=== PATIENT | female | born 1930 | race Caucasian/White ===

== ENCOUNTER → 2016-10-19 | Outpatient (CLI) | payer MEDICARE ==
[2016-10-19 11:29] LABS: Basophils % (A) 1 %; CH 29.5; CHCM 31.7; Eosinophils # (A) 0.1 k/uL (0-0.7); Eosinophils % (A) 2 %; HCT 32.3 % (34.0-46.0); HDW 2.75; HGB 10.4 gm/dL (11.4-16.0); Hypochromasia Slight; Luc # (Auto) 0.18; Luc % (Auto) 3; Lymphocytes # (A) 1.5 k/uL (1.0-4.8); Lymphocytes % (A) 22 %; MCHC 32.1 g/dL (31.0-37.0); MCV 93.6 fL (80.0-100.0); Monocytes # (A) 0.4 k/uL (0-1.0); Monocytes % (A) 6 %; Neutrophils # (A) 4.5 k/uL (1.3-7.7); Neutrophils % (A) 67 %; RBC 3.45 m/uL (3.80-5.40); RDW 14.9 % (11.5-15.5); WBC 6.7 k/uL (3.8-10.6); WBC (Perox) 7.19
[2016-10-19 11:38] LABS: Appearance,Urine Clear (Clear); Bilirubin,Urine Negative (Negative); Glucose,Urine (UA) Negative (Negative); Ketones,Urine Negative (Negative); Leukocyte Esterase,Urine Negative (Negative); Mucus,Urine Rare /hpf; Nitrite,Urine Negative (Negative); Particle Count 2973; Protein,Urine Negative (Negative); RBC,Urine 6 /hpf (0-5); Squamous Epithelial Cell,Urine 12 /hpf (0-4); UA Billing (MACRO vs. MICRO) MICRO; Urobilinogen,Urine <2.0 mg/dL (<2.0); WBC,Urine 3 /hpf (0-5)
[2016-10-19 11:44] LABS: Calcium 9.9 mg/dL (8.4-10.2); Magnesium 1.9 mg/dL (1.6-2.3); Phosphorous 4.1 mg/dL (2.5-4.5); Potassium 5.4 mmol/L (3.5-5.1); Total Bilirubin 0.6 mg/dL (0.2-1.3); Total Protein 6.5 g/dL (6.3-8.2); Uric Acid 7.5 mg/dL (3.7-7.4)
[2016-10-19 11:53] LABS: % Iron Saturation 33.8 % (20-50)
== END ==
LOC: LABWHC1 10:49
PROVIDERS: ATTEND Nurse Practitioner Family
DX: I12.9 Hypertensive chronic kidney disease with stage 1 through stage 4 chronic kidney disease, or unspecified chronic kidney disease (principal); N18.3 Chronic kidney disease, stage 3 (moderate); D64.9 Anemia, unspecified; E55.9 Vitamin D deficiency, unspecified; E21.3 Hyperparathyroidism, unspecified; M10.9 Gout, unspecified; N39.0 Urinary tract infection, site not specified; M10.00 Idiopathic gout, unspecified site; E78.2 Mixed hyperlipidemia; E03.9 Hypothyroidism, unspecified
CPT/HCPCS: 36415; 80053; 80061; 81001; 82306; 82728; 83540; 83550; 83735; 83970; 84100; 84443; 84550; 85025

== ENCOUNTER 2016-11-29 12:31 | Inpatient (IN) | payer MEDICARE ==
[2016-11-29] MEDS ORDERED: ACETAMINOPHEN TAB 325 MG TAB PO STA (13:03)
--- NOTE | 2016-11-29 13:11 | ED ---
General Adult HPI - General Chief complaint: Extremity Injury, Lower Stated complaint: Leg Pain Time Seen by Provider: 11/29/16 12:47 Source: patient, family, RN notes reviewed Mode of arrival: wheelchair Limitations: no limitations - History of Present Illness Initial comments: Chief complaint and history of present illness an 85-year-old female here with her . Patient reports that approximately 11 days ago her leg, right lower leg was banged into by a wheelchair. 5 days ago she saw her family physician was placed on clindamycin. Since then the redness has slightly decreased with localized pain and swelling and he has increased. There is no open wound originally. There is a blackened blood blister. - Related Data Home Medications Medication Instructions Recorded Confirmed ALPRAZolam [Xanax] 0.25 mg PO BID PRN 11/06/13 11/25/16 Atenolol [Tenormin] 25 mg PO DAILY 11/06/13 11/25/16 Ferrous Sulfate [Feosol] 650 mg PO DAILY 11/06/13 11/25/16 Furosemide [Lasix] 40 mg PO DAILY 11/06/13 11/25/16 Montelukast [Singulair] 10 mg PO HS 11/06/13 11/25/16 PARoxetine [Paxil] 10 mg PO DAILY 11/06/13 11/25/16 Albuterol Nebulized [Ventolin 2.5 mg INHALATION RT-BID 12/25/15 11/25/16 Nebulized] Levothyroxine Sodium [Synthroid] 25 mcg PO DAILY 12/25/15 11/25/16 Multivitamin [Multivitamins Adult 1 tab PO DAILY 12/25/15 11/25/16 Gummies] Allergies Allergy/AdvReac Type Severity Reaction Status Date / Time codeine Allergy Severe Nausea & Verified 11/25/16 13:59 Vomiting morphine Allergy Severe Nausea & Verified 11/25/16 13:59 Vomiting Penicillins Allergy Rash/Hives Verified 11/25/16 13:59 trazodone AdvReac Unknown Verified 11/25/16 13:59 Review of Systems ROS Statement: Those systems with pertinent positive or pertinent negative responses have been documented in the HPI. review of systems. Patient denies headache or visual acuity changes she is slightly short of breath and has a history of COPD for which she is her self 2 updrafts daily. No nausea no vomiting. Pain swelling redness right lower leg. No neuro deficits. All systems are reviewed.Past medical processing significant for COPD, hypertension, myocardial infarction 2012 with one stent placed stage IV renal disease. On occasion has to get injections of Procrit. Has never had transfusion of blood. Patient surgeries include tonsils, adenoids , cholecystectomy, heart catheterization with one stent placed. Umbilical hernia repair. She's had a colonoscopy. 2 total knees done. Family history sister had breast cancer. She has ALLERGIES to medications codeine and morphine penicillin trazodone which upset her stomach does not give her true ALLERGIC-type reactions such as hives or difficulty breathing or rash. Nonsmoker nondrinker. ROS Other: All systems not noted in ROS Statement are negative. Past Medical History Past Medical History: Asthma, COPD, Hypertension, Myocardial Infarction ([place]), Renal Disease Last Myocardial Infarction Date:: 2010 History of Any Multi-Drug Resistant Organisms: None Reported Past Surgical History: Adenoidectomy, Cholecystectomy, Heart Catheterization With Stent, Hernia Repair, Tonsillectomy Additional Past Surgical History / Comment(s): Hx colonoscopy, left and rt knee replacement hx oopherectomy Date of Last Stent Placement:: 2010 Past Psychological History: Anxiety Smoking Status: Never smoker Past Alcohol Use History: None Reported Past Drug Use History: None Reported General Exam - General Exam Comments Initial Comments: General: The patient is awake and alert, here because of worsening cellulitis right lower leg. Vital signs shows temperature 97.8 pulse 60 respiratory rate 20 , pulse ox 96% on room air, blood pressure 139/65 Eye: Pupils are equal, round and reactive to light, extra-ocular movements are intact ; there is normal conjunctiva bilaterally. No signs of icterus. Ears, nose, mouth and throat: There are moist mucous membranes and no oral lesions. Neck: The neck is supple, there is no tenderness , no anterior cervical lymphadenopathy, thyroid not enlarged. Cardiovascular: There is a regular rate and rhythm. No murmur, rub or gallop is appreciated. Respiratory: Lungs are clear to auscultation, respirations are non-labored, breath sounds are equal. No wheezes, stridor, rales, or rhonchi.history of COPD Gastrointestinal: Soft, non-distended, non-tender abdomen without masses or organomegaly noted. There is no rebound or guarding present. No CVA tenderness. Bowel sounds are unremarkable. Back: There is no tenderness to palpation in the midline. There is no obvious deformity. Musculoskeletal: all extremities are normal and move normal for her age. But she does have pain and swelling and cellulitis to her right distal leg. Neurological: CN II-XII intact, no evidence of a neuro deficits. Skin: cellulitis right lower leg Psychiatric: Cooperative, appropriate mood & affect, normal judgment. Limitations: no limitations Course Vital Signs 11/29/16 11/29/16 12:36 14:32 Temperature 97.8 F 98.1 F Pulse Rate 60 Respiratory 20 Rate Blood Pressure 139/65 O2 Sat by Pulse 96 Oximetry Medical Decision Making - Medical Decision Making Medical decision making the patient's white count is 10.9 hemoglobin 10.9 hematocrit 34, potassium 5.9 with a BUN elevated at 70 creatinine 2.45 the GFR 19. Pulse ox 96% room air. X-ray of the right leg was done and reviewed by radiologist his impression is a mild subcutaneous edema edema. No fracture. Bony structures are stable compared to old exam. As read by Dr. Tineo The patient's case was discussed with Dr. colon, he recommends starting vancomycin at this time with infectious disease consult. Patient be admitted to his service - Lab Data Result diagrams: 11/29/16 13:50 11/29/16 13:50 Lab Results 11/29/16 11/29/16 Range/Units 13:50 13:50 WBC 10.9 H (3.8-10.6) k/uL RBC 3.65 L (3.80-5.40) m/uL Hgb 10.9 L (11.4-16.0) gm/dL Hct 34.1 (34.0-46.0) % MCV 93.5 (80.0-100.0) fL MCH 29.7 (25.0-35.0) pg MCHC 31.8 (31.0-37.0) g/dL RDW 15.5 (11.5-15.5) % Plt Count 148 L (150-450) k/uL Neutrophils % 78 % Lymphocytes % 14 % Monocytes % 4 % Eosinophils % 1 % Basophils % 0 % Neutrophils # 8.6 H (1.3-7.7) k/uL Lymphocytes # 1.5 (1.0-4.8) k/uL Monocytes # 0.4 (0-1.0) k/uL Eosinophils # 0.2 (0-0.7) k/uL Basophils # 0.0 (0-0.2) k/uL Hypochromasia Slight Sodium 139 (137-145) mmol/L Potassium 5.9 H (3.5-5.1) mmol/L Chloride 112 H (98-107) mmol/L Carbon Dioxide 16 L (22-30) mmol/L Anion Gap 11 mmol/L BUN 70 H (7-17) mg/dL Creatinine 2.45 H (0.52-1.04) mg/dL Est GFR (MDRD) Af Amer 23 (>60 ml/min/1.73 sqM) Est GFR (MDRD) Non-Af 19 (>60 ml/min/1.73 sqM) Glucose 105 H (74-99) mg/dL Calcium 10.1 (8.4-10.2) mg/dL Total Bilirubin 0.9 (0.2-1.3) mg/dL AST 33 (14-36) U/L ALT 26 (9-52) U/L Alkaline Phosphatase 69 (38-126) U/L Total Protein 7.3 (6.3-8.2) g/dL Albumin 4.1 (3.5-5.0) g/dL Disposition Clinical Impression: Cellulitis of right lower leg, Failure of outpatient treatment Disposition: ADMITTED IP TO THIS [facility] Condition: Serious Referrals: Derrick Vela MD [Primary Care Provider] - 1-2 days
[2016-11-29 14:06] LABS: Basophils % (A) 0 %; CH 29.7; CHCM 31.9; Eosinophils # (A) 0.2 k/uL (0-0.7); Eosinophils % (A) 1 %; HCT 34.1 % (34.0-46.0); HGB 10.9 gm/dL (11.4-16.0); Hypochromasia Slight; Luc # (Auto) 0.22; Luc % (Auto) 2; Lymphocytes # (A) 1.5 k/uL (1.0-4.8); Lymphocytes % (A) 14 %; MCH 29.7 pg (25.0-35.0); MCHC 31.8 g/dL (31.0-37.0); MCV 93.5 fL (80.0-100.0); Mean Platelet Volume 8.8; Monocytes # (A) 0.4 k/uL (0-1.0); Monocytes % (A) 4 %; Neutrophils # (A) 8.6 k/uL (1.3-7.7); Neutrophils % (A) 78 %; RBC 3.65 m/uL (3.80-5.40); RDW 15.5 % (11.5-15.5); WBC 10.9 k/uL (3.8-10.6); WBC (Perox) 11.55
[2016-11-29 14:14] LABS: Calcium 10.1 mg/dL (8.4-10.2); Total Bilirubin 0.9 mg/dL (0.2-1.3); Total Protein 7.3 g/dL (6.3-8.2)
[2016-11-29 14:16] LABS: Potassium 5.9 mmol/L (3.5-5.1)
[2016-11-29] MEDS: SODIUM CHLORIDE 0.9% 1,000 ML IV SCH ×2 (14:31→17:10)
--- NOTE | 2016-11-29 15:02 | XR ---
EXAMINATION TYPE: XR tibia fibula RT DATE OF EXAM: 11/29/2016 2:57 PM COMPARISON: 10/29/2009 HISTORY: Leg abscess TECHNIQUE: 3 views FINDINGS: There is a right knee prosthesis. There is mild subcutaneous edema. I see no fracture nor d islocation. Ankle mortise is anatomic. IMPRESSION: Mild subcutaneous edema. No fracture. Bony structures are stable compared to old exam.
[2016-11-29] MEDS ORDERED: IV VANCOMYCIN PER PHARMACY 1 EACH MISC MISCELLANE PRN (15:06)
[2016-11-29] MEDS ORDERED: NALOXONE 0.4 MG/ML 1 ML VIAL IV PRN (15:07)
[2016-11-29] MEDS ORDERED: ACETAMINOPHEN TAB 325 MG TAB PO PRN (15:07)
[2016-11-29] MEDS ORDERED: IPRATROPIUM-ALBUTEROL 3 ML NEB INHALATION STA (15:24)
[2016-11-29] MEDS ORDERED: VANCOMYCIN 2,000 MG in SODIUM CHLORIDE 0.9% 500 ML IVPB ONE (15:30)
[2016-11-29] MEDS: ALBUTEROL NEBULIZED 2.5 MG/3 ML INHALATION SCH (19:43)
[2016-11-29] MEDS ORDERED: diphenhydrAMINE 25 MG CAP PO PRN (20:48)
[2016-11-29] MEDS ORDERED: PARoxetine 10 MG TAB PO SCH (21:45)
[2016-11-29] MEDS: MONTELUKAST 10 MG TAB PO SCH (21:46)
[2016-11-29] MEDS: ALPRAZolam 0.25 MG TAB PO PRN (21:48)
[2016-11-30] MEDS: SODIUM CHLORIDE 0.9% 1,000 ML IV SCH ×4 (03:44→20:48)
[2016-11-30] MEDS: LEVOTHYROXINE 25 MCG TAB PO SCH (06:46)
[2016-11-30] MEDS: ALBUTEROL NEBULIZED 2.5 MG/3 ML INHALATION SCH ×2 (07:32→20:39)
[2016-11-30 08:08] LABS: Calcium 9.3 mg/dL (8.4-10.2); Potassium 4.4 mmol/L (3.5-5.1)
[2016-11-30] MEDS ORDERED: PARoxetine 10 MG TAB PO SCH (09:00)
[2016-11-30] MEDS: FUROSEMIDE 40 MG TAB PO SCH (09:10)
[2016-11-30] MEDS: ATENOLOL 25 MG TAB PO SCH (09:11)
[2016-11-30] MEDS: FERROUS SULFATE 325 MG TAB PO SCH (11:56)
[2016-11-30] MEDS: MULTIVITAMINS, THERA 1 EACH TAB PO SCH (11:56)
[2016-11-30] MEDS ORDERED: MORPHINE SULFATE 2 MG/ML SYRINGE IVP PRN (14:30)
--- NOTE | 2016-11-30 14:34 | P.HPIM ---
History of Present Illness H&P Date: 11/30/16 Chief Complaint: Right lower extremity redness and swelling This is a 85-year-old female with past medical history noted below who presented to the hospital with worsening right lower extremity swelling and pain. Patient said that 2 weeks ago she bumped her right ankle against the wheelchair. She subsequently had a small wound with surrounding redness. She was seen and evaluated by her primary care physician and was prescribed a course of oral antibiotic. Unfortunately her ankle continued to get worse in terms of swelling and pain. The area of redness was extending. Yesterday she was very concerned and decided to come to the emergency room for further evaluation. She underwent an x-ray showing intact bony structure but significant edema. She was started on broad-spectrum antibiotic with IV vancomycin and is currently admitted to the hospital for further evaluation. On exam, her right ankle appears significantly swollen compared to the left. There is an area of erythema up to the mid chin. There is also warmth to touch and significant tenderness. There is a 1 x 3 cm scab noted as well. Review of Systems Review of system: 14 points review of systems were obtained and were negative except to what were mentioned in the HPI. Past Medical History Past Medical History: Asthma, COPD, Hypertension, Myocardial Infarction ([place]), Renal Disease Last Myocardial Infarction Date:: 2010 History of Any Multi-Drug Resistant Organisms: None Reported Past Surgical History: Adenoidectomy, Cholecystectomy, Heart Catheterization With Stent, Hernia Repair, Tonsillectomy Additional Past Surgical History / Comment(s): Hx colonoscopy, left and rt knee replacement hx oopherectomy Past Anesthesia/Blood Transfusion Reactions: No Reported Reaction Date of Last Stent Placement:: 2010 Past Psychological History: Anxiety Smoking Status: Never smoker Past Alcohol Use History: None Reported Past Drug Use History: None Reported Medications and Allergies Home Medications Medication Instructions Recorded Confirmed Type ALPRAZolam [Xanax] 0.25 mg PO Q8H PRN 11/06/13 11/29/16 History Ferrous Sulfate [Feosol] 650 mg PO DAILY 11/06/13 11/29/16 History Furosemide [Lasix] 40 mg PO DAILY 11/06/13 11/29/16 History Montelukast [Singulair] 10 mg PO HS 11/06/13 11/29/16 History Allopurinol [Zyloprim] 100 mg PO DAILY 11/29/16 11/29/16 History Atenolol [Tenormin] 25 mg PO DAILY 11/29/16 11/29/16 History Calcium Carbonate [Calcium] 600 mg PO DAILY 11/29/16 11/29/16 History Cholecalciferol [Vitamin D3] 5,000 unit PO DAILY 11/29/16 11/29/16 History Clindamycin HCl [Cleocin] 300 mg PO TID 11/29/16 11/29/16 History Multivitamins, Thera [Multivitamin 1 tab PO DAILY 11/29/16 11/29/16 History (formulary)] [place]-3 Fatty Acids [[place]-3] 1,000 mg PO DAILY 11/29/16 11/29/16 History PARoxetine [Paxil] 20 mg PO HS 11/29/16 11/29/16 History Zinc 50 mg PO DAILY 11/29/16 11/29/16 History Allergies Allergy/AdvReac Type Severity Reaction Status Date / Time codeine Allergy Severe Nausea & Verified 11/29/16 15:24 Vomiting morphine Allergy Severe Nausea & Verified 11/29/16 15:24 Vomiting Penicillins Allergy Rash/Hives Verified 11/29/16 15:24 trazodone AdvReac Unknown Verified 11/29/16 15:24 Physical Exam Vitals: Vital Signs Temp Pulse Pulse Pulse Resp BP BP 11/30/16 07:46 68 11/30/16 07:34 68 11/30/16 07:00 99.0 F 68 19 154/70 11/29/16 23:55 98.2 F 64 20 139/84 11/29/16 16:33 97.2 F L 69 16 148/73 11/29/16 16:04 98.1 F 66 18 155/69 11/29/16 15:34 66 11/29/16 15:29 62 11/29/16 15:14 98.1 F 65 18 148/68 11/29/16 14:32 98.1 F Pulse Ox 11/30/16 07:46 11/30/16 07:34 11/30/16 07:00 94 L 11/29/16 23:55 96 11/29/16 16:33 95 11/29/16 16:04 96 11/29/16 15:34 11/29/16 15:29 11/29/16 15:14 96 11/29/16 14:32 Intake and Output 11/29/16 11/30/16 11/30/16 22:59 06:59 14:59 Intake Total 200 450 Balance 200 450 Intake: Oral 200 450 Other: Voiding Method Toilet Toilet Bedside Commode Bedside Commode # Voids 4 2 General: The patient is awake and alert, in no distress Eye: there is normal conjunctiva bilaterally. Neck: The neck is supple, there is no JVD. Cardiovascular: Normal S1-S2, no S3-S4, no murmurs. Respiratory: Lungs clear to auscultation bilaterally Gastrointestinal: Abdomen is soft, nontender Musculoskeletal: There is no pedal edema. Neurological:. Speech is normal. Skin: As detailed above in HPI Results CBC & Chem 7: 11/29/16 13:50 11/30/16 07:22 Labs: Abnormal Lab Results - Last 24 Hours (Table) 11/30/16 Range/Units 07:22 Chloride 113 H (98-107) mmol/L Carbon Dioxide 19 L (22-30) mmol/L BUN 61 H (7-17) mg/dL Creatinine 2.18 H (0.52-1.04) mg/dL Thrombosis Risk Factor Assmnt - Choose All That Apply Any of the Below Risk Factors Present?: Yes Each Factor Represents 1 point: Abnormal pulmonary function (COPD), Obesity ( BMI >25), Swollen legs (current) Other Risk Factors: Yes Each Risk Factor Represents 3 Points: Age 75 years or older Other congenital or acquired thrombophilia - If yes, enter type in comment: No Thrombosis Risk Factor Assessment Total Risk Factor Score: 6 Thrombosis Risk Factor Assessment Level: High Risk Assessment and Plan Plan: 1. Cellulitis of the right lower extremity failed outpatient management with oral antibiotic. Currently on IV vancomycin. Infectious disease consulted. I would obtain ultrasound to rule out DVT giving significant edema. I would also asked the nurse to marked area of erythema to monitor closely. 2. Essential hypertension: Blood pressure well-controlled continue current regimen 3. Major depressive disorder on paroxetine 4. DVT prophylaxis with subcu heparin
--- NOTE | 2016-11-30 15:21 | P.CNPUL ---
History of Present Illness Consult date: 11/30/16 Requesting physician: Helen Stephens Reason for consult: COPD, obstructive sleep apnea History of present illness: This is an 85-year-old female patient who is being admitted to the hospital for right lower extremity swelling and pain. The patient bumped her leg about 2 weeks ago against a wheelchair and she had a small wound subsequently. She was seen and evaluated by her primary care physician and was prescribed oral antibiotics however the ankle continued to get worse with swelling and pain. Yesterday it was bothering her so she came into the emergency room for further evaluation. She underwent an x-ray which showed an intact bony structure with significant anemia. Patient was put on broad-spectrum antibiotics and infectious disease was brought on board as well. This patient has a known history of obstructive sleep apnea and we were asked to evaluate the patient states she could bring in her home CPAP machine to use while in the hospital. Patient states she uses her CPAP machine on a nightly basis and has had no issues with that. Review of Systems Routine point review of systems was completed and is negative other than what's in the HPI. Past Medical History Past Medical History: Asthma, COPD, Hypertension, Myocardial Infarction ([place]), Renal Disease Last Myocardial Infarction Date:: 2010 History of Any Multi-Drug Resistant Organisms: None Reported Past Surgical History: Adenoidectomy, Cholecystectomy, Heart Catheterization With Stent, Hernia Repair, Tonsillectomy Additional Past Surgical History / Comment(s): Hx colonoscopy, left and rt knee replacement hx oopherectomy Past Anesthesia/Blood Transfusion Reactions: No Reported Reaction Date of Last Stent Placement:: 2010 Past Psychological History: Anxiety Smoking Status: Never smoker Past Alcohol Use History: None Reported Past Drug Use History: None Reported Medications and Allergies Home Medications Medication Instructions Recorded Confirmed Type ALPRAZolam [Xanax] 0.25 mg PO Q8H PRN 11/06/13 11/29/16 History Ferrous Sulfate [Feosol] 650 mg PO DAILY 11/06/13 11/29/16 History Furosemide [Lasix] 40 mg PO DAILY 11/06/13 11/29/16 History Montelukast [Singulair] 10 mg PO HS 11/06/13 11/29/16 History Allopurinol [Zyloprim] 100 mg PO DAILY 11/29/16 11/29/16 History Atenolol [Tenormin] 25 mg PO DAILY 11/29/16 11/29/16 History Calcium Carbonate [Calcium] 600 mg PO DAILY 11/29/16 11/29/16 History Cholecalciferol [Vitamin D3] 5,000 unit PO DAILY 11/29/16 11/29/16 History Clindamycin HCl [Cleocin] 300 mg PO TID 11/29/16 11/29/16 History Multivitamins, Thera [Multivitamin 1 tab PO DAILY 11/29/16 11/29/16 History (formulary)] [place]-3 Fatty Acids [[place]-3] 1,000 mg PO DAILY 11/29/16 11/29/16 History PARoxetine [Paxil] 20 mg PO HS 11/29/16 11/29/16 History Zinc 50 mg PO DAILY 11/29/16 11/29/16 History Allergies Allergy/AdvReac Type Severity Reaction Status Date / Time codeine Allergy Severe Nausea & Verified 11/29/16 15:24 Vomiting morphine Allergy Severe Nausea & Verified 11/29/16 15:24 Vomiting Penicillins Allergy Rash/Hives Verified 11/29/16 15:24 trazodone AdvReac Unknown Verified 11/29/16 15:24 Physical Exam Vitals: Vital Signs Temp Pulse Pulse Pulse Resp BP BP 11/30/16 07:46 68 11/30/16 07:34 68 11/30/16 07:00 99.0 F 68 19 154/70 11/29/16 23:55 98.2 F 64 20 139/84 11/29/16 16:33 97.2 F L 69 16 148/73 11/29/16 16:04 98.1 F 66 18 155/69 11/29/16 15:34 66 11/29/16 15:29 62 11/29/16 15:14 98.1 F 65 18 148/68 Pulse Ox 11/30/16 07:46 11/30/16 07:34 11/30/16 07:00 94 L 11/29/16 23:55 96 11/29/16 16:33 95 11/29/16 16:04 96 11/29/16 15:34 11/29/16 15:29 11/29/16 15:14 96 Intake and Output 11/30/16 11/30/16 11/30/16 06:59 14:59 22:59 Intake Total 450 Balance 450 Intake: Oral 450 Other: Voiding Method Toilet Toilet Bedside Commode Bedside Commode # Voids 4 2 GENERAL EXAM: Alert, active, comfortable in no apparent distress. HEAD: Normocephalic. EYES: Normal reaction of pupils, equal size. NOSE: Clear with pink turbinates. THROAT: No erythema or exudates. NECK: No masses, no JVD. CHEST: No chest wall deformity. LUNGS: Equal air entry with no crackles, wheeze, rhonchi or dullness. CVS: S1 and S2 normal with no audible mumurs, regular rhythm. ABDOMEN: No hepatosplenomegaly, normal bowel sounds, no guarding or rigidity. EXTREMITIES: No edema noted, pedal pulses palpable. SKIN: Right ankle swollen with erythema up to the middle of her lee, it is significantly tender as well as warm to touch. CENTRAL NERVOUS SYSTEM: No focal deficits, tone is normal in all 4 extremities. Results - Laboratory Findings CBC and BMP: 11/29/16 13:50 11/30/16 07:22 Abnormal lab findings: Abnormal Labs 11/29/16 11/29/16 11/30/16 13:50 13:50 07:22 WBC 10.9 H RBC 3.65 L Hgb 10.9 L Plt Count 148 L Neutrophils # 8.6 H Potassium 5.9 H Chloride 112 H 113 H Carbon Dioxide 16 L 19 L BUN 70 H 61 H Creatinine 2.45 H 2.18 H Glucose 105 H Assessment and Plan Plan: Assessment Cellulitis of the right lower extremity with failed outpatient treatment History of moderate COPD obstructive sleep apnea Essential hypertension Major depressive disorder Plan Medications have been reviewed and will be continued as ordered. Continue with pulmonary hygiene, coughing and deep breathing exercises, and supportive care. Continue with breathing treatments and Singulair. She may use her home CPAP machine. GI and DVT prophylaxis. Infectious disease on consult. Will have a Doppler study to the bilateral lower extremities. We will continue to monitor labs/results and adjust treatment as necessary. Further recommendations pending. I performed an examination of the patient and discussed their management with the nurse practitioner. I have reviewed the nurse practitioner's note and agree with the documented findings and plan of care. We are covering for Dr. NED Duffy's group till tomorrow who will see the patient going forward.
[2016-11-30] MEDS ORDERED: VANCOMYCIN 1,500 MG in SODIUM CHLORIDE 0.9% 250 ML IVPB ONE (16:00)
--- NOTE | 2016-11-30 16:02 | US ---
EXAMINATION TYPE: US venous doppler duplex LE RT DATE OF EXAM: 11/30/2016 3:55 PM COMPARISON: NONE CLINICAL HISTORY: Rule out DVT. Cellulitis right lower leg SIDE PERFORMED: right TECHNIQUE: The lower extremity deep venous system is examined utilizing real time linear array sonog mi with graded compression, doppler sonography and color-flow sonography. VESSELS IMAGED: External Iliac Vein (EIV) Common Femoral Vein Deep Femoral Vein Greater Saphenous Vein * Femoral Vein Popliteal Vein Small Saphenous Vein * Proximal Calf Veins (* superficial vessels) Right Leg: No evidence of DVT IMPRESSION: Grayscale, color doppler, spectral doppler imaging performed of the deep veins of the lo wer extremities. There is normal flow, compressibility, vascular waveforms bilaterally. No evidence of deep venous thrombosis in the right leg. Normal exam.
[2016-11-30] MEDS: PARoxetine 20 MG TAB PO SCH (20:41)
[2016-11-30] MEDS: ALPRAZolam 0.25 MG TAB PO PRN (20:41)
[2016-11-30] MEDS: HEPARIN SODIUM,PORCINE 5,000 UNIT/ML 1 ML VIAL SQ SCH (20:41)
[2016-11-30] MEDS: MONTELUKAST 10 MG TAB PO SCH (20:42)
[2016-11-30] MEDS: CEFTAROLINE FOSAMIL 400 MG in SODIUM CHLORIDE 0.9% 250 ML IVPB SCH (20:48)
[2016-12-01] MEDS: LEVOTHYROXINE 25 MCG TAB PO SCH (06:42)
[2016-12-01 09:13] LABS: Calcium 9.3 mg/dL (8.4-10.2); Potassium 4.1 mmol/L (3.5-5.1)
--- NOTE | 2016-12-01 09:30 | CONS ---
DATE OF CONSULTATION: 11/30/2016 REASON FOR CONSULTATION: Right lower extremity wound and cellulitis. HISTORY OF PRESENT ILLNESS: The patient is an 85-year-old female who did sustain an injury to the right later foot from the front edge of the wheelchair she was trying to sit in about two weeks ago. The patient said that she did have a small wound to the area with some surrounding redness. Patient has been seen by her primary care physician and had been given a course of oral antibiotic. However, she noticed the area to become more swollen, more red and painful. Pain described to be some dull aching about 5 to 7 when she walks on it and none when she is resting. No significant drainage from it. Patient denies any high-grade fever and chills. Subsequently, the patient has been evaluated by the ER physician where the patient did have x-rays with no evidence of any bony destruction. Patient admitted to the hospital and she has been treated with IV vancomycin. ID was consulted for further recommendation regarding diabetic. The patient did have evidence of renal insufficiency with a creatinine 2.45 on admission down to 2.18 with white count of 10.9 and no significant fever recorded. Highest has been 99. REVIEW OF SYSTEMS: CONSTITUTIONAL: Positive for weakness. No high-grade fever. EYES: No complaint. ENT: No complaint. RESPIRATORY: Occasional cough. CARDIOVASCULAR: No complaint. GENITOURINARY: No complaint. GASTROINTESTINAL: No complaint. MUSCULOSKELETAL: No complaint. INTEGUMENTARY: As per HPI. ENDOCRINE: No complaint. NEUROLOGIC: No complaint. PAST MEDICAL HISTORY: Significant for asthma, COPD, hypertension, myocardial infarction, renal insufficiency. PAST SURGICAL HISTORY: Adenoidectomy, cholecystectomy, PTCA with stent, hernia repair, tonsillectomy. SOCIAL HISTORY: No history of smoking, drinking or drug use. FAMILY HISTORY: No pertinent findings noticed. ALLERGIES: CODEINE, MORPHINE, PENICILLIN, TRAZODONE. No history of anaphylaxis with penicillin. MEDICATIONS: Currently include the patient is on Tylenol, Ventolin, Xanax, Tenormin, Benadryl, iron sulfate, Lasix, heparin, Synthroid, morphine sulfate, Theragran, Narcan, Paxil. On examination, blood pressure is 156/73 with a pulse of 66, temperature of 96.5. She is 97% on room air. General description is an elderly female lying in bed in no distress. No tachypnea or accessory muscle of respiration use. HEENT slight pallor. There is no scleral icterus. Oral mucous membrane dry. NECK: Trachea central. There is no thyromegaly. LUNGS: Unlabored breathing. Clear to auscultation anteriorly. HEART: S1, S2. Regular rate and rhythm. ABDOMEN: Soft. No tenderness. EXTREMITIES: No edema of feet. Examination of the right leg, did have a small wound to the lateral leg area that has been cleaned and cultures obtained with surrounding redness though the redness receded from the aguilar placed yesterday. No foul-smelling drainage. NEUROLOGICAL: Patient awake, alert and oriented. Mood and affect is normal. LABS: BUN of 51 with a creatinine 2.18. Hemoglobin is 10.1, white count 10.9. admission WBC of 15.4. Blood culture obtained, currently pending. DIAGNOSTIC IMPRESSION AND PLAN: Patient with acute right lower extremity cellulitis that started like a small trauma from frontend of the wheelchair while visiting the hospital. The likely organism we will need to cover is Gram-positive skin ethan; however, we need to cover for the MRSA that possibly started in the hospital setting in a patient who did have evidence of renal insufficiency and high risk of nephrotoxicity from the vancomycin. PLAN: 1. Discontinue vancomycin. 2. Wound cultures obtained that should be sent for culture. 3. Start the patient on Teflaro 400 IV q.12, dose adjusted to her kidney function. Patient has history of penicillin allergy. No history of anaphylaxis. Cephalosporin would be safe. 4. Will follow up with clinical condition and cultures to further adjust the medication if needed. Thank you for this consultation. Will follow this patient along with you. UMAIR
[2016-12-01] MEDS: ALBUTEROL NEBULIZED 2.5 MG/3 ML INHALATION SCH ×2 (09:31→20:06)
[2016-12-01] MEDS: HEPARIN SODIUM,PORCINE 5,000 UNIT/ML 1 ML VIAL SQ SCH ×2 (09:41→20:32)
[2016-12-01] MEDS: CEFTAROLINE FOSAMIL 400 MG in SODIUM CHLORIDE 0.9% 250 ML IVPB SCH (09:41)
[2016-12-01] MEDS: ATENOLOL 25 MG TAB PO SCH (09:42)
[2016-12-01] MEDS: FUROSEMIDE 40 MG TAB PO SCH (09:42)
[2016-12-01 10:01] LABS: Basophils % (A) 0 %; CH 29.4; CHCM 31.2; Eosinophils # (A) 0.2 k/uL (0-0.7); Eosinophils % (A) 2 %; HCT 29.6 % (34.0-46.0); HDW 2.77; Hypochromasia Slight; Luc # (Auto) 0.15; Luc % (Auto) 2; Lymphocytes # (A) 1.3 k/uL (1.0-4.8); Lymphocytes % (A) 18 %; MCH 29.7 pg (25.0-35.0); MCHC 31.4 g/dL (31.0-37.0); MCV 94.6 fL (80.0-100.0); Mean Platelet Volume 8.9; Monocytes # (A) 0.4 k/uL (0-1.0); Monocytes % (A) 6 %; Neutrophils # (A) 5.1 k/uL (1.3-7.7); Neutrophils % (A) 72 %; RBC 3.13 m/uL (3.80-5.40); RDW 15.3 % (11.5-15.5); WBC 7.1 k/uL (3.8-10.6); WBC (Perox) 7.08
[2016-12-01 10:14] LABS: HGB 9.3 gm/dL (11.4-16.0)
[2016-12-01] MEDS: SODIUM CHLORIDE 0.9% 1,000 ML IV SCH (10:42)
--- NOTE | 2016-12-01 12:04 | P.PN ---
Subjective Principal diagnosis: Cellulitis Patient seen and examined. Patient states her breathing is "okay." She just had a breathing treatment feels a little bit better. She states she was having some shortness of breath this morning. She denies any fevers or chills. She denies cough. Objective - Vital Signs Vital signs: Vital Signs Temp 97.0 F L 12/01/16 07:00 Pulse 76 12/01/16 09:43 Resp 22 12/01/16 09:31 BP 156/79 12/01/16 07:00 Pulse Ox 98 12/01/16 07:00 Intake & Output 11/30/16 12/01/16 12/01/16 18:59 06:59 18:59 Intake Total 200 240 Balance 200 240 Intake: Oral 200 240 Other: Voiding Method Toilet Toilet Bedside Commode Bedside Commode # Voids 4 1 # Bowel Movements 1 0 - Exam Gen.: Patient is alert and oriented 3, no acute distress, obese neck sign cardiovascular: Regular rate and rhythm, S1/S2 Lungs: Clear to auscultation bilaterally no wheezes rales or rhonchi Abdomen: Soft nontender nondistended positive bowel sounds Extremities: Right lower extremity erythema and edema, dressing clean dry and intact - Labs CBC & Chem 7: 12/01/16 08:27 12/01/16 08:27 Labs: Abnormal Lab Results - Last 24 Hours (Table) 12/01/16 12/01/16 Range/Units 08:27 08:27 RBC 3.13 L (3.80-5.40) m/uL Hgb 9.3 L D (11.4-16.0) gm/dL Hct 29.6 L (34.0-46.0) % Plt Count 127 L (150-450) k/uL Sodium 146 H (137-145) mmol/L Chloride 117 H (98-107) mmol/L Carbon Dioxide 20 L (22-30) mmol/L BUN 54 H (7-17) mg/dL Creatinine 2.26 H (0.52-1.04) mg/dL Glucose 132 H (74-99) mg/dL Microbiology - Last 24 Hours (Table) 11/30/16 16:15 Gram Stain - Preliminary Leg - Right Wound Culture - Preliminary 11/29/16 13:50 Blood Culture - Preliminary Blood No Growth after 24 hours Assessment and Plan Plan: Cellulitis of the right lower extremity with failed outpatient treatment History of moderate COPD obstructive sleep apnea, compliant with CPAP Essential hypertension Major depressive disorder Plan O2 to maintain sat > or = 88% Continue with pulmonary hygiene and incentive spirometry. Continue with breathing treatments and Singulair. Home CPAP machine. GI and DVT prophylaxis. Infectious disease on consult. Patient follows with Dr. NED Duffy in the office
[2016-12-01] MEDS: MULTIVITAMINS, THERA 1 EACH TAB PO SCH (12:11)
[2016-12-01] MEDS: FERROUS SULFATE 325 MG TAB PO SCH (12:11)
[2016-12-01 16:19] VITALS: BMI 32.9
--- NOTE | 2016-12-01 16:58 | CDI ---
In responding to this query, please exercise your independent professional judgment. The [facility] Coding Staff and Clinical Documentation Specialists appreciate your assistance in clarifying documentation, maintaining compliance with coding guidelines, accurately documenting patients condition and capturing severity of illness. The fact that a question is asked does not imply that any particular answer is desired or expected. Communication forms are a method of clarifying documentation and are not made part of the Legal Health Record. Thank you in advance for your clarification. Last Revision, May [address] [facility] [place] [address] Documentation Clarification Form Date: 12/01/2016 4:23:00 PM From: Estefania Velasquez Admit Date: 11/29/2016 3:07:00 PM Patient Name: Lizzie Cristobal Visit Number: [id number] Discharge Date: Dr. Helen Stephens Clinical Indicators: 11/29/16 Lab values: Potassium 5.9, BUN 70, CR 2.45, GFR 19 History: Asthma, COPD, Hypertension, Renal Disease Treatment: IV Fluids @ 70 ml/hrs Monitor labs Clinical significance of diagnostic testing and treatment CANNOT be assumed or coded without physician documentation of significance if any. Please clarify what abnormal laboratory signifies: Disease process, please specify Infectious process, please specify Unable to determine Other, please specify Please document in your progress notes and discharge summary in order to capture severity of illness and risk of mortality. Include clinical findings that support your diagnosis. FYI: Press F11 to launch patient chart Place X here if this finding has no clinical significance, is not applicable or if you are not able to provide any additional documentation. UMAIR
--- NOTE | 2016-12-01 17:11 | P.PN ---
Subjective Principal diagnosis: R lower extremity cellulitis Patient is doing better right lower extremity swelling and erythema has improved. She was having shortness of breath and O2 desaturation, she is maintained on CPAP while asleep, and has improved. On review of systems There is no fever or chills no headaches no dizziness No chest pain no palpitation At this time there is no shortness of breath no cough No nausea or vomiting no abdominal pain no diarrhea or constipation And no urinary symptoms Objective - Vital Signs Vital signs: Vital Signs Temp 98.1 F 12/01/16 15:00 Pulse 69 12/01/16 16:00 Resp 22 12/01/16 16:00 BP 150/69 12/01/16 15:00 Pulse Ox 96 12/01/16 15:00 Intake & Output 11/30/16 12/01/16 12/01/16 18:59 06:59 18:59 Intake Total 200 480 Balance 200 480 Weight 92.533 kg Intake: Oral 200 480 Other: Voiding Method Toilet Toilet Toilet Bedside Commode Bedside Commode # Voids 4 1 2 # Bowel Movements 1 0 0 - Exam In general patient is alert and oriented 3 in no apparent distress HEENT head normocephalic and atraumatic Neck is supple no JVD no goiter no lymphadenopathy Chest is clear to auscultation no crackles no wheezing Cardiac exam reveals regular heart sounds no gallops no murmurs Abdomen is soft nontender no organomegaly Extremity exam reveals mild edema with erythema in the right pretibial area no cyanosis or clubbing - Labs CBC & Chem 7: 12/01/16 08:27 12/01/16 08:27 Labs: Abnormal Lab Results - Last 24 Hours (Table) 12/01/16 12/01/16 Range/Units 08:27 08:27 RBC 3.13 L (3.80-5.40) m/uL Hgb 9.3 L D (11.4-16.0) gm/dL Hct 29.6 L (34.0-46.0) % Plt Count 127 L (150-450) k/uL Sodium 146 H (137-145) mmol/L Chloride 117 H (98-107) mmol/L Carbon Dioxide 20 L (22-30) mmol/L BUN 54 H (7-17) mg/dL Creatinine 2.26 H (0.52-1.04) mg/dL Glucose 132 H (74-99) mg/dL Microbiology - Last 24 Hours (Table) 11/29/16 13:50 Blood Culture - Preliminary Blood No Growth after 48 hours 11/30/16 16:15 Gram Stain - Preliminary Leg - Right Wound Culture - Preliminary Assessment and Plan Plan: #1 Cellulitis of the right lower extremity, failed outpatient treatment with oral antibiotics currently maintained on IV ceftaroline awaiting blood culture results, and wound culture results #2 History of COPD, stable at this time continue was current management #3 obstructive sleep apnea, compliant with CPAP #4 Essential hypertension, with borderline control systolic blood pressure in the 150 range will monitor and adjust blood pressure medications as needed #5 chronic renal failure Baseline creatinine 2-2.5 stable at this time will monitor closely #6 chronic anemia will monitor #7 Major depressive disorder
[2016-12-01] MEDS: PARoxetine 20 MG TAB PO SCH (20:31)
[2016-12-01] MEDS: ALPRAZolam 0.25 MG TAB PO PRN (20:31)
[2016-12-01] MEDS: MONTELUKAST 10 MG TAB PO SCH (20:31)
[2016-12-01] MEDS: CEFTAROLINE FOSAMIL 300 MG in SODIUM CHLORIDE 0.9% 250 ML IVPB SCH (20:33)
[2016-12-02] MEDS: SODIUM CHLORIDE 0.9% 1,000 ML IV SCH (04:04)
--- NOTE | 2016-12-02 05:33 | PN ---
DATE OF SERVICE: 12/01/2016 Reason for followup is right lower leg wound infection and cellulitis. INTERVAL HISTORY: The patient is afebrile. She is breathing slightly comfortably. Denies any significant chest. No cough, no abdominal pain. Denies worsening pain in the right lateral leg area. On examination, blood pressure is 150/69 with a pulse of 69, temperature 98.1. She is 96% on room air. General description is an elderly female lying in bed in no distress. RESPIRATORY SYSTEM: Unlabored breathing. Clear to auscultation anteriorly. HEART: S1, S2. Regular rate and rhythm. ABDOMEN: Soft, no tenderness. Right lateral leg redness slightly decreased from the line that was placed yesterday. No drainage. LABS: Hemoglobin 9.3, white count 7.1 with a BUN of 54, creatinine 2.26. DIAGNOSTIC IMPRESSION AND PLAN: Patient with right lower leg wound with secondary cellulitis on Teflaro. Continue with Aiden wrap. RN instructed to applyACE appropriately to prevent any swelling and blister. Family present at the bedside. Their questions were answered. UMAIR
[2016-12-02] MEDS: LEVOTHYROXINE 25 MCG TAB PO SCH (06:58)
[2016-12-02] MEDS: ALBUTEROL NEBULIZED 2.5 MG/3 ML INHALATION SCH ×2 (07:33→19:24)
[2016-12-02 08:55] LABS: Basophils % (A) 0 %; CH 29.1; CHCM 31.3; Eosinophils # (A) 0.1 k/uL (0-0.7); Eosinophils % (A) 2 %; HDW 2.87; HGB 9.5 gm/dL (11.4-16.0); Hypochromasia Slight; Luc % (Auto) 3; Lymphocytes # (A) 2.2 k/uL (1.0-4.8); Lymphocytes % (A) 29 %; MCH 29.7 pg (25.0-35.0); MCHC 31.8 g/dL (31.0-37.0); MCV 93.4 fL (80.0-100.0); Mean Platelet Volume 8.4; Monocytes # (A) 0.3 k/uL (0-1.0); Monocytes % (A) 4 %; Neutrophils # (A) 4.8 k/uL (1.3-7.7); Neutrophils % (A) 63 %; RBC 3.21 m/uL (3.80-5.40); RDW 15.4 % (11.5-15.5); WBC 7.7 k/uL (3.8-10.6); WBC (Perox) 8.06
[2016-12-02 09:05] LABS: Calcium 9.7 mg/dL (8.4-10.2); Potassium 4.1 mmol/L (3.5-5.1); Total Bilirubin 0.7 mg/dL (0.2-1.3); Total Protein 6.8 g/dL (6.3-8.2)
[2016-12-02] MEDS: ATENOLOL 25 MG TAB PO SCH (09:47)
[2016-12-02] MEDS: CEFTAROLINE FOSAMIL 300 MG in SODIUM CHLORIDE 0.9% 250 ML IVPB SCH ×2 (09:47→21:13)
[2016-12-02] MEDS: HEPARIN SODIUM,PORCINE 5,000 UNIT/ML 1 ML VIAL SQ SCH ×3 (09:47→23:00)
[2016-12-02] MEDS: FUROSEMIDE 40 MG TAB PO SCH (09:48)
[2016-12-02] MEDS: FERROUS SULFATE 325 MG TAB PO SCH (12:43)
[2016-12-02] MEDS: MULTIVITAMINS, THERA 1 EACH TAB PO SCH (12:43)
--- NOTE | 2016-12-02 13:54 | P.PN ---
Subjective Principal diagnosis: Right lower extremity cellulitis Patient seen and examined. Patient states her breathing is the best it's been in a while. She denies any shortness of breath or wheezing. She states her wound is starting to improve. She denies any fevers or chills. She is wearing her CPAP nightly from home. Objective - Vital Signs Vital signs: Vital Signs Temp 97.3 F L 12/02/16 07:00 Pulse 68 12/02/16 07:48 Resp 20 12/02/16 07:00 BP 135/79 12/02/16 07:00 Pulse Ox 94 L 12/02/16 07:00 Intake & Output 12/01/16 12/02/16 12/02/16 18:59 06:59 18:59 Intake Total 480 350 Output Total 0 Balance 480 350 Weight 92.533 kg Intake: Oral 480 350 Output: Urine 0 Other: Voiding Method Toilet # Voids 2 2 # Bowel Movements 0 1 - Exam Gen.: Patient is alert and oriented 3, no acute distress, obese cardiovascular: Regular rate and rhythm, S1/S2 Lungs: Clear to auscultation bilaterally no wheezes rales or rhonchi Abdomen: Soft nontender nondistended positive bowel sounds Extremities: Right lower extremity erythema and edema, dressing clean dry and intact - Labs CBC & Chem 7: 12/02/16 08:39 12/02/16 08:39 Labs: Abnormal Lab Results - Last 24 Hours (Table) 12/02/16 12/02/16 Range/Units 08:39 08:39 RBC 3.21 L (3.80-5.40) m/uL Hgb 9.5 L (11.4-16.0) gm/dL Hct 30.0 L (34.0-46.0) % Plt Count 149 L (150-450) k/uL Sodium 146 H (137-145) mmol/L Chloride 113 H (98-107) mmol/L Carbon Dioxide 20 L (22-30) mmol/L BUN 51 H (7-17) mg/dL Creatinine 2.62 H (0.52-1.04) mg/dL Glucose 111 H (74-99) mg/dL Microbiology - Last 24 Hours (Table) 11/30/16 16:15 Gram Stain - Preliminary Leg - Right Wound Culture - Preliminary 11/29/16 13:50 Blood Culture - Preliminary Blood No Growth after 48 hours Assessment and Plan Plan: Cellulitis of the right lower extremity with failed outpatient treatment History of moderate COPD obstructive sleep apnea, compliant with CPAP. Acute kidney injury on chronic kidney disease stage IV Hypernatremia Thrombocytopenia/Anemia Essential hypertension Major depressive disorder Plan O2 to maintain sat > or = 88% Continue with pulmonary hygiene and incentive spirometry. Continue with breathing treatments and Singulair. Home CPAP machine. GI and DVT prophylaxis. Infectious disease on consult. DC 0.9NS, Continue patient's home Lasix Monitor renal function, I/O Patient follows with Dr. NED Duffy in the office
--- NOTE | 2016-12-02 13:56 | P.PN ---
Subjective Principal diagnosis: R lower extremity cellulitis Patient is doing better right lower extremity swelling and erythema has improved. She was having shortness of breath and O2 desaturation, she is maintained on CPAP while asleep, and has improved. On review of systems There is no fever or chills no headaches no dizziness No chest pain no palpitation At this time there is no shortness of breath no cough No nausea or vomiting no abdominal pain no diarrhea or constipation And no urinary symptoms Objective - Vital Signs Vital signs: Vital Signs Temp 97.3 F L 12/02/16 07:00 Pulse 68 12/02/16 07:48 Resp 20 12/02/16 07:00 BP 135/79 12/02/16 07:00 Pulse Ox 94 L 12/02/16 07:00 Intake & Output 12/01/16 12/02/16 12/02/16 18:59 06:59 18:59 Intake Total 480 350 Output Total 0 Balance 480 350 Weight 92.533 kg Intake: Oral 480 350 Output: Urine 0 Other: Voiding Method Toilet # Voids 2 2 # Bowel Movements 0 1 - Exam In general patient is alert and oriented 3 in no apparent distress HEENT head normocephalic and atraumatic Neck is supple no JVD no goiter no lymphadenopathy Chest is clear to auscultation no crackles no wheezing Cardiac exam reveals regular heart sounds no gallops no murmurs Abdomen is soft nontender no organomegaly Extremity exam reveals mild edema with erythema in the right pretibial area no cyanosis or clubbing - Labs CBC & Chem 7: 12/02/16 08:39 12/02/16 08:39 Labs: Abnormal Lab Results - Last 24 Hours (Table) 12/02/16 12/02/16 Range/Units 08:39 08:39 RBC 3.21 L (3.80-5.40) m/uL Hgb 9.5 L (11.4-16.0) gm/dL Hct 30.0 L (34.0-46.0) % Plt Count 149 L (150-450) k/uL Sodium 146 H (137-145) mmol/L Chloride 113 H (98-107) mmol/L Carbon Dioxide 20 L (22-30) mmol/L BUN 51 H (7-17) mg/dL Creatinine 2.62 H (0.52-1.04) mg/dL Glucose 111 H (74-99) mg/dL Microbiology - Last 24 Hours (Table) 11/30/16 16:15 Gram Stain - Preliminary Leg - Right Wound Culture - Preliminary 11/29/16 13:50 Blood Culture - Preliminary Blood No Growth after 48 hours Assessment and Plan Plan: #1 Cellulitis of the right lower extremity, failed outpatient treatment with oral antibiotics currently maintained on IV ceftaroline awaiting blood culture results, and wound culture results #2 History of COPD, stable at this time continue was current management #3 obstructive sleep apnea, compliant with CPAP, continue #4 Essential hypertension, with borderline control systolic blood pressure in the 150 range will monitor and adjust blood pressure medications as needed #5 chronic renal failure Baseline creatinine 2-2.5 stable at this time will monitor closely #6 chronic anemia will monitor #7 Major depressive disorder, stable
[2016-12-02 15:03] LABS: Appearance,Urine Clear (Clear); Bilirubin,Urine Negative (Negative); Glucose,Urine (UA) Negative (Negative); Ketones,Urine Negative (Negative); Leukocyte Esterase,Urine Negative (Negative); Nitrite,Urine Negative (Negative); Protein,Urine Negative (Negative); Specific Gravity,Urine 1.005 (1.001-1.035); UA Billing (MACRO vs. MICRO) CHEM; Urobilinogen,Urine <2.0 mg/dL (<2.0)
--- NOTE | 2016-12-02 15:04 | PN ---
DATE OF SERVICE: 12/02/2016 Reason for followup is right leg wound and secondary cellulitis. INTERVAL HISTORY: The patient is afebrile. She is currently breathing comfortably. Denies significant chest pain, no cough. No abdominal pain and no worsening pain in the right leg area. On examination, blood pressure 135/79 with a pulse of 65, temperature 97.3, he is 94% on room air. General description is an elderly female, up in the bed in no distress. RESPIRATORY SYSTEM: Unlabored breathing. Clear to auscultation. HEART: S1, S2. Regular rate and rhythm. ABDOMEN: Soft, no tenderness. Right leg wound with surrounding redness has improved. No drainage. LABS: Hemoglobin 9.5, white count 7.7 with BUN of 51, creatinine 2.62. DIAGNOSTIC IMPRESSION AND PLAN: Patient with right lower extremity wound with secondary cellulitis, waiting for the culture to finalize. Patient ( ) with the decision awaiting upon the culture report. Continue supportive care.
[2016-12-02] MEDS: PARoxetine 20 MG TAB PO SCH (21:13)
[2016-12-02] MEDS: MONTELUKAST 10 MG TAB PO SCH (21:13)
[2016-12-02] MEDS: ALPRAZolam 0.25 MG TAB PO PRN (21:20)
[2016-12-03] MEDS: LEVOTHYROXINE 25 MCG TAB PO SCH (06:32)
[2016-12-03] MEDS: ALBUTEROL NEBULIZED 2.5 MG/3 ML INHALATION SCH ×2 (07:48→19:42)
[2016-12-03] MEDS: ATENOLOL 25 MG TAB PO SCH (09:31)
[2016-12-03] MEDS: HEPARIN SODIUM,PORCINE 5,000 UNIT/ML 1 ML VIAL SQ SCH ×3 (09:31→23:57)
[2016-12-03] MEDS: CEFTAROLINE FOSAMIL 300 MG in SODIUM CHLORIDE 0.9% 250 ML IVPB SCH ×2 (09:31→20:03)
[2016-12-03] MEDS: PANTOPRAZOLE 40 MG TABLET PO SCH (09:31)
[2016-12-03] MEDS: FUROSEMIDE 40 MG TAB PO SCH (09:32)
--- NOTE | 2016-12-03 10:25 | P.PN ---
Subjective Right leg cellulitis. Patient failed outpatient treatment. Followed by infectious disease. Currently on IV antibiotics. Patient reports that she has not had much improvement. Still having pain with walking. Denies any chest pain or shortness of breath. Denies any nausea or vomiting. She did have a bowel movement. Denies any difficulty urinating. Objective - Vital Signs Vital signs: Vital Signs Temp 98.5 F 12/03/16 07:00 Pulse 60 12/03/16 07:57 Resp 18 12/03/16 07:00 BP 132/60 12/03/16 07:00 Pulse Ox 95 12/03/16 07:00 Intake & Output 12/02/16 12/03/16 12/03/16 18:59 06:59 18:59 Intake Total 200 Balance 200 Intake: Oral 200 Other: Voiding Method Bedside Commode # Voids 3 1 # Bowel Movements 0 - Exam Head normocephalic Neck supple Lungs clear to auscultation bilaterally no wheezing or crackles Heart regular rate and rhythm S1-S2, no rub or gallop Abdomen is soft nontender nondistended positive bowel sounds no hepatosplenomegaly Extremities no edema left leg. Right leg swelling and redness noted along the right tibia and ankle area. There is a bruising and laceration along the right tibia. Minimal improvement in redness. Still warm to touch. Neuro alert and orientated to 3 - Labs CBC & Chem 7: 12/02/16 08:39 12/02/16 08:39 Labs: Microbiology - Last 24 Hours (Table) 12/02/16 14:47 Urine Culture - Preliminary Urine,Voided 11/30/16 16:15 Gram Stain - Final Leg - Right Wound Culture - Final 11/29/16 13:50 Blood Culture - Preliminary Blood No Growth after 72 hours Assessment and Plan Plan: #1 Cellulitis of the right lower extremity, failed outpatient treatment with oral antibiotics currently maintained on IV ceftaroline area culture and wound culture negative so far. We'll await further infectious disease recommendations. Keep legs elevated and Aiden wrapped #2 History of COPD, stable at this time continue was current management #3 obstructive sleep apnea, compliant with CPAP, continue #4 Essential hypertension, with borderline control systolic blood pressure in the 150 range will monitor and adjust blood pressure medications as needed #5 chronic renal failure Baseline creatinine 2-2.5 stable at this time will monitor closely #6 chronic anemia will monitor #7 Major depressive disorder, stable I performed an examination of the patient and discussed their management with the physician Repair Manager. I have reviewed the Physician Repair Manager's notes and agree with the documented findings and plan of care
[2016-12-03 10:39] LABS: Calcium 9.7 mg/dL (8.4-10.2); Potassium 4.6 mmol/L (3.5-5.1)
[2016-12-03 10:43] LABS: Basophils % (A) 0 %; CH 29.8; CHCM 32.9; Eosinophils # (A) 0.1 k/uL (0-0.7); Eosinophils % (A) 2 %; HCT 27.4 % (34.0-46.0); HDW 2.98; HGB 9.1 gm/dL (11.4-16.0); Luc # (Auto) 0.22; Luc % (Auto) 3; Lymphocytes # (A) 1.8 k/uL (1.0-4.8); Lymphocytes % (A) 26 %; MCH 30.3 pg (25.0-35.0); MCHC 33.3 g/dL (31.0-37.0); Mean Platelet Volume 8.7; Monocytes # (A) 0.4 k/uL (0-1.0); Monocytes % (A) 6 %; Neutrophils # (A) 4.3 k/uL (1.3-7.7); Neutrophils % (A) 63 %; RBC 3.01 m/uL (3.80-5.40); RDW 15.4 % (11.5-15.5); WBC 6.8 k/uL (3.8-10.6); WBC (Perox) 7.16
[2016-12-03] MEDS: MULTIVITAMINS, THERA 1 EACH TAB PO SCH (12:37)
[2016-12-03] MEDS: FERROUS SULFATE 325 MG TAB PO SCH (12:37)
--- NOTE | 2016-12-03 14:30 | P.PN ---
Subjective Principal diagnosis: Right lower extremity cellulitis Patient seen and examined. Patient states her breathing is doing good today. She is using CPAP nightly. She denies cough, fevers, chills. She is currently on room air. Objective - Vital Signs Vital signs: Vital Signs Temp 98.5 F 12/03/16 07:00 Pulse 60 12/03/16 07:57 Resp 18 12/03/16 07:00 BP 132/60 12/03/16 07:00 Pulse Ox 95 12/03/16 07:00 Intake & Output 12/02/16 12/03/16 12/03/16 18:59 06:59 18:59 Intake Total 200 Balance 200 Intake: Oral 200 Other: Voiding Method Bedside Commode Bedside Commode # Voids 3 1 # Bowel Movements 0 - Exam Gen.: Patient is alert and oriented 3, no acute distress, obese cardiovascular: Regular rate and rhythm, S1/S2 Lungs: Clear to auscultation bilaterally no wheezes rales or rhonchi Abdomen: Soft nontender nondistended positive bowel sounds Extremities: Right lower extremity erythema and edema, dressing clean dry and intact - Labs CBC & Chem 7: 12/03/16 08:11 12/03/16 08:11 Labs: Abnormal Lab Results - Last 24 Hours (Table) 12/03/16 12/03/16 Range/Units 08:11 08:11 RBC 3.01 L (3.80-5.40) m/uL Hgb 9.1 L (11.4-16.0) gm/dL Hct 27.4 L (34.0-46.0) % Plt Count 124 L (150-450) k/uL Sodium 146 H (137-145) mmol/L Chloride 118 H (98-107) mmol/L Carbon Dioxide 17 L (22-30) mmol/L BUN 50 H (7-17) mg/dL Creatinine 2.60 H (0.52-1.04) mg/dL Microbiology - Last 24 Hours (Table) 12/02/16 14:47 Urine Culture - Preliminary Urine,Voided 11/30/16 16:15 Gram Stain - Final Leg - Right Wound Culture - Final 11/29/16 13:50 Blood Culture - Preliminary Blood No Growth after 72 hours Assessment and Plan Plan: Cellulitis of the right lower extremity with failed outpatient treatment History of moderate COPD obstructive sleep apnea, compliant with CPAP. Acute kidney injury on chronic kidney disease stage IV Hypernatremia Thrombocytopenia/Anemia Essential hypertension Major depressive disorder Plan O2 to maintain sat > or = 88% Continue with pulmonary hygiene and incentive spirometry. Continue with breathing treatments and Singulair. Add Pulmicort Home CPAP machine. GI and DVT prophylaxis. Infectious disease on consult. DC 0.9NS, Continue patient's home Lasix Monitor renal function, I/O Patient follows with Dr. NED Duffy in the office
[2016-12-03] MEDS: BUDESONIDE 0.5 MG/2 ML NEBU INHALATION SCH (19:42)
[2016-12-03] MEDS: MONTELUKAST 10 MG TAB PO SCH (20:01)
[2016-12-03] MEDS: PARoxetine 20 MG TAB PO SCH (20:01)
[2016-12-04] MEDS: LEVOTHYROXINE 25 MCG TAB PO SCH (06:48)
[2016-12-04 07:22] VITALS: BP 144/72; RESP 20; TEMP 97
[2016-12-04] MEDS: BUDESONIDE 0.5 MG/2 ML NEBU INHALATION SCH (07:43)
[2016-12-04] MEDS: ALBUTEROL NEBULIZED 2.5 MG/3 ML INHALATION SCH (07:43)
[2016-12-04] MEDS: PANTOPRAZOLE 40 MG TABLET PO SCH (08:07)
[2016-12-04] MEDS: ATENOLOL 25 MG TAB PO SCH (08:07)
[2016-12-04] MEDS: HEPARIN SODIUM,PORCINE 5,000 UNIT/ML 1 ML VIAL SQ SCH ×2 (08:07→14:49)
[2016-12-04] MEDS: FUROSEMIDE 40 MG TAB PO SCH (08:07)
[2016-12-04] MEDS: CEFTAROLINE FOSAMIL 300 MG in SODIUM CHLORIDE 0.9% 250 ML IVPB SCH (08:07)
--- NOTE | 2016-12-04 08:27 | PN ---
DATE OF SERVICE: 12/03/2016 Reason for followup is right lower extremity wound and cellulitis. INTERVAL HISTORY: The patient is afebrile. She has been breathing comfortably. Denies significant chest pain or shortness of breath or cough or any worsening pain in the right leg area. On examination, blood pressure is 143/75 with a pulse of 76, temperature 96.9, she is 94% on room air. General description is an elderly female lying in bed, in no distress. RESPIRATORY SYSTEM: Unlabored breathing. Clear to auscultation anteriorly. HEART: S1, S2. Regular rate and rhythm. ABDOMEN: Soft, no tenderness. Right lower extremity noticed to have blister formation, the overlying skin was denuded and this was left to drain and we did obtain some deep cultures. LABS: Hemoglobin is 9.1, white count of 6.8 with a BUN of 50, creatinine 2.60. Wound culture initial has been negative. DIAGNOSTIC IMPRESSION AND PLAN: Patient with right lower extremity wound with secondary cellulitis. Initial culture has not be ( ). Repeat culture has been obtained. Patient to continue on Teflaro. The patient continues to improve, hopefully, be able to finish therapy with oral antibiotics. Continue supportive care.
[2016-12-04 08:28] VITALS: PULSE 76
[2016-12-04 08:57] LABS: Basophils % (A) 0 %; CH 29.4; CHCM 31.1; Eosinophils # (A) 0.1 k/uL (0-0.7); Eosinophils % (A) 2 %; HCT 28.7 % (34.0-46.0); HDW 2.85; HGB 8.9 gm/dL (11.4-16.0); Hypochromasia Slight; Luc # (Auto) 0.14; Luc % (Auto) 2; Lymphocytes # (A) 1.3 k/uL (1.0-4.8); Lymphocytes % (A) 21 %; MCH 29.2 pg (25.0-35.0); MCHC 30.8 g/dL (31.0-37.0); MCV 94.9 fL (80.0-100.0); Mean Platelet Volume 9.6; Monocytes # (A) 0.3 k/uL (0-1.0); Monocytes % (A) 4 %; Neutrophils # (A) 4.3 k/uL (1.3-7.7); Neutrophils % (A) 70 %; RBC 3.03 m/uL (3.80-5.40); RDW 15.3 % (11.5-15.5); WBC 6.2 k/uL (3.8-10.6); WBC (Perox) 6.54
[2016-12-04 09:29] LABS: Calcium 9.4 mg/dL (8.4-10.2); Potassium 3.7 mmol/L (3.5-5.1)
[2016-12-04] MEDS: FERROUS SULFATE 325 MG TAB PO SCH (12:13)
[2016-12-04] MEDS: MULTIVITAMINS, THERA 1 EACH TAB PO SCH (12:14)
--- NOTE | 2016-12-04 14:08 | PN ---
DATE OF SERVICE: 12/04/2016 Reason for followup is right leg wound and cellulitis. INTERVAL HISTORY: The patient is afebrile. She is currently breathing comfortably. Denies significant chest pain, shortness of breath or cough. ( ) of pain in the right leg area. The dressing has been changed by the RN. Dimension of cellulitis has improved. No drainage. On examination, blood pressure 144/72 with a pulse of 72, temperature 97. She is 93% on room air. General description is an elderly female up in the bed in no distress. RESPIRATORY SYSTEM: Unlabored breathing. Clear to auscultation anteriorly. HEART: S1, S2. Regular rate and rhythm. ABDOMEN: Soft, no tenderness. Right leg is currently dressed up in the Aiden wrap and no drainage on the dressing. LABS: Hemoglobin 8.9, white count 6.2. Wound culture so far negative. DIAGNOSTIC IMPRESSION AND PLAN: Patient with right lower extremity wound with secondary cellulitis so far culture has been negative for any resistant pathogen. The patient did have a PENICILLIN allergy, however, has taken Teflaro without any problem. Antibiotic will be switched over to Keflex 500 mg twice a day for another 10 days with outpatient followup. Script sent to the pharmacy.
--- NOTE | 2016-12-04 14:43 | P.DS ---
Providers Date of admission: 11/29/16 15:07 Expected date of discharge: 12/04/16 Attending physician: Helen Stephens Consults: 11/30/16 16:33 Consult Physician Stat Consulting Provider: Marycruz Wu Consult Reason/Comments: cellulitis Do you want consulting provider notified?: Already Contacted Primary care physician: Derrick Dane [facility] Course: Discharge diagnosis #1 Cellulitis of the right lower extremity, failed outpatient treatment with oral antibiotics currently maintained on IV ceftaroline blood culture and wound culture negative so far. #2 History of COPD, stable at this time continue was current management #3 obstructive sleep apnea, compliant with CPAP, continue #4 Essential hypertension, with borderline control systolic blood pressure in the 150 range will monitor and adjust blood pressure medications as needed #5 chronic renal failure Baseline creatinine 2-2.5 stable at this time will monitor closely #6 chronic anemia will monitor #7 Major depressive disorder, stable Hospital course this is a 85-year-old female with past medical history noted below who presented to the hospital with worsening right lower extremity swelling and pain. Patient said that 2 weeks ago she bumped her right ankle against the wheelchair. She subsequently had a small wound with surrounding redness. She was seen and evaluated by her primary care physician and was prescribed a course of oral antibiotic. Unfortunately her ankle continued to get worse in terms of swelling and pain. The area of redness was extending. Yesterday she was very concerned and decided to come to the emergency room for further evaluation. She underwent an x-ray showing intact bony structure but significant edema. She was started on broad-spectrum antibiotic with IV vancomycin and is currently admitted to the hospital for further evaluation. Patient had failed outpatient antibiotics with clindamycin. Was switched over to IV to ceftaroline and did show improvement slowly. Wound cultures and blood cultures remain negative. Patient was reevaluated by infectious disease today and they've recommended discharge on Keflex for 10 days and they will follow up in the office in one week with patient. Patient's symptoms have not are showing improvement. And she is eager for discharge home. Please refer to chart for any further details. Doppler was also done of that right leg there is no evidence of DVT Patient Condition at Discharge: Stable Plan - Discharge Summary New Discharge Prescriptions: New Cephalexin [Keflex] 500 mg PO Q12HR #20 cap Levothyroxine Sodium [Synthroid] 25 mcg PO DAILY@0630 tab Continue Montelukast [Singulair] 10 mg PO HS Furosemide [Lasix] 40 mg PO DAILY Ferrous Sulfate [Feosol] 650 mg PO DAILY ALPRAZolam [Xanax] 0.25 mg PO Q8H PRN PRN Reason: Anxiety Cholecalciferol [Vitamin D3] 5,000 unit PO DAILY Calcium Carbonate [Calcium] 600 mg PO DAILY Allopurinol [Zyloprim] 100 mg PO DAILY Atenolol [Tenormin] 25 mg PO DAILY Multivitamins, Thera [Multivitamin (formulary)] 1 tab PO DAILY PARoxetine [Paxil] 20 mg PO HS Zinc 50 mg PO DAILY Heth-3 Fatty Acids [Heth-3] 1,000 mg PO DAILY Discontinued Clindamycin HCl [Cleocin] 300 mg PO TID Discharge Medication List ALPRAZolam [Xanax] 0.25 mg PO Q8H PRN 11/06/13 [History] Ferrous Sulfate [Feosol] 650 mg PO DAILY 11/06/13 [History] Furosemide [Lasix] 40 mg PO DAILY 11/06/13 [History] Montelukast [Singulair] 10 mg PO HS 11/06/13 [History] Allopurinol [Zyloprim] 100 mg PO DAILY 11/29/16 [History] Atenolol [Tenormin] 25 mg PO DAILY 11/29/16 [History] Calcium Carbonate [Calcium] 600 mg PO DAILY 11/29/16 [History] Cholecalciferol [Vitamin D3] 5,000 unit PO DAILY 11/29/16 [History] Multivitamins, Thera [Multivitamin (formulary)] 1 tab PO DAILY 11/29/16 [History ] Heth-3 Fatty Acids [Heth-3] 1,000 mg PO DAILY 11/29/16 [History] PARoxetine [Paxil] 20 mg PO HS 11/29/16 [History] Zinc 50 mg PO DAILY 11/29/16 [History] Cephalexin [Keflex] 500 mg PO Q12HR #20 cap 12/04/16 [Rx] Levothyroxine Sodium [Synthroid] 25 mcg PO DAILY@0630 tab 12/04/16 [Rx] Follow up Appointment(s)/Referral(s): Derrick Vela MD [Primary Care Provider] - 1 Week Bryce,Sajjad, MD [STAFF PHYSICIAN] - 1 Week Patient Instructions/Handouts: Cellulitis (DC) Activity/Diet/Wound Care/Special Instructions: Diet: cardiac Activity: as tolerated Discharge Disposition: HOME SELF-CARE
[2016-12-04] MEDS ORDERED: DARBEPOETIN ALFA 60 MCG/0.3 ML SYRINGE SQ SCH (15:00)
== END 2016-12-04 15:12 | disposition home or self-care (01) | DRG 603 ==
LOC: EC 12:31 → 4MS4W 15:07
PROVIDERS: ADMIT Internal Medicine; ATTEND Internal Medicine
DX: L03.115 Cellulitis of right lower limb (principal); N18.4 Chronic kidney disease, stage 4 (severe); E87.0 Hyperosmolality and hypernatremia; J44.9 Chronic obstructive pulmonary disease, unspecified; D69.6 Thrombocytopenia, unspecified; N17.9 Acute kidney failure, unspecified; D64.9 Anemia, unspecified; G47.33 Obstructive sleep apnea (adult) (pediatric); I12.9 Hypertensive chronic kidney disease with stage 1 through stage 4 chronic kidney disease, or unspecified chronic kidney disease; F41.9 Anxiety disorder, unspecified; F32.9 Major depressive disorder, single episode, unspecified; I25.2 Old myocardial infarction; Z90.49 Acquired absence of other specified parts of digestive tract; Z88.5 Allergy status to narcotic agent; Z88.0 Allergy status to penicillin; Z88.8 Allergy status to other drugs, medicaments and biological substances; Z95.5 Presence of coronary angioplasty implant and graft; Z96.653 Presence of artificial knee joint, bilateral; Z79.899 Other long term (current) drug therapy
CPT/HCPCS: 36415; 80048; 80053; 80202; 81003; 85025; 87040; 87070; 87077; 87086; 87186; 87205; 94640; 94660; 96361; 96365; 99285

== ENCOUNTER → 2017-07-14 | Outpatient (CLI) | payer MEDICARE ==
--- NOTE | 2017-07-14 15:05 | US ---
EXAMINATION TYPE: US kidneys/renal and bladder DATE OF EXAM: 07/14/2017 COMPARISON: US CLINICAL HISTORY: N14.8 CHRONIC KIDNEY DISEASE STAGE 4. CKD stage 4 EXAM MEASUREMENTS: Right Kidney: 8.1 x 4.2 x 4.3 cm Left Kidney: 8.6 x 4.3 x 4.0 cm Right Kidney: Cortical thinning Left Kidney: Cortical thinning, cystic lesion mid as seen on previous= 1.5 x 1.4 x 1.9 cm Bladder: wnl Bilateral Jets seen: Only left jet visualized There is no evidence for hydronephrosis at this point in time. No nephrolithiasis is seen. No angie s are identified. The urinary bladder is anechoic. Bilateral ureteral jets are seen. IMPRESSION: 1. Bilateral renal cortical thinning. 2. Simple appearing cyst left kidney.
== END | disposition home or self-care (01) ==
LOC: RADUSWWP 14:03
PROVIDERS: ATTEND Internal Medicine Nephrology
DX: N28.89 Other specified disorders of kidney and ureter (principal); N28.1 Cyst of kidney, acquired
CPT/HCPCS: 76770

== ENCOUNTER → 2017-07-14 | Outpatient (CLI) | payer MEDICARE | END | disposition home or self-care (01) | LOC: LABWHC1 15:06 | PROVIDERS: ATTEND Internal Medicine | DX: R10.9 Unspecified abdominal pain (principal) | CPT/HCPCS: 87086 ==

== ENCOUNTER 2018-09-29 11:05 | Inpatient (IN) | payer MEDICARE ==
[2018-09-29] MEDS ORDERED: ALBUTEROL NEBULIZED 2.5 MG/3 ML INHALATION STA (11:46)
[2018-09-29] MEDS ORDERED: methylPREDNISolone SOD SUCCI 125 MG/2 ML VIAL IV STA (11:46)
[2018-09-29] MEDS ORDERED: IPRATROPIUM 0.5 MG/2.5 ML NEBU INHALATION STA (11:46)
[2018-09-29] MEDS ORDERED: SODIUM CHLORIDE 0.9% 1,000 ML IV STA ×2 (11:46)
[2018-09-29 12:15] LABS: Basophils % (A) 0 %; Eosinophils % (A) 0 %; HCT 29.1 % (34.0-46.0); HGB 9.3 gm/dL (11.4-16.0); Lymphocytes # (A) 0.5 k/uL (1.0-4.8); Lymphocytes % (A) 6 %; MCH 28.9 pg (25.0-35.0); MCHC 31.9 g/dL (31.0-37.0); MCV 90.5 fL (80.0-100.0); Mean Platelet Volume 8.9; Monocytes # (A) 0.4 k/uL (0-1.0); Monocytes % (A) 5 %; Neutrophils # (A) 7.3 k/uL (1.3-7.7); Neutrophils % (A) 87 %; RBC 3.22 m/uL (3.80-5.40); RDW 15.9 % (11.5-15.5); WBC 8.5 k/uL (3.8-10.6)
[2018-09-29 12:19] LABS: Albumin 3.6 g/dL (3.5-5.0); Calcium 9.3 mg/dL (8.4-10.2); Magnesium 1.8 mg/dL (1.6-2.3); Potassium 4.6 mmol/L (3.5-5.1); Total Bilirubin 0.7 mg/dL (0.2-1.3)
[2018-09-29 12:31] LABS: INR 0.9 (<1.2); Partial Thromboplastin Time 29.6 sec (22.0-30.0); Prothrombin Time 9.9 sec (9.0-12.0)
--- NOTE | 2018-09-29 12:33 | ED ---
SOB HPI - General Chief Complaint: Shortness of Breath Stated Complaint: KAYKAY,body aches Time Seen by Provider: 09/29/18 11:24 Source: patient, RN notes reviewed, old records reviewed Mode of arrival: ambulatory Limitations: no limitations - History of Present Illness Initial Comments: This is a 7-year-old female the ER for eversion shortness of breath shortness with increasing cough and congestion congestion for the past 3 days worsening. History of asthma history of COPD. No recent hospitalizations. No fevers. No recent travel history no known significant sick contacts. No chest pain currently. Patient states episodes of coughing sometimes do and then vomiting MD Complaint: shortness of breath, cough -: days(s) Radiation: other (No pain) Severity: mild Severity scale (1-10): 3 Consistency: constant Improves With: rest Worsens With: exertion, movement Known History Of: COPD, asthma Context: recent URI Associated Symptoms: cough, sputum production Treatments Prior to Arrival: none - Related Data Home Medications Medication Instructions Recorded Confirmed ALPRAZolam [Xanax] 0.25 mg PO HS PRN 11/06/13 09/29/18 Furosemide [Lasix] 60 mg PO DAILY 11/06/13 09/29/18 Montelukast [Singulair] 10 mg PO HS 11/06/13 09/29/18 Allopurinol [Zyloprim] 100 mg PO DAILY 11/29/16 09/29/18 Atenolol [Tenormin] 12.5 mg PO DAILY 11/29/16 09/29/18 PARoxetine [Paxil] 20 mg PO HS 11/29/16 09/29/18 Acetaminophen Tab [Tylenol Tab] 650 mg PO Q6H PRN 09/29/18 09/29/18 Amoxicillin/Potassium Clav 1 tab PO Q12HR 09/29/18 09/29/18 [Augmentin 500-125 Tablet] B Complex W-C No.20/Folic Acid 1 mg PO DAILY 09/29/18 09/29/18 [Renal Caps Softgel] Budesonide [Pulmicort] 0.5 mg INHALATION RT-BID 09/29/18 09/29/18 Ipratropium-Albuterol Nebulize 3 ml INHALATION RT-BID PRN 09/29/18 09/29/18 [Duoneb 0.5 mg-3 mg/3 ml Soln] Lactulose 20 gm PO DAILY 09/29/18 09/29/18 Magnesium Hydroxide [Milk of 2,400 mg PO DAILY PRN 09/29/18 09/29/18 Magnesia] Meclizine HCl 12.5 mg PO TID PRN 09/29/18 09/29/18 Ondansetron [Zofran] 4 mg PO Q12HR PRN 09/29/18 09/29/18 Phenylephrine HCl/[place]itchita Butter 1 supp RC DAILY PRN 09/29/18 09/29/18 [Preparation H Suppository] Sodium Bicarbonate Tab 650 mg PO DAILY 09/29/18 09/29/18 diphenhydrAMINE & Zinc Cream 1 applic TOPICAL TID PRN 09/29/18 09/29/18 [Benadryl Cream] guaiFENesin [Mucinex] 600 mg PO Q12H 09/29/18 09/29/18 predniSONE 10 mg PO DAILY 09/29/18 09/29/18 rOPINIRole HCL [Requip] 0.5 mg PO HS 09/29/18 09/29/18 Previous Rx's Medication Instructions Recorded Levothyroxine Sodium [Synthroid] 25 mcg PO DAILY@0630 tab 12/04/16 Allergies Allergy/AdvReac Type Severity Reaction Status Date / Time codeine Allergy Severe Nausea & Verified 09/29/18 13:56 Vomiting morphine Allergy Severe Nausea & Verified 09/29/18 13:56 Vomiting Penicillins Allergy Rash/Hives Verified 09/29/18 13:56 trazodone AdvReac Unknown Verified 09/29/18 13:56 Review of Systems ROS Statement: Those systems with pertinent positive or pertinent negative responses have been documented in the HPI. ROS Other: All systems not noted in ROS Statement are negative. Past Medical History Past Medical History: Asthma, COPD, Hypertension, Myocardial Infarction (KS), Renal Disease Last Myocardial Infarction Date:: 2010 History of Any Multi-Drug Resistant Organisms: None Reported Past Surgical History: Adenoidectomy, Cholecystectomy, Heart Catheterization With Stent, Hernia Repair, Tonsillectomy Additional Past Surgical History / Comment(s): Hx colonoscopy, left and rt knee replacement hx oopherectomy Past Anesthesia/Blood Transfusion Reactions: No Reported Reaction Date of Last Stent Placement:: 2010 Past Psychological History: Anxiety Smoking Status: Never smoker Past Alcohol Use History: None Reported Past Drug Use History: None Reported General Exam Limitations: no limitations General appearance: alert, in no apparent distress Head exam: Present: atraumatic, normocephalic, normal inspection Eye exam: Present: normal appearance, PERRL, EOMI. Absent: scleral icterus, conjunctival injection, periorbital swelling ENT exam: Present: normal exam, mucous membranes moist Neck exam: Present: normal inspection. Absent: tenderness, meningismus, lymphadenopathy Respiratory exam: Present: normal lung sounds bilaterally. Absent: respiratory distress, wheezes, rales, rhonchi, stridor Cardiovascular Exam: Present: regular rate, normal rhythm, normal heart sounds. Absent: systolic murmur, diastolic murmur, rubs, gallop, clicks GI/Abdominal exam: Present: soft, normal bowel sounds. Absent: distended, tenderness, guarding, rebound, rigid Extremities exam: Present: normal inspection, full ROM, normal capillary refill. Absent: tenderness, pedal edema, joint swelling, calf tenderness Back exam: Present: normal inspection Neurological exam: Present: alert, oriented X3, CN II-XII intact Psychiatric exam: Present: normal affect, normal mood Skin exam: Present: warm, dry, intact, normal color. Absent: rash Course Vital Signs 09/29/18 09/29/18 09/29/18 11:11 11:38 11:40 Temperature 97.9 F Pulse Rate 74 75 Respiratory 20 14 Rate Blood Pressure 158/77 146/75 O2 Sat by Pulse 93 L 94 L 91 L Oximetry 09/29/18 09/29/18 09/29/18 11:50 12:00 12:10 Temperature Pulse Rate 73 73 73 Respiratory 17 24 21 Rate Blood Pressure 146/75 153/76 152/70 O2 Sat by Pulse 97 96 97 Oximetry 09/29/18 09/29/18 09/29/18 12:20 12:30 12:40 Temperature Pulse Rate 87 93 Respiratory 22 22 25 H Rate Blood Pressure 152/70 152/70 152/70 O2 Sat by Pulse Oximetry 09/29/18 09/29/18 09/29/18 12:49 12:50 13:00 Temperature Pulse Rate 78 92 88 Respiratory 22 18 Rate Blood Pressure 152/70 152/70 O2 Sat by Pulse Oximetry 09/29/18 13:10 Temperature Pulse Rate 87 Respiratory 20 Rate Blood Pressure 159/76 O2 Sat by Pulse [facility] #1: 09/29/18 12:43 Medical record reviewed Reevaluation #2: 09/29/18 12:43 Patient's currently showing improvement in breathing treatment Medical Decision Making - Medical Decision Making 87 female the ER for evaluation. Patient resents today for evaluation of not feeling well acute on chronic bronchitis CHF and flu. Patient be admitted for cardiopulmonary support and monitoring of vital signs, breathing and breathing treatments, pain control - Lab Data Result diagrams: 09/29/18 11:50 09/29/18 11:50 Lab Results 09/29/18 09/29/18 09/29/18 Range/Units 11:50 11:50 11:50 WBC 8.5 (3.8-10.6) k/uL RBC 3.22 L (3.80-5.40) m/uL Hgb 9.3 L (11.4-16.0) gm/dL Hct 29.1 L (34.0-46.0) % MCV 90.5 (80.0-100.0) fL MCH 28.9 (25.0-35.0) pg MCHC 31.9 (31.0-37.0) g/dL RDW 15.9 H (11.5-15.5) % Plt Count 96 L (150-450) k/uL Neutrophils % 87 % Lymphocytes % 6 % Monocytes % 5 % Eosinophils % 0 % Basophils % 0 % Neutrophils # 7.3 (1.3-7.7) k/uL Lymphocytes # 0.5 L (1.0-4.8) k/uL Monocytes # 0.4 (0-1.0) k/uL Eosinophils # 0.0 (0-0.7) k/uL Basophils # 0.0 (0-0.2) k/uL Manual Slide Review Performed Poikilocytosis (manual Present PT (9.0-12.0) sec INR (<1.2) APTT (22.0-30.0) sec Sodium 135 L (137-145) mmol/L Potassium 4.6 (3.5-5.1) mmol/L Chloride 103 (98-107) mmol/L Carbon Dioxide 19 L (22-30) mmol/L Anion Gap 13 mmol/L BUN 71 H (7-17) mg/dL Creatinine 3.77 H (0.52-1.04) mg/dL Est GFR (CKD-EPI)AfAm 12 (>60 ml/min/1.73 sqM) Est GFR (CKD-EPI)NonAf 10 (>60 ml/min/1.73 sqM) Glucose 137 H (74-99) mg/dL Calcium 9.3 (8.4-10.2) mg/dL Magnesium 1.8 (1.6-2.3) mg/dL Total Bilirubin 0.7 (0.2-1.3) mg/dL AST 26 (14-36) U/L ALT 25 (9-52) U/L Alkaline Phosphatase 79 (38-126) U/L Troponin I (0.000-0.034) ng/mL NT-Pro-B Natriuret Pep 2970 pg/mL Total Protein 6.0 L (6.3-8.2) g/dL Albumin 3.6 (3.5-5.0) g/dL Influenza Type A RNA (Not Detectd) Influenza Type B (PCR) (Not Detectd) 09/29/18 09/29/18 09/29/18 Range/Units 11:50 11:50 13:04 WBC (3.8-10.6) k/uL RBC (3.80-5.40) m/uL Hgb (11.4-16.0) gm/dL Hct (34.0-46.0) % MCV (80.0-100.0) fL MCH (25.0-35.0) pg MCHC (31.0-37.0) g/dL RDW (11.5-15.5) % Plt Count (150-450) k/uL Neutrophils % % Lymphocytes % % Monocytes % % Eosinophils % % Basophils % % Neutrophils # (1.3-7.7) k/uL Lymphocytes # (1.0-4.8) k/uL Monocytes # (0-1.0) k/uL Eosinophils # (0-0.7) k/uL Basophils # (0-0.2) k/uL Manual Slide Review Poikilocytosis (manual PT 9.9 (9.0-12.0) sec INR 0.9 (<1.2) APTT 29.6 (22.0-30.0) sec Sodium (137-145) mmol/L Potassium (3.5-5.1) mmol/L Chloride (98-107) mmol/L Carbon Dioxide (22-30) mmol/L Anion Gap mmol/L BUN (7-17) mg/dL Creatinine (0.52-1.04) mg/dL Est GFR (CKD-EPI)AfAm (>60 ml/min/1.73 sqM) Est GFR (CKD-EPI)NonAf (>60 ml/min/1.73 sqM) Glucose (74-99) mg/dL Calcium (8.4-10.2) mg/dL Magnesium (1.6-2.3) mg/dL Total Bilirubin (0.2-1.3) mg/dL AST (14-36) U/L ALT (9-52) U/L Alkaline Phosphatase (38-126) U/L Troponin I 0.028 (0.000-0.034) ng/mL NT-Pro-B Natriuret Pep pg/mL Total Protein (6.3-8.2) g/dL Albumin (3.5-5.0) g/dL Influenza Type A RNA Detected H (Not Detectd) Influenza Type B (PCR) Not Detected (Not Detectd) - EKG Data -: EKG Interpreted by Me (EKG shows sinus rhythm rate of 72, KS 170, QRS 90, QTc 433) - Radiology Data Radiology results: report reviewed (Chest x-rays negative for acute disease), image reviewed Disposition Clinical Impression: Congestive heart failure, COPD exacerbation, Acute exacerbation of chronic obstructive airways disease, Influenza A Disposition: ADMITTED IP TO THIS HOSP Condition: Fair Is patient prescribed a controlled substance at d/c from ED?: No Referrals: Praneeth Harp MD [Primary Care Provider] - 1-2 days
[2018-09-29 12:43] LABS: Platelet Count 96 k/uL (150-450)
[2018-09-29 12:44] LABS: Poikilocytosis (M) Present
--- NOTE | 2018-09-29 13:16 | XR ---
EXAMINATION TYPE: XR chest 2V DATE OF EXAM: 09/29/2018 COMPARISON: 10/17/1959 HISTORY: Shortness of breath TECHNIQUE: Frontal and lateral views of the chest are obtained. FINDINGS: Scattered senescent parenchymal changes noted. Moderate elevation right hemidiaphragm. No evidence fo r infiltrate. No evidence for atelectasis. Heart size is stable. Mediastinal structures are stable and grossly unremarkable. No evidence for hilar prominence. Degenerative changes dorsal spine. IMPRESSION: 1. No evidence for acute pulmonary disease.
[2018-09-29] MEDS ORDERED: IPRATROPIUM-ALBUTEROL 3 ML NEB INHALATION STA (14:09)
[2018-09-29] MEDS ORDERED: AZITHROMYCIN 500 MG in SODIUM CHLORIDE 0.9% 250 ML IVPB STA (14:16)
[2018-09-29] MEDS ORDERED: ONDANSETRON 4 MG/2 ML VIAL IVP PRN (14:17)
[2018-09-29] MEDS ORDERED: DIAZEPAM 5 MG/ML 2 ML INJ IVP STA (14:18)
[2018-09-29] MEDS ORDERED: HYDROmorphone 1 MG/ML 1 ML SYRINGE IVP PRN (14:18)
[2018-09-29] MEDS ORDERED: HYDROmorphone 1 MG/ML 1 ML SYRINGE IVP STA (14:18)
[2018-09-29] MEDS ORDERED: DARBEPOETIN ALFA 60 MCG/0.3 ML SYRINGE SQ STA (14:19)
[2018-09-29] MEDS ORDERED: SODIUM CHLORIDE 0.9% 1,000 ML IV SCH (14:30)
[2018-09-29 15:59] VITALS: BMI 30.7
[2018-09-29] MEDS ORDERED: PHENYLEPHRINE HCL RC PRN (16:52)
[2018-09-29] MEDS ORDERED: ALPRAZolam 0.25 MG TAB PO PRN (16:52)
[2018-09-29] MEDS ORDERED: ACETAMINOPHEN TAB 325 MG TAB PO PRN (16:52)
[2018-09-29] MEDS ORDERED: ONDANSETRON 4 MG TAB PO PRN (16:52)
[2018-09-29] MEDS ORDERED: COCOA BUTTER RC PRN (16:52)
[2018-09-29] MEDS ORDERED: diphenhydrAMINE 2% CREAM 28.4 GM TUBE TOPICAL PRN (16:52)
[2018-09-29] MEDS ORDERED: MAGNESIUM HYDROXIDE 2,400 MG/10 ML CUP PO PRN (16:52)
[2018-09-29] MEDS ORDERED: MECLIZINE 12.5 MG TAB PO PRN (16:52)
[2018-09-29] MEDS: PARoxetine 20 MG TAB PO SCH (20:03)
[2018-09-29] MEDS: MONTELUKAST 10 MG TAB PO SCH (20:03)
[2018-09-29] MEDS: guaiFENesin 600 MG TABLET.ER PO SCH (20:03)
[2018-09-29] MEDS: IPRATROPIUM-ALBUTEROL 3 ML NEB INHALATION SCH ×2 (20:07→20:09)
[2018-09-29] MEDS: BUDESONIDE 0.5 MG/2 ML NEBU INHALATION SCH (20:09)
[2018-09-29] MEDS: OSELTAMIVIR 60 MG/10 ML ORAL SYRINGE PO SCH (20:38)
[2018-09-30] MEDS: IPRATROPIUM-ALBUTEROL 3 ML NEB INHALATION SCH ×8 (00:38→23:31)
[2018-09-30] MEDS: LEVOTHYROXINE 25 MCG TAB PO SCH (06:10)
--- NOTE | 2018-09-30 07:55 | XR ---
EXAMINATION TYPE: XR chest 1V portable DATE OF EXAM: 09/29/2018 COMPARISON: 09/29/2018 and 10/17/2015. HISTORY: Cough and influenza TECHNIQUE: Single frontal view of the chest is obtained. FINDINGS: The images appear mislabeled an inverted as the aortic arch appears on the right and previ ously appeared on the left on a chest radiograph of the same date. There is elevation of the right he midiaphragm and probable trace bilateral pleural effusions with associated bibasilar airspace disease . Silhouette is partially obscured but similar to the prior. Mild degenerative changes of the glenohu meral joint and spine are noted. No sizable pneumothorax. IMPRESSION: Radiograph is inverted when compared to the prior of the same date. Chronic right hemidi aphragm elevation and probable trace pleural effusions are seen with bibasilar airspace disease.
[2018-09-30] MEDS: ATENOLOL 12.5 MG TAB PO SCH (08:03)
[2018-09-30] MEDS: FOLIC ACID-VIT B COMPLEX-VIT C 1 CAP PO SCH (08:03)
[2018-09-30] MEDS: LACTULOSE 20 GM/30 ML CUP PO SCH (08:03)
[2018-09-30] MEDS: guaiFENesin 600 MG TABLET.ER PO SCH ×2 (08:03→20:50)
[2018-09-30] MEDS: ALLOPURINOL 100 MG TAB PO SCH (08:03)
--- NOTE | 2018-09-30 08:35 | HP ---
HISTORY AND PHYSICAL DATE OF SERVICE: 09/29/2018 CHIEF COMPLAINT: Shortness of breath, cough and sputum. HISTORY OF PRESENT ILLNESS: This 87-year-old woman with a past medical history of multiple medical problems including history of asthma, COPD, hypertension, myocardial infarction, history of CAD, stent being followed by Dr. Harp from [facility]. Patient has been sick for the last several weeks. Apparently patient's of prostate cancer and also had medical complication including influenza. The patient did not take a flu vaccine this year. Currently the patient came in with increased shortness of breath and cough and congestion for the last 3 days, which has increased. The patient came to [facility] and admitted for further evaluation. Flu was positive and chest x-ray which was reviewed personally by me showed no evidence of any acute pulmonary disease. Patient admitted for further evaluation and treatment. There is no history of any fever or rigors. No history of headache, loss of consciousness, seizures. PAST MEDICAL HISTORY: History of asthma, COPD, hypertension, history of myocardial infarction, adenoidectomy, CAD stent. MEDICATIONS: Home medications are: 1. Requip 0.5 mg q.h.s. 2. Benadryl one application t.i.d. p.r.n. 3. Paxil 20 mg q.h.s. 4. Zofran 4 mg b.i.d. p.r.n. 5. Meclizine 12.5 mg t.i.d. p.r.n. 6. Milk of magnesia 2.4 grams daily. 7. Tylenol. 8. Preparation H. 9. Singulair 10 mg. 10.DuoNeb q.i.d. and p.r.n. 11.Xanax. 12.Sodium bicarb. 14.Prednisone. 15.Mucinex. 16.Synthroid 25 mcg daily. 17.Lactulose 20 grams p.o. daily. 18.Lasix 60 mg p.o. daily. 19.Pulmicort 0.5 b.i.d. 20.Augmentin b.i.d. 21.Tenormin 12.5 mg. 22.Zyloprim 100 mg p.o. daily. ALLERGIES: Allergies are CODEINE, MORPHINE, PENICILLIN,. FAMILY HISTORY: History of coronary artery disease in the family. SOCIAL HISTORY: No history of smoking. No history of alcohol intake. REVIEW OF SYSTEMS: ENT: Diminished hearing and diminished vision. CARDIOVASCULAR SYSTEM: No angina. RESPIRATORY SYSTEM: As mentioned earlier. GI: No nausea. : No dysuria NERVOUS SYSTEM: No numbness or weakness. ALLERGY/IMMUNOLOGY: Asthma. MUSCULOSKELETAL: As mentioned earlier. HEMATOLOGY/ONCOLOGY: No history of anemia. ENDOCRINE: As mentioned earlier. CONSTITUTIONAL: As mentioned earlier. DERMATOLOGY: Negative. RHEUMATOLOGY: Negative. PSYCHIATRY: As mentioned earlier. PHYSICAL EXAMINATION: The patient is alert and oriented x3. Pulse 82, blood pressure 161/72, respiration 20, temperature 97.6, pulse ox 97% on CPAP. HEENT: Conjunctivae normal. Oral mucosa moist. NECK: No jugular venous distention. No carotid bruit. No lymph node enlargement. CARDIOVASCULAR: S1, S2 muffled. RESPIRATORY: Breath sounds diminished at the bases. Bilateral scattered rhonchi and crackles. Expiratory wheezing also present. ABDOMEN: Soft, nontender. No mass palpable. LEGS: No edema. No swelling. NERVOUS SYSTEM: Higher function as mentioned earlier. Moves all 4 limbs. No focal deficits. LYMPHATICS: No lymphadenopathy of the neck, axillae or groin. SKIN: No ulcer, rash or bleeding. JOINTS: No active deforming arthropathy. LABS: Labs are at this time shows WBC 8.5, hemoglobin 9.3. Sodium 135, potassium 4.6, creatinine 3.77. Influenza A is positive. Baseline creatinine is around 2 to 3. ASSESSMENT: 1. Chronic obstructive pulmonary disease acute exacerbation with acute hypoxic respiratory failure with acute influenza a. 2. Acute purulent tracheobronchitis. 3. Acute on chronic renal failure with possibly prerenal renal failure. 4. Chronic kidney disease stage III. 5. History of asthma, chronic obstructive pulmonary disease. 6. Hypertension. 7. History of myocardial infarction. 8. History of adenoidectomy. 9. History of coronary artery disease, stent. 10.History of anxiety. 11.Anemia, normocytic anemia of chronic disease. 12.Thrombocytopenia. 13.Hyponatremia. 14.Acute influenza A. RECOMMENDATIONS AND DISCUSSION: Condition this 87-year-old woman who presented with multiple complex medical issues, we will monitor the patient closely. Continue the current medications. Continue symptomatic treatment. Will initiate antiviral drugs, bronchodilators and empiric antibiotics. I would also recommend steroids, monitor blood sugars closely. Continue the rest of medications, home medications. We will consult Pulmonology, Dr. Duffy and as well as Nephrology. Overall prognosis guarded because of multiple complex medical issues. I would also recommend PT, OT evaluation and social work consult also to evaluate the home situation. Overall prognosis guarded. Further recommendations to follow. A copy of dictation forwarded to Dr. Harp who is the primary physician. MMODL / CYNTHIAN: [id number] / MTDD
[2018-09-30] MEDS ORDERED: SODIUM BICARBONATE TAB 650 MG TAB PO SCH (09:00)
[2018-09-30 09:13] LABS: Basophils % (A) 0 %; Eosinophils % (A) 0 %; HCT 28.9 % (34.0-46.0); HGB 9.4 gm/dL (11.4-16.0); Lymphocytes # (A) 0.5 k/uL (1.0-4.8); Lymphocytes % (A) 6 %; MCH 29.7 pg (25.0-35.0); MCHC 32.5 g/dL (31.0-37.0); MCV 91.1 fL (80.0-100.0); Mean Platelet Volume 9.1; Monocytes # (A) 0.2 k/uL (0-1.0); Monocytes % (A) 3 %; Neutrophils # (A) 6.2 k/uL (1.3-7.7); Neutrophils % (A) 89 %; Platelet Count 102 k/uL (150-450); RBC 3.17 m/uL (3.80-5.40); RDW 15.6 % (11.5-15.5)
[2018-09-30 09:35] LABS: Calcium 9.3 mg/dL (8.4-10.2)
--- NOTE | 2018-09-30 10:26 | XR ---
EXAMINATION TYPE: XR chest 2V DATE OF EXAM: 09/30/2018 COMPARISON: 09/29/2018 HISTORY: Pneumonia. Follow-up exam TECHNIQUE: Frontal and lateral views of the chest are obtained. FINDINGS: There is chronic right hemidiaphragm elevation and prominence of the cardia mediastinal si lhouette. Very trace probable pleural effusions are seen with subtle linear right basilar airspace di sease favored to represent atelectasis. Osseous structures are grossly intact with mild degenerative changes of the spine. IMPRESSION: Chronic right hemidiaphragm elevation, trace right subsegmental atelectasis and trace pl eural effusions.
[2018-09-30] MEDS: BUDESONIDE 0.5 MG/2 ML NEBU INHALATION SCH ×2 (10:55→19:09)
[2018-09-30] MEDS: SODIUM CHLORIDE 0.9% 1,000 ML IV SCH (11:08)
--- NOTE | 2018-09-30 11:50 | P.NPCON ---
History of Present Illness - Reason for Consult acute renal failure, chronic renal failure - History of Present Illness Reason for consultation: Acute kidney injury on chronic kidney disease History of present illness: Patient is a 87-year-old female seen in consultation for acute kidney injury on chronic kidney disease. 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 Patient was also noted to have edema in her lower extremities and was taking Lasix as an outpatient. Patient states the last few days she's been feeling quite weak and developed cough. She was noted to be positive for influenza A. Chest x-ray is negative. She did receive IV fluids overnight. Creatinine was 3.77 on admission and is 3.13 today. She has been voiding. No hematuria or dysuria. Denies use of nonsteroidals. Patient is quite depressed as she lost her about 5 weeks ago. No vomiting or diarrhea. Appetite is fair. No edema. No evidence of fluid overload a chest x-ray. Vital signs are stable. General: The patient appeared well nourished and normally developed. HEENT: Head exam is unremarkable. Neck is without jugular venous distension. LUNGS: Breath sounds decreased. HEART: Rate and Rhythm are regular. First and second heart sounds normal. No murmurs, rubs or gallops. ABDOMEN: Abdominal exam reveals normal bowel sounds. Non-tender and non-d istended. No evidence of peritonitis. EXTREMITITES: No clubbing, cyanosis, or edema. Past Medical History Past Medical History: Asthma, COPD, Hypertension, Myocardial Infarction ([place]), Renal Disease Last Myocardial Infarction Date:: 2010 History of Any Multi-Drug Resistant Organisms: None Reported Past Surgical History: Adenoidectomy, Cholecystectomy, Heart Catheterization With Stent, Hernia Repair, Tonsillectomy Additional Past Surgical History / Comment(s): Hx colonoscopy, left and rt knee replacement hx oopherectomy Past Anesthesia/Blood Transfusion Reactions: No Reported Reaction Date of Last Stent Placement:: 2010 Past Psychological History: Anxiety Smoking Status: Never smoker Past Alcohol Use History: None Reported Past Drug Use History: None Reported - Past Family History Mother Family Medical History: Coronary Artery Disease (CAD) Medications and Allergies Home Medications Medication Instructions Recorded Confirmed Type ALPRAZolam [Xanax] 0.25 mg PO HS PRN 11/06/13 09/29/18 History Furosemide [Lasix] 60 mg PO DAILY 11/06/13 09/29/18 History Montelukast [Singulair] 10 mg PO HS 11/06/13 09/29/18 History Allopurinol [Zyloprim] 100 mg PO DAILY 11/29/16 09/29/18 History Atenolol [Tenormin] 12.5 mg PO DAILY 11/29/16 09/29/18 History PARoxetine [Paxil] 20 mg PO HS 11/29/16 09/29/18 History Levothyroxine Sodium [Synthroid] 25 mcg PO DAILY@0630 tab 12/04/16 09/29/18 Rx Acetaminophen Tab [Tylenol Tab] 650 mg PO Q6H PRN 09/29/18 09/29/18 History Amoxicillin/Potassium Clav 1 tab PO Q12HR 09/29/18 09/29/18 History [Augmentin 500-125 Tablet] B Complex W-C No.20/Folic Acid 1 mg PO DAILY 09/29/18 09/29/18 History [Renal Caps Softgel] Budesonide [Pulmicort] 0.5 mg INHALATION RT-BID 09/29/18 09/29/18 History Ipratropium-Albuterol Nebulize 3 ml INHALATION RT-BID PRN 09/29/18 09/29/18 History [Duoneb 0.5 mg-3 mg/3 ml Soln] Lactulose 20 gm PO DAILY 09/29/18 09/29/18 History Magnesium Hydroxide [Milk of 2,400 mg PO DAILY PRN 09/29/18 09/29/18 History Magnesia] Meclizine HCl 12.5 mg PO TID PRN 09/29/18 09/29/18 History Ondansetron [Zofran] 4 mg PO Q12HR PRN 09/29/18 09/29/18 History Phenylephrine HCl/[place] Butter 1 supp RC DAILY PRN 09/29/18 09/29/18 History [Preparation H Suppository] Sodium Bicarbonate Tab 650 mg PO DAILY 09/29/18 09/29/18 History diphenhydrAMINE & Zinc Cream 1 applic TOPICAL TID PRN 09/29/18 09/29/18 History [Benadryl Cream] guaiFENesin [Mucinex] 600 mg PO Q12H 09/29/18 09/29/18 History predniSONE 10 mg PO DAILY 09/29/18 09/29/18 History rOPINIRole HCL [Requip] 0.5 mg PO HS 09/29/18 09/29/18 History Allergies Allergy/AdvReac Type Severity Reaction Status Date / Time codeine Allergy Severe Nausea & Verified 09/29/18 13:56 Vomiting morphine Allergy Severe Nausea & Verified 09/29/18 13:56 Vomiting Penicillins Allergy Rash/Hives Verified 09/29/18 13:56 trazodone AdvReac Unknown Verified 09/29/18 13:56 Physical Exam Vitals: Vital Signs Temp Pulse Pulse Resp BP BP Pulse Ox 09/30/18 11:13 88 09/30/18 10:56 76 09/30/18 05:20 97.6 F 74 20 132/80 97 09/30/18 04:30 97.1 F L 78 18 171/78 94 L 09/30/18 04:17 84 09/30/18 04:02 84 09/29/18 21:25 97.6 F 82 20 161/72 97 09/29/18 20:23 85 09/29/18 20:11 85 09/29/18 15:50 96.5 F L 85 18 161/70 97 09/29/18 15:04 98.2 F 78 18 156/87 98 09/29/18 13:10 87 20 159/76 09/29/18 13:00 88 18 152/70 09/29/18 12:50 92 22 152/70 09/29/18 12:49 78 09/29/18 12:40 93 25 H 152/70 09/29/18 12:30 87 22 152/70 09/29/18 12:20 22 152/70 09/29/18 12:10 73 21 152/70 97 09/29/18 12:00 73 24 153/76 96 09/29/18 11:50 73 17 146/75 97 Intake and Output 09/29/18 09/30/18 09/30/18 22:59 06:59 14:59 Intake Total 400 100 Balance 400 100 Intake: Oral 400 100 Other: # Voids 2 2 1 # Bowel Movements 1 Results - Lab Results Most recent lab results Calcium 9.3 mg/dL (8.4-10.2) 09/30/18 08:47 Magnesium 1.8 mg/dL (1.6-2.3) 09/29/18 11:50 09/30/18 08:47 09/30/18 08:47 Assessment and Plan Plan: Assessment: 1. Acute kidney injury mostly prerenal secondary to diuresis and infection. Improving with IV hydration. Creatinine was 3.77 on admission and is down to 3.13 today. 2. Chronic kidney disease stage IV secondary to nephrosclerosis with basic creatinine near 3. 3. Metabolic acidosis secondary to acute kidney injury. 4. Influenza A virus maintained on Tamiflu. 5. Anemia of chronic kidney disease maintained on Aranesp. Plan: Decrease rate of fluids to normal saline at 50 mL an hour. Increase oral sodium bicarbonate to 650 mg twice daily. Avoid nephrotoxins. No urgent need for renal replacement therapy at this time. Patient has been quite hesitant to start renal replacement therapy as an outpatient. However she is willing to proceed if absolutely indicated. Thank you for the consultation. I will continue to follow patient with you jennifer sharma her hospital stay.
[2018-09-30] MEDS: AZITHROMYCIN 500 MG TAB PO SCH (14:22)
--- NOTE | 2018-09-30 15:53 | PN ---
PROGRESS NOTE DATE OF SERVICE: 09/30/2018 This 87-year-old woman who was admitted with COPD, acute exacerbation, with acute hypoxic hypercarbic respiratory failure, also had acute influenza. The patient also was thought to have acute renal failure. Multiple consultants are following the patient closely. The patient is still short of breath. The creatinine is slightly improved at this time. The chest x-ray showed chronic right hemidiaphragmatic elevation with a trace right subsegmental atelectasis and trace pleural effusion. No chest pain. No palpitations. No fever. PHYSICAL EXAMINATION: Alert and oriented x3. Pulse is 78, blood pressure 161/87, respiration 18, temperature 97.9, pulse ox 94% on 2 L. HEENT: Conjunctivae normal. NECK: No jugular venous distention. CARDIOVASCULAR SYSTEM: S1, S2 muffled. RESPIRATORY SYSTEM: Breath sounds diminished at the bases. A few scattered rhonchi and crackles. Expiratory wheezing present. ABDOMEN: Soft, non-tender. LEGS: No edema. No swelling. NERVOUS SYSTEM: No focal deficit. LABS: WBC 7, hemoglobin 9.4 sodium 136, potassium 5, creatinine 3.13. Influenza A is positive. ASSESSMENT: 1. Chronic obstructive pulmonary disease, acute exacerbation, with acute hypoxic respiratory failure with acute influenza A. 2. Acute purulent tracheobronchitis. 3. Acute on chronic renal failure with possibly prerenal renal failure. 4. Chronic kidney disease, stage III. 5. History of asthma, chronic obstructive pulmonary disease. 6. Hypertension. 7. History of myocardial infarction. 8. History of adenoidectomy. 9. History of coronary artery disease, stent. 10.History of anxiety. 11.Anemia; normocytic anemia of chronic disease. 12.Thrombocytopenia. 13.Hyponatremia. 14.Acute influenza A. RECOMMENDATIONS AND DISCUSSION: In this 87-year-old woman who presented with multiple complex medical issues, we will monitor the patient closely, continue the current medications, continue with symptomatic treatment. Will repeat the labs. Creatinine is slightly better, but still the patient is significantly short of breath and hypoxic. Will continue to monitor. Closely follow with Pulmonary. Guarded prognosis. Further recommendations to follow. MMODL / IJN: [id number] / MTDD
--- NOTE | 2018-09-30 16:32 | P.CNPUL ---
History of Present Illness Consult date: 09/30/18 Reason for consult: dyspnea Chief complaint: shortness of breath History of present illness: This is an 87-year-old female who presented emergency department complaining of shortness of breath, cough congestion which has been worsening over the past few days. She states she did have fevers and chills at home. She is also complaining of wheezing. She states she had brown green phlegm. She took Tylenol which did help her fevers. The patient has known obstructive sleep apnea and did bring her CPAP to the hospital with her and is currently wearing it. The patient was found to have influenza and states she did not get her influenza vaccine this year. The patient's chest x-ray was reviewed and shows chronic right diaphragm elevation and atelectasis. Review of Systems All systems: negative Past Medical History Past Medical History: Asthma, COPD, Hypertension, Myocardial Infarction ([place]), Renal Disease Last Myocardial Infarction Date:: 2010 History of Any Multi-Drug Resistant Organisms: None Reported Past Surgical History: Adenoidectomy, Cholecystectomy, Heart Catheterization With Stent, Hernia Repair, Tonsillectomy Additional Past Surgical History / Comment(s): Hx colonoscopy, left and rt knee replacement hx oopherectomy Past Anesthesia/Blood Transfusion Reactions: No Reported Reaction Date of Last Stent Placement:: 2010 Past Psychological History: Anxiety Smoking Status: Never smoker Past Alcohol Use History: None Reported Past Drug Use History: None Reported - Past Family History Mother Family Medical History: Coronary Artery Disease (CAD) Medications and Allergies Home Medications Medication Instructions Recorded Confirmed Type ALPRAZolam [Xanax] 0.25 mg PO HS PRN 11/06/13 09/29/18 History Furosemide [Lasix] 60 mg PO DAILY 11/06/13 09/29/18 History Montelukast [Singulair] 10 mg PO HS 11/06/13 09/29/18 History Allopurinol [Zyloprim] 100 mg PO DAILY 11/29/16 09/29/18 History Atenolol [Tenormin] 12.5 mg PO DAILY 11/29/16 09/29/18 History PARoxetine [Paxil] 20 mg PO HS 11/29/16 09/29/18 History Levothyroxine Sodium [Synthroid] 25 mcg PO DAILY@0630 tab 12/04/16 09/29/18 Rx Acetaminophen Tab [Tylenol Tab] 650 mg PO Q6H PRN 09/29/18 09/29/18 History Amoxicillin/Potassium Clav 1 tab PO Q12HR 09/29/18 09/29/18 History [Augmentin 500-125 Tablet] B Complex W-C No.20/Folic Acid 1 mg PO DAILY 09/29/18 09/29/18 History [Renal Caps Softgel] Budesonide [Pulmicort] 0.5 mg INHALATION RT-BID 09/29/18 09/29/18 History Ipratropium-Albuterol Nebulize 3 ml INHALATION RT-BID PRN 09/29/18 09/29/18 History [Duoneb 0.5 mg-3 mg/3 ml Soln] Lactulose 20 gm PO DAILY 09/29/18 09/29/18 History Magnesium Hydroxide [Milk of 2,400 mg PO DAILY PRN 09/29/18 09/29/18 History Magnesia] Meclizine HCl 12.5 mg PO TID PRN 09/29/18 09/29/18 History Ondansetron [Zofran] 4 mg PO Q12HR PRN 09/29/18 09/29/18 History Phenylephrine HCl/[place] Butter 1 supp RC DAILY PRN 09/29/18 09/29/18 History [Preparation H Suppository] Sodium Bicarbonate Tab 650 mg PO DAILY 09/29/18 09/29/18 History diphenhydrAMINE & Zinc Cream 1 applic TOPICAL TID PRN 09/29/18 09/29/18 History [Benadryl Cream] guaiFENesin [Mucinex] 600 mg PO Q12H 09/29/18 09/29/18 History predniSONE 10 mg PO DAILY 09/29/18 09/29/18 History rOPINIRole HCL [Requip] 0.5 mg PO HS 09/29/18 09/29/18 History Allergies Allergy/AdvReac Type Severity Reaction Status Date / Time codeine Allergy Severe Nausea & Verified 09/29/18 13:56 Vomiting morphine Allergy Severe Nausea & Verified 09/29/18 13:56 Vomiting Penicillins Allergy Rash/Hives Verified 09/29/18 13:56 trazodone AdvReac Unknown Verified 09/29/18 13:56 Physical Exam Osteopathic Statement: *. No significant issues noted on an osteopathic structural exam other than those noted in the History and Physical/Consult. Vitals: Vital Signs Temp Pulse Pulse Resp BP Pulse Ox 09/30/18 14:57 97.9 F 78 18 161/87 94 L 09/30/18 11:13 88 09/30/18 10:56 76 09/30/18 05:20 97.6 F 74 20 132/80 97 09/30/18 04:30 97.1 F L 78 18 171/78 94 L 09/30/18 04:17 84 09/30/18 04:02 84 09/29/18 21:25 97.6 F 82 20 161/72 97 09/29/18 20:23 85 09/29/18 20:11 85 Intake and Output 09/30/18 09/30/18 09/30/18 06:59 14:59 22:59 Intake Total 100 800 Balance 100 800 Intake: IV 800 Sodium Chloride 0.9% 1, 800 000 ml @ 100 mls/hr IV . Q10H [facility] Rx#:[id number] Oral 100 Other: # Voids 2 1 # Bowel Movements 1 Gen.: Patient is alert and oriented 3, no acute distress, currently on home CPAP Cardiovascular: Regular rate and rhythm, S1/S2 Lungs: Diffuse bilateral expiratory wheezing Abdomen: Soft nontender nondistended positive bowel sounds Extremities: No edema Results - Laboratory Findings CBC and BMP: 09/30/18 08:47 09/30/18 08:47 PT/INR, D-dimer PT 9.9 sec (9.0-12.0) 09/29/18 11:50 INR 0.9 (<1.2) 09/29/18 11:50 Abnormal lab findings: Abnormal Labs 09/29/18 09/29/18 09/29/18 11:50 11:50 13:04 RBC 3.22 L Hgb 9.3 L Hct 29.1 L RDW 15.9 H Plt Count 96 L Lymphocytes # 0.5 L Sodium 135 L Carbon Dioxide 19 L BUN 71 H Creatinine 3.77 H Glucose 137 H Total Protein 6.0 L Influenza Type A RNA Detected H 09/30/18 09/30/18 08:47 08:47 RBC 3.17 L Hgb 9.4 L Hct 28.9 L RDW 15.6 H Plt Count 102 L Lymphocytes # 0.5 L Sodium Carbon Dioxide 18 L BUN 76 H Creatinine 3.13 H Glucose 164 H Total Protein Influenza Type A RNA - Diagnostic Findings Chest x-ray: report reviewed, image reviewed Assessment and Plan Assessment: Acute hypoxic respiratory failure Acute exacerbation of moderate COPD Influenza a Obstructive sleep apnea, compliant with CPAP Acute kidney injury on chronic kidney disease stage IV Anemia of chronic disease Depression History of coronary artery disease, stenting Thrombocytopenia Hypertension O2 to maintain saturation greater than or equal to 90% Solu-Medrol Pulmicort, Perforomist Singulair Sputum culture Tamiflu Mucinex Antibiotics: Incentive spirometry and pulmonary hygiene CPAP nightly and as needed GI and DVT prophylaxis IVF hydration Thank you for this consultation we'll continue to follow along
[2018-09-30] MEDS: methylPREDNISolone SOD SUCCI 40 MG/ML 1 ML VIAL IV SCH (17:10)
[2018-09-30] MEDS: FORMOTEROL FUMARATE 20 MCG/2 ML NEBU INHALATION SCH (19:25)
[2018-09-30] MEDS: OSELTAMIVIR 60 MG/10 ML ORAL SYRINGE PO SCH (20:51)
[2018-09-30] MEDS: PARoxetine 20 MG TAB PO SCH (20:51)
[2018-09-30] MEDS: MONTELUKAST 10 MG TAB PO SCH (20:51)
[2018-09-30] MEDS: SODIUM BICARBONATE TAB 650 MG TAB PO SCH (20:52)
[2018-10-01] MEDS: methylPREDNISolone SOD SUCCI 40 MG/ML 1 ML VIAL IV SCH ×4 (01:30→17:06)
[2018-10-01] MEDS: IPRATROPIUM-ALBUTEROL 3 ML NEB INHALATION SCH ×6 (02:01→23:16)
--- NOTE | 2018-10-01 02:54 | P.PN ---
Subjective Progress Note Date: 10/01/18 10/01/2018: Patient seen and examined. Patient states that she is still having a lot of wheezing and coughing up phlegm. She does not have any fevers or chills. She states that her breathing is getting a little bit better. She is currently doing a breathing treatment. She does wear CPAP nightly. She states she does not feel like she is in distress anymore. Objective - Vital Signs Vital signs: Vital Signs Temp 98.0 F 09/30/18 22:31 Pulse 88 10/01/18 02:13 Resp 18 09/30/18 22:31 BP 162/84 09/30/18 22:31 Pulse Ox 98 09/30/18 22:31 Intake & Output 09/30/18 09/30/18 10/01/18 06:59 18:59 06:59 Intake Total 500 800 Balance 500 800 Intake: IV 800 Sodium Chloride 0.9% 1, 800 000 ml @ 100 mls/hr IV . Q10H [facility] Rx#:[id number] Oral 500 Other: # Voids 2 1 1 # Bowel Movements 1 - Exam Gen.: Patient is alert and oriented 3, no acute distress, currently on home CPAP Cardiovascular: Regular rate and rhythm, S1/S2 Lungs: Diffuse bilateral expiratory wheezing Abdomen: Soft nontender nondistended positive bowel sounds Extremities: No edema - Labs CBC & Chem 7: 09/30/18 08:47 09/30/18 08:47 Labs: Abnormal Lab Results - Last 24 Hours (Table) 09/30/18 09/30/18 Range/Units 08:47 08:47 RBC 3.17 L (3.80-5.40) m/uL Hgb 9.4 L (11.4-16.0) gm/dL Hct 28.9 L (34.0-46.0) % RDW 15.6 H (11.5-15.5) % Plt Count 102 L (150-450) k/uL Lymphocytes # 0.5 L (1.0-4.8) k/uL Carbon Dioxide 18 L (22-30) mmol/L BUN 76 H (7-17) mg/dL Creatinine 3.13 H (0.52-1.04) mg/dL Glucose 164 H (74-99) mg/dL Microbiology - Last 24 Hours (Table) 09/29/18 11:50 Blood Culture - Preliminary Blood No Growth after 24 hours 09/30/18 11:03 Gram Stain - Preliminary Sputum Sputum Culture - Preliminary Assessment and Plan Assessment: Acute hypoxic respiratory failure Acute exacerbation of moderate COPD Influenza a Obstructive sleep apnea, compliant with CPAP Acute kidney injury on chronic kidney disease stage IV Anemia of chronic disease Depression History of coronary artery disease, stenting Thrombocytopenia Hypertension O2 to maintain saturation greater than or equal to 90% Solu-Medrol Pulmicort, Perforomist Singulair Sputum culture Tamiflu Mucinex Antibiotics: Incentive spirometry and pulmonary hygiene CPAP nightly and as needed GI and DVT prophylaxis IVF hydration Increase Pulmicort to 1mg BID
[2018-10-01] MEDS: LEVOTHYROXINE 25 MCG TAB PO SCH (05:23)
[2018-10-01] MEDS: SODIUM CHLORIDE 0.9% 1,000 ML IV SCH (05:24)
[2018-10-01] MEDS: BUDESONIDE 0.5 MG/2 ML NEBU INHALATION SCH ×2 (08:04→19:13)
[2018-10-01] MEDS: FORMOTEROL FUMARATE 20 MCG/2 ML NEBU INHALATION SCH ×2 (08:04→19:13)
[2018-10-01] MEDS: guaiFENesin 600 MG TABLET.ER PO SCH ×2 (08:09→20:11)
[2018-10-01] MEDS: FOLIC ACID-VIT B COMPLEX-VIT C 1 CAP PO SCH (08:09)
[2018-10-01] MEDS: SODIUM BICARBONATE TAB 650 MG TAB PO SCH ×2 (08:09→20:11)
[2018-10-01] MEDS: ALLOPURINOL 100 MG TAB PO SCH (08:09)
[2018-10-01] MEDS: LACTULOSE 20 GM/30 ML CUP PO SCH (08:09)
[2018-10-01] MEDS: ATENOLOL 12.5 MG TAB PO SCH (08:09)
[2018-10-01 10:48] LABS: Basophils % (A) 0 %; Eosinophils % (A) 0 %; HCT 28.2 % (34.0-46.0); HGB 8.8 gm/dL (11.4-16.0); Hypochromasia Slight; Lymphocytes # (A) 0.2 k/uL (1.0-4.8); Lymphocytes % (A) 2 %; MCH 29.1 pg (25.0-35.0); MCHC 31.2 g/dL (31.0-37.0); MCV 93.1 fL (80.0-100.0); Mean Platelet Volume 9.3; Monocytes # (A) 0.5 k/uL (0-1.0); Monocytes % (A) 4 %; Neutrophils # (A) 12.3 k/uL (1.3-7.7); Neutrophils % (A) 93 %; RBC 3.03 m/uL (3.80-5.40); RDW 15.7 % (11.5-15.5); WBC 13.2 k/uL (3.8-10.6)
[2018-10-01 10:52] LABS: Platelet Count 92 k/uL (150-450)
[2018-10-01 10:53] LABS: Calcium 9.4 mg/dL (8.4-10.2); Potassium 5.1 mmol/L (3.5-5.1)
[2018-10-01] MEDS: AZITHROMYCIN 500 MG TAB PO SCH (13:28)
[2018-10-01] MEDS: MONTELUKAST 10 MG TAB PO SCH (20:11)
[2018-10-01] MEDS: PARoxetine 20 MG TAB PO SCH (20:11)
--- NOTE | 2018-10-01 21:27 | PN ---
PROGRESS NOTE DATE OF SERVICE: 10/01/2018 This 87-year-old woman who was admitted with COPD, acute influenza and as well as tracheobronchitis is being closely monitored. Patient still has no shortness of breath, slightly better. No chest pain. No palpitations. Pulmonary is following the patient closely. EXAM: Alert and oriented times three. Pulse is 78. Blood pressure 150/81, respiration 16, temperature 97.2, pulse ox 94% on 2 L. HEENT is conjunctivae normal. NECK: No jugular venous distention. CARDIOVASCULAR: S1, S2 muffled. RESPIRATORY: Breath sounds diminished in the bases. Bilateral scattered rhonchi and crackles. Abdomen is soft, nontender. Legs are no edema, no swelling. CENTRAL NERVOUS SYSTEM: No focal deficits. LABS: WBC 13.3, hemoglobin is 8.8, creatinine is 2.7 and influenza is positive. ASSESSMENT: 1. Chronic obstructive pulmonary disease acute exacerbation with acute hypoxic respiratory failure with acute influenza A. 2. Acute purulent tracheobronchitis. 3. Acute on chronic renal failure with possibly prerenal renal failure with acute tubular necrosis. 4. Chronic kidney stage III. 5. History of asthma, chronic obstructive pulmonary disease. 6. Hypertension. 7. History of myocardial infarction. 8. History of adenoidectomy. 9. History of coronary artery disease, stent. 10.History of anxiety. 11.Anemia, normocytic anemia of chronic disease. 12.Thrombocytopenia. 13.Hyponatremia. 14.Acute influenza A. RECOMMENDATIONS AND DISCUSSION: Recommend to continue current medications, management and symptomatic treatment. Continue with antiviral agents. Continue with bronchodilators. Continue with antibiotics and bronchodilators. Guarded prognosis because of multiple complex medical issues. Further recommendations to follow. MMODL / IJN: [id number] /
[2018-10-01] MEDS: OSELTAMIVIR 60 MG/10 ML ORAL SYRINGE PO SCH (21:56)
[2018-10-02] MEDS: methylPREDNISolone SOD SUCCI 40 MG/ML 1 ML VIAL IV SCH ×4 (01:57→17:34)
[2018-10-02] MEDS: SODIUM CHLORIDE 0.9% 1,000 ML IV SCH (05:01)
[2018-10-02] MEDS: IPRATROPIUM-ALBUTEROL 3 ML NEB INHALATION SCH ×5 (05:39→21:27)
[2018-10-02] MEDS: LEVOTHYROXINE 25 MCG TAB PO SCH (06:24)
[2018-10-02 07:23] LABS: Glucose,Whole Blood 182 mg/dL (75-99)
[2018-10-02] MEDS: FOLIC ACID-VIT B COMPLEX-VIT C 1 CAP PO SCH (07:55)
[2018-10-02] MEDS: SODIUM BICARBONATE TAB 650 MG TAB PO SCH ×2 (07:55→21:48)
[2018-10-02] MEDS: guaiFENesin 600 MG TABLET.ER PO SCH ×2 (07:55→21:48)
[2018-10-02] MEDS: ATENOLOL 12.5 MG TAB PO SCH (07:55)
[2018-10-02] MEDS: INSULIN ASPART (NovoLOG) 100 UNIT/ML VIAL SQ SCH ×4 (07:55→22:14)
[2018-10-02] MEDS: ALLOPURINOL 100 MG TAB PO SCH (07:55)
[2018-10-02] MEDS: LACTULOSE 20 GM/30 ML CUP PO SCH (07:56)
[2018-10-02] MEDS: BUDESONIDE 1 MG/2 ML NEBU INHALATION SCH ×2 (08:20→21:27)
[2018-10-02] MEDS: FORMOTEROL FUMARATE 20 MCG/2 ML NEBU INHALATION SCH ×2 (08:20→21:35)
[2018-10-02] MEDS ORDERED: ALPRAZolam 0.25 MG TAB PO PRN (11:11)
[2018-10-02] MEDS: LEVOFLOXACIN 500MG-D5W PMX 500 MG in DEXTROSE/WATER 1 100ML.BAG IVPB SCH (11:43)
[2018-10-02 11:50] LABS: Glucose,Whole Blood 188 mg/dL (75-99)
[2018-10-02 12:41] LABS: Potassium 5.4 mmol/L (3.5-5.1)
[2018-10-02 12:49] LABS: Basophils % (A) 0 %; Eosinophils # (A) 0.1 k/uL (0-0.7); Eosinophils % (A) 0 %; HCT 29.7 % (34.0-46.0); HGB 9.4 gm/dL (11.4-16.0); Hypochromasia Marked; Lymphocytes # (A) 0.3 k/uL (1.0-4.8); Lymphocytes % (A) 2 %; MCH 30.5 pg (25.0-35.0); MCHC 31.8 g/dL (31.0-37.0); MCV 96.1 fL (80.0-100.0); Mean Platelet Volume 9.2; Monocytes # (A) 0.5 k/uL (0-1.0); Monocytes % (A) 3 %; Neutrophils # (A) 12.5 k/uL (1.3-7.7); Neutrophils % (A) 93 %; RBC 3.09 m/uL (3.80-5.40); RDW 15.7 % (11.5-15.5); WBC 13.5 k/uL (3.8-10.6)
[2018-10-02] MEDS ORDERED: SODIUM POLYSTYRENE SULFONATE 15 GM/60 ML BOTTLE PO ONE (13:33)
[2018-10-02 13:46] LABS: Crenated RBC Present; RBC Fragments Present
[2018-10-02 13:47] LABS: Platelet Count 140 k/uL (150-450)
--- NOTE | 2018-10-02 14:34 | P.PN ---
Subjective Progress Note Date: 10/02/18 Seen and examined for the follow-up of acute kidney injury. No nausea vomiting diarrhea. Admits increased in urinary volume but denies incomplete emptying of the bladder. Currently on IV fluids. Objective - Vital Signs Vital signs: Vital Signs Temp 97.5 F L 10/02/18 06:57 Pulse 94 10/02/18 11:41 Resp 16 10/02/18 06:57 BP 151/72 10/02/18 06:57 Pulse Ox 96 10/02/18 06:57 Intake & Output 10/01/18 10/02/18 10/02/18 18:59 06:59 18:59 Intake Total 600 400 Balance 600 400 Intake: Intake, IV Titration 400 Amount Sodium Chloride 0.9% 1, 400 000 ml @ 50 mls/hr IV . Q20H [facility] Rx#:[id number] Oral 600 Other: Voiding Method Bedside Commode # Voids 1 1 - Exam No acute distress S1-S2 heard Diminished breath sounds Mild abdominal distention Trace edema - Labs CBC & Chem 7: 10/02/18 11:31 10/02/18 11:31 Labs: Abnormal Lab Results - Last 24 Hours (Table) 10/02/18 10/02/18 10/02/18 Range/Units 07:21 11:31 11:31 WBC 13.5 H (3.8-10.6) k/uL RBC 3.09 L (3.80-5.40) m/uL Hgb 9.4 L (11.4-16.0) gm/dL Hct 29.7 L (34.0-46.0) % RDW 15.7 H (11.5-15.5) % Plt Count 140 L D (150-450) k/uL Neutrophils # 12.5 H (1.3-7.7) k/uL Lymphocytes # 0.3 L (1.0-4.8) k/uL Potassium 5.4 H (3.5-5.1) mmol/L Chloride 110 H (98-107) mmol/L Carbon Dioxide 18 L (22-30) mmol/L BUN 87 H (7-17) mg/dL Creatinine 2.54 H (0.52-1.04) mg/dL Glucose 148 H (74-99) mg/dL POC Glucose (mg/dL) 182 H (75-99) mg/dL 03/31/19 Range/Units 11:49 WBC (3.8-10.6) k/uL RBC (3.80-5.40) m/uL Hgb (11.4-16.0) gm/dL Hct (34.0-46.0) % RDW (11.5-15.5) % Plt Count (150-450) k/uL Neutrophils # (1.3-7.7) k/uL Lymphocytes # (1.0-4.8) k/uL Potassium (3.5-5.1) mmol/L Chloride (98-107) mmol/L Carbon Dioxide (22-30) mmol/L BUN (7-17) mg/dL Creatinine (0.52-1.04) mg/dL Glucose (74-99) mg/dL POC Glucose (mg/dL) 188 H (75-99) mg/dL Microbiology - Last 24 Hours (Table) 09/30/18 11:03 Gram Stain - Final Sputum Sputum Culture - Final Pseudomonas aeruginosa 09/29/18 11:50 Blood Culture - Preliminary Blood No Growth after 48 hours Assessment and Plan Assessment: #1 acute kidney injury secondary to prerenal process from over diuresis. Creatinine close to baseline. Currently retaining fluid. #2 chronic kidney disease stage IV secondary to nephrosclerosis baseline creatinine 2.5-2.7 MG per DL. #3 mild hyperkalemia rule out urinary retention #4 metabolic acidosis secondary to acute kidney injury. #5 influenza A #6 anemia with chronic kidney disease. #7 hypertension with chronic kidney disease. Plan: #1 stop IV fluids. #2 treat hyperkalemia medically. Add Lasix 40 mg IV twice a day. Can be tapered to oral at discharge. #3 bladder scan #4 labs in the morning
[2018-10-02] MEDS: FUROSEMIDE 10 MG/ML 4 ML VIAL IV SCH ×2 (15:41→22:14)
[2018-10-02 17:42] LABS: Glucose,Whole Blood 158 mg/dL (75-99)
--- NOTE | 2018-10-02 20:04 | PN ---
PROGRESS NOTE DATE OF SERVICE: October 02, 2018. She continues to have shortness of breath. On physical examination, she is sitting up in bed. She is short of breath with a respiratory rate of 28, pulse rate of 76, blood pressure 166/83, O2 saturation on 3 L by nasal cannula is 95%. HEENT is unremarkable. Chest reveals expiratory wheeze. Cardiovascular system is S1, S2. Abdomen is soft. There is no edema. White count is 13.5, hemoglobin of 9.4. Sodium 137, potassium 5.4, chloride 110, bicarb 18, BUN 87, creatinine of 2.5. IMPRESSION: 1. Severe asthma with acute exacerbation. 2. Chronic obstructive pulmonary disease. 3. Influenza A. 4. Acute on chronic renal failure. Continue steroids, Tamiflu, bronchodilators. Increase her activity level. Depending on how she does, we should make further changes to her care. MMAVELINA / CYNTHIAN: [id number] /
[2018-10-02 20:21] LABS: Glucose,Whole Blood 188 mg/dL (75-99)
[2018-10-02] MEDS: MONTELUKAST 10 MG TAB PO SCH (21:47)
[2018-10-02] MEDS: PARoxetine 20 MG TAB PO SCH (21:48)
[2018-10-02] MEDS: OSELTAMIVIR 60 MG/10 ML ORAL SYRINGE PO SCH (21:49)
--- NOTE | 2018-10-02 21:55 | PN ---
PROGRESS NOTE DATE OF SERVICE: 10/02/2018 This 87-year-old woman who was admitted with features of COPD exacerbation, acute respiratory failure, influenza A, also had renal failure. Renal failure is slightly improved and the patient is being closely monitored. No chest pain. No palpitations. No fever. EXAM: Alert and oriented times three. Pulse is 83, blood pressure 163/70, respiration 18, temperature 98.8, pulse ox 94% on 3 L. HEENT: Conjunctivae normal. NECK: No jugular venous distention. Cardiovascular system: S1, S2 muffled. RESPIRATORY: Breath sounds diminished in the bases. Scattered rhonchi and crackles. Abdomen is soft, nontender. Nervous system: No focal deficits. LABS: WBC 13.3, hemoglobin 9.4. Creatinine is 2.5, potassium 5.4. ASSESSMENT: 1. Chronic obstructive pulmonary disease acute exacerbation with acute hypoxic respiratory failure with acute influenza A. 2. Acute purulent tracheobronchitis. 3. Acute on chronic renal failure with possible prerenal renal failure with acute tubular necrosis. 4. Chronic kidney disease stage III. 5. History of asthma, chronic obstructive pulmonary disease. 6. Hypertension. 7. History myocardial infarction. 8. History of adenoidectomy. 9. History of coronary artery disease/stent. 10.History of anxiety. 11.Anemia, normocytic anemia of chronic disease. 12.Thrombocytopenia. 13.Hyponatremia. 14.Acute influenza A. RECOMMENDATIONS AND DISCUSSION: Recommend to continue current medications, continue with monitoring, management and symptomatic treatment. Kayexalate for hyperkalemia. Monitor creatinine closely. Creatinine is significantly improving. I would recommend continue the bronchodilators and steroids which are tapered. Also continue to finish a course of antiviral. The patient is clinically significantly better. Prognosis guarded. Further recommendations to follow. MMODL / IJN: [id number] /
[2018-10-03] MEDS: methylPREDNISolone SOD SUCCI 40 MG/ML 1 ML VIAL IV SCH ×4 (00:11→18:09)
[2018-10-03] MEDS: IPRATROPIUM-ALBUTEROL 3 ML NEB INHALATION SCH ×7 (01:45→23:17)
[2018-10-03] MEDS: LEVOTHYROXINE 25 MCG TAB PO SCH (06:00)
[2018-10-03] MEDS: BUDESONIDE 1 MG/2 ML NEBU INHALATION SCH ×2 (07:12→19:02)
[2018-10-03] MEDS: FORMOTEROL FUMARATE 20 MCG/2 ML NEBU INHALATION SCH ×2 (07:12→19:15)
[2018-10-03 07:13] LABS: Glucose,Whole Blood 192 mg/dL (75-99)
[2018-10-03] MEDS ORDERED: ATENOLOL 25 MG TAB PO SCH (08:15)
[2018-10-03] MEDS: guaiFENesin 600 MG TABLET.ER PO SCH ×2 (08:55→21:53)
[2018-10-03] MEDS: ALLOPURINOL 100 MG TAB PO SCH (08:55)
[2018-10-03] MEDS: SODIUM BICARBONATE TAB 650 MG TAB PO SCH ×2 (08:55→21:53)
[2018-10-03] MEDS: LACTULOSE 20 GM/30 ML CUP PO SCH ×3 (08:55→13:35)
[2018-10-03] MEDS: FOLIC ACID-VIT B COMPLEX-VIT C 1 CAP PO SCH (08:55)
[2018-10-03] MEDS: FUROSEMIDE 10 MG/ML 4 ML VIAL IV SCH ×2 (08:55→21:53)
[2018-10-03] MEDS: INSULIN ASPART (NovoLOG) 100 UNIT/ML VIAL SQ SCH ×4 (08:56→21:54)
--- NOTE | 2018-10-03 12:11 | ECHOF ---
Referral Reason:new afib. noted on ekg MEASUREMENTS -------- HEIGHT: 167.6 cm WEIGHT: 86.2 kg BP: RVIDd: 3.3 cm (< 3.3) IVSd: 1.5 cm (0.6 - 1.1) LVIDd: 4.5 cm (3.9 - 5.3) LVPWd: 1.5 cm (0.6 - 1.1) IVSs: 2.1 cm LVIDs: 3.0 cm LVPWs: 2.0 cm LA Diam: 3.7 cm (2.7 - 3.8) LAESV Index (A-L): 31.22 ml/m Ao Diam: 4.1 cm (2.0 - 3.7) AV Cusp: 2.0 cm (1.5 - 2.6) MV EXCURSION: 15.965 mm (> 18.000) MV EF SLOPE: 99 mm/s (70 - 150) EPSS: 0.7 cm AR PHT: 546 ms RAP: 15.00 mmHg RVSP: 48.18 mmHg FINDINGS -------- Atrial fibrillation. This was a technically good study. The left ventricular size is normal. There is moderate concentric left ventricular hypertrophy. O verall left ventricular systolic function is normal with, an EF between 55 - 60 %. The right ventricle is mildly enlarged. LA is midly dilated 29-33ml/m2. The right atrium is normal in size. There is mild aortic valve sclerosis. There is mild aortic regurgitation. The mitral valve leaflets are mildly thickened. Mild mitral annular calcification present. Modera te mitral regurgitation is present. Mild tricuspid regurgitation present. There is moderate pulmonary hypertension. The right ventric ular systolic pressure, as measured by Doppler, is 48.18mmHg. Trace/mild (physiologic) pulmonic regurgitation. The aortic root size is normal. The inferior vena cava is dilated with poor inspiratory collapse which is consistent with estimated r ight atrial pressure of 15 mmHg. There is no pericardial effusion. CONCLUSIONS -------- 1. Atrial fibrillation. 2. This was a technically good study. 3. The left ventricular size is normal. 4. There is moderate concentric left ventricular hypertrophy. 5. Overall left ventricular systolic function is normal with, an EF between 55 - 60 %. 6. The right ventricle is mildly enlarged. 7. LA is midly dilated 29-33ml/m2. 8. The right atrium is normal in size. 9. There is mild aortic valve sclerosis. 10. There is mild aortic regurgitation. 11. The mitral valve leaflets are mildly thickened. 12. Mild mitral annular calcification present. 13. Moderate mitral regurgitation is present. 14. Mild tricuspid regurgitation present. 15. There is moderate pulmonary hypertension. 16. The right ventricular systolic pressure, as measured by Doppler, is 48.18mmHg. 17. Trace/mild (physiologic) pulmonic regurgitation. 18. The aortic root size is normal. 19. The inferior vena cava is dilated with poor inspiratory collapse which is consistent with estimat ed right atrial pressure of 15 mmHg. 20. There is no pericardial effusion. DIRECTOR OF VOCATIONAL TRAINING: Mena Chaidez RDCS
[2018-10-03 12:32] LABS: Basophils % (A) 0 %; Eosinophils % (A) 0 %; Lymphocytes # (A) 0.3 k/uL (1.0-4.8); Lymphocytes % (A) 3 %; MCH 29.1 pg (25.0-35.0); Mean Platelet Volume 9.5; Monocytes # (A) 0.3 k/uL (0-1.0); Monocytes % (A) 3 %; Neutrophils # (A) 9.6 k/uL (1.3-7.7); Neutrophils % (A) 93 %; Platelet Count 133 k/uL (150-450); RBC 3.09 m/uL (3.80-5.40); RDW 15.7 % (11.5-15.5); WBC 10.3 k/uL (3.8-10.6)
[2018-10-03 12:37] LABS: Glucose,Whole Blood 192 mg/dL (75-99)
[2018-10-03 12:43] LABS: MCV 90.8 fL (80.0-100.0)
[2018-10-03 12:48] LABS: Calcium 9.8 mg/dL (8.4-10.2); Potassium 4.3 mmol/L (3.5-5.1)
[2018-10-03] MEDS: LEVOFLOXACIN 500MG-D5W PMX 500 MG in DEXTROSE/WATER 1 100ML.BAG IVPB SCH (13:06)
[2018-10-03] MEDS: APIXABAN 2.5 MG TABLET PO SCH ×2 (13:07→21:53)
[2018-10-03] MEDS ORDERED: ATENOLOL 25 MG TAB PO STA (13:27)
--- NOTE | 2018-10-03 13:49 | P.CRDCN ---
History of Present Illness History of present illness: This is a pleasant 87-year-old female past medical history significant for hypertension, coronary artery disease status post stent placement to the mid RCA in 2010, asthma, chronic kidney disease and aortic regurgitation. She follows in the office with Dr. Sutton. We've been asked to see her in consultation secondary to atrial fibrillation. She presented to the hospital on September 29 with symptoms of shortness of breath, cough and congestion. She has been admitted to the hospital with influenza A and acute exacerbation of COPD. EKG on arrival reveals sinus mechanism with left anterior fascicular block. EKG obtained yesterday evening reveals atrial fibrillation with mildly rapid ventricular response. Atenolol was increased. Currently blood pressure is 151/89 heart rate is 106. Overall she denies symptoms of chest discomfort, shortness of breath, dizziness or palpitations. She has been followed by nephrology and pulmonology. Echocardiogram obtained reveals preserved left ventricular systolic function with ejection fraction 55-60%, moderate concentric left ventricular hypertrophy, mild aortic valve sclerosis, mild aortic regurgitation, moderate mitral regurgitation, mild tricuspid regurgitation and moderate pulmonary hypertension with an RVSP of 40 mmHg. Currently maintained on atenolol 25 mg daily, lasix 40 mg IV. Laboratory data reviewed, WBC 10.3, hemoglobin 9, platelets 133, sodium 136, potassium 4.3, creatinine 2.65 with a GFR 15, NT proBNP on admission 2970, cardiac enzymes negative 1, magnesium 1.8. At the time of my exam: CONSTITUTIONAL: Denies fever. Denies chills. EYES: Denies blurred vision. Denies vision changes. Denies eye pain. EARS, NOSE, MOUTH & THROAT: Denies headache. Denies sore throat. Denies ear pain. CARDIOVASCULAR: Denies chest pain. Denies shortness of breath. Denies orthopnea. Denies PND. Denies palpitations. RESPIRATORY: Denies cough. GASTROINTESTINAL: Denies abdominal pain. Denies diarrhea. Denies constipation. Denies nausea. Denies vomiting. MUSCULOSKELETAL: Denies myalgias. INTEGUMENTARY: Denies pruitis. Denies rash. NEUROLOGIC: Denies numbness. Denies tingling. Denies weakness. PSYCHIATRIC: Denies anxiety. Denies depression. ENDOCRINE: Denies fatigue. Denies weight change. Denies polydipsia. Denies polyurina. GENITOURINARY: Denies burning, hematuria or urgency with micturation. HEMATOLOGIC: Denies history of anemia. Denies bleeding. Blood pressure 151/89 heart rate 106 afebrile maintaining oxygen saturation on nasal cannula GENERAL: This is a 87-year-old female in no apparent distress at the time of my examination. HEENT: Head is atraumatic, normocephalic. Pupils are equal, round. Sclerae anicteric. Conjunctivae are clear. Mucous membranes of the mouth are moist. Neck is supple. There is no jugular venous distention. No carotid bruit is heard. LUNGS: Course rhonchi noted, no wheezes or rales. No chest wall tenderness is noted on palpation or with deep breathing. HEART: Irregular rate and rhythm with systolic ejection murmur at the left sternal border, no rubs or gallops. S1 and S2 heard. ABDOMEN: Soft, nontender. Bowel sounds are heard. No organomegaly noted. EXTREMITIES: No evidence of peripheral edema and no calf tenderness noted. VASCULAR: Radial and dorsalis pedis pulses palpated, no evidence of clubbing. NEUROLOGIC: Patient is awake, alert and oriented. ASSESSMENT New onset paroxysmal atrial fibrillation Acute hypoxic respiratory failure Influenza A History of coronary artery disease s/p stent placement to mid RCA 2010 Hypertension Acute on chronic kidney disease PLAN Recommend Eliquis 2.5 mg BID for thromboembolic protection. Follow CBC daily due to chronic anemia. Increase atenolol to 50 mg daily, give additional dose of 25 mg x1 now. Echo has been obtained and reviewed. Further recommendations to follow based on clinical course. Thank you kindly for this consultation. Nurse Practitioner note has been reviewed, I agree with a documented findings and plan of care. Patient was seen and examined. Past Medical History Past Medical History: Asthma, COPD, Hypertension, Myocardial Infarction ([place]), Renal Disease Last Myocardial Infarction Date:: 2010 History of Any Multi-Drug Resistant Organisms: None Reported Past Surgical History: Adenoidectomy, Cholecystectomy, Heart Catheterization With Stent, Hernia Repair, Tonsillectomy Additional Past Surgical History / Comment(s): Hx colonoscopy, left and rt knee replacement hx oopherectomy Past Anesthesia/Blood Transfusion Reactions: No Reported Reaction Date of Last Stent Placement:: 2010 Past Psychological History: Anxiety Smoking Status: Never smoker Past Alcohol Use History: None Reported Past Drug Use History: None Reported - Past Family History Mother Family Medical History: Coronary Artery Disease (CAD) Medications and Allergies Home Medications Medication Instructions Recorded Confirmed Type ALPRAZolam [Xanax] 0.25 mg PO HS PRN 11/06/13 09/29/18 History Furosemide [Lasix] 60 mg PO DAILY 11/06/13 09/29/18 History Montelukast [Singulair] 10 mg PO HS 11/06/13 09/29/18 History Allopurinol [Zyloprim] 100 mg PO DAILY 11/29/16 09/29/18 History Atenolol [Tenormin] 12.5 mg PO DAILY 11/29/16 09/29/18 History PARoxetine [Paxil] 20 mg PO HS 11/29/16 09/29/18 History Levothyroxine Sodium [Synthroid] 25 mcg PO DAILY@0630 tab 12/04/16 09/29/18 Rx Acetaminophen Tab [Tylenol Tab] 650 mg PO Q6H PRN 09/29/18 09/29/18 History Amoxicillin/Potassium Clav 1 tab PO Q12HR 09/29/18 09/29/18 History [Augmentin 500-125 Tablet] B Complex W-C No.20/Folic Acid 1 mg PO DAILY 09/29/18 09/29/18 History [Renal Caps Softgel] Budesonide [Pulmicort] 0.5 mg INHALATION RT-BID 09/29/18 09/29/18 History Ipratropium-Albuterol Nebulize 3 ml INHALATION RT-BID PRN 09/29/18 09/29/18 History [Duoneb 0.5 mg-3 mg/3 ml Soln] Lactulose 20 gm PO DAILY 09/29/18 09/29/18 History Magnesium Hydroxide [Milk of 2,400 mg PO DAILY PRN 09/29/18 09/29/18 History Magnesia] Meclizine HCl 12.5 mg PO TID PRN 09/29/18 09/29/18 History Ondansetron [Zofran] 4 mg PO Q12HR PRN 09/29/18 09/29/18 History Phenylephrine HCl/[place] Butter 1 supp RC DAILY PRN 09/29/18 09/29/18 History [Preparation H Suppository] Sodium Bicarbonate Tab 650 mg PO DAILY 09/29/18 09/29/18 History diphenhydrAMINE & Zinc Cream 1 applic TOPICAL TID PRN 09/29/18 09/29/18 History [Benadryl Cream] guaiFENesin [Mucinex] 600 mg PO Q12H 09/29/18 09/29/18 History predniSONE 10 mg PO DAILY 09/29/18 09/29/18 History rOPINIRole HCL [Requip] 0.5 mg PO HS 09/29/18 09/29/18 History Allergies Allergy/AdvReac Type Severity Reaction Status Date / Time codeine Allergy Severe Nausea & Verified 09/29/18 13:56 Vomiting morphine Allergy Severe Nausea & Verified 09/29/18 13:56 Vomiting Penicillins Allergy Rash/Hives Verified 09/29/18 13:56 trazodone AdvReac Unknown Verified 09/29/18 13:56 Physical Exam Vitals: Vital Signs Temp Pulse Pulse Resp BP Pulse Ox 10/03/18 11:21 106 H 151/89 99 10/03/18 11:05 102 H 10/03/18 10:54 106 H 10/03/18 07:33 104 H 10/03/18 07:28 97.8 F 113 H 18 149/93 97 10/03/18 07:26 104 H 10/03/18 07:25 100 10/03/18 07:12 102 H 10/03/18 05:25 98 F 108 H 20 152/86 98 10/03/18 03:39 88 10/03/18 03:33 88 10/02/18 21:50 88 10/02/18 21:40 86 10/02/18 21:30 98.1 F 80 20 158/84 99 10/02/18 21:27 86 10/02/18 16:30 88 10/02/18 16:17 90 96 10/02/18 15:30 98.8 F 83 18 166/83 95 Intake and Output 10/02/18 10/03/18 10/03/18 22:59 06:59 14:59 Intake Total 200 100 Balance 200 100 Intake: Oral 200 100 Other: Voiding Method Bedside Commode # Voids 3 3 # Bowel Movements 0 Results 10/03/18 12:19 10/03/18 12:19 CBC 10/02/18 10/03/18 Range/Units 11:31 12:19 WBC 13.5 H 10.3 (3.8-10.6) k/uL RBC 3.09 L 3.09 L (3.80-5.40) m/uL Hgb 9.4 L 9.0 L (11.4-16.0) gm/dL Hct 29.7 L 28.0 L (34.0-46.0) % Plt Count 140 L D 133 L (150-450) k/uL Comprehensive Metabolic Panel 10/03/18 Range/Units 12:19 Sodium 136 L (137-145) mmol/L Potassium 4.3 (3.5-5.1) mmol/L Chloride 105 (98-107) mmol/L Carbon Dioxide 21 L (22-30) mmol/L BUN 88 H (7-17) mg/dL Creatinine 2.65 H (0.52-1.04) mg/dL Glucose 173 H (74-99) mg/dL Calcium 9.8 (8.4-10.2) mg/dL Current Medications Generic Name Dose Route Start Last Admin Trade Name Freq PRN Reason Stop Dose Admin Acetaminophen 650 mg 09/29/18 16:52 Tylenol Tab PO Q6H PRN MILD Pain Albuterol/Ipratropium 3 ml 09/29/18 16:00 10/03/18 10:54 Duoneb 0.5 Mg-3 Mg/3 Ml Soln INHALATION 3 ml RT-Q4H SHERI Administration Allopurinol 100 mg 09/30/18 09:00 10/03/18 08:55 Zyloprim PO 100 mg DAILY SHERI Administration Alprazolam 0.25 mg 10/02/18 11:11 10/02/18 22:14 Xanax PO 0.25 mg Q8HR PRN Administration Anxiety Apixaban 2.5 mg 10/03/18 12:00 10/03/18 13:07 Eliquis PO 2.5 mg BID SHERI Administration Atenolol 25 mg 10/03/18 08:15 10/03/18 08:55 Tenormin PO 25 mg DAILY SHERI Administration Budesonide 1 mg 10/02/18 08:00 10/03/18 07:12 Pulmicort INHALATION 1 mg RT-BID SHERI Administration Formoterol Fumarate 20 mcg 09/30/18 20:00 10/03/18 07:12 Perforomist INHALATION 20 mcg RT-BID SHERI Administration Furosemide 40 mg 10/02/18 14:30 10/03/18 08:55 Lasix IV 40 mg Q12HR SHERI Administration Guaifenesin 600 mg 09/29/18 21:00 10/03/18 08:55 Mucinex PO 600 mg Q12HR SHERI Administration Hydromorphone HCl 1 mg 09/29/18 14:18 Dilaudid IVP Q6HR PRN MODERATE Pain Levofloxacin 500 mg/ IV 100 mls @ 100 mls/hr 10/02/18 12:00 10/03/18 13:06 Solution IVPB 100 mls/hr Q24H SHERI Administration Insulin Aspart 0 unit 10/02/18 07:30 10/03/18 13:06 Novolog SQ 5 unit ACHS SHERI Administration Protocol Lactulose 20 gm 09/30/18 09:00 10/03/18 08:57 Cephulac PO Not Given DAILY SHERI Levothyroxine Sodium 25 mcg 09/30/18 06:30 10/03/18 06:00 Synthroid PO 25 mcg DAILY@0630 SHERI Administration Magnesium Hydroxide 2,400 mg 09/29/18 16:52 Milk Of Magnesia PO DAILY PRN Constipation Meclizine HCl 12.5 mg 09/29/18 16:52 Antivert PO TID PRN Vertigo Methylprednisolone Sodium Succinate 40 mg 09/30/18 18:00 10/03/18 13:06 Solu-Medrol IV 40 mg Q6HR SHERI Administration Montelukast Sodium 10 mg 09/29/18 21:00 10/02/18 21:47 Singulair PO 10 mg HS SHERI Administration Multivit/Ca Carb/B Cmplx/FA/Prenat 1 each 09/30/18 09:00 10/03/18 08:55 Nephrocaps PO 1 each DAILY SHERI Administration Ondansetron HCl 4 mg 09/29/18 14:17 Zofran IVP Q6HR PRN Nausea And Vomiting Oseltamivir Phosphate 30 mg 09/29/18 21:00 10/02/18 21:49 Tamiflu PO 10/03/18 21:01 30 mg HS SHERI Administration Paroxetine HCl 20 mg 09/29/18 21:00 10/02/18 21:48 Paxil PO 20 mg HS SHERI Administration Ropinirole HCl 0.5 mg 09/29/18 21:00 10/02/18 21:48 Requip PO 0.5 mg HS SHERI Administration Sodium Bicarbonate 650 mg 09/30/18 21:00 10/03/18 08:55 Sodium Bicarbonate Tab PO 650 mg BID SHERI Administration Zinc Acetate/Diphenhydramine 1 applic 09/29/18 16:52 Benadryl Cream TOPICAL TID PRN Itching Intake and Output 10/02/18 10/03/18 10/03/18 22:59 06:59 14:59 Intake Total 200 100 Balance 200 100 Intake: Oral 200 100 Other: Voiding Method Bedside Commode # Voids 3 3 # Bowel Movements 0 10/03/18 12:19 10/03/18 12:19
--- NOTE | 2018-10-03 16:33 | PN ---
PROGRESS NOTE DATE OF SERVICE: 10/03/2018 This patient is an 87-year-old female who is seen sitting up at the bedside visiting with her family. Patient states that she feels about the same as when she came in; not greatly improved as far as shortness of breath. The patient is anxious about any kind of germs, as she is recovering from influenza. The patient is awake and alert, hemodynamically stable and afebrile. PHYSICAL EXAMINATION: VITAL SIGNS: Temperature 98.9, heart rate 106, respiratory rate 16, blood pressure 151/89, oxygen saturation 98% on 3 L oxygen via nasal cannula. HEENT: Head is normocephalic, atraumatic. Neck is supple. Trachea is midline. LUNGS: Scattered expiratory wheeze. HEART: S1, S2 are heard. Irregular. ABDOMEN: Soft. Bowel sounds are heard. EXTREMITIES: Two plus edema bilaterally. NEUROLOGIC: Patient is awake and alert. LABS: White count 10.3, hemoglobin 9.0, hematocrit 28.0 with 133,000 platelets. Sodium is 136, potassium 4.3, chloride 105. CO2 is 21. Anion gap is 10. BUN is 88, creatinine 2.65, glucose 173, calcium 9.8. No new imaging to review. Echocardiogram was reviewed and does show moderate pulmonary hypertension. IMPRESSION: 1. Severe asthma with acute exacerbation. 2. Chronic obstructive pulmonary disease. 3. Influenza A. 4. Acute on chronic renal failure. 5. Pulmonary hypertension per echo. PLAN: Continue current medications, which have been reviewed, with bronchodilators, aerosol steroids. Continue Tamiflu. Will increase IV Solu-Medrol to 60 mg q.6 for 4 doses. Continue supplemental oxygen. Continue GI and DVT prophylaxis. We will follow patient closely with you, making further changes as necessary. MMODL / IJN: [id number] /
[2018-10-03 17:30] LABS: Glucose,Whole Blood 154 mg/dL (75-99)
--- NOTE | 2018-10-03 17:36 | PN ---
PROGRESS NOTE Patient is seen for followup for acute kidney injury. Her creatinine has improved somewhat to about 2.5 to 2.6 from 3.7 on initial admission. Her previous creatinine in 2018 was about 2.5 to 3. On examination today, blood pressure was 149/93, heart rate of 102 per minute. Patient is afebrile. EXAMINATION OF THE HEART: S1 and S2. EXAMINATION OF LUNGS: Bilateral breath sounds are heard. ABDOMEN: Soft, non-tender. Examination of lower extremities shows trace edema bilaterally. [employer] exam is grossly intact. Labs show sodium 136, potassium 4.3, BUN 88, serum creatinine 2.65, hemoglobin of 9.0 g/dL. ASSESSMENT: 1. Acute kidney injury, prerenal. Patient was maintained on IV fluids, which were discontinued yesterday, and Lasix was also restarted. Currently she is on 40 mg IV q.12 hours, which I will continue for now. 2. Chronic kidney disease, NKF stage IV, secondary to nephrosclerosis. 3. Mild hyperkalemia. 4. Influenza A. 5. Anemia with chronic kidney disease. PLAN: Continue to diurese patient. We may need to increase the Lasix if she remains significantly short of breath. Patient also has pseudomonas growing in her sputum with component of pneumonia, which will add to her respiratory distress. MMODL / IJN: [id number] /
--- NOTE | 2018-10-03 18:06 | PN ---
PROGRESS NOTE DATE OF SERVICE: 10/03/2018 HISTORY: This 87-year-old woman who was admitted with COPD exacerbation, acute hypoxic respiratory failure with influenza A also developed atrial fibrillation at this time. Cardiology is following the patient closely. 2D echo has been ordered by Cardiology and Cardiology recommends Eliquis 2.5 mg p.o. b.i.d. and increased dose of atenolol also. The 2D echo with Doppler showed ejection fraction about 50-60 percent and mild- to-moderate valvular abnormalities also. No chest pain. No palpitations. No fever. Patient has shortness with cough. EXAM: Alert and oriented x3. Pulse is 106. Blood pressure 159/94, respirations 16, temperature 98.9, pulse ox 98% on 3 L. HEENT is conjunctivae normal. NECK: No jugular venous distention. CARDIOVASCULAR: S1, S2 muffled. RESPIRATORY: Breath sounds diminished in the bases. Bilateral scattered rhonchi and crackles. Expiratory wheezing also present. Soft. Nontender. Central nervous system: No focal deficits. LABORATORY DATA: WBC 10.2, hemoglobin 9, sodium 138, potassium 4.6. Accu-Cheks noted. Creatinine is 2.65. ASSESSMENT: 1. Chronic obstructive pulmonary disease exacerbation with acute hypoxic respiratory failure with acute influenza A. 2. Acute purulent tracheobronchitis. 3. Acute on chronic renal failure possibly prerenal renal failure with acute tubular necrosis. 4. Chronic kidney disease stage III. 5. History of asthma, chronic obstructive pulmonary disease. 6. Hypertension. 7. History of myocardial infarction. 8. History of adenoidectomy. 9. History of coronary artery disease stent. 10.History of anxiety. 11.Anemia, normocytic anemia of chronic disease. 12.Thrombocytopenia. 13.Hyponatremia. 14.Acute influenza A. RECOMMENDATIONS AND DISCUSSION: Recommend to continue current medications, continue with monitoring, symptomatic treatment. Otherwise, at this time, I recommend continue with current medications. The renal function is stable at this time. Otherwise, a small dose of Eliquis and repeat labs. Guarded prognosis because of multiple complex medical issues. Further recommendations to follow. MMODL / IJN: [id number] /
[2018-10-03] MEDS: methylPREDNISolone SOD SUCCI 125 MG/2 ML VIAL IV SCH ×2 (18:13→23:38)
[2018-10-03] MEDS: OSELTAMIVIR 60 MG/10 ML ORAL SYRINGE PO SCH (21:53)
[2018-10-03] MEDS: PARoxetine 20 MG TAB PO SCH (21:54)
[2018-10-03] MEDS: MONTELUKAST 10 MG TAB PO SCH (21:54)
[2018-10-03 23:10] LABS: Glucose,Whole Blood 225 mg/dL (75-99)
[2018-10-04] MEDS: IPRATROPIUM-ALBUTEROL 3 ML NEB INHALATION SCH ×5 (03:26→19:58)
[2018-10-04] MEDS: LEVOTHYROXINE 25 MCG TAB PO SCH (05:43)
[2018-10-04] MEDS: methylPREDNISolone SOD SUCCI 125 MG/2 ML VIAL IV SCH ×2 (05:43→11:46)
[2018-10-04 07:33] LABS: Glucose,Whole Blood 168 mg/dL (75-99)
[2018-10-04] MEDS: INSULIN ASPART (NovoLOG) 100 UNIT/ML VIAL SQ SCH ×4 (07:48→21:04)
[2018-10-04] MEDS: guaiFENesin 600 MG TABLET.ER PO SCH ×2 (07:49→21:02)
[2018-10-04] MEDS: FOLIC ACID-VIT B COMPLEX-VIT C 1 CAP PO SCH (07:49)
[2018-10-04] MEDS: APIXABAN 2.5 MG TABLET PO SCH ×2 (07:49→21:02)
[2018-10-04] MEDS: SODIUM BICARBONATE TAB 650 MG TAB PO SCH ×2 (07:49→21:02)
[2018-10-04] MEDS: FUROSEMIDE 10 MG/ML 4 ML VIAL IV SCH ×2 (07:49→21:12)
[2018-10-04] MEDS: ALLOPURINOL 100 MG TAB PO SCH (07:49)
[2018-10-04] MEDS: LACTULOSE 20 GM/30 ML CUP PO SCH (07:50)
[2018-10-04] MEDS: BUDESONIDE 1 MG/2 ML NEBU INHALATION SCH ×2 (08:10→19:58)
[2018-10-04] MEDS: FORMOTEROL FUMARATE 20 MCG/2 ML NEBU INHALATION SCH ×2 (08:10→19:58)
[2018-10-04] MEDS ORDERED: ATENOLOL 50 MG TAB PO SCH (09:00)
[2018-10-04 09:59] LABS: Anisocytosis Slight; Basophils % (A) 0 %; Eosinophils % (A) 1 %; HCT 28.1 % (34.0-46.0); HGB 9.5 gm/dL (11.4-16.0); Lymphocytes # (A) 0.3 k/uL (1.0-4.8); Lymphocytes % (A) 4 %; MCH 30.3 pg (25.0-35.0); MCHC 33.9 g/dL (31.0-37.0); MCV 89.4 fL (80.0-100.0); Mean Platelet Volume 9.1; Monocytes # (A) 0.2 k/uL (0-1.0); Monocytes % (A) 3 %; Neutrophils # (A) 7.7 k/uL (1.3-7.7); Neutrophils % (A) 93 %; Platelet Count 160 k/uL (150-450); RBC 3.14 m/uL (3.80-5.40); RDW 16.6 % (11.5-15.5); WBC 8.3 k/uL (3.8-10.6)
--- NOTE | 2018-10-04 10:31 | P.DS ---
Providers Date of admission: 09/29/18 14:16 Attending physician: Keyur Ohara Consults: 09/29/18 14:16 Consult Physician Routine Consulting Provider: Santhosh Wilkins Consult Reason/Comments: known Do you want consulting provider notified?: Yes Consult Physician Routine Consulting Provider: Rosanna Benitez Consult Reason/Comments: known Do you want consulting provider notified?: Yes 10/03/18 10:08 Consult Physician Routine Consulting Provider: Segun Moreno Consult Reason/Comments: new afib noted on ekg Do you want consulting provider notified?: Yes Primary care physician: [facility] Course: Final diagnosis COPD acute exacerbation with acute hypoxic respiratory failure with acute influenza A. Acute purulent tracheobronchitis Acute on chronic renal failure possibly prerenal renal failure with acute tubular necrosis. Chronic kidney disease stage III. 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 The patient to the intensive antibiotics bronchodilators patient improved significantly. Patient was also given antivirals for acute influenza A. Patient was also seen by multiple consultants including pulmonary and nephrology. Patient also had acute on chronic renal failure as detailed above. Dr. Benitez saw the patient and will recommend the Lasix dose. Patient improved significantly. On exam vitals are stable. Cardio S1 and S2 normal. Respirator system few scattered rhonchi. Abdomen soft nontender. Nervous system mild diffuse weakness. Patient is being discharged to [facility] under the care of Dr. Maxwell and Dr. Robertson. Total time taken 35 minutes. Patient is stable. Overall prognosis guarded because of multiple complex medical issues detailed above. Patient Condition at Discharge: Fair Plan - Discharge Summary Discharge Rx Participant: No New Discharge Prescriptions: New Ipratropium-Albuterol Nebulize [Duoneb 0.5 mg-3 mg/3 ml Soln] 3 ml INHALATION RT-Q4H ampul.neb Apixaban [Eliquis] 2.5 mg PO BID tablet Levofloxacin [Levaquin] 250 mg PO Q48H 6 Days tab INSULIN ASPART (NovoLOG) [NovoLOG (formulary)] 0 unit SQ ACHS vial Formoterol Fumarate [Perforomist] 20 mcg INHALATION RT-BID nebu predniSONE 10 mg PO DIRECTED #30 tab Pantoprazole Sodium [Protonix] 40 mg PO DAILY #30 tablet. Budesonide [Pulmicort] 1 mg INHALATION RT-BID nebu Atenolol [Tenormin] 50 mg PO DAILY tab Continue Montelukast [Singulair] 10 mg PO HS Furosemide [Lasix] 60 mg PO DAILY Allopurinol [Zyloprim] 100 mg PO DAILY PARoxetine [Paxil] 20 mg PO HS Levothyroxine Sodium [Synthroid] 25 mcg PO DAILY@0630 tab Ondansetron [Zofran] 4 mg PO Q12HR PRN PRN Reason: Nausea Magnesium Hydroxide [Milk of Magnesia] 2,400 mg PO DAILY PRN PRN Reason: Constipation diphenhydrAMINE & Zinc Cream [Benadryl Cream] 1 applic TOPICAL TID PRN PRN Reason: Itching Meclizine HCl 12.5 mg PO TID PRN PRN Reason: Vertigo Sodium Bicarbonate Tab 650 mg PO DAILY B Complex W-C No.20/Folic Acid [Renal Caps Softgel] 1 mg PO DAILY Acetaminophen Tab [Tylenol] 650 mg PO Q6H PRN PRN Reason: Pain rOPINIRole HCL [Requip] 0.5 mg PO HS guaiFENesin [Mucinex] 600 mg PO Q12H Lactulose 20 gm PO DAILY Ipratropium-Albuterol Nebulize [Duoneb 0.5 mg-3 mg/3 ml Soln] 3 ml INHALATION RT-BID PRN PRN Reason: Shortness Of Breath Phenylephrine HCl/Grayling Butter [Preparation H Suppository] 1 supp RC DAILY PRN PRN Reason: FLARE UP predniSONE 10 mg PO DAILY #0 ALPRAZolam [Xanax] 0.25 mg PO HS PRN #5 tablet PRN Reason: Anxiety Discontinued Atenolol [Tenormin] 12.5 mg PO DAILY Budesonide [Pulmicort] 0.5 mg INHALATION RT-BID Amoxicillin/Potassium Clav [Augmentin 500-125 Tablet] 1 tab PO Q12HR Discharge Medication List Furosemide [Lasix] 60 mg PO DAILY 05/05/14 [History] Montelukast [Singulair] 10 mg PO HS 11/06/13 [History] Allopurinol [Zyloprim] 100 mg PO DAILY 11/29/16 [History] PARoxetine [Paxil] 20 mg PO HS 11/29/16 [History] Levothyroxine Sodium [Synthroid] 25 mcg PO DAILY@0630 tab 12/04/16 [Rx] Acetaminophen Tab [Tylenol] 650 mg PO Q6H PRN 09/29/18 [History] B Complex W-C No.20/Folic Acid [Renal Caps Softgel] 1 mg PO DAILY 09/29/18 [History] Ipratropium-Albuterol Nebulize [Duoneb 0.5 mg-3 mg/3 ml Soln] 3 ml INHALATION RT-BID PRN 09/29/18 [History] Lactulose 20 gm PO DAILY 09/29/18 [History] Magnesium Hydroxide [Milk of Magnesia] 2,400 mg PO DAILY PRN 09/29/18 [History] Meclizine HCl 12.5 mg PO TID PRN 09/29/18 [History] Ondansetron [Zofran] 4 mg PO Q12HR PRN 09/29/18 [History] Phenylephrine HCl/Grayling Butter [Preparation H Suppository] 1 supp RC DAILY PRN 09/29/18 [History] Sodium Bicarbonate Tab 650 mg PO DAILY 09/29/18 [History] diphenhydrAMINE & Zinc Cream [Benadryl Cream] 1 applic TOPICAL TID PRN 09/29/18 [History] guaiFENesin [Mucinex] 600 mg PO Q12H 09/29/18 [History] rOPINIRole HCL [Requip] 0.5 mg PO HS 09/29/18 [History] ALPRAZolam [Xanax] 0.25 mg PO HS PRN #5 tablet 10/04/18 [Rx] Apixaban [Eliquis] 2.5 mg PO BID tablet 10/04/18 [Rx] Atenolol [Tenormin] 50 mg PO DAILY tab 10/04/18 [Rx] Budesonide [Pulmicort] 1 mg INHALATION RT-BID nebu 10/04/18 [Rx] Formoterol Fumarate [Perforomist] 20 mcg INHALATION RT-BID nebu 10/04/18 [Rx] INSULIN ASPART (NovoLOG) [NovoLOG (formulary)] 0 unit SQ ACHS vial 10/04/18 [Rx] Ipratropium-Albuterol Nebulize [Duoneb 0.5 mg-3 mg/3 ml Soln] 3 ml INHALATION RT-Q4H ampul.neb 10/04/18 [Rx] Levofloxacin [Levaquin] 250 mg PO Q48H 6 Days tab 10/04/18 [Rx] Pantoprazole Sodium [Protonix] 40 mg PO DAILY #30 tablet.dr 10/04/18 [Rx] predniSONE 10 mg PO DIRECTED #30 tab 10/04/18 [Rx] predniSONE 10 mg PO DAILY #0 10/04/18 [Rx] Follow up Appointment(s)/Referral(s): Praneeth Harp MD [Primary Care Provider] - 1-2 days Activity/Diet/Wound Care/Special Instructions: Follow-up with the Dr. Robertson or hiram at the [facility]. Diet consistent carb. Activity as tolerated. Continue oxygen 2 L nasal cannula. Follow-up with the Dr. jean-pierre wilknis as advised.
[2018-10-04 10:35] LABS: Calcium 9.5 mg/dL (8.4-10.2); Potassium 4.2 mmol/L (3.5-5.1)
[2018-10-04 11:48] LABS: Glucose,Whole Blood 157 mg/dL (75-99)
[2018-10-04] MEDS ORDERED: ATENOLOL 25 MG TAB PO STA (13:40)
--- NOTE | 2018-10-04 13:42 | P.PN ---
Subjective This is a pleasant 87-year-old female past medical history significant for hypertension, coronary artery disease status post stent placement to the mid RCA in 2010, asthma, chronic kidney disease and aortic regurgitation. She follows in the office with Dr. Sutton. Patient was seen and examined sitting up in the chair. She states overall she feels extremely weak and fatigued. She denies symptoms of chest discomfort, shortness of breath, dizziness or palpitations. She denies any bleeding. There is been no epistaxis, hematuria or blood in the stool. Blood pressure 148/93 heart rate has been fluctuating between the 80-120. Currently maintained on atenolol 50 mg daily, Eliquis 2.5 mg twice a day and Lasix 40 mg IV twice a day per nephrology. Laboratory data reviewed, WBC 8.3, hemoglobin 9.5, platelets 160, sodium 135, potassium 4.2, creatinine 2.68 with GFR 15. GENERAL: This is a 87-year-old female in no apparent distress at the time of my examination. HEENT: Head is atraumatic, normocephalic. Pupils are equal, round. Sclerae anicteric. Conjunctivae are clear. Mucous membranes of the mouth are moist. Neck is supple. There is no jugular venous distention. No carotid bruit is heard. LUNGS: Course rhonchi noted, expiratory wheezes, no rales. No chest wall tenderness is noted on palpation or with deep breathing. HEART: Irregular rate and rhythm with systolic ejection murmur at the left sternal border, no rubs or gallops. S1 and S2 heard. EXTREMITIES: No evidence of peripheral edema and no calf tenderness noted. ASSESSMENT New onset paroxysmal atrial fibrillation, she continues to be in atrial fibrillation. Acute hypoxic respiratory failure Influenza A History of coronary artery disease s/p stent placement to mid RCA 2010 Hypertension Acute on chronic kidney disease PLAN Increase atenolol 75 mg daily, given additional dose of 25 mg now. Otherwise continue current medical regimen. We will continue to follow and maker recommendations accordingly. Nurse Practitioner note has been reviewed, I agree with a documented findings and plan of care. Patient was seen and examined. Objective - Vital Signs Vital signs: Vital Signs Temp 97.2 F L 10/04/18 07:26 Pulse 96 10/04/18 12:06 Resp 16 10/04/18 07:26 BP 148/93 10/04/18 07:26 Pulse Ox 96 10/04/18 07:26 Intake & Output 10/03/18 10/04/18 10/04/18 18:59 06:59 18:59 Intake Total 400 300 Output Total 2 Balance 400 298 Intake: Oral 400 300 Output: Urine/Stool Mix 2 Other: Voiding Method Bedside Commode Bedside Commode Bedpan Bedpan # Voids 1 # Bowel Movements 1 - Labs CBC & Chem 7: 10/04/18 09:37 10/04/18 09:37 Labs: Abnormal Lab Results - Last 24 Hours (Table) 10/03/18 10/03/18 10/04/18 Range/Units 17:27 21:05 07:23 RBC (3.80-5.40) m/uL Hgb (11.4-16.0) gm/dL Hct (34.0-46.0) % RDW (11.5-15.5) % Lymphocytes # (1.0-4.8) k/uL Sodium (137-145) mmol/L Carbon Dioxide (22-30) mmol/L BUN (7-17) mg/dL Creatinine (0.52-1.04) mg/dL Glucose (74-99) mg/dL POC Glucose (mg/dL) 154 H 225 H 168 H (75-99) mg/dL 10/04/18 10/04/18 10/04/18 Range/Units 09:37 09:37 11:38 RBC 3.14 L (3.80-5.40) m/uL Hgb 9.5 L (11.4-16.0) gm/dL Hct 28.1 L (34.0-46.0) % RDW 16.6 H (11.5-15.5) % Lymphocytes # 0.3 L (1.0-4.8) k/uL Sodium 135 L (137-145) mmol/L Carbon Dioxide 21 L (22-30) mmol/L BUN 96 H (7-17) mg/dL Creatinine 2.68 H (0.52-1.04) mg/dL Glucose 170 H (74-99) mg/dL POC Glucose (mg/dL) 157 H (75-99) mg/dL Microbiology - Last 24 Hours (Table) 09/29/18 11:50 Blood Culture - Preliminary Blood No Growth after 96 hours
[2018-10-04 14:19] VITALS: RESP 18
--- NOTE | 2018-10-04 16:27 | PN ---
PROGRESS NOTE DATE OF SERVICE: 10/04/2018 This patient has been hemodynamically stable. She is less short of breath. She was sleeping and was easily aroused. On physical examination, her respiratory rate is 18, pulse rate 97, temperature 97.8, blood pressure 157/92. Oxygen saturation on 3 L by nasal cannula is 98%. HEENT is unremarkable. Chest reveals decreased breath sounds. Cardiovascular system is in S1, S2. Abdomen is soft. There is no edema. IMPRESSION AT THIS TIME: 1. Asthma with acute exacerbation. 2. Influenza A. 3. Congestive heart failure. Increase her activity level. I agree with possible discharge planning. Her medications and labs are reviewed. MMODL / IJN: [id number] /
[2018-10-04 17:06] LABS: Glucose,Whole Blood 271 mg/dL (75-99)
--- NOTE | 2018-10-04 19:33 | PN ---
PROGRESS NOTE DATE OF SERVICE: 10/04/2018 This is an 87-year-old woman who was admitted with COPD acute exacerbation also had acute on chronic renal failure. Nephrology is following the patient closely. The patient is slated to go to rehab, but Nephrology would like to continue with IV diuretics. No chest pain. No palpitations. No fever. EXAM: Alert and oriented times two. Pulse is 97, blood pressure 150/92, respiration 18, temperature 97.8, pulse ox 98% on 3 L. HEENT is conjunctivae normal. NECK: No jugular venous distention. CARDIOVASCULAR: S1, S2 muffled. Respirations: Breath sounds diminished in the bases. A few scattered rhonchi and crackles. Abdomen is soft, nontender. Legs are no edema, no swelling. LABS: WBC 8.2, hemoglobin 9.5, sodium 135, potassium 4.2. Creatinine is 2.68. ASSESSMENT: 1. Chronic obstructive pulmonary disease exacerbation with acute hypoxic respiratory failure with acute influenza A. 2. Acute purulent tracheobronchitis. 3. Acute on chronic renal failure possibly prerenal renal failure with acute tubular necrosis. 4. Chronic kidney disease stage III. 5. History of asthma, chronic obstructive pulmonary disease. 6. Hypertension. 7. Myocardial infarction. 8. Adenoidectomy. 9. History of coronary artery disease, stent. 10.History of anxiety. 11.Anemia microcytic of chronic disease. 12.Thrombocytopenia. 13.Hyponatremia. 14.Acute influenza A. RECOMMENDATIONS AND DISCUSSION: Continue the current medications, management, continue monitoring and symptomatic treatment. Otherwise, at this time, continue the bronchodilators. Continue the diuretics. Closely follow with multiple consultants. Possible ECF rehab eventually. Further recommendations to follow. MMODL / IJN: [id number] /
[2018-10-04] MEDS: MONTELUKAST 10 MG TAB PO SCH (21:02)
[2018-10-04] MEDS: PARoxetine 20 MG TAB PO SCH (21:02)
[2018-10-04 21:03] LABS: Glucose,Whole Blood 195 mg/dL (75-99)
--- NOTE | 2018-10-04 21:40 | PN ---
PROGRESS NOTE Patient is seen for followup for acute kidney injury on top of chronic kidney disease. Patient was being considered for discharge; however, she remains volume-overloaded. Her respiratory status is somewhat better from yesterday. However, I believe she will need at least one more day on IV Lasix. On examination this morning, patient states her breathing is somewhat improved, but she is still short of breath. Blood pressure was 148/93, heart rate about 100 per minute. Patient is afebrile. EXAMINATION OF THE HEART: S1 and S2. EXAMINATION OF LUNGS: Bilateral breath sounds are heard. Decreased breath sounds at the bases with basal crackles heard bilaterally. ABDOMEN: Soft, non-tender. Examination of lower extremities shows edema 1+ bilaterally. Labs show sodium 135, potassium 4.2, chloride 104, BUN 96, serum creatinine 2.68, hemoglobin 9.5 g/dL, calcium 9.5. ASSESSMENT: 1. Acute kidney injury, initially prerenal. Currently patient is volume-overloaded. Serum creatinine has improved from 3.7 to 2.6 now. Her baseline is about 2.6 to 2.8 mg/dL. She has been at 3 mg/dL as well. 2. Volume overload. Continue with IV Lasix for now. We can switch to oral Lasix tomorrow and patient can be discharged tomorrow. 3. Chronic kidney disease, stage IV, secondary to nephrosclerosis. Baseline creatinine 2.8 to 2.6 mg/dL. Patient has been at 3 as well in June of 2018. 4. Metabolic acidosis, maintained on sodium bicarb, which I will continue for now. 5. Influenza A, now improved. 6. Diastolic heart failure; ejection fraction 55% to 60%. PLAN: Continue with IV Lasix. Switch to p.o. Lasix tomorrow and patient can be discharged tomorrow. MMODL / IJN: [id number] /
[2018-10-05] MEDS: IPRATROPIUM-ALBUTEROL 3 ML NEB INHALATION SCH ×4 (00:02→12:11)
[2018-10-05] MEDS: LEVOTHYROXINE 25 MCG TAB PO SCH (06:07)
[2018-10-05] MEDS: FUROSEMIDE 10 MG/ML 4 ML VIAL IV SCH (07:20)
[2018-10-05] MEDS: SODIUM BICARBONATE TAB 650 MG TAB PO SCH (07:21)
[2018-10-05] MEDS: guaiFENesin 600 MG TABLET.ER PO SCH (07:21)
[2018-10-05] MEDS: ALLOPURINOL 100 MG TAB PO SCH (07:21)
[2018-10-05] MEDS: APIXABAN 2.5 MG TABLET PO SCH (07:21)
[2018-10-05] MEDS: LACTULOSE 20 GM/30 ML CUP PO SCH (07:22)
[2018-10-05] MEDS: FOLIC ACID-VIT B COMPLEX-VIT C 1 CAP PO SCH (07:24)
[2018-10-05 07:30] LABS: Glucose,Whole Blood 135 mg/dL (75-99)
[2018-10-05] MEDS: INSULIN ASPART (NovoLOG) 100 UNIT/ML VIAL SQ SCH ×2 (08:04→12:55)
[2018-10-05] MEDS ORDERED: predniSONE 20 MG TAB PO SCH (09:00)
[2018-10-05] MEDS ORDERED: ATENOLOL 25 MG TAB PO SCH (09:00)
[2018-10-05] MEDS ORDERED: METOPROLOL TARTRATE 50 MG TAB PO SCH (09:15)
[2018-10-05] MEDS ORDERED: amLODIPine 2.5 MG TAB PO SCH (09:15)
[2018-10-05] MEDS: BUDESONIDE 1 MG/2 ML NEBU INHALATION SCH (09:22)
[2018-10-05] MEDS: FORMOTEROL FUMARATE 20 MCG/2 ML NEBU INHALATION SCH (09:22)
--- NOTE | 2018-10-05 10:44 | P.PN ---
Subjective This is a pleasant 87-year-old female past medical history significant for hypertension, coronary artery disease status post stent placement to the mid RCA in 2010, asthma, chronic kidney disease and aortic regurgitation. She follows in the office with Dr. Sutton. Patient was seen and examined sitting up in the chair eating breakfast. She complains of ongoing weakness and overall fatigue with some abdominal discomfort after eating. She denies any palpitations, chest pain or shortness of breath. She denies any bleeding. There is been no epistaxis, hematuria or blood in the stool. Blood pressure 158/85 heart rate has been fluctuating between the 100-110. Currently maintained on atenolol 75 mg daily, Eliquis 2.5 mg twice a day and Lasix 40 mg IV twice a day per nephrology. Will transition to PO tomorrow per Dr. Benitez. GENERAL: This is a 87-year-old female in no apparent distress at the time of my examination. HEENT: Head is atraumatic, normocephalic. Pupils are equal, round. Sclerae anicteric. Conjunctivae are clear. Mucous membranes of the mouth are moist. Neck is supple. There is no jugular venous distention. No carotid bruit is heard. LUNGS: Scattered rhonchi, no wheezes or rales. No chest wall tenderness is noted on palpation or with deep breathing. HEART: Irregular rate and rhythm with systolic ejection murmur at the left sternal border, no rubs or gallops. S1 and S2 heard. EXTREMITIES: No evidence of peripheral edema and no calf tenderness noted. ASSESSMENT New onset paroxysmal atrial fibrillation, she continues to be in atrial fibrillation. Acute hypoxic respiratory failure Influenza A History of coronary artery disease s/p stent placement to mid RCA 2010 Hypertension Acute on chronic kidney disease PLAN Change atenolol to lopressor 50 mg BID. Continue Eliquis 2.5 BID Add amlodipine 2.5 mg daily for better control of blood pressure. Follow up with Dr. Sutton upon discharge. Nurse Practitioner note has been reviewed, I agree with a documented findings and plan of care. Patient was seen and examined. Objective - Vital Signs Vital signs: Vital Signs Temp 98.0 F 10/05/18 05:00 Pulse 110 H 10/05/18 05:00 Resp 18 10/05/18 08:00 BP 159/85 10/05/18 05:00 Pulse Ox 96 10/05/18 05:00 Intake & Output 10/04/18 10/05/18 10/05/18 18:59 06:59 18:59 Intake Total 1200 Balance 1200 Intake: Oral 1200 Other: Voiding Method Bedside Commode Bedpan # Voids 1 2 # Bowel Movements 1 - Labs CBC & Chem 7: 10/04/18 09:37 10/04/18 09:37 Labs: Abnormal Lab Results - Last 24 Hours (Table) 10/04/18 10/04/18 10/04/18 Range/Units 09:37 11:38 17:01 Sodium 135 L (137-145) mmol/L Carbon Dioxide 21 L (22-30) mmol/L BUN 96 H (7-17) mg/dL Creatinine 2.68 H (0.52-1.04) mg/dL Glucose 170 H (74-99) mg/dL POC Glucose (mg/dL) 157 H 271 H (75-99) mg/dL 10/04/18 10/05/18 Range/Units 21:01 07:12 Sodium (137-145) mmol/L Carbon Dioxide (22-30) mmol/L BUN (7-17) mg/dL Creatinine (0.52-1.04) mg/dL Glucose (74-99) mg/dL POC Glucose (mg/dL) 195 H 135 H (75-99) mg/dL Microbiology - Last 24 Hours (Table) 09/29/18 11:50 Blood Culture - Preliminary Blood No Growth after 120 hours
[2018-10-05 11:37] LABS: Glucose,Whole Blood 241 mg/dL (75-99)
[2018-10-05] MEDS ORDERED: LEVOFLOXACIN 250 MG TAB PO SCH (12:00)
--- NOTE | 2018-10-05 12:04 | DS ---
DISCHARGE SUMMARY DATE OF SERVICE: 10/05/2018 This is an 87-year-old woman who was admitted with COPD acute exacerbation and influenza A is improving significantly. The patient is stable to go to [facility] rehab at this time. On exam, vitals are stable. CARDIOVASCULAR: S1, S2, muffled. RESPIRATIONS: A few scattered rhonchi. ABDOMEN: Soft. NERVOUS SYSTEM: No focal deficit. Please refer to my previous dictation for list of diagnosis and list of medications. The overall time taken is 35 minutes. The patient is stable for discharge, but overall prognosis extremely guarded because of multiple complex medical issues as detailed previously. MMODL / IJN: [id number] /
--- NOTE | 2018-10-05 12:40 | P.PN ---
Subjective Progress Note Date: 10/05/18 10/05/2018: Patient seen and examined. Patient states she is feeling better today. She has less wheezing and is less short of breath. She states she was able to cough and not produce any phlegm. He denies fevers and chills. She is currently on 3 L nasal cannula. Objective - Vital Signs Vital signs: Vital Signs Temp 98.0 F 10/05/18 05:00 Pulse 100 10/05/18 12:27 Resp 18 10/05/18 08:00 BP 159/85 10/05/18 05:00 Pulse Ox 96 10/05/18 05:00 Intake & Output 10/04/18 10/05/18 10/05/18 18:59 06:59 18:59 Intake Total 1200 Balance 1200 Intake: Oral 1200 Other: Voiding Method Bedside Commode Bedpan # Voids 1 2 # Bowel Movements 1 - Exam Gen.: Patient is alert and oriented 3, no acute distress, currently on home CPAP Cardiovascular: Regular rate and rhythm, S1/S2 Lungs: Bilateral expiratory wheezing, improving Abdomen: Soft nontender nondistended positive bowel sounds Extremities: No edema - Labs CBC & Chem 7: 10/04/18 09:37 10/04/18 09:37 Labs: Abnormal Lab Results - Last 24 Hours (Table) 10/04/18 10/04/18 10/05/18 Range/Units 17:01 21:01 07:12 POC Glucose (mg/dL) 271 H 195 H 135 H (75-99) mg/dL 10/05/18 Range/Units 11:18 POC Glucose (mg/dL) 241 H (75-99) mg/dL Microbiology - Last 24 Hours (Table) 09/29/18 11:50 Blood Culture - Preliminary Blood No Growth after 120 hours Assessment and Plan Assessment: Acute hypoxic respiratory failure Acute exacerbation of moderate COPD Influenza a Pseudomonas pneumonia Obstructive sleep apnea, compliant with CPAP Acute kidney injury on chronic kidney disease stage IV Anemia of chronic disease Depression History of coronary artery disease, stenting Thrombocytopenia Hypertension O2 to maintain saturation greater than or equal to 90% Steroid taper Pulmicort, Perforomist Singulair Sputum culture - pseudomonas, sensitive to Levaquin Tamiflu Mucinex Antibiotics: Levaquin Incentive spirometry and pulmonary hygiene CPAP nightly and as needed GI and DVT prophylaxis IVF hydration Ok to DC from pulmonary standpoint. Follow up 2-3 days
[2018-10-05 14:03] VITALS: BP 143/79; PULSE 87; TEMP 97.8
--- NOTE | 2018-10-05 19:56 | PN ---
PROGRESS NOTE Patient is seen for followup for chronic kidney disease. She has been volume-overloaded and maintained on IV Lasix. Respiratory status has improved. Patient will be discharged today. She states she is weak. She is tolerating oral intake. On examination, blood pressure this morning was 159/85, heart rate 96 per minute. Patient is afebrile. EXAMINATION OF THE HEART: S1 and S2. EXAMINATION OF LUNGS: Bilateral breath sounds are heard. ABDOMEN: Soft. Examination of lower extremities shows edema 1+ bilaterally. Labs are not available from today. ASSESSMENT: 1. Chronic kidney disease, stage IV, with renal function close to baseline. 2. Acute kidney injury which has improved, with creatinine coming down from 3.7 to 2.6. 3. Volume overload, maintained on IV Lasix, which we can switch to p.o. Lasix. Patient was on 60 mg p.o. daily at home. I will switch her to 60 b.i.d. for about 4 to 5 days and then resume 60 mg daily. 4. Metabolic acidosis, maintained on sodium bicarb. 5. Influenza A, status post Tamiflu. 6. Diastolic heart failure; ejection fraction 54%. PLAN: Switch to p.o. Lasix. Patient can be discharged today. She will take 60 mg b.i.d. for 4 to 5 days and then decrease to 60 mg daily. Patient needs to follow up in the office in about one week's time for repeat labs done to follow up on the electrolytes and renal function. MMODL / IJN: [id number] /
[2018-10-05] MEDS ORDERED: BUDESONIDE 0.5 MG/2 ML NEBU INHALATION SCH (20:00)
== END 2018-10-05 14:12 | DRG 193 ==
LOC: EC 11:05 → 4MS4W 14:16
PROVIDERS: ADMIT Hospitalist; ATTEND Hospitalist
PROC: 5A09557 Assistance with Respiratory Ventilation, Greater than 96 Consecutive Hours, Continuous Positive Airway Pressure (ICD-10-PCS; principal; 2018-09-29)
DX: J10.1 Influenza due to other identified influenza virus with other respiratory manifestations (principal); J96.01 Acute respiratory failure with hypoxia; J96.02 Acute respiratory failure with hypercapnia; N17.0 Acute kidney failure with tubular necrosis; J44.0 Chronic obstructive pulmonary disease with (acute) lower respiratory infection; J44.1 Chronic obstructive pulmonary disease with (acute) exacerbation; J45.901 Unspecified asthma with (acute) exacerbation; E87.1 Hypo-osmolality and hyponatremia; N18.4 Chronic kidney disease, stage 4 (severe); E87.2 Acidosis; J98.11 Atelectasis; I13.0 Hypertensive heart and chronic kidney disease with heart failure and stage 1 through stage 4 chronic kidney disease, or unspecified chronic kidney disease; I50.32 Chronic diastolic (congestive) heart failure; D69.6 Thrombocytopenia, unspecified; E87.5 Hyperkalemia; I27.20 Pulmonary hypertension, unspecified; I48.0 Paroxysmal atrial fibrillation; J98.6 Disorders of diaphragm; I08.3 Combined rheumatic disorders of mitral, aortic and tricuspid valves; I44.4 Left anterior fascicular block; F32.9 Major depressive disorder, single episode, unspecified; D63.1 Anemia in chronic kidney disease; T50.2X5A Adverse effect of carbonic-anhydrase inhibitors, benzothiadiazides and other diuretics, initial encounter; D50.9 Iron deficiency anemia, unspecified; I25.10 Atherosclerotic heart disease of native coronary artery without angina pectoris; G47.33 Obstructive sleep apnea (adult) (pediatric); F41.9 Anxiety disorder, unspecified; H91.90 Unspecified hearing loss, unspecified ear; I25.2 Old myocardial infarction; Z79.890 Hormone replacement therapy; Z79.51 Long term (current) use of inhaled steroids; Z79.52 Long term (current) use of systemic steroids; Z79.899 Other long term (current) drug therapy; Z88.5 Allergy status to narcotic agent; Z88.0 Allergy status to penicillin; Z88.8 Allergy status to other drugs, medicaments and biological substances; Z90.49 Acquired absence of other specified parts of digestive tract; Z95.5 Presence of coronary angioplasty implant and graft; Z90.721 Acquired absence of ovaries, unilateral; Z99.89 Dependence on other enabling machines and devices; Z96.653 Presence of artificial knee joint, bilateral; Z82.49 Family history of ischemic heart disease and other diseases of the circulatory system
CPT/HCPCS: 36415; 71045; 71046; 80048; 80053; 83735; 83880; 84484; 85025; 85610; 85730; 87040; 87070; 87077; 87186; 87205; 87502; 93005; 93306; 94640; 96361; 96372; 96374; 96375; 99285

== ENCOUNTER 2018-10-07 16:32 | Inpatient (IN) | payer MEDICARE ==
[2018-10-07] MEDS ORDERED: SODIUM CHLORIDE 0.9% 1,000 ML IV STA (16:40)
--- NOTE | 2018-10-07 16:41 | ED ---
Recheck HPI - General Chief Complaint: Recheck/Abnormal Lab/Rx Stated Complaint: Abnormal labs Time Seen by Provider: 10/07/18 16:41 Source: patient, EMS, RN notes reviewed, old records reviewed Mode of arrival: EMS Limitations: no limitations - History of Present Illness Initial Comments: This is a 7-year-old female the ER for evaluation. Patient presents today for evaluation regarding abnormal lab values not feeling well. Patient is to decreased appetite, recent addition decreased urinary output. Patient has no disease, had outpatient lab values showing markedly abnormal CMP MD Complaint: abnormal lab (BUN/creatinine) -: unknown Returns Today for: Called Because of Abnormal Lab/Test Symptoms Since Prior Visit: no new symptoms Context: called for abnormal lab result Associated Symptoms: none Treatments Prior to Arrival: IV/IO - Related Data Home Medications Medication Instructions Recorded Confirmed Montelukast [Singulair] 10 mg PO HS@209911/06/13 10/07/18 Allopurinol [Zyloprim] 100 mg PO DAILY@79911/29/16 10/07/18 PARoxetine [Paxil] 20 mg PO HS@209911/29/16 10/07/18 Acetaminophen Tab [Tylenol] 650 mg PO Q6H PRN 09/29/18 10/07/18 B Complex W-C No.20/Folic Acid 1 mg PO DAILY@1700 09/29/18 10/07/18 [Renal Caps Softgel] Ipratropium-Albuterol Nebulize 3 ml INHALATION RT-BID PRN 09/29/18 10/07/18 [Duoneb 0.5 mg-3 mg/3 ml Soln] Lactulose 20 gm PO DAILY@0809/29/18 10/07/18 Magnesium Hydroxide [Milk of 2,400 mg PO DAILY PRN 09/29/18 10/07/18 Magnesia] Meclizine HCl 12.5 mg PO TID PRN 09/29/18 10/07/18 Ondansetron [Zofran] 4 mg PO Q12HR PRN 09/29/18 10/07/18 Phenylephrine HCl/[place] Butter 1 supp RC DAILY PRN 09/29/18 10/07/18 [Preparation H Suppository] Sodium Bicarbonate Tab 650 mg PO DAILY@0800 09/29/18 10/07/18 diphenhydrAMINE & Zinc Cream 1 applic TOPICAL TID PRN 09/29/18 10/07/18 [Benadryl Cream] guaiFENesin [Mucinex] 600 mg PO BID@0800,2100 09/29/18 10/07/18 rOPINIRole HCL [Requip] 0.5 mg PO HS@2100 09/29/18 10/07/18 Apixaban [Eliquis] 2.5 mg PO BID@0800,1700 10/07/18 10/07/18 Bisacodyl [Dulcolax] 10 mg RECTAL DAILY PRN 10/07/18 10/07/18 Budesonide [Pulmicort] 1 mg INHALATION RT-BID@0800,1700 10/07/18 10/07/18 Formoterol Fumarate [Perforomist] 20 mcg INHALATION RT-BID@0800,1700 10/07/18 10/07/18 Furosemide [Lasix] 60 mg PO BID@0600,1400 10/07/18 10/07/18 Furosemide [Lasix] 60 mg PO DAILY@0600 10/07/18 10/07/18 INSULIN ASPART (NovoLOG) [NovoLOG See Protocol SQ ACHS 10/07/18 10/07/18 (formulary)] Levothyroxine Sodium [Synthroid] 25 mcg PO DAILY@0600 10/07/18 10/07/18 Metoprolol Tartrate [Lopressor] 50 mg PO BID@0800,2100 10/07/18 10/07/18 Na Phos,M-B/Na Phos,Di-Ba [Fleet 133 ml RECTAL ONCE PRN 10/07/18 10/07/18 Adult] Pantoprazole Sodium [Protonix] 40 mg PO DAILY@0600 10/07/18 10/07/18 amLODIPine [Norvasc] 2.5 mg PO DAILY@0800 10/07/18 10/07/18 predniSONE 10 mg PO DAILY@0800 10/07/18 10/07/18 predniSONE See Taper PO DIRECTED 10/07/18 10/07/18 Previous Rx's Medication Instructions Recorded ALPRAZolam [Xanax] 0.25 mg PO HS PRN #5 tablet 10/04/18 Ipratropium-Albuterol Nebulize 3 ml INHALATION RT-Q4H ampul.neb 10/04/18 [Duoneb 0.5 mg-3 mg/3 ml Soln] Levofloxacin [Levaquin] 250 mg PO Q48H 6 Days tab 10/04/18 Allergies Allergy/AdvReac Type Severity Reaction Status Date / Time codeine Allergy Severe Nausea & Verified 10/07/18 17:39 Vomiting morphine Allergy Severe Nausea & Verified 10/07/18 17:39 Vomiting Penicillins Allergy Rash/Hives Verified 10/07/18 17:39 trazodone AdvReac Unknown Verified 10/07/18 17:39 Review of Systems ROS Statement: Those systems with pertinent positive or pertinent negative responses have been documented in the HPI. ROS Other: All systems not noted in ROS Statement are negative. Past Medical History Past Medical History: Atrial Fibrillation, Asthma, COPD, Hypertension, Myocardial Infarction ([place]), Renal Disease Last Myocardial Infarction Date:: 2010 History of Any Multi-Drug Resistant Organisms: None Reported Past Surgical History: Adenoidectomy, Cholecystectomy, Heart Catheterization With Stent, Hernia Repair, Tonsillectomy Additional Past Surgical History / Comment(s): Hx colonoscopy, left and rt knee replacement hx oopherectomy Past Anesthesia/Blood Transfusion Reactions: No Reported Reaction Date of Last Stent Placement:: 2010 Past Psychological History: Anxiety Smoking Status: Never smoker Past Drug Use History: None Reported - Past Family History Mother Family Medical History: Coronary Artery Disease (CAD) General Exam Limitations: no limitations General appearance: alert, in no apparent distress Head exam: Present: atraumatic, normocephalic, normal inspection Eye exam: Present: normal appearance, PERRL, EOMI. Absent: scleral icterus, conjunctival injection, periorbital swelling ENT exam: Present: normal exam, mucous membranes moist Neck exam: Present: normal inspection. Absent: tenderness, meningismus, lymphadenopathy Respiratory exam: Present: normal lung sounds bilaterally. Absent: respiratory distress, wheezes, rales, rhonchi, stridor Cardiovascular Exam: Present: regular rate, normal rhythm, normal heart sounds. Absent: systolic murmur, diastolic murmur, rubs, gallop, clicks GI/Abdominal exam: Present: soft, normal bowel sounds. Absent: distended, tenderness, guarding, rebound, rigid Extremities exam: Present: normal inspection, full ROM, normal capillary refill. Absent: tenderness, pedal edema, joint swelling, calf tenderness Back exam: Present: normal inspection Neurological exam: Present: alert, oriented X3, CN II-XII intact Psychiatric exam: Present: normal affect, normal mood Skin exam: Present: warm, dry, intact, normal color. Absent: rash Course Vital Signs 10/07/18 10/07/18 16:34 17:24 Temperature 97.6 F Pulse Rate 93 103 H Respiratory 18 18 Rate Blood Pressure 136/87 109/75 O2 Sat by Pulse 95 97 Oximetry - Reevaluation(s) Reevaluation #1: 10/07/18 18:05 Medical record reviewed, prior lab values reviewed Medical Decision Making - Medical Decision Making 87 female the ER for evaluation and normal lab tests acute on chronic renal failure worsening renal failure, will admit for nephrology consultation - Lab Data Result diagrams: 10/07/18 16:55 10/07/18 16:55 Lab Results 10/07/18 10/07/18 10/07/18 Range/Units 16:55 16:55 16:55 WBC 8.4 (3.8-10.6) k/uL RBC 3.31 L (3.80-5.40) m/uL Hgb 9.8 L (11.4-16.0) gm/dL Hct 28.9 L (34.0-46.0) % MCV 87.4 (80.0-100.0) fL MCH 29.7 (25.0-35.0) pg MCHC 34.0 (31.0-37.0) g/dL RDW 16.8 H (11.5-15.5) % Plt Count 189 (150-450) k/uL Neutrophils % 92 % Lymphocytes % 4 % Monocytes % 3 % Eosinophils % 0 % Basophils % 0 % Neutrophils # 7.7 (1.3-7.7) k/uL Lymphocytes # 0.3 L (1.0-4.8) k/uL Monocytes # 0.2 (0-1.0) k/uL Eosinophils # 0.0 (0-0.7) k/uL Basophils # 0.0 (0-0.2) k/uL Anisocytosis Slight PT (9.0-12.0) sec INR (<1.2) APTT (22.0-30.0) sec Sodium 136 L (137-145) mmol/L Potassium 5.2 H (3.5-5.1) mmol/L Chloride 105 (98-107) mmol/L Carbon Dioxide 18 L (22-30) mmol/L Anion Gap 13 mmol/L BUN 125 H* (7-17) mg/dL Creatinine 3.09 H (0.52-1.04) mg/dL Est GFR (CKD-EPI)AfAm 15 (>60 ml/min/1.73 sqM) Est GFR (CKD-EPI)NonAf 13 (>60 ml/min/1.73 sqM) Glucose 216 H (74-99) mg/dL Plasma Lactic Acid [place] 1.9 (0.7-2.0) mmol/L Calcium 9.1 (8.4-10.2) mg/dL Phosphorus 4.7 H (2.5-4.5) mg/dL Magnesium 1.5 L (1.6-2.3) mg/dL Total Bilirubin 0.8 (0.2-1.3) mg/dL AST 20 (14-36) U/L ALT 31 (9-52) U/L Alkaline Phosphatase 75 (38-126) U/L Total Protein 5.2 L (6.3-8.2) g/dL Albumin 2.9 L (3.5-5.0) g/dL 10/07/18 Range/Units 16:55 WBC (3.8-10.6) k/uL RBC (3.80-5.40) m/uL Hgb (11.4-16.0) gm/dL Hct (34.0-46.0) % MCV (80.0-100.0) fL MCH (25.0-35.0) pg MCHC (31.0-37.0) g/dL RDW (11.5-15.5) % Plt Count (150-450) k/uL Neutrophils % % Lymphocytes % % Monocytes % % Eosinophils % % Basophils % % Neutrophils # (1.3-7.7) k/uL Lymphocytes # (1.0-4.8) k/uL Monocytes # (0-1.0) k/uL Eosinophils # (0-0.7) k/uL Basophils # (0-0.2) k/uL Anisocytosis PT 11.1 (9.0-12.0) sec INR 1.1 (<1.2) APTT 23.9 (22.0-30.0) sec Sodium (137-145) mmol/L Potassium (3.5-5.1) mmol/L Chloride (98-107) mmol/L Carbon Dioxide (22-30) mmol/L Anion Gap mmol/L BUN (7-17) mg/dL Creatinine (0.52-1.04) mg/dL Est GFR (CKD-EPI)AfAm (>60 ml/min/1.73 sqM) Est GFR (CKD-EPI)NonAf (>60 ml/min/1.73 sqM) Glucose (74-99) mg/dL Plasma Lactic Acid [place] (0.7-2.0) mmol/L Calcium (8.4-10.2) mg/dL Phosphorus (2.5-4.5) mg/dL Magnesium (1.6-2.3) mg/dL Total Bilirubin (0.2-1.3) mg/dL AST (14-36) U/L ALT (9-52) U/L Alkaline Phosphatase (38-126) U/L Total Protein (6.3-8.2) g/dL Albumin (3.5-5.0) g/dL - EKG Data -: EKG Interpreted by Me Disposition Clinical Impression: Renal failure, Uremia Disposition: ADMITTED IP TO THIS HOSP Condition: Fair Is patient prescribed a controlled substance at d/c from ED?: No Referrals: Praneeth Harp MD [Primary Care Provider] - 1-2 days
[2018-10-07 17:12] LABS: Anisocytosis Slight; Basophils % (A) 0 %; Eosinophils % (A) 0 %; HCT 28.9 % (34.0-46.0); HGB 9.8 gm/dL (11.4-16.0); Lymphocytes # (A) 0.3 k/uL (1.0-4.8); Lymphocytes % (A) 4 %; MCH 29.7 pg (25.0-35.0); MCV 87.4 fL (80.0-100.0); Mean Platelet Volume 10.6; Monocytes # (A) 0.2 k/uL (0-1.0); Monocytes % (A) 3 %; Neutrophils # (A) 7.7 k/uL (1.3-7.7); Neutrophils % (A) 92 %; Platelet Count 189 k/uL (150-450); RBC 3.31 m/uL (3.80-5.40); RDW 16.8 % (11.5-15.5); WBC 8.4 k/uL (3.8-10.6)
[2018-10-07 17:25] LABS: Albumin 2.9 g/dL (3.5-5.0); Calcium 9.1 mg/dL (8.4-10.2); Magnesium 1.5 mg/dL (1.6-2.3); Phosphorus 4.7 mg/dL (2.5-4.5); Potassium 5.2 mmol/L (3.5-5.1); Total Bilirubin 0.8 mg/dL (0.2-1.3); Total Protein 5.2 g/dL (6.3-8.2)
[2018-10-07 17:26] LABS: INR 1.1 (<1.2); Partial Thromboplastin Time 23.9 sec (22.0-30.0); Prothrombin Time 11.1 sec (9.0-12.0)
[2018-10-07] MEDS ORDERED: SODIUM CHLORIDE 0.9% 1,000 ML IV ONE (18:03)
[2018-10-07 19:22] LABS: Appearance,Urine Clear (Clear); Bilirubin,Urine Negative (Negative); Blood,Urine Negative (Negative); Color,Urine Light Yellow; Glucose,Urine (UA) Trace (Negative); Ketones,Urine Negative (Negative); Leukocyte Esterase,Urine Negative (Negative); Nitrite,Urine Negative (Negative); Protein,Urine Negative (Negative); Specific Gravity,Urine 1.011 (1.001-1.035); Urobilinogen,Urine <2.0 mg/dL (<2.0)
[2018-10-07] MEDS ORDERED: SODIUM POLYSTYRENE SULFONATE 15 GM/60 ML BOTTLE PO STA (20:17)
[2018-10-07] MEDS ORDERED: CALCIUM GLUCONATE 1 GM in SODIUM CHLORIDE 0.9% 100 ML IVPB ONE (20:18)
[2018-10-07] MEDS ORDERED: BISACODYL 10 MG SUPP RECTAL PRN (20:29)
--- NOTE | 2018-10-07 20:34 | P.HPIM ---
History of Present Illness H&P Date: 10/07/18 Patient is an 87-year-old female with a PMH of A. fib on Eliquis, hypertension, COPD, CKD stage IV, CAD status post stents, diastolic CHF, who was sent to the hospital from [facility] rehab facility for worsening kidney function along with anorexia and overall feeling ill. The patient was recently admitted to [facility] in 09/29/2018 for acute influenza A infection along with acute COPD exacerbation and bronchitis, after which patient was discharged to [facility] rehab facility on 10/05/2018. The patient reports that she has had continued cough with some yellow phlegm since her prior admission and overall feels ill. She denied chest pain, fever, shortness of breath, abdominal pain, dysuria, nausea, vomiting, or diarrhea. The patient underwent blood work at [facility] earlier today where she was noted to have worsening kidney function and was subsequently sent to the ED. of note, the patient was evaluated by nephrology during her previous hospitalization and her oral Lasix dose of 60 mg by mouth daily at home was doubled to 60 mg twice a day for 4-5 days at discharge and was planned to restart the daily dosing thereafter. The patient underwent an extensive evaluation in the emergency room with BUN 125, up from 96 at time of discharge, creatinine 3.09 up from 2.68, bicarb 18, troponin 0.052, and hemoglobin 9.8. EKG as reviewed by me revealed atrial fibrillation at 109 bpm. The patient was given 1 L normal saline bolus and was admitted to the medicine service. Review of Systems Pertinent positives and negatives as discussed in HPI, a complete review of systems was performed and all other systems are negative. Past Medical History Past Medical History: Atrial Fibrillation, Asthma, COPD, Hypertension, Myocardial Infarction ([place]), Renal Disease Last Myocardial Infarction Date:: 2010 History of Any Multi-Drug Resistant Organisms: None Reported Past Surgical History: Adenoidectomy, Cholecystectomy, Heart Catheterization With Stent, Hernia Repair, Tonsillectomy Additional Past Surgical History / Comment(s): Hx colonoscopy, left and rt knee replacement hx oopherectomy Past Anesthesia/Blood Transfusion Reactions: No Reported Reaction Date of Last Stent Placement:: 2010 Past Psychological History: Anxiety Smoking Status: Never smoker Past Drug Use History: None Reported - Past Family History Mother Family Medical History: Coronary Artery Disease (CAD) Medications and Allergies Home Medications Medication Instructions Recorded Confirmed Type Montelukast [Singulair] 10 mg PO HS@209911/06/13 10/07/18 History Allopurinol [Zyloprim] 100 mg PO DAILY@0800 11/29/16 10/07/18 History PARoxetine [Paxil] 20 mg PO HS@209911/29/16 10/07/18 History Acetaminophen Tab [Tylenol] 650 mg PO Q6H PRN 09/29/18 10/07/18 History B Complex W-C No.20/Folic Acid 1 mg PO DAILY@1700 09/29/18 10/07/18 History [Renal Caps Softgel] Ipratropium-Albuterol Nebulize 3 ml INHALATION RT-BID PRN 09/29/18 10/07/18 History [Duoneb 0.5 mg-3 mg/3 ml Soln] Lactulose 20 gm PO DAILY@0800 09/29/18 10/07/18 History Magnesium Hydroxide [Milk of 2,400 mg PO DAILY PRN 09/29/18 10/07/18 History Magnesia] Meclizine HCl 12.5 mg PO TID PRN 09/29/18 10/07/18 History Ondansetron [Zofran] 4 mg PO Q12HR PRN 09/29/18 10/07/18 History Phenylephrine HCl/[place] Butter 1 supp RC DAILY PRN 09/29/18 10/07/18 History [Preparation H Suppository] Sodium Bicarbonate Tab 650 mg PO DAILY@0800 09/29/18 10/07/18 History diphenhydrAMINE & Zinc Cream 1 applic TOPICAL TID PRN 09/29/18 10/07/18 History [Benadryl Cream] guaiFENesin [Mucinex] 600 mg PO BID@0800,209909/29/18 10/07/18 History rOPINIRole HCL [Requip] 0.5 mg PO HS@209909/29/18 10/07/18 History ALPRAZolam [Xanax] 0.25 mg PO HS PRN #5 tablet 10/04/18 10/07/18 Rx Ipratropium-Albuterol Nebulize 3 ml INHALATION RT-Q4H ampul.neb 10/04/18 10/07/18 Rx [Duoneb 0.5 mg-3 mg/3 ml Soln] Levofloxacin [Levaquin] 250 mg PO Q48H 6 Days tab 10/04/18 10/07/18 Rx Apixaban [Eliquis] 2.5 mg PO BID@0800,1700 10/07/18 10/07/18 History Bisacodyl [Dulcolax] 10 mg RECTAL DAILY PRN 10/07/18 10/07/18 History Budesonide [Pulmicort] 1 mg INHALATION RT-BID@0800,1700 10/07/18 10/07/18 History Formoterol Fumarate [Perforomist] 20 mcg INHALATION RT-BID@0800,1700 10/07/18 10/07/18 History Furosemide [Lasix] 60 mg PO BID@0600,1400 10/07/18 10/07/18 History Furosemide [Lasix] 60 mg PO DAILY@0600 10/07/18 10/07/18 History INSULIN ASPART (NovoLOG) [NovoLOG See Protocol SQ ACHS 10/07/18 10/07/18 History (formulary)] Levothyroxine Sodium [Synthroid] 25 mcg PO DAILY@0600 10/07/18 10/07/18 History Metoprolol Tartrate [Lopressor] 50 mg PO BID@0800,2100 10/07/18 10/07/18 History Na Phos,M-B/Na Phos,Di-Ba [Fleet 133 ml RECTAL ONCE PRN 10/07/18 10/07/18 History Adult] Pantoprazole Sodium [Protonix] 40 mg PO DAILY@0600 10/07/18 10/07/18 History amLODIPine [Norvasc] 2.5 mg PO DAILY@0800 10/07/18 10/07/18 History predniSONE 10 mg PO DAILY@0800 10/07/18 10/07/18 History predniSONE See Taper PO DIRECTED 10/07/18 10/07/18 History Allergies Allergy/AdvReac Type Severity Reaction Status Date / Time codeine Allergy Severe Nausea & Verified 10/07/18 17:39 Vomiting morphine Allergy Severe Nausea & Verified 10/07/18 17:39 Vomiting Penicillins Allergy Rash/Hives Verified 10/07/18 17:39 trazodone AdvReac Unknown Verified 10/07/18 17:39 Physical Exam Vitals: Vital Signs Temp Pulse Resp BP Pulse Ox 10/07/18 18:55 101 H 20 130/91 97 10/07/18 17:24 103 H 18 109/75 97 10/07/18 16:34 97.6 F 93 18 136/87 95 Intake and Output 10/07/18 10/07/18 10/07/18 06:59 14:59 22:59 Other: Weight 87.09 kg General: non toxic, no distress, appears at stated age, normal weight Derm: no unusual rashes/lesions no unusual ecchymoses, warm, dry Head: atraumatic, normocephalic, symmetric Eyes: EOMI, no lid lag, anicteric sclera, pupils equal round reactive to light ENT: Nose and ears atraumatic, no thrush, no pharyngeal erythema Neck: No thyromegaly, no cervical lymphadenopathy, trachea midline, supple Mouth: no lip lesion, mucus membranes moist Cardiovascular: S1S2 irregularly irregular, no murmur, positive posterior tibial pulse bilateral, 1+ hilda LE edema, capillary refill less than 2 seconds Lungs: CTA bilateral, no rhonchi, no rales , no accessory muscle use Abdominal: soft, nontender to palpation, no guarding, no appreciable organomegaly, normal bowel sounds Ext: no gross muscle atrophy, muscle strength 4 out of 5 in all 4 extremities grossly, no contractures, Neuro: CN II-XI grossly intact, light touch intact all 4 extremities, finger to nose within normal limits, Psych: Alert, oriented, appropriate affect Results CBC & Chem 7: 10/07/18 16:55 10/07/18 16:55 Labs: Abnormal Lab Results - Last 24 Hours (Table) 10/07/18 10/07/18 10/07/18 Range/Units 16:55 16:55 16:55 RBC 3.31 L (3.80-5.40) m/uL Hgb 9.8 L (11.4-16.0) gm/dL Hct 28.9 L (34.0-46.0) % RDW 16.8 H (11.5-15.5) % Lymphocytes # 0.3 L (1.0-4.8) k/uL Sodium 136 L (137-145) mmol/L Potassium 5.2 H (3.5-5.1) mmol/L Carbon Dioxide 18 L (22-30) mmol/L BUN 125 H* (7-17) mg/dL Creatinine 3.09 H (0.52-1.04) mg/dL Glucose 216 H (74-99) mg/dL Phosphorus 4.7 H (2.5-4.5) mg/dL Magnesium 1.5 L (1.6-2.3) mg/dL Troponin I 0.052 H* (0.000-0.034) ng/mL Total Protein 5.2 L (6.3-8.2) g/dL Albumin 2.9 L (3.5-5.0) g/dL Urine Glucose (UA) (Negative) 10/07/18 Range/Units 18:45 RBC (3.80-5.40) m/uL Hgb (11.4-16.0) gm/dL Hct (34.0-46.0) % RDW (11.5-15.5) % Lymphocytes # (1.0-4.8) k/uL Sodium (137-145) mmol/L Potassium (3.5-5.1) mmol/L Carbon Dioxide (22-30) mmol/L BUN (7-17) mg/dL Creatinine (0.52-1.04) mg/dL Glucose (74-99) mg/dL Phosphorus (2.5-4.5) mg/dL Magnesium (1.6-2.3) mg/dL Troponin I (0.000-0.034) ng/mL Total Protein (6.3-8.2) g/dL Albumin (3.5-5.0) g/dL Urine Glucose (UA) Trace H (Negative) Assessment and Plan Plan: BRANDON on CKD stage IV, possibly prerenal -Nephrology consulted -Monitor BMP -We'll hold Lasix for now Chronic Conditions: COPD, Afib, HTN, CAD, Anxiety, Anemia of chronic disease -Resume home medications DVT//GI prophylaxis -Eliquis -Protonix The patient is admitted with an anticipated less than 2 midnight stay for evaluation of BRANDON. CODE STATUS:No Code Discussed with: Patient Anticipated discharge date: 10/09/[address]: [facility] A total of 35 minutes was spent on the care of this complex patient more than 50% of the time was spent in counseling and care coordination.
[2018-10-07] MEDS: ALPRAZolam 0.25 MG TAB PO PRN (23:23)
[2018-10-07] MEDS: MONTELUKAST 10 MG TAB PO SCH (23:23)
[2018-10-07] MEDS: PARoxetine 20 MG TAB PO SCH (23:23)
[2018-10-07] MEDS: METOPROLOL TARTRATE 50 MG TAB PO SCH (23:23)
[2018-10-07] MEDS: guaiFENesin 600 MG TABLET.ER PO SCH (23:24)
[2018-10-07] MEDS: LEVOFLOXACIN 250 MG TAB PO SCH (23:24)
[2018-10-08] MEDS ORDERED: ACETAMINOPHEN TAB 325 MG TAB PO PRN (01:35)
[2018-10-08] MEDS: LEVOTHYROXINE 25 MCG TAB PO SCH (05:15)
[2018-10-08] MEDS: PANTOPRAZOLE 40 MG TABLET PO SCH (05:15)
--- NOTE | 2018-10-08 07:57 | XR ---
EXAMINATION TYPE: XR chest 1V portable DATE OF EXAM: 10/08/2018 HISTORY: Pneumonia. REFERENCE: Previous study dated 09/30/2018. FINDINGS: There is chronic apparent elevation right hemidiaphragm. The heart is mildly enlarged. Ther e is some subsegmental atelectasis at the right lung base. The left lung is clear. Pleural spaces are clear. IMPRESSION: MINIMAL SUBSEGMENTAL ATELECTASIS, RIGHT LUNG BASE.
[2018-10-08 08:37] LABS: Calcium 8.8 mg/dL (8.4-10.2); Magnesium 1.6 mg/dL (1.6-2.3); Potassium 4.1 mmol/L (3.5-5.1)
[2018-10-08 08:49] LABS: Anisocytosis Slight; HCT 26.4 % (34.0-46.0); MCH 30.1 pg (25.0-35.0); MCHC 34.3 g/dL (31.0-37.0); MCV 87.7 fL (80.0-100.0); Mean Platelet Volume 10.8; Platelet Count 149 k/uL (150-450); RBC 3.01 m/uL (3.80-5.40); RDW 17.6 % (11.5-15.5)
[2018-10-08] MEDS: predniSONE 10 MG TAB PO SCH (08:50)
[2018-10-08] MEDS: SODIUM BICARBONATE TAB 650 MG TAB PO SCH (08:50)
[2018-10-08] MEDS: ALLOPURINOL 100 MG TAB PO SCH (08:50)
[2018-10-08] MEDS: LACTULOSE 20 GM/30 ML CUP PO SCH (08:51)
[2018-10-08] MEDS: METOPROLOL TARTRATE 50 MG TAB PO SCH ×2 (08:51→20:37)
[2018-10-08] MEDS: APIXABAN 2.5 MG TABLET PO SCH ×2 (08:51→17:47)
[2018-10-08] MEDS: guaiFENesin 600 MG TABLET.ER PO SCH ×2 (08:51→20:37)
[2018-10-08] MEDS: amLODIPine 2.5 MG TAB PO SCH (08:51)
[2018-10-08] MEDS: MAGNESIUM SULFATE-D5W PMX 1 GM in DEXTROSE/WATER 1 100ML.BAG IVPB SCH ×2 (08:53→11:12)
[2018-10-08] MEDS: IPRATROPIUM-ALBUTEROL 3 ML NEB INHALATION PRN (08:54)
[2018-10-08] MEDS: BUDESONIDE 1 MG/2 ML NEBU INHALATION SCH ×2 (08:54→21:28)
[2018-10-08] MEDS: FORMOTEROL FUMARATE 20 MCG/2 ML NEBU INHALATION SCH ×2 (08:54→21:28)
[2018-10-08] MEDS ORDERED: ENOXAPARIN 30 MG/0.3 ML SYRINGE SQ SCH (09:00)
--- NOTE | 2018-10-08 09:36 | P.NPCON ---
History of Present Illness - Reason for Consult acute renal failure, chronic renal failure - History of Present Illness Reason for consultation: Acute kidney injury on chronic kidney disease History of present illness: Patient is a 87-year-old female seen in renal consultation for acute kidney injury on chronic kidney disease. Patient has history of chronic kidney disease stage IV secondary to nephrosclerosis. Her baseline creatinine has been in the range of 2.5-3. Patient was recently admitted to the hospital earlier this month with influenza. She was noted to be volume overloaded and received IV diuretics. She was discharged tomorrow with Lasix 60 mg orally twice daily. Her edema has been improving. Patient had blood work done at [place] and was sent to the hospital due to abnormal labs. She was noted to have a BUN of 125 and a creatinine of 3.09 on admission. Diuretics are currently held. Renal function and BUN are both trending down. She denies chest pain or shortness of breath. She has been voiding. No hematuria or dysuria. Denies use of nonsteroidals. She does a history of diastolic CHF with moderate mitral regurgitation and pulmonary hypertension. Appetite is fair. Hemodynamically stable. No active complaints at this time. Vital signs are stable. General: The patient appeared well nourished and normally developed. HEENT: Head exam is unremarkable. Neck is without jugular venous distension. LUNGS: Lungs are clear to auscultation and percussion. Breath sounds decreased. HEART: Rate and Rhythm are regular. First and second heart sounds normal. No murmurs, rubs or gallops. ABDOMEN: Abdominal exam reveals normal bowel sounds. Non-tender and non-distended. No evidence of peritonitis. EXTREMITITES: No clubbing, cyanosis, or edema. Past Medical History Past Medical History: Atrial Fibrillation, Asthma, COPD, Hypertension, Myocardial Infarction ([place]), Renal Disease Last Myocardial Infarction Date:: 2010 History of Any Multi-Drug Resistant Organisms: None Reported Past Surgical History: Adenoidectomy, Cholecystectomy, Heart Catheterization With Stent, Hernia Repair, Tonsillectomy Additional Past Surgical History / Comment(s): Hx colonoscopy, left and rt knee replacement hx oopherectomy Past Anesthesia/Blood Transfusion Reactions: No Reported Reaction Date of Last Stent Placement:: 2010 Past Psychological History: Anxiety Smoking Status: Never smoker Past Alcohol Use History: None Reported Past Drug Use History: None Reported - Past Family History Mother Family Medical History: Coronary Artery Disease (CAD) Medications and Allergies Home Medications Medication Instructions Recorded Confirmed Type Montelukast [Singulair] 10 mg PO HS@209911/06/13 10/07/18 History Allopurinol [Zyloprim] 100 mg PO DAILY@0800 11/29/16 10/07/18 History PARoxetine [Paxil] 20 mg PO HS@209911/29/16 10/07/18 History Acetaminophen Tab [Tylenol] 650 mg PO Q6H PRN 09/29/18 10/07/18 History B Complex W-C No.20/Folic Acid 1 mg PO DAILY@1700 09/29/18 10/07/18 History [Renal Caps Softgel] Ipratropium-Albuterol Nebulize 3 ml INHALATION RT-BID PRN 09/29/18 10/07/18 History [Duoneb 0.5 mg-3 mg/3 ml Soln] Lactulose 20 gm PO DAILY@0800 09/29/18 10/07/18 History Magnesium Hydroxide [Milk of 2,400 mg PO DAILY PRN 09/29/18 10/07/18 History Magnesia] Meclizine HCl 12.5 mg PO TID PRN 09/29/18 10/07/18 History Ondansetron [Zofran] 4 mg PO Q12HR PRN 09/29/18 10/07/18 History Phenylephrine HCl/[place] Butter 1 supp RC DAILY PRN 09/29/18 10/07/18 History [Preparation H Suppository] Sodium Bicarbonate Tab 650 mg PO DAILY@0800 09/29/18 10/07/18 History diphenhydrAMINE & Zinc Cream 1 applic TOPICAL TID PRN 09/29/18 10/07/18 History [Benadryl Cream] guaiFENesin [Mucinex] 600 mg PO BID@0800,209909/29/18 10/07/18 History rOPINIRole HCL [Requip] 0.5 mg PO HS@209909/29/18 10/07/18 History ALPRAZolam [Xanax] 0.25 mg PO HS PRN #5 tablet 10/04/18 10/07/18 Rx Ipratropium-Albuterol Nebulize 3 ml INHALATION RT-Q4H ampul.neb 10/04/18 10/07/18 Rx [Duoneb 0.5 mg-3 mg/3 ml Soln] Levofloxacin [Levaquin] 250 mg PO Q48H 6 Days tab 10/04/18 10/07/18 Rx Apixaban [Eliquis] 2.5 mg PO BID@0800,1700 10/07/18 10/07/18 History Bisacodyl [Dulcolax] 10 mg RECTAL DAILY PRN 10/07/18 10/07/18 History Budesonide [Pulmicort] 1 mg INHALATION RT-BID@0800,1700 10/07/18 10/07/18 History Formoterol Fumarate [Perforomist] 20 mcg INHALATION RT-BID@0800,1700 10/07/18 10/07/18 History Furosemide [Lasix] 60 mg PO BID@0600,1400 10/07/18 10/07/18 History Furosemide [Lasix] 60 mg PO DAILY@0600 10/07/18 10/07/18 History INSULIN ASPART (NovoLOG) [NovoLOG See Protocol SQ ACHS 10/07/18 10/07/18 History (formulary)] Levothyroxine Sodium [Synthroid] 25 mcg PO DAILY@0600 10/07/18 10/07/18 History Metoprolol Tartrate [Lopressor] 50 mg PO BID@0800,2100 10/07/18 10/07/18 History Na Phos,M-B/Na Phos,Di-Ba [Fleet 133 ml RECTAL ONCE PRN 10/07/18 10/07/18 History Adult] Pantoprazole Sodium [Protonix] 40 mg PO DAILY@0600 10/07/18 10/07/18 History amLODIPine [Norvasc] 2.5 mg PO DAILY@0800 10/07/18 10/07/18 History predniSONE 10 mg PO DAILY@0800 10/07/18 10/07/18 History predniSONE See Taper PO DIRECTED 10/07/18 10/07/18 History Allergies Allergy/AdvReac Type Severity Reaction Status Date / Time codeine Allergy Severe Nausea & Verified 10/07/18 17:39 Vomiting morphine Allergy Severe Nausea & Verified 10/07/18 17:39 Vomiting Penicillins Allergy Rash/Hives Verified 10/07/18 17:39 trazodone AdvReac Unknown Verified 10/07/18 17:39 Physical Exam Vitals: Vital Signs Temp Pulse Pulse Pulse Resp BP BP 10/08/18 09:16 100 10/08/18 09:06 98 10/08/18 08:54 98 10/08/18 07:26 97.6 F 97 15 150/83 10/08/18 00:52 98.0 F 96 16 152/81 10/07/18 21:15 97.6 F 125 H 95 20 134/88 10/07/18 18:55 101 H 20 130/91 10/07/18 17:24 103 H 18 109/75 10/07/18 16:34 97.6 F 93 18 136/87 Pulse Ox 10/08/18 09:16 10/08/18 09:06 10/08/18 08:54 10/08/18 07:26 98 10/08/18 00:52 97 10/07/18 21:15 10/07/18 18:55 97 10/07/18 17:24 97 10/07/18 16:34 95 Intake and Output 10/07/18 10/08/18 10/08/18 22:59 06:59 14:59 Intake Total 999 800 Balance 999 800 Intake: Intake, IV Titration 999 800 Amount Calcium Gluconate 1 gm In 100 Sodium Chloride 0.9% 100 ml @ 100 mls/hr IVPB ONCE ONE Rx#:[id number] Sodium Chloride 0.9% 1, 700 000 ml @ 100 mls/hr IV . Q10H ONE Rx#:[id number] Sodium Chloride 0.9% 1, 999 000 ml @ 999 mls/hr IV . Q1H1M STA Rx#:[id number] Other: # Voids 1 Weight 87.09 kg Results - Lab Results Most recent lab results Calcium 8.8 mg/dL (8.4-10.2) 10/08/18 06:02 Phosphorus 4.7 mg/dL (2.5-4.5) H 10/07/18 16:55 Magnesium 1.6 mg/dL (1.6-2.3) 10/08/18 06:02 10/08/18 06:02 10/08/18 06:02 Assessment and Plan Plan: Assessment: 1. Acute kidney injury mostly prerenal secondary to diuresis. Creatinine 3.09 on admission and is 2.79 today. UA is benign. 2. 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 3. Metabolic acidosis secondary to acute kidney injury. Better. Maintained on oral sodium bicarbonate. 4. Diastolic CHF with moderate mitral regurgitation and pulmonary hypertension. Compensated. 5. Anemia of chronic kidney disease maintained on Aranesp. 6. Hypomagnesemia secondary to diuretics. 7. Hypertension with chronic kidney disease. Controlled. 8. Mild hyperphosphatemia secondary to chronic kidney disease. Plan: Continue to hold diuretics. Magnesium being replaced. No urgent need for renal replacement therapy at this time. Patient had been refusing renal placement therapy if needed but is now reconsidering. Thank you for the consultation. I will continue to follow the patient with you during her hospital stay.
--- NOTE | 2018-10-08 13:33 | P.CRDCN ---
History of Present Illness Consult date: 10/08/18 Reason for Consult (text): Elevated troponins History of present illness: Patient is an 87-year-old female who follows with Dr. Sutton in the office, who presents to the hospital with elevated BUN/creatinine and dehydration. She was recently admitted to the hospital with influenza A, new onset of paroxysmal atrial fibrillation, and hypoxic respiratory failure. She was discharged to [facility], where labs were routinely drawn and it was noticed that her lab work was elevated. She states she was completely asymptomatic during her transfer. Cardiology was consulted for elevated troponins, which are 0.52, 0.55, and 0.79. EKG shows persistent atrial fibrillation with heart rates in the 80s. Echo performed on October 03 shows normal LV function with mild aortic insufficiency, moderate mitral regurgitation and moderate pulmonary hypertension. On exam she is currently lying comfortably in bed on her CPAP machine. She denies any chest discomfort, palpitations, dyspnea, dizziness, or vertigo. Her rate is irregular. She has a soft systolic murmur. No lower extremity edema. No elevated JVP. PAST MEDICAL HISTORY: CAD, hypertension, COPD, paroxysmal atrial fibrillation, aortic insufficiency, mitral regurgitation REVIEW OF SYSTEMS: No fever or chills. No cough or expectoration. No diaphoresis. Patient denies headache, dizziness, blurred vision, double vision. Patient denies any stomach discomfort. No nausea, vomiting. No hematochezia. No hematemesis. Denies any black stools or blood in his stools. Denies dysuria or hematuria. No muscle weakness or numbness. PHYSICAL EXAMINATION: This is a 87-year-old female in no apparent distress at the time of my examination. HEENT: Head is atraumatic, normocephalic. Pupils are equal, round. Sclerae anicteric. Conjunctivae are clear. Mucous membranes of the mouth are moist. Neck is supple. There is no jugular venous distention. No carotid bruit is heard. CHEST EXAMINATION: Lungs are clear to auscultation. No chest wall tenderness is noted on palpation or with deep breathing. HEART EXAMINATION: Heart regular rate and rhythm. S1, S2 heard. Systolic murmur. No gallops or rub. ABDOMEN: Soft, nontender. Bowel sounds are heard. No organomegaly noted. EXTREMITIES: 2+ peripheral pulses with no evidence of peripheral edema and no calf tenderness noted. NEUROLOGIC EXAMINATION: Patient is awake, alert and oriented x3. LABORATORY DATA: WBC 8.0, hemoglobin 9.0, potassium 4.1, BUN and 112, creatinine 2.79 FINAL ASSESSMENT AND PLAN: 1. Elevated troponins, recent influenza and CKD 2. Hypertension. 3. CAD. 4. Persistent atrial fibrillation, rate controlled. 5. Valvular heart disease PLAN: We will check TSH level and increase metoprolol to 75 mg twice a day for rate control. Continue anticoagulation. Please call as needed. Past Medical History Past Medical History: Atrial Fibrillation, Asthma, COPD, Hypertension, Myocardial Infarction ([place]), Renal Disease Last Myocardial Infarction Date:: 2010 History of Any Multi-Drug Resistant Organisms: None Reported Past Surgical History: Adenoidectomy, Cholecystectomy, Heart Catheterization With Stent, Hernia Repair, Tonsillectomy Additional Past Surgical History / Comment(s): Hx colonoscopy, left and rt knee replacement hx oopherectomy Past Anesthesia/Blood Transfusion Reactions: No Reported Reaction Date of Last Stent Placement:: 2010 Past Psychological History: Anxiety Smoking Status: Never smoker Past Alcohol Use History: None Reported Past Drug Use History: None Reported - Past Family History Mother Family Medical History: Coronary Artery Disease (CAD) Medications and Allergies Home Medications Medication Instructions Recorded Confirmed Type Montelukast [Singulair] 10 mg PO HS@209911/06/13 10/07/18 History Allopurinol [Zyloprim] 100 mg PO DAILY@0800 11/29/16 10/07/18 History PARoxetine [Paxil] 20 mg PO HS@209911/29/16 10/07/18 History Acetaminophen Tab [Tylenol] 650 mg PO Q6H PRN 09/29/18 10/07/18 History B Complex W-C No.20/Folic Acid 1 mg PO DAILY@1700 09/29/18 10/07/18 History [Renal Caps Softgel] Ipratropium-Albuterol Nebulize 3 ml INHALATION RT-BID PRN 09/29/18 10/07/18 History [Duoneb 0.5 mg-3 mg/3 ml Soln] Lactulose 20 gm PO DAILY@0800 09/29/18 10/07/18 History Magnesium Hydroxide [Milk of 2,400 mg PO DAILY PRN 09/29/18 10/07/18 History Magnesia] Meclizine HCl 12.5 mg PO TID PRN 09/29/18 10/07/18 History Ondansetron [Zofran] 4 mg PO Q12HR PRN 09/29/18 10/07/18 History Phenylephrine HCl/[place] Butter 1 supp RC DAILY PRN 09/29/18 10/07/18 History [Preparation H Suppository] Sodium Bicarbonate Tab 650 mg PO DAILY@0800 09/29/18 10/07/18 History diphenhydrAMINE & Zinc Cream 1 applic TOPICAL TID PRN 09/29/18 10/07/18 History [Benadryl Cream] guaiFENesin [Mucinex] 600 mg PO BID@0800,2100 09/29/18 10/07/18 History rOPINIRole HCL [Requip] 0.5 mg PO HS@2100 09/29/18 10/07/18 History ALPRAZolam [Xanax] 0.25 mg PO HS PRN #5 tablet 10/04/18 10/07/18 Rx Ipratropium-Albuterol Nebulize 3 ml INHALATION RT-Q4H ampul.neb 10/04/18 10/07/18 Rx [Duoneb 0.5 mg-3 mg/3 ml Soln] Levofloxacin [Levaquin] 250 mg PO Q48H 6 Days tab 10/04/18 10/07/18 Rx Apixaban [Eliquis] 2.5 mg PO BID@0800,1700 10/07/18 10/07/18 History Bisacodyl [Dulcolax] 10 mg RECTAL DAILY PRN 10/07/18 10/07/18 History Budesonide [Pulmicort] 1 mg INHALATION RT-BID@0800,1700 10/07/18 10/07/18 History Formoterol Fumarate [Perforomist] 20 mcg INHALATION RT-BID@0800,1700 10/07/18 10/07/18 History Furosemide [Lasix] 60 mg PO BID@0600,1400 10/07/18 10/07/18 History Furosemide [Lasix] 60 mg PO DAILY@0600 10/07/18 10/07/18 History INSULIN ASPART (NovoLOG) [NovoLOG See Protocol SQ ACHS 10/07/18 10/07/18 History (formulary)] Levothyroxine Sodium [Synthroid] 25 mcg PO DAILY@0600 10/07/18 10/07/18 History Metoprolol Tartrate [Lopressor] 50 mg PO BID@0800,2100 10/07/18 10/07/18 History Na Phos,M-B/Na Phos,Di-Ba [Fleet 133 ml RECTAL ONCE PRN 10/07/18 10/07/18 History Adult] Pantoprazole Sodium [Protonix] 40 mg PO DAILY@0600 10/07/18 10/07/18 History amLODIPine [Norvasc] 2.5 mg PO DAILY@0800 10/07/18 10/07/18 History predniSONE 10 mg PO DAILY@0800 10/07/18 10/07/18 History predniSONE See Taper PO DIRECTED 10/07/18 10/07/18 History Allergies Allergy/AdvReac Type Severity Reaction Status Date / Time codeine Allergy Severe Nausea & Verified 10/07/18 17:39 Vomiting morphine Allergy Severe Nausea & Verified 10/07/18 17:39 Vomiting Penicillins Allergy Rash/Hives Verified 10/07/18 17:39 trazodone AdvReac Unknown Verified 10/07/18 17:39 Physical Exam Vitals: Vital Signs Temp Pulse Pulse Pulse Resp BP BP 10/08/18 09:16 100 10/08/18 09:06 98 10/08/18 08:54 98 10/08/18 07:26 97.6 F 97 15 150/83 10/08/18 00:52 98.0 F 96 16 152/81 10/07/18 21:15 97.6 F 125 H 95 20 134/88 10/07/18 18:55 101 H 20 130/91 10/07/18 17:24 103 H 18 109/75 10/07/18 16:34 97.6 F 93 18 136/87 Pulse Ox 10/08/18 09:16 10/08/18 09:06 10/08/18 08:54 10/08/18 07:26 98 10/08/18 00:52 97 10/07/18 21:15 10/07/18 18:55 97 10/07/18 17:24 97 10/07/18 16:34 95 Intake and Output 10/07/18 10/08/18 10/08/18 22:59 06:59 14:59 Intake Total 999 800 Balance 999 800 Intake: Intake, IV Titration 999 800 Amount Calcium Gluconate 1 gm In 100 Sodium Chloride 0.9% 100 ml @ 100 mls/hr IVPB ONCE ONE Rx#:[id number] Sodium Chloride 0.9% 1, 700 000 ml @ 100 mls/hr IV . Q10H ONE Rx#:[id number] Sodium Chloride 0.9% 1, 999 000 ml @ 999 mls/hr IV . Q1H1M STA Rx#:[id number] Other: # Voids 1 Weight 87.09 kg Results 10/08/18 06:02 10/08/18 06:02 Cardiac Enzymes 10/07/18 10/07/18 10/07/18 Range/Units 16:55 16:55 22:51 AST 20 (14-36) U/L Troponin I 0.052 H* 0.055 H* (0.000-0.034) ng/mL 10/08/18 Range/Units 06:02 AST (14-36) U/L Troponin I 0.079 H* (0.000-0.034) ng/mL Coagulation 10/07/18 Range/Units 16:55 PT 11.1 (9.0-12.0) sec APTT 23.9 (22.0-30.0) sec CBC 10/07/18 10/08/18 Range/Units 16:55 06:02 WBC 8.4 8.0 (3.8-10.6) k/uL RBC 3.31 L 3.01 L (3.80-5.40) m/uL Hgb 9.8 L 9.0 L (11.4-16.0) gm/dL Hct 28.9 L 26.4 L (34.0-46.0) % Plt Count 189 149 L (150-450) k/uL Comprehensive Metabolic Panel 10/07/18 10/08/18 Range/Units 16:55 06:02 Sodium 136 L 138 (137-145) mmol/L Potassium 5.2 H 4.1 (3.5-5.1) mmol/L Chloride 105 108 H (98-107) mmol/L Carbon Dioxide 18 L 21 L (22-30) mmol/L BUN 125 H* 112 H* (7-17) mg/dL Creatinine 3.09 H 2.79 H (0.52-1.04) mg/dL Glucose 216 H 101 H (74-99) mg/dL Calcium 9.1 8.8 (8.4-10.2) mg/dL AST 20 (14-36) U/L ALT 31 (9-52) U/L Alkaline Phosphatase 75 (38-126) U/L Total Protein 5.2 L (6.3-8.2) g/dL Albumin 2.9 L (3.5-5.0) g/dL Current Medications Generic Name Dose Route Start Last Admin Trade Name Freq PRN Reason Stop Dose Admin Acetaminophen 325 mg 10/08/18 01:35 10/08/18 05:15 Tylenol Tab PO 325 mg Q6HR PRN Administration Fever and/ or Pain Albuterol/Ipratropium 3 ml 10/07/18 20:29 10/08/18 08:54 Duoneb 0.5 Mg-3 Mg/3 Ml Soln INHALATION 3 ml RT-BID PRN Administration Shortness Of Breath Allopurinol 100 mg 10/08/18 08:00 10/08/18 08:50 Zyloprim PO 100 mg DAILY@0800 SHERI Administration Alprazolam 0.25 mg 10/07/18 20:29 10/07/18 23:23 Xanax PO 0.25 mg HS PRN Administration Anxiety Amlodipine Besylate 2.5 mg 10/08/18 08:00 10/08/18 08:51 Norvasc PO 2.5 mg DAILY@0800 SHERI Administration Apixaban 2.5 mg 10/08/18 08:00 10/08/18 08:51 Eliquis PO 2.5 mg BID@0800,1700 [facility]I Administration Bisacodyl 10 mg 10/07/18 20:29 Dulcolax RECTAL DAILY PRN Constipation Budesonide 1 mg 10/08/18 08:00 10/08/18 08:54 Pulmicort INHALATION 1 mg RT-BID@0800,1700 [facility]ERI Administration Formoterol Fumarate 20 mcg 10/08/18 08:00 10/08/18 08:54 Perforomist INHALATION 20 mcg RT-BID@0800,1700 [facility]I Administration Guaifenesin 600 mg 10/07/18 21:00 10/08/18 08:51 Mucinex PO 600 mg BID@0800,2100 [facility] Administration Lactulose 20 gm 10/08/18 08:00 10/08/18 08:51 Cephulac PO 20 gm DAILY@0800 [facility] Administration Levofloxacin 250 mg 10/07/18 21:00 10/07/18 23:24 Levaquin PO 10/10/18 21:01 250 mg Q48H [facility]I Administration Levothyroxine Sodium 25 mcg 10/08/18 06:00 10/08/18 05:15 Synthroid PO 25 mcg DAILY@0600 [facility] Administration Metoprolol Tartrate 75 mg 10/08/18 21:00 Lopressor PO BID@0800,2100 [facility] Montelukast Sodium 10 mg 10/07/18 21:00 10/07/18 23:23 Singulair PO 10 mg HS@2100 [facility] Administration Multivit/Ca Carb/B Cmplx/FA/Prenat 1 each 10/08/18 17:00 Nephrocaps PO DAILY@1700 [facility] Pantoprazole Sodium 40 mg 10/08/18 06:00 10/08/18 05:15 Protonix PO 40 mg DAILY@0600 [facility] Administration Paroxetine HCl 20 mg 10/07/18 21:00 10/07/18 23:23 Paxil PO 20 mg HS@2100 [facility] Administration Prednisone 30 mg 10/07/18 20:30 10/08/18 08:50 PO 10/16/18 20:29 30 mg DAILY [facility] Administration Taper Sodium Bicarbonate 650 mg 10/08/18 08:00 10/08/18 08:50 Sodium Bicarbonate Tab PO 650 mg DAILY@0800 [facility] Administration Intake and Output 10/07/18 10/08/18 10/08/18 22:59 06:59 14:59 Intake Total 999 800 Balance 999 800 Intake: Intake, IV Titration 999 800 Amount Calcium Gluconate 1 gm In 100 Sodium Chloride 0.9% 100 ml @ 100 mls/hr IVPB ONCE ONE Rx#:[id number] Sodium Chloride 0.9% 1, 700 000 ml @ 100 mls/hr IV . Q10H ONE Rx#:[id number] Sodium Chloride 0.9% 1, 999 000 ml @ 999 mls/hr IV . Q1H1M STA Rx#:[id number] Other: # Voids 1 Weight 87.09 kg 10/08/18 06:02 10/08/18 06:02
--- NOTE | 2018-10-08 17:15 | P.PN ---
Subjective Progress Note Date: 10/08/18 Principal diagnosis: BRANDON on CKD Patient was seen and examined. No acute events overnight. Patient sleeping most of the morning into afternoon on BiPAP. States that she was unable to sleep at night. She has no complaints today. She denies chest pain, shortness of breath or palpitations. No nausea or vomiting. No fever or chills. Renal function slowly improving this morning. Objective - Vital Signs Vital signs: Vital Signs Temp 97.6 F 10/08/18 07:26 Pulse 100 10/08/18 09:16 Resp 15 10/08/18 07:26 BP 150/83 10/08/18 07:26 Pulse Ox 98 10/08/18 07:26 Intake & Output 10/07/18 10/08/18 10/08/18 18:59 06:59 18:59 Intake Total 1799 Balance 1799 Weight 87.09 kg Intake: Intake, IV Titration 1799 Amount Calcium Gluconate 1 gm In 100 Sodium Chloride 0.9% 100 ml @ 100 mls/hr IVPB ONCE ONE Rx#:[id number] Sodium Chloride 0.9% 1, 700 000 ml @ 100 mls/hr IV . Q10H ONE Rx#:[id number] Sodium Chloride 0.9% 1, 999 000 ml @ 999 mls/hr IV . Q1H1M STA Rx#:[id number] Other: # Voids 1 - Exam General: [non toxic], [no distress], [appears at stated age] Derm: [warm], [dry] Head: [atraumatic], [normocephalic], [symmetric] Eyes: [EOMI], [no lid lag], [anicteric sclera] Mouth: [no lip lesion], [mucus membranes moist] Cardiovascular: [S1S2 reg], [irregularly irregular], [positive DP pulse bilateral], Lungs: [Decreased breath sounds bilateral], [no rhonchi, no rales] , [no accessory muscle use] Abdominal: [soft], [ nontender to palpation], [no guarding], [no appreciable organomegaly] Ext: [no gross muscle atrophy], [no edema], [no contractures] Neuro: [no focal neuro deficits] Psych: [Alert], [oriented], [appropriate affect] - Labs CBC & Chem 7: 10/08/18 06:02 04/06/19 06:02 Labs: Abnormal Lab Results - Last 24 Hours (Table) 10/07/18 10/07/18 10/07/18 Range/Units 16:55 16:55 16:55 RBC 3.31 L (3.80-5.40) m/uL Hgb 9.8 L (11.4-16.0) gm/dL Hct 28.9 L (34.0-46.0) % RDW 16.8 H (11.5-15.5) % Plt Count (150-450) k/uL Lymphocytes # 0.3 L (1.0-4.8) k/uL Sodium 136 L (137-145) mmol/L Potassium 5.2 H (3.5-5.1) mmol/L Chloride (98-107) mmol/L Carbon Dioxide 18 L (22-30) mmol/L BUN 125 H* (7-17) mg/dL Creatinine 3.09 H (0.52-1.04) mg/dL Glucose 216 H (74-99) mg/dL Phosphorus 4.7 H (2.5-4.5) mg/dL Magnesium 1.5 L (1.6-2.3) mg/dL Troponin I 0.052 H* (0.000-0.034) ng/mL Total Protein 5.2 L (6.3-8.2) g/dL Albumin 2.9 L (3.5-5.0) g/dL Urine Glucose (UA) (Negative) 10/07/18 10/07/18 10/08/18 Range/Units 18:45 22:51 06:02 RBC (3.80-5.40) m/uL Hgb (11.4-16.0) gm/dL Hct (34.0-46.0) % RDW (11.5-15.5) % Plt Count (150-450) k/uL Lymphocytes # (1.0-4.8) k/uL Sodium (137-145) mmol/L Potassium (3.5-5.1) mmol/L Chloride (98-107) mmol/L Carbon Dioxide (22-30) mmol/L BUN (7-17) mg/dL Creatinine (0.52-1.04) mg/dL Glucose (74-99) mg/dL Phosphorus (2.5-4.5) mg/dL Magnesium (1.6-2.3) mg/dL Troponin I 0.055 H* 0.079 H* (0.000-0.034) ng/mL Total Protein (6.3-8.2) g/dL Albumin (3.5-5.0) g/dL Urine Glucose (UA) Trace H (Negative) 10/08/18 10/08/18 Range/Units 06:02 06:02 RBC 3.01 L (3.80-5.40) m/uL Hgb 9.0 L (11.4-16.0) gm/dL Hct 26.4 L (34.0-46.0) % RDW 17.6 H (11.5-15.5) % Plt Count 149 L (150-450) k/uL Lymphocytes # (1.0-4.8) k/uL Sodium (137-145) mmol/L Potassium (3.5-5.1) mmol/L Chloride 108 H (98-107) mmol/L Carbon Dioxide 21 L (22-30) mmol/L BUN 112 H* (7-17) mg/dL Creatinine 2.79 H (0.52-1.04) mg/dL Glucose 101 H (74-99) mg/dL Phosphorus (2.5-4.5) mg/dL Magnesium (1.6-2.3) mg/dL Troponin I (0.000-0.034) ng/mL Total Protein (6.3-8.2) g/dL Albumin (3.5-5.0) g/dL Urine Glucose (UA) (Negative) Microbiology - Last 24 Hours (Table) 10/07/18 18:45 Urine Culture - Preliminary Urine,Voided Assessment and Plan Assessment: Assessment and Plan Acute kidney injury on chronic kidney disease Troponin elevation Hyperchloremic metabolic acidosis Anemia COPD Atrial fibrillation Hypertension CAD Hypothyroidism BUN 112 Creatinine 2.79. Likely secondary to prerenal given increased Lasix use. DC diuretics. Slight improvement with IVF this morning. Monitor and replace electrolytes. Avoid nephrotoxins. Follow Nephrology consultation. Rita CHAVARRIA. Troponin 0.052, 0.055, 0.079 with EKG showing atrial fibrillation with rate of 109. Likely secondary to troponin leak from CKD. Recent echocardiogram from this month shows moderate LVH with EF 55-60%. Follow cardiology consultation. Chloride 108, bicarbonate 21. Likely secondary to Lasix use. Discontinue diuretics. Continue sodium bicarbonate. Daily BMP. Hemoglobin 9.0, normocephalic. 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 Iron studies pending. Transfuse if hemoglobin less than 7. Continue formoterol and budesonide. Continue Singulair. DuoNeb 4 times a day as needed for shortness of breath or wheezing. Continue prednisone 30 mg by mouth daily. O2 per nasal cannula to maintain an O2 saturation greater than 92%. Rate controlled with metoprolol 50 mg by mouth twice a day. Anticoagulation with Eliquis 2.5 mg by mouth twice a day. Keep potassium greater than 4 and magnesium greater than 2. Most recent echocardiogram showing normal EF and diastolic dysfunction. Telemetry monitoring. Follow cardiology consultation. BP 150/83. Continue metoprolol, amlodipine. Monitor vitals, adjust medications as necessary. Status post stent placement in 2010. Continue beta leyla. Should be on aspirin and statin. Will defer decision to cardiology. Continue Synthroid. Patient admitted for acute kidney injury and chronic kidney disease. Renal function slowly improving, Nephrology on board. Troponins elevated, likely leak or demand, cardiology consulted.
[2018-10-08 17:34] LABS: Iron Saturation 59.24 (12.00-45.00)
[2018-10-08] MEDS: FOLIC ACID-VIT B COMPLEX-VIT C 1 CAP PO SCH (17:47)
[2018-10-08] MEDS: PARoxetine 20 MG TAB PO SCH (20:37)
[2018-10-08] MEDS: MONTELUKAST 10 MG TAB PO SCH (20:37)
[2018-10-08] MEDS: ALPRAZolam 0.25 MG TAB PO PRN (20:41)
[2018-10-09] MEDS: PANTOPRAZOLE 40 MG TABLET PO SCH (05:08)
[2018-10-09] MEDS: LEVOTHYROXINE 25 MCG TAB PO SCH (05:08)
[2018-10-09] MEDS: BUDESONIDE 1 MG/2 ML NEBU INHALATION SCH ×2 (08:15→21:20)
[2018-10-09] MEDS: IPRATROPIUM-ALBUTEROL 3 ML NEB INHALATION PRN ×2 (08:15→21:20)
[2018-10-09] MEDS: FORMOTEROL FUMARATE 20 MCG/2 ML NEBU INHALATION SCH ×2 (08:15→21:19)
--- NOTE | 2018-10-09 09:57 | P.PN ---
Subjective Patient is seen in follow-up for acute kidney injury on chronic kidney disease. Patient has chronic kidney disease stage IV secondary to nephrosclerosis. Baseline creatinine has been in the range of 2.5-3. She was recently treated for influenza earlier this month. Diuretics are currently held. Creatinine was down to 2.7 as of yesterday. She is awake and alert. Oral intake is fair. Good urine output. Vital signs are stable. General: The patient appeared well nourished and normally developed. HEENT: Head exam is unremarkable. Neck is without jugular venous distension. LUNGS: Lungs are clear to auscultation and percussion. Breath sounds decreased. HEART: Rate and Rhythm are regular. First and second heart sounds normal. No murmurs, rubs or gallops. ABDOMEN: Abdominal exam reveals normal bowel sounds. Non-tender and non-distended. No evidence of peritonitis. EXTREMITITES: No clubbing, cyanosis, or edema. Objective - Vital Signs Vital signs: Vital Signs Temp 97.7 F 10/09/18 07:00 Pulse 104 H 10/09/18 08:36 Resp 14 10/09/18 07:00 BP 151/82 10/09/18 07:00 Pulse Ox 97 10/09/18 07:00 Intake & Output 10/08/18 10/09/18 10/09/18 18:59 06:59 18:59 Intake Total 250 Balance 250 Intake: Intake, IV Titration 250 Amount Magnesium Sulfate-D5w Pmx 200 1 gm In Dextrose/Water 1 100ml.bag @ 100 mls/hr IVPB Q1H SHERI Rx#: [id number] Sodium Chloride 0.9% 1, 50 000 ml @ 100 mls/hr IV . Q10H ONE Rx#:[id number] Other: # Voids 1 - Labs CBC & Chem 7: 10/08/18 06:02 10/08/18 06:02 Labs: Abnormal Lab Results - Last 24 Hours (Table) 10/08/18 Range/Units 06:02 TIBC 184 L (228-460) ug/dL Iron Saturation 59.24 H (12.00-45.00) Ferritin 1406.6 H (10.0-291.0) ng/mL Microbiology - Last 24 Hours (Table) 10/07/18 18:45 Urine Culture - Preliminary Urine,Voided Gram Neg Bacilli Assessment and Plan Plan: Assessment: 1. Acute kidney injury mostly prerenal secondary to diuresis. Creatinine 3.09 on admission and is 2.79 as of yesterday. UA is benign. 2. 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 3. Metabolic acidosis secondary to acute kidney injury. Better. Maintained on oral sodium bicarbonate. 4. Diastolic CHF with moderate mitral regurgitation and pulmonary hypertension. Compensated. 5. Anemia of chronic kidney disease maintained on Aranesp. 6. Hypomagnesemia secondary to diuretics. Status post replacement. 7. Hypertension with chronic kidney disease. Controlled. 8. Mild hyperphosphatemia secondary to chronic kidney disease. Plan: Continue to hold diuretics. No urgent need for renal replacement therapy at this time. Patient had been refusing renal placement therapy if needed but is now reconsidering. Morning labs pending.
[2018-10-09 09:59] LABS: Calcium 9.2 mg/dL (8.4-10.2); Phosphorus 4.7 mg/dL (2.5-4.5); Potassium 4.5 mmol/L (3.5-5.1)
[2018-10-09] MEDS: METOPROLOL TARTRATE 50 MG TAB PO SCH ×2 (10:43→20:35)
[2018-10-09] MEDS: predniSONE 10 MG TAB PO SCH (10:43)
[2018-10-09] MEDS: ALLOPURINOL 100 MG TAB PO SCH (10:43)
[2018-10-09] MEDS: LACTULOSE 20 GM/30 ML CUP PO SCH (10:44)
[2018-10-09] MEDS: SODIUM BICARBONATE TAB 650 MG TAB PO SCH (10:44)
[2018-10-09] MEDS: APIXABAN 2.5 MG TABLET PO SCH ×2 (10:44→17:50)
[2018-10-09] MEDS: guaiFENesin 600 MG TABLET.ER PO SCH ×2 (10:44→20:35)
[2018-10-09] MEDS: amLODIPine 2.5 MG TAB PO SCH (10:44)
[2018-10-09] MEDS ORDERED: IPRATROPIUM-ALBUTEROL 3 ML NEB INHALATION STA (11:13)
--- NOTE | 2018-10-09 11:21 | P.DS ---
Providers Date of admission: 10/07/18 18:03 Expected date of discharge: 10/09/18 Attending physician: Bora Hua MD Consults: 10/07/18 18:03 Consult Physician Routine Consulting Provider: Rosanna Benitez Consult Reason/Comments: known Do you want consulting provider notified?: Yes 10/08/18 09:32 Consult Physician Routine Consulting Provider: Cristian Blevins Consult Reason/Comments: Troponin elevation, h/o CKD Do you want consulting provider notified?: Yes Primary care physician: [facility] Course: Patient is an 87-year-old female with a PMH of A. fib on Eliquis, hypertension, COPD, CKD stage IV, CAD status post stents, diastolic CHF, who was sent to the hospital from [facility] facility for worsening kidney function along with anorexia and overall feeling ill. The patient was recently admitted to [facility] in 09/29/2018 for acute influenza A infection along with acute COPD exacerbation and bronchitis, after which patient was discharged to [facility] facility on 10/05/2018. The patient reports that she has had continued cough with some yellow phlegm since her prior admission and overall feels ill. She denied chest pain, fever, shortness of breath, abdominal pain, dysuria, nausea, vomiting, or diarrhea. The patient underwent blood work at [facility] earlier today where she was noted to have worsening kidney function and was subsequently sent to the ED. of note, the patient was evaluated by nephrology during her previous hospitalization and her oral Lasix dose of 60 mg by mouth daily at home was doubled to 60 mg twice a day for 4-5 days at discharge and was planned to restart the daily dosing thereafter. The patient underwent an extensive evaluation in the emergency room with BUN 125, up from 96 at time of discharge, creatinine 3.09 up from 2.68, bicarb 18, troponin 0.052, and hemoglobin 9.8. EKG as reviewed by me revealed atrial fibrillation at 109 bpm. The patient was given 1 L normal saline bolus and was admitted to the medicine service. her elevated renal function was thought to be secondary to increased Lasix use. She was given 60 mg of Lasix twice a day on discharge during her previous hospitalization. Her Lasix was discontinued. She was not given additional fluids throughout her hospitalization. Her renal function continued to improve throughout her hospitalization. Nephrology was consulted and recommended outpatient follow-up and will need for dialysis. Patient was noted to have an elevated troponin of 0.052, 0.055, 0.079 with EKG showing atrial fibrillation with rate of 109. This is secondary to troponin leak from CKG. She had a recent echocardiogram showing moderate LVH and EF 55- 60%. Cardiology was consulted and recommended checking TSH and increasing metoprolol dose. Otherwise, cardiology recommended medical management of the patient. Patient was noted to have a hemoglobin of 9 throughout hospitalization which is normocytic. Iron studies showed anemia of chronic disease. Otherwise, her home medications were resumed for COPD, atrial fibrillation, hypertension, CAD and hypothyroidism. Patient was seen and examined prior to discharge. No acute events overnight. P atient with no complaints today. She denies any chest pain, shortness of breath or palpitations. General: [non toxic], [no distress], [appears at stated age] Derm: [warm], [dry] Head: [atraumatic], [normocephalic], [symmetric] Eyes: [EOMI], [no lid lag], [anicteric sclera] Mouth: [no lip lesion], [mucus membranes moist] Cardiovascular: [S1S2 reg], [irregularly irregular], [positive DP pulse bila teral], Lungs: [Decreased breath sounds bilateral], [no rhonchi, no rales] , [no accessory muscle use] Abdominal: [soft], [ nontender to palpation], [no guarding], [no appreciable organomegaly] Ext: [no gross muscle atrophy], [no edema], [no contractures] Neuro: [no focal neuro deficits] Psych: [Alert], [oriented], [appropriate affect] Assessment and Plan Acute kidney injury on chronic kidney disease Troponin elevation Hyperchloremic metabolic acidosis Anemia COPD Atrial fibrillation Hypertension CAD Hypothyroidism BUN 112-98 Creatinine 2.79-2.83. Likely secondary to prerenal given increased Lasix use. DC diuretics. Slight improvement with IVF this morning. Monitor and replace electrolytes. Avoid nephrotoxins. Follow Nephrology consultation. Daily BMP. Troponin 0.052, 0.055, 0.079 with EKG showing atrial fibrillation with rate of 109. Likely secondary to troponin leak from CKD. Recent echocardiogram from this month shows moderate LVH with EF 55-60%. Cardiology consulted, recommends increasing metoprolol, checking TSH and medical management. Chloride 108-113, bicarbonate 21-21. Likely secondary to Lasix use and CKD. Discontinue diuretics. Continue sodium bicarbonate. Daily BMP. Hemoglobin 9.0, normocephalic. Iron studies indicate anemia chronic disease. Transfuse if hemoglobin less than 7. Continue formoterol and budesonide. Continue Singulair. DuoNeb 4 times a day as needed for shortness of breath or wheezing. Continue prednisone 30 mg by mouth daily. O2 per nasal cannula to maintain an O2 saturation greater than 92%. Increase metoprolol from 50 mg to 75 mg by mouth twice a day. Anticoagulation with Eliquis 2.5 mg by mouth twice a day. Keep potassium greater than 4 and magnesium greater than 2. Most recent echocardiogram showing normal EF and diastolic dysfunction. Telemetry monitoring. Follow cardiology consultation. BP 130/91. Continue metoprolol, amlodipine. Monitor vitals, adjust medications as necessary. Status post stent placement in 2010. Continue beta leyla. Start aspirin and Lipitor. Continue Synthroid. Patient admitted for acute kidney injury and chronic kidney disease. Renal function slowly improving, Nephrology on board, cleared for discharge. Troponins elevated, likely leak or demand, cardiology recommends medical management. Patient Condition at Discharge: Fair Plan - Discharge Summary Discharge Rx Participant: No New Discharge Prescriptions: Continue Montelukast [Singulair] 10 mg PO HS@2100 Allopurinol [Zyloprim] 100 mg PO DAILY@0800 PARoxetine [Paxil] 20 mg PO HS@2100 Ondansetron [Zofran] 4 mg PO Q12HR PRN PRN Reason: Nausea Magnesium Hydroxide [Milk of Magnesia] 2,400 mg PO DAILY PRN PRN Reason: Constipation diphenhydrAMINE & Zinc Cream [Benadryl Cream] 1 applic TOPICAL TID PRN PRN Reason: Itching Meclizine HCl 12.5 mg PO TID PRN PRN Reason: Vertigo Sodium Bicarbonate Tab 650 mg PO DAILY@0800 B Complex W-C No.20/Folic Acid [Renal Caps Softgel] 1 mg PO DAILY@1700 Acetaminophen Tab [Tylenol] 650 mg PO Q6H PRN PRN Reason: Pain rOPINIRole HCL [Requip] 0.5 mg PO HS@2100 guaiFENesin [Mucinex] 600 mg PO BID@0800,2100 Lactulose 20 gm PO DAILY@0800 Ipratropium-Albuterol Nebulize [Duoneb 0.5 mg-3 mg/3 ml Soln] 3 ml INHALATION RT-BID PRN PRN Reason: Shortness Of Breath Phenylephrine HCl/[place] Butter [Preparation H Suppository] 1 supp RC DAILY PRN PRN Reason: FLARE UP Ipratropium-Albuterol Nebulize [Duoneb 0.5 mg-3 mg/3 ml Soln] 3 ml INHALATION RT-Q4H ampul.neb Levofloxacin [Levaquin] 250 mg PO Q48H 6 Days tab ALPRAZolam [Xanax] 0.25 mg PO HS PRN #5 tablet PRN Reason: Anxiety amLODIPine [Norvasc] 2.5 mg PO DAILY@0800 Apixaban [Eliquis] 2.5 mg PO BID@0800,1700 Bisacodyl [Dulcolax] 10 mg RECTAL DAILY PRN PRN Reason: Constipation Budesonide [Pulmicort] 1 mg INHALATION RT-BID@0800,1700 Formoterol Fumarate [Perforomist] 20 mcg INHALATION RT-BID@0800,1700 INSULIN ASPART (NovoLOG) [NovoLOG (formulary)] See Protocol SQ ACHS Levothyroxine Sodium [Synthroid] 25 mcg PO DAILY@0600 Metoprolol Tartrate [Lopressor] 50 mg PO BID@0800,2100 Na Phos,M-B/Na Phos,Di-Ba [Fleet Adult] 133 ml RECTAL ONCE PRN PRN Reason: Constipation Pantoprazole Sodium [Protonix] 40 mg PO DAILY@0600 predniSONE 10 mg PO DAILY@0800 predniSONE See Taper PO DIRECTED Discontinued Furosemide [Lasix] 60 mg PO BID@0600,1400 Furosemide [Lasix] 60 mg PO DAILY@0600 Discharge Medication List Montelukast [Singulair] 10 mg PO HS@209911/06/13 [History] Allopurinol [Zyloprim] 100 mg PO DAILY@0800 11/29/16 [History] PARoxetine [Paxil] 20 mg PO HS@209911/29/16 [History] Acetaminophen Tab [Tylenol] 650 mg PO Q6H PRN 09/29/18 [History] B Complex W-C No.20/Folic Acid [Renal Caps Softgel] 1 mg PO DAILY@1700 09/29/18 [History] Ipratropium-Albuterol Nebulize [Duoneb 0.5 mg-3 mg/3 ml Soln] 3 ml INHALATION RT-BID PRN 09/29/18 [History] Lactulose 20 gm PO DAILY@0800 09/29/18 [History] Magnesium Hydroxide [Milk of Magnesia] 2,400 mg PO DAILY PRN 09/29/18 [History] Meclizine HCl 12.5 mg PO TID PRN 09/29/18 [History] Ondansetron [Zofran] 4 mg PO Q12HR PRN 09/29/18 [History] Phenylephrine HCl/[place] Butter [Preparation H Suppository] 1 supp RC DAILY PRN 09/29/18 [History] Sodium Bicarbonate Tab 650 mg PO DAILY@0800 09/29/18 [History] diphenhydrAMINE & Zinc Cream [Benadryl Cream] 1 applic TOPICAL TID PRN 09/29/18 [History] guaiFENesin [Mucinex] 600 mg PO BID@0800,2100 09/29/18 [History] rOPINIRole HCL [Requip] 0.5 mg PO HS@209909/29/18 [History] ALPRAZolam [Xanax] 0.25 mg PO HS PRN #5 tablet 10/04/18 [Rx] Ipratropium-Albuterol Nebulize [Duoneb 0.5 mg-3 mg/3 ml Soln] 3 ml INHALATION RT-Q4H ampul.neb 10/04/18 [Rx] Levofloxacin [Levaquin] 250 mg PO Q48H 6 Days tab 10/04/18 [Rx] Apixaban [Eliquis] 2.5 mg PO BID@0800,1700 10/07/18 [History] Bisacodyl [Dulcolax] 10 mg RECTAL DAILY PRN 10/07/18 [History] Budesonide [Pulmicort] 1 mg INHALATION RT-BID@0800,1700 10/07/18 [History] Formoterol Fumarate [Perforomist] 20 mcg INHALATION RT-BID@0800,1700 10/07/18 [History] INSULIN ASPART (NovoLOG) [NovoLOG (formulary)] See Protocol SQ ACHS 10/07/18 [History] Levothyroxine Sodium [Synthroid] 25 mcg PO DAILY@0600 10/07/18 [History] Metoprolol Tartrate [Lopressor] 50 mg PO BID@0800,2100 10/07/18 [History] Na Phos,M-B/Na Phos,Di-Ba [Fleet Adult] 133 ml RECTAL ONCE PRN 10/07/18 [History] Pantoprazole Sodium [Protonix] 40 mg PO DAILY@0600 10/07/18 [History] amLODIPine [Norvasc] 2.5 mg PO DAILY@0800 10/07/18 [History] predniSONE 10 mg PO DAILY@0800 10/07/18 [History] predniSONE See Taper PO DIRECTED 10/07/18 [History] Follow up Appointment(s)/Referral(s): Praneeth Harp MD [Primary Care Provider] - 1-2 days Rosanna Benitez MD [STAFF PHYSICIAN] - 1 Week Ambulatory/Diagnostic Orders: Basic Metabolic Panel [LAB.AMB] Time Frame: 1 Day, Location: None Selected Complete Blood Count w/diff [LAB.AMB] Time Frame: 1 Day, Location: None Selected Activity/Diet/Wound Care/Special Instructions: diet: Renal diet Follow-up with PCP within 1-2 days of discharge. Follow-up with nephrology within 1 week of discharge. Follow-up with cardiology Within 1 week of discharge. you'll need to repeat a CBC and BMP tomorrow, follow-up with PCP. Discharge Disposition: TRANSFER TO SNF/ECF
[2018-10-09] MEDS: FOLIC ACID-VIT B COMPLEX-VIT C 1 CAP PO SCH (17:50)
[2018-10-09] MEDS: PARoxetine 20 MG TAB PO SCH (20:35)
[2018-10-09] MEDS: LEVOFLOXACIN 250 MG TAB PO SCH (20:35)
[2018-10-09] MEDS: MONTELUKAST 10 MG TAB PO SCH (20:35)
[2018-10-09] MEDS: ALPRAZolam 0.25 MG TAB PO PRN (21:52)
[2018-10-10] MEDS: LEVOTHYROXINE 25 MCG TAB PO SCH (05:12)
[2018-10-10] MEDS: PANTOPRAZOLE 40 MG TABLET PO SCH (05:12)
[2018-10-10] MEDS: FORMOTEROL FUMARATE 20 MCG/2 ML NEBU INHALATION SCH ×2 (07:49→20:25)
[2018-10-10] MEDS: IPRATROPIUM-ALBUTEROL 3 ML NEB INHALATION PRN ×2 (07:49→20:24)
[2018-10-10] MEDS: BUDESONIDE 1 MG/2 ML NEBU INHALATION SCH ×2 (07:49→20:25)
[2018-10-10] MEDS: ALLOPURINOL 100 MG TAB PO SCH (08:13)
[2018-10-10] MEDS: LACTULOSE 20 GM/30 ML CUP PO SCH (08:13)
[2018-10-10] MEDS: METOPROLOL TARTRATE 50 MG TAB PO SCH ×2 (08:13→20:08)
[2018-10-10] MEDS: SODIUM BICARBONATE TAB 650 MG TAB PO SCH (08:13)
[2018-10-10] MEDS: guaiFENesin 600 MG TABLET.ER PO SCH ×2 (08:13→20:08)
[2018-10-10] MEDS: predniSONE 10 MG TAB PO SCH (08:14)
[2018-10-10] MEDS: APIXABAN 2.5 MG TABLET PO SCH ×2 (08:14→17:26)
[2018-10-10] MEDS: amLODIPine 2.5 MG TAB PO SCH (08:14)
[2018-10-10 08:16] LABS: Magnesium 1.9 mg/dL (1.6-2.3); Potassium 4.9 mmol/L (3.5-5.1)
--- NOTE | 2018-10-10 13:07 | PN ---
PROGRESS NOTE Patient is seen for followup for acute kidney injury which was mainly associated with recent diuresis. Renal function has improved. Patient's serum creatinine is down to 2.72. She is doing well. There are plans for discharge today. PHYSICAL EXAMINATION: Blood pressure this morning 150/93, heart rate 100 per minute. She is afebrile. Examination of the heart, S1, S2. Examination of the lungs, bilateral breath sounds are heard. Abdomen is soft, nontender. Exam of lower extremities shows no significant edema. LABS: Show sodium 139, potassium 4.9, BUN 94, serum creatinine 2.72. ASSESSMENT: 1. Acute kidney injury, prerenal, currently improved. 2. Hypertension, controlled with chronic kidney disease, controlled. 3. Recent influenza. 4. Metabolic acidosis. Maintained on oral sodium bicarb. 5. Recent volume overload, now improved. Patient will need to be monitored as outpatient for volume overload and resuming loop diuretics. 6. Chronic kidney disease stage IV secondary to nephrosclerosis with baseline creatinine about 2.5-3 mg/dL. PLAN: Patient can be discharged from nephrology standpoint. However, she will need to resume oral Lasix most likely starting in the next 2-3 days. Patient should maintain good oral intake as well. Her weight should be monitored once she is discharged. MMODL / IJN: [id number] /
[2018-10-10] MEDS: FOLIC ACID-VIT B COMPLEX-VIT C 1 CAP PO SCH (17:26)
[2018-10-10] MEDS: ALPRAZolam 0.25 MG TAB PO PRN (20:08)
[2018-10-10] MEDS: MONTELUKAST 10 MG TAB PO SCH (20:08)
[2018-10-10] MEDS: PARoxetine 20 MG TAB PO SCH (20:09)
[2018-10-11 01:18] VITALS: RESP 16
[2018-10-11] MEDS: PANTOPRAZOLE 40 MG TABLET PO SCH (06:08)
[2018-10-11] MEDS: LEVOTHYROXINE 25 MCG TAB PO SCH (06:09)
[2018-10-11] MEDS: BUDESONIDE 1 MG/2 ML NEBU INHALATION SCH (07:27)
[2018-10-11] MEDS: FORMOTEROL FUMARATE 20 MCG/2 ML NEBU INHALATION SCH (07:27)
[2018-10-11] MEDS: IPRATROPIUM-ALBUTEROL 3 ML NEB INHALATION PRN (07:27)
[2018-10-11 07:35] VITALS: BP 142/86; TEMP 98
[2018-10-11 07:49] VITALS: PULSE 99
[2018-10-11] MEDS: predniSONE 10 MG TAB PO SCH (09:20)
[2018-10-11] MEDS: SODIUM BICARBONATE TAB 650 MG TAB PO SCH (09:20)
[2018-10-11] MEDS: APIXABAN 2.5 MG TABLET PO SCH (09:20)
[2018-10-11] MEDS: METOPROLOL TARTRATE 50 MG TAB PO SCH (09:21)
[2018-10-11] MEDS: guaiFENesin 600 MG TABLET.ER PO SCH (09:21)
[2018-10-11] MEDS: amLODIPine 2.5 MG TAB PO SCH (09:22)
[2018-10-11] MEDS: ALLOPURINOL 100 MG TAB PO SCH (09:22)
[2018-10-11] MEDS: LACTULOSE 20 GM/30 ML CUP PO SCH (09:22)
--- NOTE | 2018-10-11 23:43 | PN ---
PROGRESS NOTE Patient is seen for followup for chronic kidney disease. She was admitted with worsening renal function. Diuretics were held. Renal function has improved. Creatinine is down to 2.72. BUN is 94 from 112. Baseline creatinine about 2.5 to 2.6 mg/dL. On examination this morning, blood pressure was 142/86, heart rate 92 per minute. Patient is afebrile. EXAMINATION OF THE HEART: S1 and S2. EXAMINATION OF LUNGS: Bilateral breath sounds are heard. ABDOMEN: Soft. Examination of lower extremities shows chronic edema. 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 Labs show sodium 139, potassium 4.9, BUN 94, serum creatinine 2.72. ASSESSMENT: 1. Acute kidney injury related to recent diuresis; currently improving renal function at close to baseline. Resume oral diuretics in the next 1-2 days as outpatient. 2. Recent influenza. 3. Recent volume overload. 4. Chronic kidney disease, stage IV, secondary to nephrosclerosis with baseline creatinine 2.5 to 2.8 mg/dL. 5. Hypertension with chronic kidney disease, stage IV, controlled. PLAN: Resume oral diuretics in the next 1 or 2 days. Will see patient for followup in the office in 2-3 days' time. MMODL / IJN: [id number] /
== END 2018-10-11 13:30 | disposition home health service (06) | DRG 683 ==
LOC: EC 16:32 → 4SSUR 18:03 → OBSVTOIN 10-10 10:24
PROVIDERS: ADMIT Hospitalist; ATTEND Hospitalist
DX: N17.9 Acute kidney failure, unspecified (principal); E87.2 Acidosis; I13.0 Hypertensive heart and chronic kidney disease with heart failure and stage 1 through stage 4 chronic kidney disease, or unspecified chronic kidney disease; I48.1 Persistent atrial fibrillation; I50.32 Chronic diastolic (congestive) heart failure; N18.4 Chronic kidney disease, stage 4 (severe); D63.1 Anemia in chronic kidney disease; E03.9 Hypothyroidism, unspecified; E83.39 Other disorders of phosphorus metabolism; E83.42 Hypomagnesemia; E86.0 Dehydration; F41.9 Anxiety disorder, unspecified; I08.0 Rheumatic disorders of both mitral and aortic valves; I25.10 Atherosclerotic heart disease of native coronary artery without angina pectoris; I25.2 Old myocardial infarction; I27.20 Pulmonary hypertension, unspecified; I48.0 Paroxysmal atrial fibrillation; J44.9 Chronic obstructive pulmonary disease, unspecified; T50.1X5A Adverse effect of loop [high-ceiling] diuretics, initial encounter; Z79.01 Long term (current) use of anticoagulants; Z79.890 Hormone replacement therapy; Z79.899 Other long term (current) drug therapy; Z82.49 Family history of ischemic heart disease and other diseases of the circulatory system; Z95.5 Presence of coronary angioplasty implant and graft; Z96.653 Presence of artificial knee joint, bilateral; Z90.721 Acquired absence of ovaries, unilateral; R63.0 Anorexia; Z68.31 Body mass index [BMI] 31.0-31.9, adult; Z88.5 Allergy status to narcotic agent; Z88.0 Allergy status to penicillin; Z88.8 Allergy status to other drugs, medicaments and biological substances; R74.8 Abnormal levels of other serum enzymes; Z66 Do not resuscitate
CPT/HCPCS: 36415; 71045; 80048; 80053; 81003; 82728; 83540; 83550; 83605; 83735; 84100; 84443; 84484; 85025; 85027; 85610; 85730; 87077; 87086; 87186; 93005; 94640; 94760; 96360; 99285

== ENCOUNTER 2018-10-19 12:42 | Inpatient (IN) | payer MEDICARE ==
[2018-10-19] MEDS ORDERED: methylPREDNISolone SOD SUCCI 125 MG/2 ML VIAL IV STA (12:57)
[2018-10-19] MEDS ORDERED: IPRATROPIUM-ALBUTEROL 3 ML NEB INHALATION STA (12:57)
[2018-10-19 13:36] LABS: Anisocytosis Slight; Basophils % (A) 0 %; Eosinophils # (A) 0.1 k/uL (0-0.7); Eosinophils % (A) 1 %; HCT 22.7 % (34.0-46.0); HGB 7.2 gm/dL (11.4-16.0); Hypochromasia Slight; Lymphocytes # (A) 1.1 k/uL (1.0-4.8); Lymphocytes % (A) 16 %; MCH 30.7 pg (25.0-35.0); MCHC 31.7 g/dL (31.0-37.0); Macrocytosis Slight; Mean Platelet Volume 9.5; Monocytes # (A) 0.5 k/uL (0-1.0); Monocytes % (A) 7 %; Neutrophils # (A) 4.8 k/uL (1.3-7.7); Neutrophils % (A) 73 %; RBC 2.34 m/uL (3.80-5.40); RDW 18.3 % (11.5-15.5); WBC 6.6 k/uL (3.8-10.6)
--- NOTE | 2018-10-19 13:38 | XR ---
EXAMINATION TYPE: XR chest 2V DATE OF EXAM: 10/19/2018 COMPARISON: Chest x-ray 11 days ago and older x-rays. HISTORY: Shortness of breath and bilateral leg swelling. TECHNIQUE: Frontal and lateral views of the chest are obtained. FINDINGS: There is persistent cardiomegaly with atherosclerotic and ectatic thoracic aorta. There is persistent elevated right hemidiaphragm with new small right pleural effusion. There is new small to tiny left pleural effusion seen on lateral x-ray. New mild central vascular congestion is felt pre sent. Upper lungs are clear without pneumothorax. The osseous structures are demineralized. IMPRESSION: Findings are consistent with CHF exacerbation as there is cardiomegaly with new central vascular congestion and small bilateral pleural effusions..
[2018-10-19 13:45] LABS: Albumin 3.2 g/dL (3.5-5.0); Calcium 9.2 mg/dL (8.4-10.2); Potassium 4.8 mmol/L (3.5-5.1); Total Bilirubin 0.8 mg/dL (0.2-1.3); Total Protein 5.3 g/dL (6.3-8.2)
[2018-10-19 13:58] LABS: Platelet Count 59 k/uL (150-450); Poikilocytosis (M) Present; RBC Fragments Present
[2018-10-19] MEDS ORDERED: NALOXONE 0.4 MG/ML 1 ML VIAL IV PRN (14:39)
--- NOTE | 2018-10-19 14:39 | ED ---
General Adult HPI - General Source: patient, EMS, RN notes reviewed, old records reviewed Mode of arrival: EMS Limitations: no limitations <Chris Frank - Last Filed: 10/19/18 16:53> <Leonel Milligan - Last Filed: 10/20/18 08:02> - General Chief complaint: Shortness of Breath Stated complaint: KAYKAY Time Seen by Provider: 10/19/18 12:45 - History of Present Illness Initial comments: 87-year-old female patient past mental history of COPD, chronic kidney disease, CHF presents ED with peripheral edema. Patient reports that she is working with her primary care provider to attempt to control her peripheral edema with Lasix, however he recommended presentation to the hospital. Patient reports that this has been ongoing for approximately 5 days. Patient reports that she has had some exertional dyspnea, denies any shortness breath at rest. Patient denies any current chest pain. Patient has any other symptoms. Denies abdominal pain, rectal bleeding, nausea vomiting or diarrhea, headache or changes in vision. Systemic: Pt denies fatigue, myalgia, fever/chills, rash. Pt denies weakness, night sweats, weight loss. Neuro: Pt denies headache, visual disturbances, syncope or pre-syncope. HEENT: Pt denies ocular discharge or irritation, otalgia, rhinorrhea, pharyngitis or notable lymphadenopathy. Cardiopulmonary: Pt denies chest pain, heart palpitations, dyspnea on exertion. Abdominal/GI: Pt denies abdominal pain, n/v/d. : Pt denies dysuria, burning w/ urination, frequency/urgency. Denies new onset urinary or bowel incontinence. MSK: Pt denies myalgia, loss of strength or function in extremities. Neuro: Pt denies new onset weakness, paresthesias. (Chris Frank) - Related Data Home Medications Medication Instructions Recorded Confirmed Montelukast [Singulair] 10 mg PO DAILY@189911/06/13 10/19/18 Allopurinol [Zyloprim] 100 mg PO DAILY@189911/29/16 10/19/18 PARoxetine [Paxil] 20 mg PO DAILY@189911/29/16 10/19/18 Acetaminophen Tab [Tylenol] 325 - 650 mg PO Q4H PRN 09/29/18 10/19/18 B Complex W-C No.20/Folic Acid 1 mg PO DAILY@0700 09/29/18 10/19/18 [Renal Caps Softgel] Ipratropium-Albuterol Nebulize 3 ml INHALATION RT-BID PRN 09/29/18 10/19/18 [Duoneb 0.5 mg-3 mg/3 ml Soln] Lactulose 20 gm PO DAILY@0700 09/29/18 10/19/18 Magnesium Hydroxide [Milk of 2,400 mg PO DAILY PRN 09/29/18 10/19/18 Magnesia] Meclizine HCl 12.5 mg PO TID PRN 09/29/18 10/19/18 Ondansetron [Zofran] 4 mg PO Q12HR PRN 09/29/18 10/19/18 Phenylephrine HCl/Tama Butter 1 supp RECTAL DAILY PRN 09/29/18 10/19/18 [Preparation H Suppository] Sodium Bicarbonate Tab 650 mg PO DAILY@0700 09/29/18 10/19/18 diphenhydrAMINE & Zinc Cream 1 applic TOPICAL TID PRN 09/29/18 10/19/18 [Benadryl Cream] rOPINIRole HCL [Requip] 0.5 mg PO DAILY@1900 09/29/18 10/19/18 Apixaban [Eliquis] 2.5 mg PO BID@0700,1900 10/07/18 10/19/18 Formoterol Fumarate [Perforomist] 20 mcg INHALATION RT-BID@0900,1900 10/07/18 10/19/18 Levothyroxine Sodium [Synthroid] 25 mcg PO DAILY@0800 10/07/18 10/19/18 Metoprolol Tartrate [Lopressor] 50 mg PO BID@0700,1900 10/07/18 10/19/18 Pantoprazole Sodium [Protonix] 40 mg PO DAILY@0600 10/07/18 10/19/18 amLODIPine [Norvasc] 2.5 mg PO DAILY@0700 10/07/18 10/19/18 ALPRAZolam [Xanax] 0.25 mg PO DAILY@1900 10/19/18 10/19/18 Budesonide [Pulmicort] 0.5 mg INHALATION RT-BID@1100,1900 10/19/18 10/19/18 Calcium Polycarbophil [Fibercon] 625 mg PO TID PRN 10/19/18 10/19/18 Furosemide [Lasix] 40 mg PO DAILY@0700 10/19/18 10/19/18 Ipratropium-Albuterol Nebulize 3 ml INHALATION RT-QID 10/19/18 10/19/18 [Duoneb 0.5 mg-3 mg/3 ml Soln] Triamcinolone 0.5% Cream [Kenalog 1 applic TOPICAL BID 10/19/18 10/19/18 0.5% Cream] Vagisil 5-2% Cream 1 applic VAGINAL QID PRN 10/19/18 10/19/18 Allergies Allergy/AdvReac Type Severity Reaction Status Date / Time codeine Allergy Severe Nausea & Verified 10/19/18 13:10 Vomiting morphine Allergy Severe Nausea & Verified 10/19/18 13:10 Vomiting Penicillins Allergy Rash/Hives Verified 10/19/18 13:10 Sulfa (Sulfonamide Allergy Unknown Verified 10/19/18 13:10 Antibiotics) trazodone AdvReac Unknown Verified 10/19/18 13:10 Review of Systems ROS Other: All systems not noted in ROS Statement are negative. <Chris Frank - Last Filed: 10/19/18 16:53> ROS Other: All systems not noted in ROS Statement are negative. <Leonel Milligan - Last Filed: 10/20/18 08:02> ROS Statement: Those systems with pertinent positive or pertinent negative responses have been documented in the HPI. 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[place]), Renal Disease Last Myocardial Infarction Date:: 2010 History of Any Multi-Drug Resistant Organisms: None Reported Past Surgical History: Adenoidectomy, Cholecystectomy, Heart Catheterization With Stent, Hernia Repair, Tonsillectomy Additional Past Surgical History / Comment(s): Hx colonoscopy, left and rt knee replacement hx oopherectomy Past Anesthesia/Blood Transfusion Reactions: No Reported Reaction Date of Last Stent Placement:: 2010 Past Psychological History: Anxiety Smoking Status: Never smoker Past Alcohol Use History: None Reported Past Drug Use History: None Reported - Past Family History Mother Family Medical History: Coronary Artery Disease (CAD) <Chris Frank - Last Filed: 10/19/18 16:53> General Exam Limitations: no limitations <Chris Frank - Last Filed: 10/19/18 16:53> - General Exam Comments Initial Comments: Constitutional: NAD, AOX3, Pt has pleasant affect. HEENT: NC/AT, trachea midline, neck supple, no lymphadenopathy. Posterior pharynx non erythematous, without exudates. External ears appear normal, without discharge. Mucous membranes moist. Eyes PERRLA, EOM intact. There is no scleral icterus. No pallor noted. Cardiopulmonary: RRR, no murmurs, rubs or gallops, no JVD noted. Lungs CTAB in anterior and posterior jansen. +2 pitting peripheral edema. Abdominal exam: Abdomen soft and non-distended. Abdomen non-tender to palpation in all 4 quadrants. Bowel sounds active in LLQ. No hepatosplenomegaly. No ecchymosis Neuro: CN II-XII grossly intact. No nuchal rigidity. MSK: No posterior calf tenderness bilaterally, homans sign negative bilaterally. Posterior tibialis and radial pulse +2 bilaterally. Sensation intact in upper and lower extremities. Full active ROM in upper and lower extremities, 5/5 stregnth. (Chris Frank) Course Vital Signs 10/19/18 10/19/18 10/19/18 12:48 13:08 13:14 Temperature 98.0 F Pulse Rate 61 62 Respiratory 18 22 Rate Blood Pressure 163/71 O2 Sat by Pulse 99 Oximetry 10/19/18 10/19/18 10/19/18 13:26 14:28 14:50 Temperature Pulse Rate 60 66 Respiratory Rate Blood Pressure 146/68 O2 Sat by Pulse 95 Oximetry 10/19/18 10/19/18 10/19/18 15:00 17:00 17:30 Temperature Pulse Rate 63 68 66 Respiratory Rate Blood Pressure 146/68 151/64 148/82 O2 Sat by Pulse 96 98 Oximetry 10/19/18 10/19/18 18:00 18:30 Temperature Pulse Rate 68 69 Respiratory 18 Rate Blood Pressure 158/87 145/71 O2 Sat by Pulse 98 98 Oximetry Medical Decision Making - Lab Data Result diagrams: 10/19/18 13:08 10/19/18 13:08 - EKG Data -: EKG Interpreted by Me <Chris Frank - Last Filed: 10/19/18 16:53> - Lab Data Result diagrams: 10/19/18 13:08 10/20/18 06:23 <Leonel Milligan - Last Filed: 10/20/18 08:02> - Medical Decision Making 87-year-old female patient past mental history of COPD, chronic kidney disease, CHF presents ED with peripheral edema. Patient reports that she is working with her primary care provider to attempt to control her peripheral edema with Lasix, however he recommended presentation to the hospital. Patient reports that this has been ongoing for approximately 5 days. Patient reports that she has had some exertional dyspnea, denies any shortness breath at rest. Patient denies any current chest pain. Patient has any other symptoms. Denies abdominal pain, rectal bleeding, nausea vomiting or diarrhea, headache or changes in vision. Patient was sent stable, afebrile. Physical exam displayed +2 pitting edema. Lungs are clear to auscultation. Laboratory investigations revealed anemia of 7.2, platelt count of 69. These are moderately decreased from baseline. CMP revealed creatinine of 2.87. BNP elevated at 8410, trop 0.030. EKG not concerning for ischemia. CXR displayed CXR exacerbation. Patient will be admitted to Dr. Ohara's service for CHF exacerbation and diuresis. Pt started on lasix drip. Case discussed with Dr. Toure, occult blood pending. (Chris Frank) 89 female history of congestive heart failure, chronic kidney disease presenting with overload, dyspnea, lower extremity edema. Patient has significantly elevated BMP, and thousand 400, chest x-ray showing pulmonary edema consistent with fluid overload. Case discussed with Dr. Ohara, recommended Lasix drip, will admit with nephrology consult. (Leonel Milligan) - Lab Data Lab Results 10/19/18 10/19/18 10/19/18 Range/Units 13:08 13:08 13:08 WBC 6.6 (3.8-10.6) k/uL RBC 2.34 L (3.80-5.40) m/uL Hgb 7.2 L (11.4-16.0) gm/dL Hct 22.7 L (34.0-46.0) % MCV 97.0 (80.0-100.0) fL MCH 30.7 (25.0-35.0) pg MCHC 31.7 (31.0-37.0) g/dL RDW 18.3 H (11.5-15.5) % Plt Count 59 L D (150-450) k/uL Neutrophils % 73 % Lymphocytes % 16 % Monocytes % 7 % Eosinophils % 1 % Basophils % 0 % Neutrophils # 4.8 (1.3-7.7) k/uL Lymphocytes # 1.1 (1.0-4.8) k/uL Monocytes # 0.5 (0-1.0) k/uL Eosinophils # 0.1 (0-0.7) k/uL Basophils # 0.0 (0-0.2) k/uL Manual Slide Review Performed Hypochromasia Slight Poikilocytosis (manual Present Anisocytosis Slight Macrocytosis Slight Fragmented RBCs Present Sodium 139 (137-145) mmol/L Potassium 4.8 (3.5-5.1) mmol/L Chloride 110 H (98-107) mmol/L Carbon Dioxide 23 (22-30) mmol/L Anion Gap 6 mmol/L BUN 53 H (7-17) mg/dL Creatinine 2.87 H (0.52-1.04) mg/dL Est GFR (CKD-EPI)AfAm 16 (>60 ml/min/1.73 sqM) Est GFR (CKD-EPI)NonAf 14 (>60 ml/min/1.73 sqM) Glucose 97 (74-99) mg/dL Plasma Lactic Acid Stanford 1.2 (0.7-2.0) mmol/L Calcium 9.2 (8.4-10.2) mg/dL Total Bilirubin 0.8 (0.2-1.3) mg/dL AST 28 (14-36) U/L ALT 43 (9-52) U/L Alkaline Phosphatase 63 (38-126) U/L Troponin I (0.000-0.034) ng/mL NT-Pro-B Natriuret Pep pg/mL Total Protein 5.3 L (6.3-8.2) g/dL Albumin 3.2 L (3.5-5.0) g/dL 10/19/18 10/19/18 Range/Units 13:08 13:08 WBC (3.8-10.6) k/uL RBC (3.80-5.40) m/uL Hgb (11.4-16.0) gm/dL Hct (34.0-46.0) % MCV (80.0-100.0) fL MCH (25.0-35.0) pg MCHC (31.0-37.0) g/dL RDW (11.5-15.5) % Plt Count (150-450) k/uL Neutrophils % % Lymphocytes % % Monocytes % % Eosinophils % % Basophils % % Neutrophils # (1.3-7.7) k/uL Lymphocytes # (1.0-4.8) k/uL Monocytes # (0-1.0) k/uL Eosinophils # (0-0.7) k/uL Basophils # (0-0.2) k/uL Manual Slide Review Hypochromasia Poikilocytosis (manual Anisocytosis Macrocytosis Fragmented RBCs Sodium (137-145) mmol/L Potassium (3.5-5.1) mmol/L Chloride (98-107) mmol/L Carbon Dioxide (22-30) mmol/L Anion Gap mmol/L BUN (7-17) mg/dL Creatinine (0.52-1.04) mg/dL Est GFR (CKD-EPI)AfAm (>60 ml/min/1.73 sqM) Est GFR (CKD-EPI)NonAf (>60 ml/min/1.73 sqM) Glucose (74-99) mg/dL Plasma Lactic Acid Stanford (0.7-2.0) mmol/L Calcium (8.4-10.2) mg/dL Total Bilirubin (0.2-1.3) mg/dL AST (14-36) U/L ALT (9-52) U/L Alkaline Phosphatase (38-126) U/L Troponin I 0.030 (0.000-0.034) ng/mL NT-Pro-B Natriuret Pep 8410 pg/mL Total Protein (6.3-8.2) g/dL Albumin (3.5-5.0) g/dL - EKG Data EKG Comments: Ventricular rate 62, OR interval 190, QRS 82, QT/QTc 410/416. Normal sinus rhythm. No concern for acute ischemia. (Chris Frank) Disposition Is patient prescribed a controlled substance at d/c from ED?: No <Chris Frank - Last Filed: 10/19/18 16:53> <Leonel Milligan - Last Filed: 10/20/18 08:02> Clinical Impression: CHF exacerbation, Chronic kidney disease (CKD), COPD (chronic obstructive pulmonary disease) Disposition: ADMITTED IP TO THIS HOSP Condition: Serious
[2018-10-19] MEDS ORDERED: IPRATROPIUM-ALBUTEROL 3 ML NEB INHALATION PRN ×2 (14:41→20:42)
[2018-10-19 14:56] LABS: Appearance,Urine Clear (Clear); Bilirubin,Urine Negative (Negative); Blood,Urine Negative (Negative); Color,Urine Light Yellow; Glucose,Urine (UA) Negative (Negative); Ketones,Urine Negative (Negative); Leukocyte Esterase,Urine Negative (Negative); Nitrite,Urine Negative (Negative); Protein,Urine Trace (Negative); Specific Gravity,Urine 1.008 (1.001-1.035); Urobilinogen,Urine <2.0 mg/dL (<2.0)
[2018-10-19] MEDS: FUROSEMIDE 100 MG in SODIUM CHLORIDE 0.9% 90 ML IV SCH (15:56)
[2018-10-19] MEDS ORDERED: MECLIZINE 12.5 MG TAB PO PRN (20:42)
[2018-10-19] MEDS ORDERED: MAGNESIUM HYDROXIDE 2,400 MG/10 ML CUP PO PRN (20:42)
[2018-10-19] MEDS ORDERED: PHENYLEPHRINE HCL RECTAL PRN (20:42)
[2018-10-19] MEDS ORDERED: VAGISIL VAGINAL PRN (20:42)
[2018-10-19] MEDS ORDERED: COCOA BUTTER RECTAL PRN (20:42)
[2018-10-19] MEDS ORDERED: ONDANSETRON 4 MG TAB PO PRN (20:42)
[2018-10-19] MEDS ORDERED: CALCIUM POLYCARBOPHIL 625 MG TAB PO PRN (20:42)
[2018-10-19] MEDS: ALLOPURINOL 100 MG TAB PO SCH (21:41)
[2018-10-19] MEDS: PARoxetine 20 MG TAB PO SCH (21:41)
[2018-10-19] MEDS: ALPRAZolam 0.25 MG TAB PO SCH (21:41)
[2018-10-19] MEDS: MONTELUKAST 10 MG TAB PO SCH (21:41)
[2018-10-20] MEDS: FUROSEMIDE 100 MG in SODIUM CHLORIDE 0.9% 90 ML IV SCH ×3 (00:02→20:19)
[2018-10-20] MEDS: TRIAMCINOLONE ACET 0.5% CREAM 15 GM TUBE TOPICAL SCH ×3 (00:07→20:18)
[2018-10-20] MEDS: PANTOPRAZOLE 40 MG TABLET PO SCH (06:29)
[2018-10-20] MEDS: LEVOTHYROXINE 25 MCG TAB PO SCH (06:29)
[2018-10-20] MEDS: amLODIPine 2.5 MG TAB PO SCH (06:29)
[2018-10-20] MEDS: METOPROLOL TARTRATE 50 MG TAB PO SCH ×2 (06:30→20:17)
[2018-10-20] MEDS: FOLIC ACID-VIT B COMPLEX-VIT C 1 CAP PO SCH (06:30)
[2018-10-20] MEDS: LACTULOSE 20 GM/30 ML CUP PO SCH (06:30)
[2018-10-20] MEDS: SODIUM BICARBONATE TAB 650 MG TAB PO SCH (06:30)
[2018-10-20] MEDS ORDERED: APIXABAN 2.5 MG TABLET PO SCH (07:00)
[2018-10-20 07:17] LABS: Calcium 9.6 mg/dL (8.4-10.2); Magnesium 1.8 mg/dL (1.6-2.3)
[2018-10-20] MEDS: FORMOTEROL FUMARATE 20 MCG/2 ML NEBU INHALATION SCH ×2 (07:47→20:00)
[2018-10-20] MEDS: BUDESONIDE 0.5 MG/2 ML NEBU INHALATION SCH ×2 (07:47→20:00)
[2018-10-20] MEDS: IPRATROPIUM-ALBUTEROL 3 ML NEB INHALATION SCH ×4 (07:47→20:00)
[2018-10-20] MEDS: predniSONE 20 MG TAB PO SCH (08:50)
--- NOTE | 2018-10-20 11:07 | CONS ---
CONSULTATION CHIEF COMPLAINT: Worsening leg edema, shortness of breath and weight gain. Lizzie is an 87-year-old lady with history of COPD, chronic diastolic heart failure, who was recently admitted to hospital secondary to flu, new onset atrial fibrillation and respiratory failure. At that time, her diuretics were stopped because of renal insufficiency. Following her discharge, she has gradually been gaining weight, worsening leg edema and shortness of breath. Hence she comes in and Cardiology has been consulted for the same. At the time of my evaluation this morning, she appears comfortable at rest, but has leg edema and appears short of breath. PAST MEDICAL HISTORY: Past medical history is significant for hypertension, COPD, hypothyroidism, paroxysmal atrial fibrillation, hypothyroidism, and diastolic heart failure. MEDICATIONS: Medications at home included Norvasc, Lasix, Eliquis, Tylenol, Singulair, Lopressor, Synthroid, DuoNeb, milk of magnesia, Requip, Zyloprim. ALLERGIES: There are multiple drug allergies including CODEINE, MORPHINE, PENICILLIN, SULFA, and TRAZODONE. FAMILY HISTORY: Family history is negative for premature coronary artery disease. SOCIAL HISTORY: Social history is negative for smoking, EtOH abuse or drug abuse. REVIEW OF SYSTEMS: HEENT is unremarkable. CARDIAC: As described above. RESPIRATORY: As described above. GI: Negative. GENITOURINARY: Negative. ALLERGY/IMMUNOLOGICAL: Negative. SKIN: Negative. MUSCULOSKELETAL: Significant for arthritis. PSYCHOSOCIAL: Negative. ENDOCRINE: Negative. DERM: Negative. CONSTITUTIONAL: Negative. ONCOLOGICAL: Negative. Rest of the system review is not relevant. PHYSICAL EXAMINATION: On exam, comfortable at rest. Afebrile. Heart rate is 70 beats per minute. Blood pressure is 150/64. Respiratory rate is 18. There is no jugular venous distention. Carotid upstroke is normal. There is no bruit. Chest exam reveals diminished air entry at the bases. I do not hear any crackles or rhonchi. Heart exam reveals first and second heart sounds and ejection systolic murmur in the aortic area. Abdomen is soft. Examination of extremities reveals moderate bilateral edema. LABS: Labs show a hemoglobin of 7.2, platelet count is 59. Potassium is 5. BUN 53, creatinine is 2.8. Her platelet count had dropped from 170 to 59. ASSESSMENT: 1. Acute exacerbation of chronic diastolic heart failure. 2. Chronic renal failure. 3. Paroxysmal atrial fibrillation. 4. Thrombocytopenia. PLAN: I am going to hold the Eliquis at this time. Continue with the IV Lasix. Seek input from Hematology. Continue the beta blockers. Hold off on the SHARIF inhibitors due to renal insufficiency. MMODL / IJN: [id number] /
--- NOTE | 2018-10-20 11:13 | P.NPCON ---
History of Present Illness - Reason for Consult acute renal failure, chronic renal failure - History of Present Illness Reason for consultation: Chronic kidney disease History of present illness: Patient is a 87-year-old female seen in renal consultation for chronic kidney disease. Patient has chronic kidney disease stage IV with baseline creatinine in the range of 2.5-3. Etiology is nephrosclerosis. Patient was recently admitted to the hospital for acute kidney injury which was prerenal from diure sis. Her diuretics were held and she actually received IV fluids for hydration. Renal function improved and she was subsequently discharged home. Patient was to resume oral diuretics in 2-3 days postdischarge but did not do so. Over the last few days she's been noticing progressively worsening lower extremity edema as well as dyspnea. She is currently maintained on Lasix drip. Urine output is good. Unable to get accurate I's and O's as she is incontinent. Dyspnea is improving. No vomiting or diarrhea. Oral intake is good. Hemodynamically stable. She's afebrile. Vital signs are stable. General: The patient appeared well nourished and normally developed. HEENT: Head exam is unremarkable. Neck is without jugular venous distension. LUNGS: Breath sounds decreased. HEART: Rate and Rhythm are regular. First and second heart sounds normal. No murmurs, rubs or gallops. ABDOMEN: Abdominal exam reveals normal bowel sounds. Non-tender and non- distended. No evidence of peritonitis. EXTREMITITES: 1+edema. Past Medical History Past Medical History: Atrial Fibrillation, Asthma, COPD, Hypertension, Myocardial Infarction ([place]), Renal Disease Additional Past Medical History / Comment(s): Pt recently admitted to [facility] on 10/10/18 with BRANDON/CKD. Other hx: Bronchitis, ELSI with CPap, home oxygen at 2L/NC ATC, CKD stage IV, anemia, thoracic aneurysm, recent influenza, arthritis in hands, gout in toes, hypothyroid, sinus problems, constipation, hemorrhoids. Last Myocardial Infarction Date:: 2010 History of Any Multi-Drug Resistant Organisms: None Reported Past Surgical History: Adenoidectomy, Cholecystectomy, Heart Catheterization With Stent, Hernia Repair, Tonsillectomy Additional Past Surgical History / Comment(s): Hx colonoscopy, left and rt knee replacement hx oopherectomy Past Anesthesia/Blood Transfusion Reactions: No Reported Reaction Date of Last Stent Placement:: 2010 Past Psychological History: Anxiety Smoking Status: Never smoker Past Alcohol Use History: None Reported Past Drug Use History: None Reported - Past Family History Mother Family Medical History: Coronary Artery Disease (CAD) Medications and Allergies Home Medications Medication Instructions Recorded Confirmed Type Montelukast [Singulair] 10 mg PO DAILY@189911/06/13 10/19/18 History Allopurinol [Zyloprim] 100 mg PO DAILY@189911/29/16 10/19/18 History PARoxetine [Paxil] 20 mg PO DAILY@189911/29/16 10/19/18 History Acetaminophen Tab [Tylenol] 325 - 650 mg PO Q4H PRN 09/29/18 10/19/18 History B Complex W-C No.20/Folic Acid 1 mg PO DAILY@69909/29/18 10/19/18 History [Renal Caps Softgel] Ipratropium-Albuterol Nebulize 3 ml INHALATION RT-BID PRN 09/29/18 10/19/18 History [Duoneb 0.5 mg-3 mg/3 ml Soln] Lactulose 20 gm PO DAILY@0709/29/18 10/19/18 History Magnesium Hydroxide [Milk of 2,400 mg PO DAILY PRN 09/29/18 10/19/18 History Magnesia] Meclizine HCl 12.5 mg PO TID PRN 09/29/18 10/19/18 History Ondansetron [Zofran] 4 mg PO Q12HR PRN 09/29/18 10/19/18 History Phenylephrine HCl/The [place] Butter 1 supp RECTAL DAILY PRN 09/29/18 10/19/18 History [Preparation H Suppository] Sodium Bicarbonate Tab 650 mg PO DAILY@0709/29/18 10/19/18 History diphenhydrAMINE & Zinc Cream 1 applic TOPICAL TID PRN 09/29/18 10/19/18 History [Benadryl Cream] rOPINIRole HCL [Requip] 0.5 mg PO DAILY@189909/29/18 10/19/18 History Apixaban [Eliquis] 2.5 mg PO BID@0700,1900 10/07/18 10/19/18 History Formoterol Fumarate [Perforomist] 20 mcg INHALATION RT-BID@0900,189910/07/18 10/19/18 History Levothyroxine Sodium [Synthroid] 25 mcg PO DAILY@0800 10/07/18 10/19/18 History Metoprolol Tartrate [Lopressor] 50 mg PO BID@0700,1900 10/07/18 10/19/18 History Pantoprazole Sodium [Protonix] 40 mg PO DAILY@0600 10/07/18 10/19/18 History amLODIPine [Norvasc] 2.5 mg PO DAILY@0700 10/07/18 10/19/18 History ALPRAZolam [Xanax] 0.25 mg PO DAILY@1900 10/19/18 10/19/18 History Budesonide [Pulmicort] 0.5 mg INHALATION RT-BID@1100,1900 10/19/18 10/19/18 History Calcium Polycarbophil [Fibercon] 625 mg PO TID PRN 10/19/18 10/19/18 History Furosemide [Lasix] 40 mg PO DAILY@0710/19/18 10/19/18 History Ipratropium-Albuterol Nebulize 3 ml INHALATION RT-QID 10/19/18 10/19/18 History [Duoneb 0.5 mg-3 mg/3 ml Soln] Triamcinolone 0.5% Cream [Kenalog 1 applic TOPICAL BID 10/19/18 10/19/18 History 0.5% Cream] Vagisil 5-2% Cream 1 applic VAGINAL QID PRN 10/19/18 10/19/18 History Allergies Allergy/AdvReac Type Severity Reaction Status Date / Time codeine Allergy Severe Nausea & Verified 10/19/18 13:10 Vomiting morphine Allergy Severe Nausea & Verified 10/19/18 13:10 Vomiting Penicillins Allergy Rash/Hives Verified 10/19/18 13:10 Sulfa (Sulfonamide Allergy Unknown Verified 10/19/18 13:10 Antibiotics) trazodone AdvReac Unknown Verified 10/19/18 13:10 Physical Exam Vitals: Vital Signs Temp Pulse Pulse Resp BP BP Pulse Ox 10/20/18 08:10 70 10/20/18 08:00 72 70 18 10/20/18 07:58 96.8 F L 70 18 150/64 98 10/20/18 07:49 71 10/20/18 04:00 97.3 F L 65 16 183/79 99 10/20/18 00:00 97.0 F L 67 18 144/67 96 10/19/18 22:09 97 10/19/18 22:06 68 10/19/18 21:56 68 10/19/18 20:00 96.8 F L 70 18 175/75 95 10/19/18 18:30 69 18 145/71 98 10/19/18 18:00 68 158/87 98 10/19/18 17:30 66 148/82 10/19/18 17:00 68 151/64 98 10/19/18 15:00 63 146/68 96 10/19/18 14:50 95 10/19/18 14:28 66 146/68 10/19/18 13:26 60 10/19/18 13:14 22 10/19/18 13:08 62 10/19/18 12:48 98.0 F 61 18 163/71 99 Intake and Output 10/19/18 10/20/18 10/20/18 22:59 06:59 14:59 Intake Total 81 300 Output Total 250 500 250 Balance -250 -419 50 Intake: Intake, IV Titration 81 100 Amount Furosemide 100 mg In 81 100 Sodium Chloride 0.9% 90 ml @ 10 MG/HR 10 mls/hr IV .Q10H [facility] Rx#: [id number] Oral 200 Output: Urine 250 500 250 Other: Voiding Method Toilet Toilet Weight 94 kg Results - Lab Results Most recent lab results Calcium 9.6 mg/dL (8.4-10.2) 10/20/18 06:23 Magnesium 1.8 mg/dL (1.6-2.3) 10/20/18 06:23 10/19/18 13:08 10/20/18 06:23 Assessment and Plan Plan: Assessment: 1. 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 2. Dyspnea secondary to volume overload. 3. Diastolic CHF with moderate mitral regurgitation and moderate pulmonary hypertension. 4. Anemia of chronic kidney disease. Rule out iron deficiency. Plan: Maintain Lasix drip. Add metolazone 5 mg once daily. Check iron studies. Add Aranesp. Daily weights. 1500 mL fluid restriction and low-salt diet. Repeat electrolytes in the morning. Thank you for the consultation. I will continue to follow the patient with you during her hospital stay.
[2018-10-20] MEDS ORDERED: DARBEPOETIN ALFA 40 MCG/0.4 ML SYRINGE SQ SCH (12:00)
[2018-10-20 15:13] VITALS: BMI 33.4
--- NOTE | 2018-10-20 16:46 | P.CNPUL ---
History of Present Illness Consult date: 10/20/18 Reason for consult: dyspnea Chief complaint: lower extremity swelling History of present illness: This is an 87-year-old female who presented emergency department complaining of lower extremity swelling. The patient states that her edema has been worsening over the past week. Her primary care physician was trying to adjust her Lasix however continued to worsen. The patient states that she did have associated shortness of breath. She denies fevers and chills. She does have known obstructive sleep apnea and is currently wearing her CPAP. The patient had a recent hospitalization for influenza pneumonia. During that hospitalization she received IV fluids and her diuretics were held due to renal insufficiency. She is currently on Lasix drip. She states she is getting up to urinate every 3 hours. Her shortness of breath is starting to improve. Review of Systems All systems: negative Past Medical History Past Medical History: Atrial Fibrillation, Asthma, COPD, Hypertension, Myocardial Infarction ([place]), Renal Disease Additional Past Medical History / Comment(s): Pt recently admitted to [facility] on 10/10/18 with BRANDON/CKD. Other hx: Bronchitis, ELSI with CPap, home oxygen at 2L/NC ATC, CKD stage IV, anemia, thoracic aneurysm, recent influenza, arthritis in hands, gout in toes, hypothyroid, sinus problems, constipation, hemorrhoids. Last Myocardial Infarction Date:: 2010 History of Any Multi-Drug Resistant Organisms: None Reported Past Surgical History: Adenoidectomy, Cholecystectomy, Heart Catheterization With Stent, Hernia Repair, Tonsillectomy Additional Past Surgical History / Comment(s): Hx colonoscopy, left and rt knee replacement hx oopherectomy Past Anesthesia/Blood Transfusion Reactions: No Reported Reaction Date of Last Stent Placement:: 2010 Past Psychological History: Anxiety Smoking Status: Never smoker Past Alcohol Use History: None Reported Past Drug Use History: None Reported - Past Family History Mother Family Medical History: Coronary Artery Disease (CAD) Medications and Allergies Home Medications Medication Instructions Recorded Confirmed Type Montelukast [Singulair] 10 mg PO DAILY@189911/06/13 10/19/18 History Allopurinol [Zyloprim] 100 mg PO DAILY@189911/29/16 10/19/18 History PARoxetine [Paxil] 20 mg PO DAILY@189911/29/16 10/19/18 History Acetaminophen Tab [Tylenol] 325 - 650 mg PO Q4H PRN 09/29/18 10/19/18 History B Complex W-C No.20/Folic Acid 1 mg PO DAILY@0700 09/29/18 10/19/18 History [Renal Caps Softgel] Ipratropium-Albuterol Nebulize 3 ml INHALATION RT-BID PRN 09/29/18 10/19/18 History [Duoneb 0.5 mg-3 mg/3 ml Soln] Lactulose 20 gm PO DAILY@0709/29/18 10/19/18 History Magnesium Hydroxide [Milk of 2,400 mg PO DAILY PRN 09/29/18 10/19/18 History Magnesia] Meclizine HCl 12.5 mg PO TID PRN 09/29/18 10/19/18 History Ondansetron [Zofran] 4 mg PO Q12HR PRN 09/29/18 10/19/18 History Phenylephrine HCl/[place] Butter 1 supp RECTAL DAILY PRN 09/29/18 10/19/18 History [Preparation H Suppository] Sodium Bicarbonate Tab 650 mg PO DAILY@0709/29/18 10/19/18 History diphenhydrAMINE & Zinc Cream 1 applic TOPICAL TID PRN 09/29/18 10/19/18 History [Benadryl Cream] rOPINIRole HCL [Requip] 0.5 mg PO DAILY@189909/29/18 10/19/18 History Apixaban [Eliquis] 2.5 mg PO BID@0700,1900 10/07/18 10/19/18 History Formoterol Fumarate [Perforomist] 20 mcg INHALATION RT-BID@0900,189910/07/18 10/19/18 History Levothyroxine Sodium [Synthroid] 25 mcg PO DAILY@0800 10/07/18 10/19/18 History Metoprolol Tartrate [Lopressor] 50 mg PO BID@0700,189910/07/18 10/19/18 History Pantoprazole Sodium [Protonix] 40 mg PO DAILY@0600 10/07/18 10/19/18 History amLODIPine [Norvasc] 2.5 mg PO DAILY@0700 10/07/18 10/19/18 History ALPRAZolam [Xanax] 0.25 mg PO DAILY@1900 10/19/18 10/19/18 History Budesonide [Pulmicort] 0.5 mg INHALATION RT-BID@1100,1900 10/19/18 10/19/18 History Calcium Polycarbophil [Fibercon] 625 mg PO TID PRN 10/19/18 10/19/18 History Furosemide [Lasix] 40 mg PO DAILY@0700 10/19/18 10/19/18 History Ipratropium-Albuterol Nebulize 3 ml INHALATION RT-QID 10/19/18 10/19/18 History [Duoneb 0.5 mg-3 mg/3 ml Soln] Triamcinolone 0.5% Cream [Kenalog 1 applic TOPICAL BID 10/19/18 10/19/18 History 0.5% Cream] Vagisil 5-2% Cream 1 applic VAGINAL QID PRN 10/19/18 10/19/18 History Allergies Allergy/AdvReac Type Severity Reaction Status Date / Time codeine Allergy Severe Nausea & Verified 10/19/18 13:10 Vomiting morphine Allergy Severe Nausea & Verified 10/19/18 13:10 Vomiting Penicillins Allergy Rash/Hives Verified 10/19/18 13:10 Sulfa (Sulfonamide Allergy Unknown Verified 10/19/18 13:10 Antibiotics) trazodone AdvReac Unknown Verified 10/19/18 13:10 Physical Exam Osteopathic Statement: *. No significant issues noted on an osteopathic structural exam other than those noted in the History and Physical/Consult. Vitals: Vital Signs Temp Pulse Pulse Resp BP BP Pulse Ox 10/20/18 15:55 97.3 F L 76 14 133/57 98 10/20/18 15:45 68 10/20/18 15:33 64 10/20/18 12:00 97.2 F L 68 18 142/68 98 10/20/18 11:24 72 10/20/18 11:10 68 10/20/18 08:10 70 10/20/18 08:00 72 70 18 10/20/18 07:58 96.8 F L 70 18 150/64 98 10/20/18 07:49 71 10/20/18 04:00 97.3 F L 65 16 183/79 99 10/20/18 00:00 97.0 F L 67 18 144/67 96 10/19/18 22:09 97 10/19/18 22:06 68 10/19/18 21:56 68 10/19/18 20:00 96.8 F L 70 18 175/75 95 10/19/18 18:30 69 18 145/71 98 10/19/18 18:00 68 158/87 98 10/19/18 17:30 66 148/82 10/19/18 17:00 68 151/64 98 Intake and Output 10/20/18 10/20/18 10/20/18 06:59 14:59 22:59 Intake Total 81 530 Output Total 500 250 500 Balance -419 280 -500 Intake: Intake, IV Titration 81 100 Amount Furosemide 100 mg In 81 100 Sodium Chloride 0.9% 90 ml @ 10 MG/HR 10 mls/hr IV .Q10H [facility] Rx#: [id number] Oral 430 Output: Urine 500 250 500 Other: Voiding Method Toilet Toilet Weight 94 kg 94 kg Gen.: Patient is alert and oriented 3, no acute distress Cardiovascular: Regular rate and rhythm, S1/S2 Lungs: Diminished breath sounds bilaterally with scattered crackles Abdomen: Soft nontender nondistended positive bowel sounds Extremities 1-2+ edema Results - Laboratory Findings CBC and BMP: 10/19/18 13:08 10/20/18 06:23 Abnormal lab findings: Abnormal Labs 10/19/18 10/19/18 10/19/18 13:08 13:08 14:42 RBC 2.34 L Hgb 7.2 L Hct 22.7 L RDW 18.3 H Plt Count 59 L D Chloride 110 H BUN 53 H Creatinine 2.87 H Glucose Total Protein 5.3 L Albumin 3.2 L Urine Protein Trace H 10/20/18 06:23 RBC Hgb Hct RDW Plt Count Chloride 109 H BUN 53 H Creatinine 2.83 H Glucose 141 H Total Protein Albumin Urine Protein - Diagnostic Findings Chest x-ray: report reviewed, image reviewed Assessment and Plan Assessment: Acute exacerbation of CHF Cardiomegaly Small bilateral pleural effusions Acute hypoxic respiratory failure Acute exacerbation of moderate COPD Recent Pseudomonas pneumonia and Influenza A Obstructive sleep apnea, compliant with CPAP Acute kidney injury on chronic kidney disease stage IV Anemia of chronic disease Depression History of coronary artery disease, stenting Thrombocytopenia Hypertension Mild PCM O2 to maintain saturation greater than or equal to 90% Steroid taper Pulmicort, Perforomist Singulair Incentive spirometry and pulmonary hygiene CPAP nightly and as needed GI and DVT prophylaxis Diuresis, Lasix gtt, monitor urine output and renal function - nephrology following Eliquis on hold due to thrombocytopenia - hematology on consult Consult PT and OT Thank you for this consultation. We will continue to follow along.
--- NOTE | 2018-10-20 16:59 | HP ---
HISTORY AND PHYSICAL DATE OF ADMISSION: 10/19/2018 DATE OF SERVICE: 10/20/2018 PRESENTING COMPLAINT: Short of breath. HISTORY OF PRESENTING COMPLAINT: This is a very pleasant 87-year-old patient who follows with Visiting Physician Dr. Harp, as well as soaping department supervisor Dr. Melani Duffy. Chronic stable medical conditions include chronic kidney disease, stage IV, hypertension, coronary artery disease with stent, anxiety, anemia of chronic disease, atrial fibrillation, obstructive sleep apnea -- uses CPAP machine and home oxygen 2 L -- osteoarthritis, hypothyroid. The patient presented with worsening shortness of breath going on for one week, a very slight cough, congested, not able to bring anything up, and significant edema. There is no fever or chills; just feels tired and rundown. The patient was found to be in congestive heart failure, was started on Lasix drip in the ER. Sitting at the edge of bed. She has some shortness of breath, feeling tired. REVIEW OF SYSTEMS: CONSTITUTIONAL: Weak, tired. HEENT: Decreased hearing. RESPIRATORY: As above. CARDIOVASCULAR: As above. GASTROINTESTINAL: None. GENITOURINARY: None. MUSCULOSKELETAL: Arthritic pain in the joints. DERMATOLOGICAL: None. HEMATOLOGICAL: None. LYMPHATICS: None. PSYCHIATRY: None. NEUROLOGICAL: None. PAST MEDICAL HISTORY: 1. Atrial fibrillation. 2. Asthma. 3. Hypertension. 4. Coronary artery disease with stent. 5. Chronic kidney disease, stage IV. 6. Anxiety. 7. Anemia of chronic disease. 8. Obstructive sleep apnea. Uses CPAP, oxygen 2 L at home. 9. Osteoarthritis. 10.Hypothyroidism. PAST SURGICAL HISTORY: 1. Adenoidectomy. 2. Cholecystectomy. 3. Cardiac cath with stent. 4. Hernia repair. 5. Left and right knee replacement. 6. Oophorectomy. SOCIAL HISTORY: Lives at [facility]. She is a . Uses a walker. Has a nebulizer and CPAP and oxygen. No smoking. No alcohol. FAMILY HISTORY: Coronary artery disease. HOME MEDICATIONS: 1. FiberCon 625 p.o. t.i.d. p.r.n. 2. Vagisil 5-2% one application vaginally q.i.d. p.r.n. 3. Norvasc 2.5 p.o. daily. 4. Sodium bicarb 650 mg p.o. daily. 5. Lasix 40 mg p.o. daily. 6. Renal Caps 1 mg p.o. daily. 7. Eliquis 2.5 p.o. b.i.d. 8. Tylenol 325 q.4 p.r.n. 9. Xanax 0.25 p.o. daily. 10.Singulair 10 mg p.o. daily. 11.Lopressor 50 mg p.o. b.i.d. 12.Synthroid 25 mcg p.o. daily. 13.Lactulose 20 grams p.o. daily. 14.DuoNeb 3 mL inhalation b.i.d. p.r.n. 15.Pulmicort 0.5 b.i.d. 16.Benadryl 1 application topically t.i.d. p.r.n. 17.Meclizine 12.5 p.o. t.i.d. p.r.n. 18.Milk of Magnesia 2400 mg p.o. daily p.r.n. 19.DuoNeb q.i.d. 20.Allopurinol 100 mg p.o. daily. 21.Requip 0.5 mg p.o. daily. 22.Perforomist 20 mcg b.i.d. 23.Kenalog 0.5% one application topically b.i.d. 24.Preparation H one suppository rectally daily p.r.n. 25.Protonix 40 mg p.o. daily. 26.Paxil 20 mg p.o. daily. 27.Zofran 4 mg q.12 p.r.n. ALLERGIES: 1. CODEINE. 2. MORPHINE. 3. PENICILLIN. 4. SULFA. 5. TRAZODONE. PHYSICAL EXAMINATION: VITAL SIGNS ON PRESENTATION: Temperature 98, pulse 61, respiration 18, blood pressure 163/71, pulse ox 99% on 3 L. GENERAL APPEARANCE: Well built; BMI 33.4. Sitting at the edge of the bed. Short of breath. EYES: Pupils equal. Conjunctivae normal. HEENT: External appearance of nose and ears normal. Oral cavity normal. NECK: JVD unable to assess. Mass not palpable. RESPIRATORY: Effort increased. LUNGS: Diminished breath sounds. CARDIOVASCULAR: Heart sounds irregular. Significant edema present. ABDOMEN: Distended, soft. Liver and spleen not palpable. LYMPHATIC: No lymph node palpable in neck or axillae. PSYCHIATRY: Alert and oriented x3. Mood and affect normal. NEUROLOGICAL: Pupils equal. Cranial nerves grossly intact. Power and sensation grossly intact. MUSCULOSKELETAL: Evidence of osteoarthritis, especially in the hands. INVESTIGATIONS: White count 6.6, hemoglobin 7.2, platelets 59, potassium 4.8, BUN 53, creatinine 2.87. EKG tracing, personally reviewed by me, shows normal sinus rhythm. Chest x-ray film, personally reviewed by me, shows some venous prominence, pleural effusion on the right side and cardiomegaly. Two-D echocardiogram from earlier in the month shows preserved EF, moderate mitral regurgitation, moderate pulmonary hypertension. ASSESSMENT: 1. Acute on chronic congestive heart failure exacerbation from diastolic dysfunction from underlying coronary artery disease. 2. Coronary artery disease with stent. 3. Chronic kidney disease, stage IV, probably from nephrosclerosis. 4. Moderate persistent asthma. 5. Essential hypertension. 6. Anxiety not otherwise specified. 7. Anemia of chronic kidney disease secondary to renal failure. 8. Paroxysmal atrial fibrillation, currently in sinus rhythm. 9. Obstructive sleep apnea. Uses CPAP. 10.Chronic hypoxic respiratory failure, on oxygen 2 L at home. 11.Primary osteoarthritis. 12.Hypothyroidism. 13.Obesity; body mass index 33.4. 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 15.Moderate mitral regurgitation, non-rheumatic. PLAN: The patient was put on a Lasix drip. Home medications are resumed. The patient is also on bronchodilators. Will check patient's thyroid. Will also get Dr. Duffy, patient's soaping department supervisor, to see the patient. Care was discussed with the patient. The patient will be in the hospital at least for 2 nights. MMODL / IJN: [id number] /
[2018-10-20] MEDS: METOLAZONE 5 MG TAB PO SCH (17:51)
[2018-10-20] MEDS ORDERED: ALLOPURINOL 100 MG TAB PO SCH (19:00)
[2018-10-20] MEDS ORDERED: MONTELUKAST 10 MG TAB PO SCH (19:00)
[2018-10-20] MEDS ORDERED: ALPRAZolam 0.25 MG TAB PO SCH (19:00)
[2018-10-20] MEDS ORDERED: PARoxetine 20 MG TAB PO SCH (19:00)
[2018-10-20 20:05] LABS: Iron Saturation 17.7 (12.00-45.00)
[2018-10-20] MEDS: PARoxetine 20 MG TAB PO SCH (20:16)
[2018-10-20] MEDS: ALPRAZolam 0.25 MG TAB PO SCH (20:16)
[2018-10-20] MEDS: MONTELUKAST 10 MG TAB PO SCH (20:16)
[2018-10-20] MEDS: ALLOPURINOL 100 MG TAB PO SCH (20:17)
--- NOTE | 2018-10-20 22:23 | P.CONS ---
History of Present Illness - Reason for Consult Consult date: 10/20/18 Bicytopenia - Thrombocytopenia and Anemia Requesting physician: Connor Gomez - Chief Complaint SOB - History of Present Illness Ms. Cristobal is a 87 year old female who presented to emergency for further evaluation of her progressive lower extremity swelling. She stated that it has just been getting worse and worse over the past few days and week. She was taking lasix at the direction of her PCP, and even with adjusted doses seemed to worsen. She also complains of worsening SOB over the past few days, especially with exertion. She has known sleep apnea and wears CPAP at night. She was recently admitted and hospitalized with influenza and secondary pneumonia, this was treated and resolved, although she admits that she has not felt "back to normal" yet. During this recent hospitalization she did have increased renal insufficiency and therefore her diuretics were held. Renal insufficiency improved, lasix was re-ordered and at admission she was started on lasix drip, which is currently infusing. She states she is feeling better since admission, she is urinating appropriately with lasix drip. Her recent admission and influenza 09/29. On 10/19/18, her hemoglobin 7.2 and platlets 59K. When trending her hemoglobin and platlets it appears she has mild low baseline chronically of both. Hemoglobin baseline is 10-11, and platlets 130-145 She also has a known medical history of Chronic Renal Disease Stage IV, atrial Fibrillation, Asthma, COPD, Hypertension, Myocardial Infarction ([place]), Renal Disease, Cholecystectomy. Nephrology, Pulmonary and GI are also on consultation Hematology has been consulted for her worsening anemia and thrombocytopenia. Review of Systems A 14 point review of systems assessed and completed and all negative except HPI Past Medical History Past Medical History: Atrial Fibrillation, Asthma, COPD, Hypertension, Myocardial Infarction ([place]), Renal Disease Additional Past Medical History / Comment(s): Pt recently admitted to [facility] on 10/10/18 with BRANDON/CKD. Other hx: Bronchitis, ELSI with CPap, home oxygen at 2L/NC ATC, CKD stage IV, anemia, thoracic aneurysm, recent influenza, arthritis in hands, gout in toes, hypothyroid, sinus problems, constipation, hemorrhoids. Last Myocardial Infarction Date:: 2010 History of Any Multi-Drug Resistant Organisms: None Reported Past Surgical History: Adenoidectomy, Cholecystectomy, Heart Catheterization With Stent, Hernia Repair, Tonsillectomy Additional Past Surgical History / Comment(s): Hx colonoscopy, left and rt knee replacement hx oopherectomy Past Anesthesia/Blood Transfusion Reactions: No Reported Reaction Date of Last Stent Placement:: 2010 Past Psychological History: Anxiety Smoking Status: Never smoker Past Alcohol Use History: None Reported Past Drug Use History: None Reported - Past Family History Mother Family Medical History: Coronary Artery Disease (CAD) Medications and Allergies Home Medications Medication Instructions Recorded Confirmed Type Montelukast [Singulair] 10 mg PO DAILY@189911/06/13 10/19/18 History Allopurinol [Zyloprim] 100 mg PO DAILY@189911/29/16 10/19/18 History PARoxetine [Paxil] 20 mg PO DAILY@189911/29/16 10/19/18 History Acetaminophen Tab [Tylenol] 325 - 650 mg PO Q4H PRN 09/29/18 10/19/18 History B Complex W-C No.20/Folic Acid 1 mg PO DAILY@69909/29/18 10/19/18 History [Renal Caps Softgel] Ipratropium-Albuterol Nebulize 3 ml INHALATION RT-BID PRN 09/29/18 10/19/18 History [Duoneb 0.5 mg-3 mg/3 ml Soln] Lactulose 20 gm PO DAILY@69909/29/18 10/19/18 History Magnesium Hydroxide [Milk of 2,400 mg PO DAILY PRN 09/29/18 10/19/18 History Magnesia] Meclizine HCl 12.5 mg PO TID PRN 09/29/18 10/19/18 History Ondansetron [Zofran] 4 mg PO Q12HR PRN 09/29/18 10/19/18 History Phenylephrine HCl/[place] Butter 1 supp RECTAL DAILY PRN 09/29/18 10/19/18 History [Preparation H Suppository] Sodium Bicarbonate Tab 650 mg PO DAILY@69909/29/18 10/19/18 History diphenhydrAMINE & Zinc Cream 1 applic TOPICAL TID PRN 09/29/18 10/19/18 History [Benadryl Cream] rOPINIRole HCL [Requip] 0.5 mg PO DAILY@189909/29/18 10/19/18 History Apixaban [Eliquis] 2.5 mg PO BID@0700,1900 10/07/18 10/19/18 History Formoterol Fumarate [Perforomist] 20 mcg INHALATION RT-BID@0900,1900 10/07/18 10/19/18 History Levothyroxine Sodium [Synthroid] 25 mcg PO DAILY@0800 10/07/18 10/19/18 History Metoprolol Tartrate [Lopressor] 50 mg PO BID@0700,1900 10/07/18 10/19/18 History Pantoprazole Sodium [Protonix] 40 mg PO DAILY@0600 10/07/18 10/19/18 History amLODIPine [Norvasc] 2.5 mg PO DAILY@0700 10/07/18 10/19/18 History ALPRAZolam [Xanax] 0.25 mg PO DAILY@189910/19/18 10/19/18 History Budesonide [Pulmicort] 0.5 mg INHALATION RT-BID@1100,1900 10/19/18 10/19/18 History Calcium Polycarbophil [Fibercon] 625 mg PO TID PRN 10/19/18 10/19/18 History Furosemide [Lasix] 40 mg PO DAILY@0700 10/19/18 10/19/18 History Ipratropium-Albuterol Nebulize 3 ml INHALATION RT-QID 10/19/18 10/19/18 History [Duoneb 0.5 mg-3 mg/3 ml Soln] Triamcinolone 0.5% Cream [Kenalog 1 applic TOPICAL BID 10/19/18 10/19/18 History 0.5% Cream] Vagisil 5-2% Cream 1 applic VAGINAL QID PRN 10/19/18 10/19/18 History Allergies Allergy/AdvReac Type Severity Reaction Status Date / Time codeine Allergy Severe Nausea & Verified 10/19/18 13:10 Vomiting morphine Allergy Severe Nausea & Verified 10/19/18 13:10 Vomiting Penicillins Allergy Rash/Hives Verified 10/19/18 13:10 Sulfa (Sulfonamide Allergy Unknown Verified 10/19/18 13:10 Antibiotics) trazodone AdvReac Unknown Verified 10/19/18 13:10 Physical Exam Vitals: Vital Signs Temp Pulse Pulse Resp BP Pulse Ox 10/20/18 20:33 70 10/20/18 20:19 70 10/20/18 20:18 70 10/20/18 20:00 98.7 F 70 71 19 158/72 97 10/20/18 15:55 97.3 F L 76 14 133/57 98 10/20/18 15:45 68 10/20/18 15:33 64 10/20/18 12:00 97.2 F L 68 18 142/68 98 10/20/18 11:24 72 10/20/18 11:10 68 10/20/18 08:10 70 10/20/18 08:00 72 70 18 10/20/18 07:58 96.8 F L 70 18 150/64 98 10/20/18 07:49 71 10/20/18 04:00 97.3 F L 65 16 183/79 99 10/20/18 00:00 97.0 F L 67 18 144/67 96 10/19/18 22:09 97 10/19/18 22:06 68 10/19/18 21:56 68 Intake and Output 10/20/18 10/20/18 10/20/18 06:59 14:59 22:59 Intake Total 81 530 100 Output Total 500 250 500 Balance -419 280 -400 Intake: Intake, IV Titration 81 100 100 Amount Furosemide 100 mg In 81 100 100 Sodium Chloride 0.9% 90 ml @ 10 MG/HR 10 mls/hr IV .Q10H [facility] Rx#: [id number] Oral 430 Output: Urine 500 250 500 Other: Voiding Method Toilet Toilet Weight 94 kg 94 kg Gen: Alert, No acute Distress, was wearing CPAP, which took off for interview Head: NC, NT Neck: Supple, LN: No Palapble Cervical, Supraclavicular, axillary nodes on palpation Lungs: COarse and diminished bilateral bases, no increased effort noted Heart: Irreg, Reg ABdomen: Soft, ND, NTExtremities: BLE Edema Neuro: No sensory or motor deficits noted SKin: No rashes, multiple areas of eccymosis on bilateral arms and legs. Results CBC & Chem 7: 10/19/18 13:08 10/20/18 06:23 Labs: Abnormal Lab Results - Last 24 Hours (Table) 10/20/18 10/20/18 Range/Units 06:23 06:23 Chloride 109 H (98-107) mmol/L BUN 53 H (7-17) mg/dL Creatinine 2.83 H (0.52-1.04) mg/dL Glucose 141 H (74-99) mg/dL Iron 40 L (50-170) ug/dL TIBC 226 L (228-460) ug/dL Ferritin 777.7 H (10.0-291.0) ng/mL Assessment and Plan (1) Thrombocytopenia Current Visit: Yes Status: Acute Code(s): D69.6 - THROMBOCYTOPENIA, UNSP ECIFIED SNOMED Code(s): 723798284 (2) Anemia Current Visit: Yes Status: Acute Code(s): D64.9 - ANEMIA, UNSPECIFIED SNOMED Code(s): 351850098 (3) CHF exacerbation Current Visit: Yes Status: Acute Code(s): I50.9 - HEART FAILURE, UNSPECIFIED SNOMED Code(s): 99940595 (4) Chronic kidney disease (CKD) Current Visit: Yes Status: Acute Code(s): N18.9 - CHRONIC KIDNEY DISEASE, UNSPECIFIED SNOMED Code(s): 348316087 (5) Acute exacerbation of chronic obstructive airways disease Current Visit: No Status: Acute Code(s): J44.1 - CHRONIC OBSTRUCTIVE PULMONARY DISEASE W (ACUTE) EXACERBATION SNOMED Code(s): 580194461 Plan: Assessment and Recommendations: Normocytic Anemia: - Acute on Chronic as it appears her baseline is chronically around 10. - This is most likely secondary to chronic renal failure (per nephrology stage IV), I do not see she receives epogen, but will confirm with nephrology - She has had an acute drop which is most likely related to dilution, recent acute infection, and probable component of bone marrow suppression - Will order full anemia work-up, with her baseline inflammation iron deficiency will be difficult to evaluate, Soluable transferrin receptor can help to differentiate although with a saturation less than 20%, iron will need to be supplemented regardless of ferritin. - Erythropoetin level would likely benefit from epogen, Thrombocytopenia: - Appears to have a mild chronic baseline platelet count of 130-140K, yesterday was 59K. - THis is likely secondary to infection and antibiotics, Inflammatory and thrombocytopenia work-up has been ordered. - With both anemia and thrombocytopenia consider underlying bone marrow etiology, as potentialy low grade MDS - MOnitor Daily CBC Plan: - Anemia and Thrombocytopenia work-up - Add Epogen, per nephrology, maintain iron saturation greater than 20% - Daily CBC - Further recs to follow. Renea MERLOSP
[2018-10-20 22:29] LABS: Anisocytosis Slight; Basophils % (A) 0 %; Eosinophils % (A) 0 %; HCT 23.3 % (34.0-46.0); HGB 7.5 gm/dL (11.4-16.0); Hypochromasia Slight; Lymphocytes # (A) 0.5 k/uL (1.0-4.8); Lymphocytes % (A) 5 %; MCH 30.8 pg (25.0-35.0); MCHC 32.1 g/dL (31.0-37.0); Macrocytosis Slight; Mean Platelet Volume 9.9; Monocytes # (A) 0.4 k/uL (0-1.0); Monocytes % (A) 5 %; Neutrophils # (A) 7.4 k/uL (1.3-7.7); Neutrophils % (A) 88 %; RBC 2.43 m/uL (3.80-5.40); RDW 18.8 % (11.5-15.5); WBC 8.4 k/uL (3.8-10.6)
[2018-10-20 22:31] LABS: Platelet Count 62 k/uL (150-450)
[2018-10-20 22:48] LABS: D-Dimer 0.28 mg/L FEU (<0.60); Prothrombin Time 10.4 sec (9.0-12.0)
[2018-10-20 22:52] LABS: Albumin 3.4 g/dL (3.5-5.0); Calcium 9.6 mg/dL (8.4-10.2); Magnesium 1.6 mg/dL (1.6-2.3); Potassium 4.5 mmol/L (3.5-5.1); Total Bilirubin 0.5 mg/dL (0.2-1.3); Total Protein 5.4 g/dL (6.3-8.2)
[2018-10-20 23:22] LABS: Reticulocyte % 2.8 % (0.5-2.0)
[2018-10-20 23:29] LABS: Erythrocyte Sedimentation Rate 3 mm/hr (0-20)
[2018-10-21 03:23] LABS: Rheumatoid Factor 16 IU/mL (0-15)
[2018-10-21 03:35] LABS: Protein, Total 5.2 g/dL (6.2-8.2)
[2018-10-21 04:14] LABS: Folate, Serum >24.0 ng/mL
[2018-10-21] MEDS: FUROSEMIDE 100 MG in SODIUM CHLORIDE 0.9% 90 ML IV SCH ×2 (05:25→15:22)
[2018-10-21] MEDS: LEVOTHYROXINE 25 MCG TAB PO SCH (06:27)
[2018-10-21] MEDS: METOPROLOL TARTRATE 25 MG TAB PO SCH ×2 (06:27→21:09)
[2018-10-21] MEDS: LACTULOSE 20 GM/30 ML CUP PO SCH (06:27)
[2018-10-21] MEDS: amLODIPine 2.5 MG TAB PO SCH (06:28)
[2018-10-21] MEDS: SODIUM BICARBONATE TAB 650 MG TAB PO SCH (06:28)
[2018-10-21] MEDS: PANTOPRAZOLE 40 MG TABLET PO SCH (06:28)
[2018-10-21] MEDS: FOLIC ACID-VIT B COMPLEX-VIT C 1 CAP PO SCH (06:28)
[2018-10-21 06:57] LABS: Anisocytosis Slight; Basophils % (A) 0 %; Eosinophils % (A) 0 %; HCT 22.2 % (34.0-46.0); HGB 7.2 gm/dL (11.4-16.0); Lymphocytes # (A) 0.9 k/uL (1.0-4.8); Lymphocytes % (A) 13 %; MCH 31.4 pg (25.0-35.0); MCHC 32.6 g/dL (31.0-37.0); MCV 96.4 fL (80.0-100.0); Macrocytosis Slight; Mean Platelet Volume 9.6; Monocytes # (A) 0.4 k/uL (0-1.0); Monocytes % (A) 5 %; Neutrophils # (A) 5.6 k/uL (1.3-7.7); Neutrophils % (A) 79 %; RBC 2.31 m/uL (3.80-5.40); WBC 7.1 k/uL (3.8-10.6)
[2018-10-21 07:02] LABS: Albumin 3.2 g/dL (3.5-5.0); Calcium 9.6 mg/dL (8.4-10.2); Magnesium 1.6 mg/dL (1.6-2.3); Phosphorus 4.5 mg/dL (2.5-4.5); Potassium 4.3 mmol/L (3.5-5.1); Total Bilirubin 0.7 mg/dL (0.2-1.3); Total Protein 5.2 g/dL (6.3-8.2)
[2018-10-21 07:18] LABS: Platelet Count 63 k/uL (150-450)
[2018-10-21] MEDS: FORMOTEROL FUMARATE 20 MCG/2 ML NEBU INHALATION SCH ×2 (08:12→19:41)
[2018-10-21] MEDS: BUDESONIDE 0.5 MG/2 ML NEBU INHALATION SCH ×2 (08:12→19:40)
[2018-10-21] MEDS: IPRATROPIUM-ALBUTEROL 3 ML NEB INHALATION SCH ×4 (08:12→19:41)
[2018-10-21] MEDS: METOLAZONE 5 MG TAB PO SCH (09:18)
[2018-10-21] MEDS: TRIAMCINOLONE ACET 0.5% CREAM 15 GM TUBE TOPICAL SCH ×2 (09:18→21:11)
[2018-10-21] MEDS: predniSONE 20 MG TAB PO SCH (09:18)
--- NOTE | 2018-10-21 11:26 | P.PN ---
Subjective Progress Note Date: 10/21/18 This is a pleasant 87-year-old female with history of COPD, chronic diastolic heart failure who was recently in the hospital secondary to influenza, new onset atrial fibrillation and respiratory failure. On that admission her diuretics were stopped because of renal insufficiency, after being discharged home patient progressively became more and more short of breath and noticed worsening in her peripheral edema. For this reason she came to the hospital for further evaluation and treatment. The patient was seen in consultation by Dr. Gomez yesterday, she continued on IV Lasix and diuresed well through the night last night. Patient was also noted to have a hemoglobin in the range of 7, p latelet count was 59, this morning 7.2 and 63. Eliquis was placed on hold until further evaluation by hematology. Patient was seen in consultation by hematology, they're recommending a full workup for anemia and thrombocytopenia, Epogen was added per nephrology, the goal is to maintain iron saturations greater than 20%. Daily CBCs. We will await further recommendation regarding Eliquis. Overall the patient does state that she is feeling mildly better today, her breathing is improving, continues to have peripheral edema however improved from admission here. Blood pressure 150/60 with a heart rate in the 60s, 98% on CPAP. White blood cell count 7.1, hemoglobin 7.2, platelet count 63. Sodium 137, potassium 4.3, BUN 63 and creatinine 2.8 iron is 40 to be C2 26 iron saturation 17.7 ferritin [id number]. Patient continues to be on IV Lasix drip at 10 mg per hour. Objective - Vital Signs Vital signs: Vital Signs Temp 98.1 F 10/21/18 07:40 Pulse 70 10/21/18 08:35 Resp 16 10/21/18 08:35 BP 150/69 10/21/18 07:40 Pulse Ox 97 10/21/18 08:12 Intake & Output 10/20/18 10/21/18 10/21/18 18:59 06:59 18:59 Intake Total 530 191 120 Output Total 750 2350 300 Balance -220 2158 -180 Weight 94 kg 92.2 kg Intake: Intake, IV Titration 100 191 Amount Furosemide 100 mg In 100 191 Sodium Chloride 0.9% 90 ml @ 10 MG/HR 10 mls/hr IV .Q10H [facility] Rx#: [id number] Oral 430 0 120 Output: Urine 750 2350 300 Other: Voiding Method Toilet Bedside Commode # Voids 2 - Exam PHYSICAL EXAMINATION: GENERAL: 87-year-old female in no acute distress at the time of my examination HEENT: Head is atraumatic, normocephalic. Pupils equal, round. Sclera anicteric. Conjunctiva are clear. Mucous membranes of the mouth are moist. Neck is supple. There is no elevated jugular venous pressure. No carotid bruit is heard. HEART EXAMINATION: Heart S1 and S2 systolic murmur is heard CHEST EXAMINATION: Lungs reveal diminished air entry to bilateral bases ABDOMEN: Soft, nontender. Bowel sounds are heard. No organomegaly noted. EXTREMITIES: 2+ peripheral pulses with trace to 1+ evidence of peripheral edema and no calf tenderness noted. NEUROLOGIC patient is awake, alert and oriented 3 . . - Labs CBC & Chem 7: 10/21/18 06:22 10/21/18 06:22 Labs: Abnormal Lab Results - Last 24 Hours (Table) 10/20/18 10/20/18 10/20/18 Range/Units 06:23 22:07 22:07 RBC 2.43 L (3.80-5.40) m/uL Hgb 7.5 L (11.4-16.0) gm/dL Hct 23.3 L (34.0-46.0) % RDW 18.8 H (11.5-15.5) % Plt Count 62 L (150-450) k/uL Lymphocytes # 0.5 L (1.0-4.8) k/uL Retic Count 2.8 H (0.5-2.0) % Carbon Dioxide 20 L (22-30) mmol/L BUN 58 H (7-17) mg/dL Creatinine 2.84 H (0.52-1.04) mg/dL Glucose 183 H (74-99) mg/dL Iron 40 L (50-170) ug/dL TIBC 226 L (228-460) ug/dL Ferritin 777.7 H (10.0-291.0) ng/mL Total Protein 5.4 L (6.3-8.2) g/dL Total Protein (PEP) (6.2-8.2) g/dL Albumin 3.4 L (3.5-5.0) g/dL Rheumatoid Factor (0-15) IU/mL 10/20/18 10/20/18 10/21/18 Range/Units 22:07 22:07 06:22 RBC (3.80-5.40) m/uL Hgb (11.4-16.0) gm/dL Hct (34.0-46.0) % RDW (11.5-15.5) % Plt Count (150-450) k/uL Lymphocytes # (1.0-4.8) k/uL Retic Count (0.5-2.0) % Carbon Dioxide (22-30) mmol/L BUN 63 H (7-17) mg/dL Creatinine 2.80 H (0.52-1.04) mg/dL Glucose 102 H (74-99) mg/dL Iron (50-170) ug/dL TIBC (228-460) ug/dL Ferritin (10.0-291.0) ng/mL Total Protein 5.2 L (6.3-8.2) g/dL Total Protein (PEP) 5.2 L (6.2-8.2) g/dL Albumin 3.2 L (3.5-5.0) g/dL Rheumatoid Factor 16 H (0-15) IU/mL 10/21/18 Range/Units 06:22 RBC 2.31 L (3.80-5.40) m/uL Hgb 7.2 L (11.4-16.0) gm/dL Hct 22.2 L (34.0-46.0) % RDW 19.0 H (11.5-15.5) % Plt Count 63 L (150-450) k/uL Lymphocytes # 0.9 L (1.0-4.8) k/uL Retic Count (0.5-2.0) % Carbon Dioxide (22-30) mmol/L BUN (7-17) mg/dL Creatinine (0.52-1.04) mg/dL Glucose (74-99) mg/dL Iron (50-170) ug/dL TIBC (228-460) ug/dL Ferritin (10.0-291.0) ng/mL Total Protein (6.3-8.2) g/dL Total Protein (PEP) (6.2-8.2) g/dL Albumin (3.5-5.0) g/dL Rheumatoid Factor (0-15) IU/mL Assessment and Plan Plan: Assessment and plan #1 diastolic congestive heart failure acute on chronic #2 chronic kidney disease stage IV #3 anemia, likely secondary to chronic kidney disease #4 thrombocytopenia #5 paroxysmal atrial fibrillation, Eliquis currently on hold #6 COPD #7 hypothyroidism #8 recent influenza Plan We will continue to hold the Eliquis at this time, and further recommendations per hematology. A repeat chest x-ray will be requested tomorrow. Continue current dose of IV Lasix. Continue to monitor intake and output along with daily weights and daily lytes BUN and creatinine DNP note has been reviewed, I agree with a documented findings and plan of care. Patient was seen and examined.
[2018-10-21 11:55] LABS: Immunoglobulin A 64.5 mg/dL (60.0-350.0); Immunoglobulin M 31.9 mg/dL (40.0-280.0)
--- NOTE | 2018-10-21 13:21 | PN ---
PROGRESS NOTE She was seen on 10/21/2018. She has been hemodynamically stable. She is on Lasix drip and has been diuresing. She is less short of breath. On physical examination, her respiratory rate is 16, pulse rate of 66, temperature 98.1, blood pressure 150/69, O2 saturation on 3 L by nasal cannula is 97%. HEENT reveals pallor. Chest reveals occasional wheeze on expiration. Occasional crackle in the base. Cardiovascular system reveals an S1, S2. Abdomen is soft. There is 2+ pedal edema. White count of 7.1, hemoglobin of 7.2, platelet count of 63,000. Rheumatoid factor 16. RIKKI is negative. IMPRESSION AT THIS TIME: 1. Congestive heart failure with acute exacerbation with small bilateral effusions secondary to congestive heart failure is likely. 2. Acute hypoxic respiratory failure. 3. Severe anemia. 4. Obstructive sleep apnea. 5. Recent Pseudomonas pneumonia and influenza A. 6. Coronary artery disease. Continue bronchodilators, aerosolized steroids, IV steroids, CPAP. Increase her activity level. May consider switching her to IV Lasix portion instead of drip. MMODL / IJN: [id number] /
--- NOTE | 2018-10-21 14:48 | P.PN ---
Subjective Patient is seen in follow-up for chronic kidney disease. Patient has chronic kidney disease stage IV with pacing creatinine in the range of 2.5-3 secondary to nephrosclerosis. Patient is currently maintained on Lasix drip at 10 mL an hour for volume overload. Edema is improving. No chest pain. Oral intake is good. No nausea or vomiting. Weight is trending down. Vital signs are stable. General: The patient appeared well nourished and normally developed. HEENT: Head exam is unremarkable. Neck is without jugular venous distension. LUNGS: Breath sounds decreased. HEART: Rate and Rhythm are regular. First and second heart sounds normal. No murmurs, rubs or gallops. ABDOMEN: Abdominal exam reveals normal bowel sounds. Non-tender and non- distended. No evidence of peritonitis. EXTREMITITES: 1+ edema. Objective - Vital Signs Vital signs: Vital Signs Temp 97.5 F L 10/21/18 11:40 Pulse 71 10/21/18 12:12 Resp 16 10/21/18 12:12 BP 139/79 10/21/18 11:40 Pulse Ox 99 10/21/18 11:40 Intake & Output 10/20/18 10/21/18 10/21/18 18:59 06:59 18:59 Intake Total 530 191 360 Output Total 750 2350 650 Balance -220 -2159 -290 Weight 94 kg 92.2 kg Intake: Intake, IV Titration 100 191 Amount Furosemide 100 mg In 100 191 Sodium Chloride 0.9% 90 ml @ 10 MG/HR 10 mls/hr IV .Q10H [facility] Rx#: [id number] Oral 430 0 360 Output: Urine 750 2350 650 Other: Voiding Method Toilet Bedside Commode # Voids 2 - Labs CBC & Chem 7: 10/21/18 06:22 10/21/18 06:22 Labs: Abnormal Lab Results - Last 24 Hours (Table) 10/20/18 10/20/18 10/20/18 Range/Units 06:23 22:07 22:07 RBC 2.43 L (3.80-5.40) m/uL Hgb 7.5 L (11.4-16.0) gm/dL Hct 23.3 L (34.0-46.0) % RDW 18.8 H (11.5-15.5) % Plt Count 62 L (150-450) k/uL Lymphocytes # 0.5 L (1.0-4.8) k/uL Retic Count 2.8 H (0.5-2.0) % Carbon Dioxide 20 L (22-30) mmol/L BUN 58 H (7-17) mg/dL Creatinine 2.84 H (0.52-1.04) mg/dL Glucose 183 H (74-99) mg/dL Iron 40 L (50-170) ug/dL TIBC 226 L (228-460) ug/dL Ferritin 777.7 H (10.0-291.0) ng/mL Total Protein 5.4 L (6.3-8.2) g/dL Total Protein (PEP) (6.2-8.2) g/dL Albumin 3.4 L (3.5-5.0) g/dL IgG (700.0-1600.0) mg/dL IgM (40.0-280.0) mg/dL Rheumatoid Factor (0-15) IU/mL Free [place] LC, Quant (0.33-1.94) mg/dL 10/20/18 10/20/18 10/20/18 Range/Units 22:07 22:07 22:07 RBC (3.80-5.40) m/uL Hgb (11.4-16.0) gm/dL Hct (34.0-46.0) % RDW (11.5-15.5) % Plt Count (150-450) k/uL Lymphocytes # (1.0-4.8) k/uL Retic Count (0.5-2.0) % Carbon Dioxide (22-30) mmol/L BUN (7-17) mg/dL Creatinine (0.52-1.04) mg/dL Glucose (74-99) mg/dL Iron (50-170) ug/dL TIBC (228-460) ug/dL Ferritin (10.0-291.0) ng/mL Total Protein (6.3-8.2) g/dL Total Protein (PEP) 5.2 L (6.2-8.2) g/dL Albumin (3.5-5.0) g/dL IgG 677.0 L (700.0-1600.0) mg/dL IgM 31.9 L (40.0-280.0) mg/dL Rheumatoid Factor 16 H (0-15) IU/mL Free [place] LC, Quant 2.74 H (0.33-1.94) mg/dL 10/21/18 10/21/18 Range/Units 06:22 06:22 RBC 2.31 L (3.80-5.40) m/uL Hgb 7.2 L (11.4-16.0) gm/dL Hct 22.2 L (34.0-46.0) % RDW 19.0 H (11.5-15.5) % Plt Count 63 L (150-450) k/uL Lymphocytes # 0.9 L (1.0-4.8) k/uL Retic Count (0.5-2.0) % Carbon Dioxide (22-30) mmol/L BUN 63 H (7-17) mg/dL Creatinine 2.80 H (0.52-1.04) mg/dL Glucose 102 H (74-99) mg/dL Iron (50-170) ug/dL TIBC (228-460) ug/dL Ferritin (10.0-291.0) ng/mL Total Protein 5.2 L (6.3-8.2) g/dL Total Protein (PEP) (6.2-8.2) g/dL Albumin 3.2 L (3.5-5.0) g/dL IgG (700.0-1600.0) mg/dL IgM (40.0-280.0) mg/dL Rheumatoid Factor (0-15) IU/mL Free [place] LC, Quant (0.33-1.94) mg/dL Assessment and Plan Plan: Assessment: 1. 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 2. Dyspnea secondary to volume overload. Approved. 3. Diastolic CHF with moderate mitral regurgitation and moderate pulmonary hypertension. 4. Anemia of chronic kidney disease. Iron deficiency noted. 5. Hypomagnesemia secondary to diuresis. Plan: Maintain Lasix drip. Continue metolazone 5 mg once daily. Ferrlecit 125 mg IV daily 3 doses. First dose today. Replace magnesium. 2 g IV today. Maintain Aranesp. Daily weights. 1500 mL fluid restriction and low-salt diet. Repeat electrolytes in the morning.
[2018-10-21] MEDS: SODIUM FERRIC GLUCONAT-SUCROSE 125 MG in SODIUM CHLORIDE 0.9% 100 ML IVPB SCH (16:19)
[2018-10-21] MEDS: MAGNESIUM SULFATE-D5W PMX 1 GM in DEXTROSE/WATER 1 100ML.BAG IVPB SCH ×2 (17:00→18:06)
[2018-10-21] MEDS: MONTELUKAST 10 MG TAB PO SCH (21:08)
[2018-10-21] MEDS: ALLOPURINOL 100 MG TAB PO SCH (21:09)
[2018-10-21] MEDS: ALPRAZolam 0.25 MG TAB PO SCH (21:09)
[2018-10-21] MEDS: PARoxetine 20 MG TAB PO SCH (21:09)
--- NOTE | 2018-10-21 23:38 | PN ---
PROGRESS NOTE DATE OF SERVICE: 10/21/2018. PRESENTING COMPLAINT: Short of breath. INTERVAL HISTORY: Patient admitted with CHF exacerbation on a Lasix drip. The patient has put out about 3 L negative fluid balance. Breathing is somewhat better. Edema is slowly coming down. Did tolerate some diet. Resting, tired. REVIEW OF SYSTEMS: Done for constitutional, cardiovascular, GI, pulmonary and relevant findings as above. CURRENT MEDICATIONS: Reviewed that include Lasix drip. PHYSICAL EXAMINATION: VITAL SIGNS: Temperature 97.6, pulse 72, respiratory rate 18, blood pressure 137/72, pulse ox 96% on 3 L. GENERAL APPEARANCE: Lying in bed. Less tired. EYES: Pupils equal. Conjunctivae normal. NECK: JVD unable to assess. Mass not palpable. RESPIRATORY: Effort increased. LUNGS: Decreased breath sounds. CARDIOVASCULAR: Heart sounds irregular. Slight decrease in edema. ABDOMEN: Soft, nontender. Liver and spleen not palpable. PSYCHIATRY: Alert and oriented x3. Mood and affect normal. INVESTIGATIONS: White count 7.1, hemoglobin 7.2, platelets 63. Potassium 4.3, BUN 63, creatinine 2.80.. ASSESSMENT: 1. Acute on chronic congestive heart failure exacerbation from diastolic dysfunction underlying coronary artery disease, slow to respond. 2. Coronary artery disease with stent. 3. Chronic kidney disease stage 4 probably from nephrosclerosis. 4. Moderate persistent asthma. 5. Essential hypertension. 6. Anxiety not otherwise specified. 7. Anemia of chronic kidney disease secondary to renal failure. 8. Paroxysmal atrial fibrillation currently in sinus rhythm. 9. Obstructive sleep apnea uses CPAP. 10.Chronic hypoxic respiratory failure on home oxygen 2 L. 11.Primary osteoarthritis. 12.Hypothyroidism. 13.Obesity; BMI 33.4. 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 15.Moderate mitral regurgitation, nonrheumatic. PLAN: Patient responded to Lasix drip. Continue with the same. The patient is slow to respond. We will keep a close eye on patient's renal function. Care was discussed with the patient. Care was discussed with the patient. MMODL / IJN: [id number] /
[2018-10-22] MEDS: FUROSEMIDE 100 MG in SODIUM CHLORIDE 0.9% 90 ML IV SCH ×2 (01:39→08:39)
[2018-10-22] MEDS: METOPROLOL TARTRATE 25 MG TAB PO SCH ×2 (06:08→18:26)
[2018-10-22] MEDS: PANTOPRAZOLE 40 MG TABLET PO SCH (06:08)
[2018-10-22] MEDS: FOLIC ACID-VIT B COMPLEX-VIT C 1 CAP PO SCH (06:08)
[2018-10-22] MEDS: SODIUM BICARBONATE TAB 650 MG TAB PO SCH (06:08)
[2018-10-22] MEDS: LACTULOSE 20 GM/30 ML CUP PO SCH (06:09)
[2018-10-22] MEDS: LEVOTHYROXINE 25 MCG TAB PO SCH (06:09)
[2018-10-22] MEDS: amLODIPine 2.5 MG TAB PO SCH (06:09)
[2018-10-22 07:14] LABS: Calcium 9.4 mg/dL (8.4-10.2); Magnesium 1.9 mg/dL (1.6-2.3); Potassium 3.9 mmol/L (3.5-5.1)
[2018-10-22] MEDS: IPRATROPIUM-ALBUTEROL 3 ML NEB INHALATION SCH ×4 (07:33→19:57)
[2018-10-22] MEDS: BUDESONIDE 0.5 MG/2 ML NEBU INHALATION SCH ×2 (07:33→19:57)
[2018-10-22] MEDS: FORMOTEROL FUMARATE 20 MCG/2 ML NEBU INHALATION SCH ×2 (07:33→20:12)
--- NOTE | 2018-10-22 07:47 | XR ---
EXAMINATION TYPE: XR chest 2V DATE OF EXAM: 10/22/2018 COMPARISON: 10/19/2018 HISTORY: 87-year-old female follow-up CHF TECHNIQUE: PA and lateral views FINDINGS: Elevation of the hemidiaphragm. Trace effusions are present. Heart upper limits of normal in size. St katie density right suprahilar region, likely atelectasis. Additional strandy left basilar atelectasi s. Left effusion is slightly smaller in the interval. IMPRESSION: Trace effusions, decreased in size on the left. Similar elevation of the right hemidiaphragm.
[2018-10-22] MEDS: predniSONE 20 MG TAB PO SCH (08:39)
[2018-10-22] MEDS: SODIUM FERRIC GLUCONAT-SUCROSE 125 MG in SODIUM CHLORIDE 0.9% 100 ML IVPB SCH (08:39)
[2018-10-22] MEDS: TRIAMCINOLONE ACET 0.5% CREAM 15 GM TUBE TOPICAL SCH ×2 (08:39→21:40)
--- NOTE | 2018-10-22 10:24 | P.PN ---
Subjective Progress Note Date: 10/22/18 This is a pleasant 87-year-old female with history of COPD, chronic diastolic heart failure who was recently in the hospital secondary to influenza, new onset atrial fibrillation and respiratory failure. On that admission her diuretics were stopped because of renal insufficiency, after being discharged home patient progressively became more and more short of breath and noticed worsening in her peripheral edema. For this reason she came to the hospital for further evaluation and treatment. The patient was seen in consultation by Dr. Gomez yesterday, she continued on IV Lasix and diuresed well through the night last night. Patient was also noted to have a hemoglobin in the range of 7, p latelet count was 59, this morning 7.2 and 63. Eliquis was placed on hold until further evaluation by hematology. Patient was seen in consultation by hematology, they're recommending a full workup for anemia and thrombocytopenia, Epogen was added per nephrology, the goal is to maintain iron saturations greater than 20%. Daily CBCs. We will await further recommendation regarding Eliquis. Overall the patient does state that she is feeling mildly better today, her breathing is improving, continues to have peripheral edema however improved from admission here. Blood pressure 150/60 with a heart rate in the 60s, 98% on CPAP. White blood cell count 7.1, hemoglobin 7.2, platelet count 63. Sodium 137, potassium 4.3, BUN 63 and creatinine 2.8 iron is 40 to be C2 26 iron saturation 17.7 ferritin [id number]. Patient continues to be on IV Lasix drip at 10 mg per hour. 10/22/2018 Patient was seen and examined this morning, continued to diurese very well through the night last night, receiving iron transfusion. Her weight is down 3 kg today. BUN 79 creatinine 2.9. Repeat chest x-ray was performed this morning which showed trace effusions, decreased in size on the left. Objective - Vital Signs Vital signs: Vital Signs Temp 97.9 F 10/22/18 08:00 Pulse 72 10/22/18 08:05 Resp 18 10/22/18 08:00 BP 121/74 10/22/18 08:00 Pulse Ox 99 10/22/18 08:00 Intake & Output 10/21/18 10/22/18 10/22/18 18:59 06:59 18:59 Intake Total 699.5 100 240 Output Total 650 750 Balance 49.5 -650 240 Weight 89.5 kg Intake: Intake, IV Titration 99.5 100 Amount Furosemide 100 mg In 99.5 100 Sodium Chloride 0.9% 90 ml @ 10 MG/HR 10 mls/hr IV .Q10H [facility] Rx#: [id number] Oral 600 240 Output: Urine 650 750 Other: # Voids 1 # Bowel Movements 1 - Exam PHYSICAL EXAMINATION: GENERAL: 87-year-old female in no acute distress at the time of my examination HEENT: Head is atraumatic, normocephalic. Pupils equal, round. Sclera anicteric. Conjunctiva are clear. Mucous membranes of the mouth are moist. Neck is supple. There is no elevated jugular venous pressure. No carotid bruit is heard. HEART EXAMINATION: Heart S1 and S2 systolic murmur is heard CHEST EXAMINATION: Lungs clear to auscultation ABDOMEN: Soft, nontender. Bowel sounds are heard. No organomegaly noted. EXTREMITIES: 2+ peripheral pulses with trace evidence of peripheral edema and no calf tenderness noted. NEUROLOGIC patient is awake, alert and oriented 3 . . - Labs CBC & Chem 7: 10/21/18 06:22 10/22/18 06:19 Labs: Abnormal Lab Results - Last 24 Hours (Table) 10/20/18 10/20/18 10/22/18 Range/Units 22:07 22:07 06:19 BUN 79 H (7-17) mg/dL Creatinine 2.97 H (0.52-1.04) mg/dL IgG 677.0 L (700.0-1600.0) mg/dL IgM 31.9 L (40.0-280.0) mg/dL Free [place] LC, Quant 2.74 H (0.33-1.94) mg/dL Assessment and Plan Plan: Assessment and plan #1 diastolic congestive heart failure acute on chronic #2 chronic kidney disease stage IV #3 anemia, likely secondary to chronic kidney disease #4 thrombocytopenia #5 paroxysmal atrial fibrillation, Eliquis currently on hold #6 COPD #7 hypothyroidism #8 recent influenza Plan We will continue to hold the Eliquis at this time, and further recommendations per hematology. We will discontinue the IV Lasix drip and change patient over to oral Lasix 40 mg one tablet by mouth twice a day. Check lytes BUN and creatinine in the morning. DNP note has been reviewed, I agree with a documented findings and plan of care. Patient was seen and examined.
[2018-10-22] MEDS ORDERED: LACTULOSE 20 GM/30 ML CUP PO ONE (10:55)
[2018-10-22] MEDS: METOLAZONE 5 MG TAB PO SCH (11:19)
[2018-10-22] MEDS: FUROSEMIDE 40 MG TAB PO SCH ×2 (11:19→15:18)
--- NOTE | 2018-10-22 11:37 | P.PN ---
Subjective Progress Note Date: 10/22/18 Principal diagnosis: This is a 87-year-old female with chronic kidney disease stage IV, secondary to nephrosclerosis with a baseline creatinine of 2.5-3, who came in with shortness of breath and congestive heart failure. She was recently admitted prior to this admission with acute kidney injury from diuresis and was hydrated and sent home. She supposedly was asked to hold her diuretics for 2-3 days and resume it but did not Here upon admission she Was started on IV Lasix, and this morning has been changed to by mouth Lasix. She is feeling much better less short of breath she remains on oxygen. At home she is using CPAP Respiratory system is rather unremarkable. Objective - Vital Signs Vital signs: Vital Signs Temp 98.3 F 10/22/18 11:26 Pulse 69 10/22/18 11:26 Resp 18 10/22/18 11:26 BP 152/72 10/22/18 11:26 Pulse Ox 95 10/22/18 11:26 Intake & Output 10/21/18 10/22/18 10/22/18 18:59 06:59 18:59 Intake Total 699.5 100 240 Output Total 650 750 Balance 49.5 -650 240 Weight 89.5 kg Intake: Intake, IV Titration 99.5 100 Amount Furosemide 100 mg In 99.5 100 Sodium Chloride 0.9% 90 ml @ 10 MG/HR 10 mls/hr IV .Q10H [facility] Rx#: [id number] Oral 600 240 Output: Urine 650 750 Other: Voiding Method Bedside Commode # Voids 1 # Bowel Movements 1 On exam she is awake alert oriented. Complains of some shortness of breath still on room air and therefore needs oxygen nasal cannula HEENT exam no JVP neck is supple no facial asymmetry Lungs are clear to auscultation fair air entry bilaterally Heart sounds are unremarkable for any murmur rub gallop Abdomen soft nontender Extremity exam was minimal edema Neurologically awake alert oriented - Labs CBC & Chem 7: 10/21/18 06:22 10/22/18 06:19 Labs: Abnormal Lab Results - Last 24 Hours (Table) 10/20/18 10/20/18 10/22/18 Range/Units 22:07 22:07 06:19 BUN 79 H (7-17) mg/dL Creatinine 2.97 H (0.52-1.04) mg/dL IgG 677.0 L (700.0-1600.0) mg/dL IgM 31.9 L (40.0-280.0) mg/dL Free [place] LC, Quant 2.74 H (0.33-1.94) mg/dL Assessment and Plan Assessment: Impression 1. Acute kidney injury from congestive heart failure improved with IV Lasix. Agree with [employer] aircraft to by mouth Lasix 2. Chronic kidney disease stage IV creatinine 2.5-3 etiology nephrosclerosis. 3. Iron deficiency anemia 17% saturation. 4. 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 Cause not very clear chronic on and off. 5. Uses CPAP at home. Recommendation 1. She needs to be watched as to how she responds with oral Lasix. She could probably go home tomorrow if she is stable 2. Monitor labs including CBC iron saturation once her IV Ferrlecit is completed this can be done as an outpatient 3. She does get discharged she will need to be seen in the office in 3-4 days to make sure she does not go back into a dehydrated state 4. We'll also need to continue her darbepoetin.
--- NOTE | 2018-10-22 12:03 | P.PN ---
Subjective Progress Note Date: 10/22/18 10/22/2018: Patient seen and examined. Patient remains on Lasix drip. Hemoglobin is 7.2. Creatinine has increased slightly to 2.97. The patient is currently laying in bed wearing her CPAP. She states she is feeling much better overall. Her lower extremity edema is improving. She has been hemodynamically stable. She has no needs or complaints at this time. Objective - Vital Signs Vital signs: Vital Signs Temp 98.3 F 10/22/18 11:26 Pulse 72 10/22/18 11:53 Resp 18 10/22/18 11:26 BP 152/72 10/22/18 11:26 Pulse Ox 95 10/22/18 11:26 Intake & Output 10/21/18 10/22/18 10/22/18 18:59 06:59 18:59 Intake Total 699.5 100 240 Output Total 650 750 Balance 49.5 -650 240 Weight 89.5 kg Intake: Intake, IV Titration 99.5 100 Amount Furosemide 100 mg In 99.5 100 Sodium Chloride 0.9% 90 ml @ 10 MG/HR 10 mls/hr IV .Q10H [facility] Rx#: [id number] Oral 600 240 Output: Urine 650 750 Other: Voiding Method Bedside Commode # Voids 1 # Bowel Movements 1 - Exam Gen.: Patient is alert and oriented 3, no acute distress Cardiovascular: Regular rate and rhythm, S1/S2 Lungs: Diminished breath sounds bilaterally with scattered crackles Abdomen: Soft nontender nondistended positive bowel sounds Extremities 1-2+ edema - Labs CBC & Chem 7: 10/21/18 06:22 10/22/18 06:19 Labs: Abnormal Lab Results - Last 24 Hours (Table) 10/20/18 10/22/18 Range/Units 22:07 06:19 BUN 79 H (7-17) mg/dL Creatinine 2.97 H (0.52-1.04) mg/dL Free [place] LC, Quant 2.74 H (0.33-1.94) mg/dL Assessment and Plan Assessment: Acute exacerbation of CHF Cardiomegaly Small bilateral pleural effusions Acute hypoxic respiratory failure Acute exacerbation of moderate COPD Recent Pseudomonas pneumonia and Influenza A Obstructive sleep apnea, compliant with CPAP Acute kidney injury on chronic kidney disease stage IV Anemia of chronic disease Depression History of coronary artery disease, stenting Thrombocytopenia Hypertension Mild PCM O2 to maintain saturation greater than or equal to 90% Steroid taper Pulmicort, Perforomist Singulair Incentive spirometry and pulmonary hygiene CPAP nightly and as needed GI and DVT prophylaxis Diuresis, Lasix gtt, monitor urine output and renal function - nephrology following - changing to PO Lasix today Eliquis on hold due to thrombocytopenia - hematology on consult Iron transfusion Consult PT and OT CXR shows improving PVC and slightly improving effusions
[2018-10-22] MEDS: MONTELUKAST 10 MG TAB PO SCH (18:26)
[2018-10-22] MEDS: ALLOPURINOL 100 MG TAB PO SCH (18:26)
[2018-10-22] MEDS: ALPRAZolam 0.25 MG TAB PO SCH (18:26)
[2018-10-22] MEDS: PARoxetine 20 MG TAB PO SCH (18:26)
[2018-10-22 23:35] VITALS: RESP 16
[2018-10-23] MEDS: amLODIPine 2.5 MG TAB PO SCH (06:22)
[2018-10-23] MEDS: PANTOPRAZOLE 40 MG TABLET PO SCH (06:22)
[2018-10-23] MEDS: SODIUM BICARBONATE TAB 650 MG TAB PO SCH (06:22)
[2018-10-23] MEDS: LACTULOSE 20 GM/30 ML CUP PO SCH (06:22)
[2018-10-23] MEDS: METOPROLOL TARTRATE 25 MG TAB PO SCH (06:23)
[2018-10-23] MEDS: LEVOTHYROXINE 25 MCG TAB PO SCH (06:27)
[2018-10-23] MEDS: FOLIC ACID-VIT B COMPLEX-VIT C 1 CAP PO SCH (06:27)
[2018-10-23] MEDS: BUDESONIDE 0.5 MG/2 ML NEBU INHALATION SCH (07:43)
[2018-10-23] MEDS: FORMOTEROL FUMARATE 20 MCG/2 ML NEBU INHALATION SCH (07:43)
[2018-10-23] MEDS: IPRATROPIUM-ALBUTEROL 3 ML NEB INHALATION SCH ×3 (07:43→15:59)
[2018-10-23] MEDS ORDERED: predniSONE 10 MG TAB PO SCH (09:00)
[2018-10-23 09:09] LABS: Anisocytosis Slight; HCT 23.6 % (34.0-46.0); HGB 7.9 gm/dL (11.4-16.0); MCH 31.6 pg (25.0-35.0); MCHC 33.3 g/dL (31.0-37.0); MCV 94.9 fL (80.0-100.0); Macrocytosis Slight; Mean Platelet Volume 9.9; RBC 2.49 m/uL (3.80-5.40); RDW 18.9 % (11.5-15.5); WBC 6.2 k/uL (3.8-10.6)
[2018-10-23 09:10] LABS: Platelet Count 56 k/uL (150-450)
[2018-10-23] MEDS: METOLAZONE 5 MG TAB PO SCH (09:10)
[2018-10-23] MEDS: SODIUM FERRIC GLUCONAT-SUCROSE 125 MG in SODIUM CHLORIDE 0.9% 100 ML IVPB SCH (09:11)
[2018-10-23] MEDS: TRIAMCINOLONE ACET 0.5% CREAM 15 GM TUBE TOPICAL SCH (09:11)
[2018-10-23] MEDS: FUROSEMIDE 40 MG TAB PO SCH (09:11)
[2018-10-23 09:20] LABS: Calcium 9.5 mg/dL (8.4-10.2); Potassium 3.4 mmol/L (3.5-5.1)
--- NOTE | 2018-10-23 10:10 | P.PN ---
Subjective Progress Note Date: 10/23/18 Principal diagnosis: This is a 87-year-old female with chronic kidney disease stage IV, secondary to nephrosclerosis with a baseline creatinine of 2.5-3, who came in with shortness of breath and congestive heart failure. She was recently admitted prior to this admission with acute kidney injury from diuresis and was hydrated and sent home. She supposedly was asked to hold her diuretics for 2-3 days and resume it but did not Here upon admission she Was started on IV Lasix, and today morning has been changed to by mouth Lasix. She is feeling much better less short of breath she remains on oxygen. At home she is using CPAP. She does complain of cough. Appetite is fair. No dizziness is able to walk with a walker short distances and this is a chronic problem Respiratory system is rather unremarkable. Objective - Vital Signs Vital signs: Vital Signs Temp 97 F L 10/23/18 04:00 Pulse 60 10/23/18 08:09 Resp 16 10/23/18 04:00 BP 180/75 10/23/18 04:00 Pulse Ox 96 10/23/18 00:55 Intake & Output 10/22/18 10/23/18 10/23/18 18:59 06:59 18:59 Intake Total 702 200 222 Output Total 1100 700 Balance -398 -500 222 Weight 88.8 kg Intake: Oral 702 200 222 Output: Urine 1100 700 Other: Voiding Method Bedside Commode # Voids 2 On examination she is awake alert oriented comfortable HEENT exam no JVP neck is supple no facial asymmetry Lungs are significant for an occasional coarse crackle at bases. Good air entry bilaterally Heart sounds are unremarkable for any murmur rub gallop Abdomen soft nontender no masses felt Extremity exam reveals minimal edema just ADELA hoses on Neurologically awake alert oriented - Labs CBC & Chem 7: 10/23/18 08:52 10/23/18 08:52 Labs: Abnormal Lab Results - Last 24 Hours (Table) 10/23/18 10/23/18 Range/Units 08:52 08:52 RBC 2.49 L (3.80-5.40) m/uL Hgb 7.9 L (11.4-16.0) gm/dL Hct 23.6 L (34.0-46.0) % RDW 18.9 H (11.5-15.5) % Plt Count 56 L (150-450) k/uL Potassium 3.4 L (3.5-5.1) mmol/L BUN 91 H (7-17) mg/dL Creatinine 2.99 H (0.52-1.04) mg/dL Glucose 116 H (74-99) mg/dL Assessment and Plan Assessment: Impression 1. Acute kidney injury from congestive heart failure improved with IV Lasix. Currently maintained on oral Lasix 40 mg twice a day. Creatinine stable at baseline. She made 1800 mL of urine, which is adequate 2. Chest x-ray shows trace effusion decrease in size in the left similar elevation the right hemidiaphragm compared to before. This is dated 10/22/2018 2. Chronic kidney disease stage IV creatinine 2.5-3 etiology nephrosclerosis. 3. Iron deficiency anemia 17% saturation. On Ferrlecit 125 mg 1 dose today 4. Chronic thrombocytopenia is 63,000. Cause not very clear chronic on and off. 5. Uses CPAP at home. Recommendation 1. She is responding to 40 mg of Lasix twice a day. 2. Monitor labs including CBC iron saturation once her IV Ferrlecit is complet ed this can be done as an outpatient in about one week 3. She does get discharged she will need to be seen in the office in 3-4 days to make sure she does not go back into a dehydrated state 4. We'll also need to continue her darbepoetin.
--- NOTE | 2018-10-23 10:23 | P.PN ---
Subjective Progress Note Date: 10/23/18 This is a pleasant 87-year-old female with history of COPD, chronic diastolic heart failure who was recently in the hospital secondary to influenza, new onset atrial fibrillation and respiratory failure. On that admission her diuretics were stopped because of renal insufficiency, after being discharged home patient progressively became more and more short of breath and noticed worsening in her peripheral edema. For this reason she came to the hospital for further evaluation and treatment. The patient was seen in consultation by Dr. Gomez yesterday, she continued on IV Lasix and diuresed well through the night last night. Patient was also noted to have a hemoglobin in the range of 7, p latelet count was 59, this morning 7.2 and 63. Eliquis was placed on hold until further evaluation by hematology. Patient was seen in consultation by hematology, they're recommending a full workup for anemia and thrombocytopenia, Epogen was added per nephrology, the goal is to maintain iron saturations greater than 20%. Daily CBCs. We will await further recommendation regarding Eliquis. Overall the patient does state that she is feeling mildly better today, her breathing is improving, continues to have peripheral edema however improved from admission here. Blood pressure 150/60 with a heart rate in the 60s, 98% on CPAP. White blood cell count 7.1, hemoglobin 7.2, platelet count 63. Sodium 137, potassium 4.3, BUN 63 and creatinine 2.8 iron is 40 to be C2 26 iron saturation 17.7 ferritin [id number]. Patient continues to be on IV Lasix drip at 10 mg per hour. 10/22/2018 Patient was seen and examined this morning, continued to diurese very well through the night last night, receiving iron transfusion. Her weight is down 3 kg today. BUN 79 creatinine 2.9. Repeat chest x-ray was performed this morning which showed trace effusions, decreased in size on the left. 10/23 2018 Patient was seen and examined this morning, overall feeling much better. Receiving another iron infusion this morning. On oral diuretics. Creatinine 2.9 this morning. Potassium 3.4 mean replaced. Hemoglobin 7.9 and platelet count 56. Objective - Vital Signs Vital signs: Vital Signs Temp 97 F L 10/23/18 04:00 Pulse 60 10/23/18 08:09 Resp 16 10/23/18 04:00 BP 180/75 10/23/18 04:00 Pulse Ox 96 10/23/18 00:55 Intake & Output 10/22/18 10/23/18 10/23/18 18:59 06:59 18:59 Intake Total 702 200 222 Output Total 1100 700 Balance -398 -500 222 Weight 88.8 kg Intake: Oral 702 200 222 Output: Urine 1100 700 Other: Voiding Method Bedside Commode # Voids 2 - Exam PHYSICAL EXAMINATION: GENERAL: 87-year-old female in no acute distress at the time of my examination HEENT: Head is atraumatic, normocephalic. Pupils equal, round. Sclera anicteric. Conjunctiva are clear. Mucous membranes of the mouth are moist. Neck is supple. There is no elevated jugular venous pressure. No carotid bruit is heard. HEART EXAMINATION: Heart S1 and S2 systolic murmur is heard CHEST EXAMINATION: Lungs clear to auscultation ABDOMEN: Soft, nontender. Bowel sounds are heard. No organomegaly noted. EXTREMITIES: 2+ peripheral pulses with trace evidence of peripheral edema and no calf tenderness noted. NEUROLOGIC patient is awake, alert and oriented 3 . . - Labs CBC & Chem 7: 10/23/18 08:52 10/23/18 08:52 Labs: Abnormal Lab Results - Last 24 Hours (Table) 10/23/18 10/23/18 Range/Units 08:52 08:52 RBC 2.49 L (3.80-5.40) m/uL Hgb 7.9 L (11.4-16.0) gm/dL Hct 23.6 L (34.0-46.0) % RDW 18.9 H (11.5-15.5) % Plt Count 56 L (150-450) k/uL Potassium 3.4 L (3.5-5.1) mmol/L BUN 91 H (7-17) mg/dL Creatinine 2.99 H (0.52-1.04) mg/dL Glucose 116 H (74-99) mg/dL Assessment and Plan Plan: Assessment and plan #1 diastolic congestive heart failure acute on chronic #2 chronic kidney disease stage IV #3 anemia, likely secondary to chronic kidney disease #4 thrombocytopenia #5 paroxysmal atrial fibrillation, Eliquis currently on hold #6 COPD #7 hypothyroidism #8 recent influenza Plan From cardiology's perspective, patient may be transferred back to the [facility] once cleared by primary. We will check with hematology regarding reinitiating the Eliquis. Follow-up appointment in the office post discharge. DNP note has been reviewed, I agree with a documented findings and plan of care. Patient was seen and examined.
[2018-10-23 11:11] VITALS: TEMP 96.3
[2018-10-23 12:17] VITALS: BP 147/65
[2018-10-23 17:21] VITALS: PULSE 67
--- NOTE | 2018-10-23 18:38 | PN ---
PROGRESS NOTE DATE OF SERVICE: October 23, 2018. She has been hemodynamically stable. She is less short of breath. Her edema is starting to improve. On physical examination, her respiratory rate is 18, pulse rate is 64, temperature 96.3, blood pressure 143/66, O2 saturation on room air is 94%. HEENT is unremarkable. Chest with decreased breath sounds. Cardiovascular system reveals an S1, S2. Abdomen is soft. There is 1+ to 2+ pedal edema. White count of 6.2, hemoglobin of 7.9. Sodium 139, potassium 3.4, chloride 101, bicarb 28, BUN 91, creatinine of 2.99. IMPRESSION: At this time is: 1. Acute exacerbation of chronic obstructive pulmonary disease with congestive heart failure. 2. Small bilateral pleural effusion secondary to fluid status. 3. Acute kidney injury in part due to prerenal azotemia. 4. Obstructive sleep apnea, compliant with CPAP. Optimize fluid status. Increase her activity level. Continue bronchodilators and steroids. Her medications were reviewed. MMODL / IJN: [id number] /
--- NOTE | 2018-10-24 04:41 | PN ---
PROGRESS NOTE DATE OF SERVICE: October 22, 2018. PRESENTING COMPLAINT: Tired. INTERVAL HISTORY: This patient was seen by me yesterday. Admitted with CHF exacerbation. On Lasix drip that has been switched over to p.o. Lasix. The patient has been good negative fluid balance. Breathing has greatly improved. Edema is coming down. Tolerating a diet. REVIEW OF SYSTEMS: Done for constitutional, cardiovascular, GI, pulmonary and relevant findings as above. CURRENT MEDICATIONS: Reviewed that include p.o. Lasix. PHYSICAL EXAMINATION: VITAL SIGNS: Temperature 98, pulse 73, respiratory rate 18, blood pressure 143/73, pulse ox 97% on 3 L. GENERAL APPEARANCE: Sitting up, feeling better. EYES: Pupils are equal. Conjunctivae normal. NECK: JVD unable to assess. Mass not palpable. RESPIRATORY: Effort increased. LUNGS: Decreased breath sounds. CARDIOVASCULAR: Heart sounds irregular. Decreased edema. ABDOMEN: Soft, nontender. Liver and spleen not palpable. PSYCHIATRY: Alert and oriented x3. Mood and affect normal. INVESTIGATIONS: BUN 79, creatinine 2.97. ASSESSMENT: 1. Acute on chronic congestive heart failure exacerbation from diastolic dysfunction. EF 50 to 60% from underlying coronary artery disease, much improved. 2. Coronary artery disease with stent. 3. Chronic kidney stage IV, probably from nephrosclerosis. 4. Moderate persistent asthma. 5. Essential hypertension. 6. Anxiety, not otherwise specified. 7. Anemia of chronic kidney disease secondary to renal failure. 8. Paroxysmal atrial fibrillation currently in sinus rhythm. 9. Obstructive sleep apnea uses CPAP. 10.Chronic hypoxic respiratory failure on home oxygen 2 L. 11.Primary osteoarthritis. 12.Hypothyroidism. 13.Obesity; BMI 33.4. 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 15.Moderate mitral regurgitation, nonrheumatic. PLAN: Patient is switched to p.o. Lasix. Overall doing much better. Check labs tomorrow. If stable, probably can go home tomorrow. MMODL / IJN: [id number] /
--- NOTE | 2018-10-24 05:11 | DS ---
DISCHARGE SUMMARY DATE OF ADMISSION: 10/20/2018 DATE OF DISCHARGE: 10/23/2018 FINAL DIAGNOSES: 1. Acute on chronic congestive heart failure exacerbation from diastolic dysfunction. Ejection fraction 50-60 percent from underlying coronary artery disease. 2. Coronary artery disease with stent. 3. Chronic kidney disease stage 4 probably from nephrosclerosis. 4. Acute renal failure prerenal from diuresis. 5. Moderate persistent asthma. 6. Essential hypertension. 7. Anxiety not otherwise specified. 8. Anemia of chronic kidney disease secondary to renal failure. 9. Paroxysmal atrial fibrillation currently in sinus rhythm. 10.Obstructive sleep apnea uses CPAP. 11.Chronic hypoxic respiratory failure on home oxygen 2 L. 12.Primary osteoarthritis. 13.Hypothyroidism. 14.Obesity; BMI 33.4. 15.Secondary pulmonary hypertension due to asthma/congestive heart failure. 16.Moderate mitral regurgitation, nonrheumatic. HOSPITAL COURSE: This is a very pleasant 87-year-old patient presented with shortness of breath, found to be in CHF exacerbation. The patient was diuresed well. Doing much better by the time of discharge. Patient did require Lasix drip. Today doing much better, tolerating a diet. Keen to go home. CONSULTATIONS: Dr. Melani Duffy from Pulmonary, Dr. Melani Gomez from Cardiology and Dr. Sue from Nephrology. PHYSICAL EXAMINATION: VITAL SIGNS: Temperature 98, pulse 73, respiratory rate 18, blood pressure 143/73, pulse ox 97% on 3 L. LUNGS: Fair air entry. CARDIOVASCULAR: First and second sounds normal. Decreased edema. LABS: White count 6.2, hemoglobin 7.9, platelets 56. Potassium 3.4, BUN 91, creatinine 2.99. Discontinued medications include meclizine. DISCHARGE MEDICATIONS: 1. Singulair 10 mg p.o. at bedtime. 2. Allopurinol 100 mg p.o. q.h.s. 3. Paxil 20 mg p.o. q.h.s. 4. Tylenol p.r.n. 5. Renal Caps soft gel 1 mg p.o. daily. 6. DuoNeb b.i.d. p.r.n. 7. Lactulose 20 grams p.o. daily. 8. Milk of magnesia p.r.n. 9. Zofran 4 mg q.12h p.r.n. 10.Sodium bicarb 650 mg p.o. daily. 11.Requip 0.5 mg p.o. daily. 12.Perforomist 20 mcg b.i.d. 13.Synthroid 25 mcg a day. 14.Protonix 40 mg a day. 15.Norvasc 2.5 mg a day. 16.Xanax 0.25 p.o. daily. 17.Pulmicort 0.5 mg b.i.d. 18.FiberCon 625 p.o. t.i.d. p.r.n. 19.DuoNeb q.i.d. 20.Kenalog 0.5% topical b.i.d. 21.Vagisil 5/2 percent application q.i.d. p.r.n. 22.Eliquis 2.5 p.o. b.i.d. 23.Darbepoetin thelma 40 mg subcu every 7 days. 24.Lasix 40 mg b.i.d. 25.Lopressor 75 mg b.i.d. 26.Prednisone taper. FOLLOWUP: Follow up with Visiting Physician, Dr. Harp in 3 days. Follow up with Dr. Sutton in 1 week. Follow up with Dr. Sue in 10 days. Labs, BMP in 1 week. DISPOSITION: To [facility]. Copy to visiting physician Dr. Harp. MMODL / CYNTHIAN: [id number] /
--- NOTE | 2018-10-27 07:34 | CDI ---
Documentation Clarification Form Date: 10/27 From: Federico Duffy Phone: call me if question [phone] Admit Date: 10/20/2018 11:15:00 PM Patient Name: Lizzie Cristobal Visit Number: [id number] Discharge Date: 10/23/2018 5:30:00 PM ATTENTION: The Clinical Documentation Specialists (CDI) and [facility] Coding Staff appreciate your assistance in clarifying documentation. Please respond to the clarification below the line at the bottom and electronically sign. The CDI & [facility] Coding staff will review the response and follow-up if needed. Please note: Queries are made part of the Legal Health Record. If you have any questions, please contact the author of this message via ITS. Dr. Keyur Ohara Conflicting documentation has been found in the medical record: Acute Hypoxic Respiratory failure/Chronic Respiratory failure Patient admitted with SOB, Negative for smoking Home o2 : 2L Pulse ox : 96% on 3L Treatment : IV steroids,CPAP Documented as Acute hypoxic respiratory failure in progress notes 10/21 april Duffy MD pulmonology & Consult note 10/21,10/22 Bianca Vasquez Discharge summary states "chronic hypoxic respiratory failure. In your opinion, what is the most clinically appropriate diagnosis for this patient? Acute hypoxic respiratory failure Chronic hypoxic respiratory failure Acute on chronic hypoxic respiratory failure Other explanation of clinical findings Unable to determine (no explanation for clinical findings acute hypoxic respiratory failure MTDD
== END 2018-10-23 17:30 | disposition home health service (06) | DRG 291 ==
LOC: EC 12:42 → 3SCARD 14:28 → OBSVTOIN 10-20 23:15
PROVIDERS: ADMIT Hospitalist; ATTEND Hospitalist
PROC: 5A09457 Assistance with Respiratory Ventilation, 24-96 Consecutive Hours, Continuous Positive Airway Pressure (ICD-10-PCS; principal; 2018-10-20)
DX: I13.0 Hypertensive heart and chronic kidney disease with heart failure and stage 1 through stage 4 chronic kidney disease, or unspecified chronic kidney disease (principal); I50.33 Acute on chronic diastolic (congestive) heart failure; J96.01 Acute respiratory failure with hypoxia; N18.4 Chronic kidney disease, stage 4 (severe); J44.1 Chronic obstructive pulmonary disease with (acute) exacerbation; N17.9 Acute kidney failure, unspecified; I48.0 Paroxysmal atrial fibrillation; I25.10 Atherosclerotic heart disease of native coronary artery without angina pectoris; G47.33 Obstructive sleep apnea (adult) (pediatric); I27.29 Other secondary pulmonary hypertension; E03.9 Hypothyroidism, unspecified; J45.40 Moderate persistent asthma, uncomplicated; D63.1 Anemia in chronic kidney disease; D69.6 Thrombocytopenia, unspecified; I34.0 Nonrheumatic mitral (valve) insufficiency; E66.9 Obesity, unspecified; M10.9 Gout, unspecified; D50.9 Iron deficiency anemia, unspecified; F41.8 Other specified anxiety disorders; E83.42 Hypomagnesemia; T50.1X5A Adverse effect of loop [high-ceiling] diuretics, initial encounter; M19.91 Primary osteoarthritis, unspecified site; Z96.653 Presence of artificial knee joint, bilateral; Z99.81 Dependence on supplemental oxygen; I25.2 Old myocardial infarction; Z68.33 Body mass index [BMI] 33.0-33.9, adult; Z87.01 Personal history of pneumonia (recurrent); Z90.49 Acquired absence of other specified parts of digestive tract; Z95.5 Presence of coronary angioplasty implant and graft; Z79.899 Other long term (current) drug therapy; Z79.51 Long term (current) use of inhaled steroids; Z79.01 Long term (current) use of anticoagulants; Z79.890 Hormone replacement therapy; Z82.49 Family history of ischemic heart disease and other diseases of the circulatory system; Z90.89 Acquired absence of other organs; Z90.722 Acquired absence of ovaries, bilateral; Z88.5 Allergy status to narcotic agent; Z88.8 Allergy status to other drugs, medicaments and biological substances; Z88.0 Allergy status to penicillin; Z88.2 Allergy status to sulfonamides
CPT/HCPCS: 36415; 71046; 80048; 80053; 81003; 82272; 82607; 82668; 82728; 82746; 82784; 83540; 83550; 83605; 83615; 83735; 83880; 83883; 83921; 84100; 84165; 84484; 85025; 85027; 85045; 85379; 85610; 85652; 85730; 86038; 86334; 86431; 93005; 94640; 94760; 96365; 96366; 96375; 99285

== ENCOUNTER 2018-10-27 15:20 | Inpatient (IN) | payer MEDICARE ==
[2018-10-27] MEDS ORDERED: IPRATROPIUM 0.5 MG/2.5 ML NEBU INHALATION STA (15:46)
[2018-10-27] MEDS ORDERED: ALBUTEROL NEBULIZED 2.5 MG/3 ML INHALATION STA (15:46)
[2018-10-27] MEDS ORDERED: SODIUM CHLORIDE 0.9% 1,000 ML IV STA (15:46)
--- NOTE | 2018-10-27 15:46 | ED ---
SOB HPI - General Chief Complaint: Shortness of Breath Stated Complaint: Difficulty Breathing Time Seen by Provider: 10/27/18 15:45 Source: patient, RN notes reviewed, old records reviewed Mode of arrival: wheelchair Limitations: no limitations - History of Present Illness Initial Comments: This is a 87-year-old female the ER for evaluation. Patient presents today for evaluation regards to severe shortness of breath with history of COPD, increased waking and swelling. Patient is also very anxious regarding her inability to breathe. Denies chest pain. She states she's been doing her medications and breathing treatments at home MD Complaint: shortness of breath, cough -: days(s), week(s), month(s) Radiation: other (No current pain) Severity: moderate Consistency: constant Improves With: oxygen, bronchodilators Worsens With: exertion Known History Of: COPD, congestive heart failure Context: recent URI Associated Symptoms: pain with inspiration, cough, sputum production Treatments Prior to Arrival: none - Related Data Home Medications Medication Instructions Recorded Confirmed Montelukast [Singulair] 10 mg PO DAILY@189911/06/13 10/27/18 Allopurinol [Zyloprim] 100 mg PO DAILY@189911/29/16 10/27/18 PARoxetine [Paxil] 20 mg PO DAILY@189911/29/16 10/27/18 Acetaminophen Tab [Tylenol] 325 - 650 mg PO Q4H PRN 09/29/18 10/27/18 B Complex W-C No.20/Folic Acid 1 mg PO DAILY@69909/29/18 10/27/18 [Renal Caps Softgel] Ipratropium-Albuterol Nebulize 3 ml INHALATION RT-BID 09/29/18 10/27/18 [Duoneb 0.5 mg-3 mg/3 ml Soln] Lactulose 20 gm PO DAILY@69909/29/18 10/27/18 Sodium Bicarbonate Tab 650 mg PO DAILY@69909/29/18 10/27/18 rOPINIRole HCL [Requip] 0.5 mg PO DAILY@189909/29/18 10/27/18 Levothyroxine Sodium [Synthroid] 25 mcg PO DAILY@79910/07/18 10/27/18 Pantoprazole Sodium [Protonix] 40 mg PO DAILY@59910/07/18 10/27/18 amLODIPine [Norvasc] 2.5 mg PO DAILY@0700 10/07/18 10/27/18 ALPRAZolam [Xanax] 0.25 mg PO DAILY@1900 10/19/18 10/27/18 Budesonide [Pulmicort] 0.5 mg INHALATION RT-BID@1100,1900 10/19/18 10/27/18 Ipratropium-Albuterol Nebulize 3 ml INHALATION RT-QID PRN 10/19/18 10/27/18 [Duoneb 0.5 mg-3 mg/3 ml Soln] Furosemide [Lasix] 60 mg PO BID 10/27/18 10/27/18 Metoprolol Tartrate [Lopressor] 50 mg PO BID@0700,1900 10/27/18 10/27/18 Previous Rx's Medication Instructions Recorded Apixaban [Eliquis] 2.5 mg PO BID@0700,1900 #60 tablet 10/23/18 Allergies Allergy/AdvReac Type Severity Reaction Status Date / Time codeine Allergy Severe Nausea & Verified 10/27/18 17:26 Vomiting morphine Allergy Severe Nausea & Verified 10/27/18 17:26 Vomiting Penicillins Allergy Rash/Hives Verified 10/27/18 17:26 Sulfa (Sulfonamide Allergy Unknown Verified 10/27/18 17:26 Antibiotics) trazodone AdvReac Unknown Verified 10/27/18 17:26 Review of Systems ROS Statement: Those systems with pertinent positive or pertinent negative responses have been documented in the HPI. ROS Other: All systems not noted in ROS Statement are negative. Past Medical History Past Medical History: Asthma, COPD, Hypertension, Myocardial Infarction (OR), Renal Disease Additional Past Medical History / Comment(s): Pt recently admitted to [facility] on 10/10/18 with BRANDON/CKD. Other hx: Bronchitis, ELSI with CPap, home oxygen at 2L/NC ATC, CKD stage IV, anemia, thoracic aneurysm, recent influenza, arthritis in hands, gout in toes, hypothyroid, sinus problems, constipation, hemorrhoids. Last Myocardial Infarction Date:: 2010 History of Any Multi-Drug Resistant Organisms: None Reported Past Surgical History: Adenoidectomy, Cholecystectomy, Heart Catheterization With Stent, Hernia Repair, Tonsillectomy Additional Past Surgical History / Comment(s): Hx colonoscopy, left and rt knee replacement hx oopherectomy Past Anesthesia/Blood Transfusion Reactions: No Reported Reaction Date of Last Stent Placement:: 2010 Past Psychological History: Anxiety Smoking Status: Never smoker Past Alcohol Use History: None Reported Past Drug Use History: None Reported - Past Family History Mother Family Medical History: Coronary Artery Disease (CAD) General Exam Limitations: no limitations General appearance: alert, anxious, in distress Head exam: Present: atraumatic, normocephalic, normal inspection Eye exam: Present: normal appearance, PERRL, EOMI. Absent: scleral icterus, conjunctival injection, periorbital swelling ENT exam: Present: normal exam, mucous membranes moist Neck exam: Present: normal inspection. Absent: tenderness, meningismus, lymphadenopathy Respiratory exam: Present: respiratory distress, wheezes, rales, accessory muscle use, decreased breath sounds, prolonged expiratory. Absent: rhonchi, stridor Cardiovascular Exam: Present: regular rate, normal rhythm, normal heart sounds. Absent: systolic murmur, diastolic murmur, rubs, gallop, clicks GI/Abdominal exam: Present: soft, normal bowel sounds. Absent: distended, tenderness, guarding, rebound, rigid Extremities exam: Present: normal inspection, full ROM, normal capillary refill. Absent: tenderness, pedal edema, joint swelling, calf tenderness Back exam: Present: normal inspection Neurological exam: Present: alert, oriented X3, CN II-XII intact Psychiatric exam: Present: normal affect, normal mood Skin exam: Present: warm, dry, intact, normal color. Absent: rash Course Vital Signs 10/27/18 10/27/18 10/27/18 15:32 16:00 16:15 Temperature 99.5 F Pulse Rate 77 80 88 Pulse Rate [ Pulse Oximetery ] Respiratory 18 22 24 Rate Blood Pressure 102/47 146/69 Blood Pressure [Left Arm] O2 Sat by Pulse 93 L 97 Oximetry 10/27/18 10/27/18 10/27/18 16:30 16:41 17:09 Temperature Pulse Rate 78 78 79 Pulse Rate [ Pulse Oximetery ] Respiratory 21 18 18 Rate Blood Pressure 135/68 Blood Pressure [Left Arm] O2 Sat by Pulse 100 Oximetry 10/27/18 10/27/18 10/27/18 17:39 18:30 19:00 Temperature Pulse Rate 72 77 76 Pulse Rate [ Pulse Oximetery ] Respiratory 18 20 19 Rate Blood Pressure 144/75 149/77 149/77 Blood Pressure [Left Arm] O2 Sat by Pulse 98 95 96 Oximetry 10/27/18 10/27/18 10/27/18 19:42 19:53 20:00 Temperature Pulse Rate 82 81 86 Pulse Rate [ Pulse Oximetery ] Respiratory 18 18 25 H Rate Blood Pressure 147/77 Blood Pressure [Left Arm] O2 Sat by Pulse 95 Oximetry 10/27/18 20:04 Temperature 98 F Pulse Rate Pulse Rate [ 79 Pulse Oximetery ] Respiratory 18 Rate Blood Pressure Blood Pressure 146/66 [Left Arm] O2 Sat by Pulse 96 Oximetry - Reevaluation(s) Reevaluation #1: Medical record and prior hospitalization or reviewed Patient symptoms are improved, breathing is improved and controlled currently Medical Decision Making - Medical Decision Making 87 female the ER for evaluation. As she has current shortness of breath or current recent discharge. Patient is to be admitted for recurrent evaluation and treatment - Lab Data Result diagrams: 10/28/18 07:59 11/01/18 07:47 Lab Results 10/27/18 10/27/18 10/27/18 Range/Units 16:15 16:15 16:15 WBC 9.4 (3.8-10.6) k/uL RBC 2.63 L (3.80-5.40) m/uL Hgb 8.4 L (11.4-16.0) gm/dL Hct 24.7 L (34.0-46.0) % MCV 93.7 (80.0-100.0) fL MCH 32.0 (25.0-35.0) pg MCHC 34.1 (31.0-37.0) g/dL RDW 19.2 H (11.5-15.5) % Plt Count 79 L (150-450) k/uL Neutrophils % 87 % Lymphocytes % 6 % Monocytes % 4 % Eosinophils % 0 % Basophils % 0 % Neutrophils # 8.2 H (1.3-7.7) k/uL Lymphocytes # 0.6 L (1.0-4.8) k/uL Monocytes # 0.4 (0-1.0) k/uL Eosinophils # 0.0 (0-0.7) k/uL Basophils # 0.0 (0-0.2) k/uL Anisocytosis Slight Macrocytosis Slight PT 10.4 (9.0-12.0) sec INR 1.0 (<1.2) APTT 24.1 (22.0-30.0) sec D-Dimer 0.34 (<0.60) mg/L FEU Sodium 137 (137-145) mmol/L Potassium 3.6 (3.5-5.1) mmol/L Chloride 95 L (98-107) mmol/L Carbon Dioxide 30 (22-30) mmol/L Anion Gap 12 mmol/L BUN 98 H (7-17) mg/dL Creatinine 3.26 H (0.52-1.04) mg/dL Est GFR (CKD-EPI)AfAm 14 (>60 ml/min/1.73 sqM) Est GFR (CKD-EPI)NonAf 12 (>60 ml/min/1.73 sqM) Glucose 253 H (74-99) mg/dL POC Glucose (mg/dL) (75-99) mg/dL POC Glu [employer] ID Calcium 9.1 (8.4-10.2) mg/dL Magnesium 1.5 L (1.6-2.3) mg/dL Total Bilirubin 0.8 (0.2-1.3) mg/dL AST 19 (14-36) U/L ALT 33 (9-52) U/L Alkaline Phosphatase 88 (38-126) U/L Troponin I (0.000-0.034) ng/mL NT-Pro-B Natriuret Pep pg/mL Total Protein 5.6 L (6.3-8.2) g/dL Albumin 3.7 (3.5-5.0) g/dL 10/27/18 10/27/18 10/28/18 Range/Units 16:15 16:15 07:59 WBC 7.2 (3.8-10.6) k/uL RBC 2.67 L (3.80-5.40) m/uL Hgb 8.5 L (11.4-16.0) gm/dL Hct 25.8 L (34.0-46.0) % MCV 96.3 (80.0-100.0) fL MCH 31.9 (25.0-35.0) pg MCHC 33.1 (31.0-37.0) g/dL RDW 18.9 H (11.5-15.5) % Plt Count 92 L (150-450) k/uL Neutrophils % 92 % Lymphocytes % 5 % Monocytes % 3 % Eosinophils % 0 % Basophils % 0 % Neutrophils # 6.6 (1.3-7.7) k/uL Lymphocytes # 0.4 L (1.0-4.8) k/uL Monocytes # 0.2 (0-1.0) k/uL Eosinophils # 0.0 (0-0.7) k/uL Basophils # 0.0 (0-0.2) k/uL Anisocytosis Slight Macrocytosis Slight PT (9.0-12.0) sec INR (<1.2) APTT (22.0-30.0) sec D-Dimer (<0.60) mg/L FEU Sodium (137-145) mmol/L Potassium (3.5-5.1) mmol/L Chloride (98-107) mmol/L Carbon Dioxide (22-30) mmol/L Anion Gap mmol/L BUN (7-17) mg/dL Creatinine (0.52-1.04) mg/dL Est GFR (CKD-EPI)AfAm (>60 ml/min/1.73 sqM) Est GFR (CKD-EPI)NonAf (>60 ml/min/1.73 sqM) Glucose (74-99) mg/dL POC Glucose (mg/dL) (75-99) mg/dL POC Glu [employer] ID Calcium (8.4-10.2) mg/dL Magnesium (1.6-2.3) mg/dL Total Bilirubin (0.2-1.3) mg/dL AST (14-36) U/L ALT (9-52) U/L Alkaline Phosphatase (38-126) U/L Troponin I 0.067 H* (0.000-0.034) ng/mL NT-Pro-B Natriuret Pep 5100 pg/mL Total Protein (6.3-8.2) g/dL Albumin (3.5-5.0) g/dL 10/28/18 10/28/18 Range/Units 07:59 11:49 WBC (3.8-10.6) k/uL RBC (3.80-5.40) m/uL Hgb (11.4-16.0) gm/dL Hct (34.0-46.0) % MCV (80.0-100.0) fL MCH (25.0-35.0) pg MCHC (31.0-37.0) g/dL RDW (11.5-15.5) % Plt Count (150-450) k/uL Neutrophils % % Lymphocytes % % Monocytes % % Eosinophils % % Basophils % % Neutrophils # (1.3-7.7) k/uL Lymphocytes # (1.0-4.8) k/uL Monocytes # (0-1.0) k/uL Eosinophils # (0-0.7) k/uL Basophils # (0-0.2) k/uL Anisocytosis Macrocytosis PT (9.0-12.0) sec INR (<1.2) APTT (22.0-30.0) sec D-Dimer (<0.60) mg/L FEU Sodium 140 (137-145) mmol/L Potassium 3.6 (3.5-5.1) mmol/L Chloride 92 L (98-107) mmol/L Carbon Dioxide 30 (22-30) mmol/L Anion Gap 18 mmol/L BUN 100 H (7-17) mg/dL Creatinine 3.45 H (0.52-1.04) mg/dL Est GFR (CKD-EPI)AfAm 13 (>60 ml/min/1.73 sqM) Est GFR (CKD-EPI)NonAf 11 (>60 ml/min/1.73 sqM) Glucose 221 H (74-99) mg/dL POC Glucose (mg/dL) 130 H (75-99) mg/dL POC Glu [employer] ID Emily Das Calcium 9.8 (8.4-10.2) mg/dL Magnesium (1.6-2.3) mg/dL Total Bilirubin (0.2-1.3) mg/dL AST (14-36) U/L ALT (9-52) U/L Alkaline Phosphatase (38-126) U/L Troponin I (0.000-0.034) ng/mL NT-Pro-B Natriuret Pep pg/mL Total Protein (6.3-8.2) g/dL Albumin (3.5-5.0) g/dL - EKG Data -: EKG Interpreted by Me (EKG shows sinus rhythm rate of 81, WA 166, QRS 94, QTc 460) - Radiology Data Radiology results: report reviewed (Chest x-rays negative for acute disease), image reviewed Disposition Clinical Impression: COPD (chronic obstructive pulmonary disease), Acute exacerbation of chronic obstructive airways disease, Systolic congestive heart failure Disposition: ADMITTED IP TO THIS HOSP Condition: Fair Is patient prescribed a controlled substance at d/c from ED?: No
[2018-10-27] MEDS ORDERED: FUROSEMIDE 10 MG/ML 4 ML VIAL IV STA (16:04)
[2018-10-27] MEDS ORDERED: IPRATROPIUM-ALBUTEROL 3 ML NEB INHALATION STA (16:04)
[2018-10-27 16:48] LABS: D-Dimer 0.34 mg/L FEU (<0.60); Partial Thromboplastin Time 24.1 sec (22.0-30.0); Prothrombin Time 10.4 sec (9.0-12.0)
[2018-10-27 16:49] LABS: Anisocytosis Slight; Basophils % (A) 0 %; Eosinophils % (A) 0 %; HCT 24.7 % (34.0-46.0); HGB 8.4 gm/dL (11.4-16.0); Lymphocytes # (A) 0.6 k/uL (1.0-4.8); Lymphocytes % (A) 6 %; MCHC 34.1 g/dL (31.0-37.0); MCV 93.7 fL (80.0-100.0); Macrocytosis Slight; Mean Platelet Volume 10.2; Monocytes # (A) 0.4 k/uL (0-1.0); Monocytes % (A) 4 %; Neutrophils # (A) 8.2 k/uL (1.3-7.7); Neutrophils % (A) 87 %; RBC 2.63 m/uL (3.80-5.40); RDW 19.2 % (11.5-15.5); WBC 9.4 k/uL (3.8-10.6)
[2018-10-27 16:50] LABS: Platelet Count 79 k/uL (150-450)
[2018-10-27 16:58] LABS: Albumin 3.7 g/dL (3.5-5.0); Calcium 9.1 mg/dL (8.4-10.2); Magnesium 1.5 mg/dL (1.6-2.3); Potassium 3.6 mmol/L (3.5-5.1); Total Bilirubin 0.8 mg/dL (0.2-1.3); Total Protein 5.6 g/dL (6.3-8.2)
--- NOTE | 2018-10-27 17:42 | XR ---
EXAMINATION TYPE: XR chest 2V DATE OF EXAM: 10/27/2018 COMPARISON: 10/22/2018 HISTORY: Short of breath TECHNIQUE: Frontal and lateral views of the chest are obtained. FINDINGS: There is no heart failure. There is blunting of right costophrenic angle. There is some li near density at the right lung base. Left lung is clear. Thoracic aorta is atheromatous. Bones are os teopenic. IMPRESSION: There is atelectasis and pleural reaction at the right lung base unchanged compared to recent exam. N ormal heart.
[2018-10-27] MEDS ORDERED: methylPREDNISolone SOD SUCCI 125 MG/2 ML VIAL IV STA (18:44)
[2018-10-27] MEDS ORDERED: FUROSEMIDE 10 MG/ML 4 ML VIAL IV SCH (18:45)
[2018-10-27] MEDS: IPRATROPIUM-ALBUTEROL 3 ML NEB INHALATION SCH (19:42)
[2018-10-27] MEDS: methylPREDNISolone SOD SUCCI 125 MG/2 ML VIAL IV SCH (23:37)
[2018-10-28] MEDS ORDERED: FUROSEMIDE 10 MG/ML 4 ML VIAL IV SCH (06:00)
[2018-10-28] MEDS: methylPREDNISolone SOD SUCCI 125 MG/2 ML VIAL IV SCH ×4 (06:26→23:47)
[2018-10-28 08:45] LABS: Anisocytosis Slight; Basophils % (A) 0 %; Eosinophils % (A) 0 %; HCT 25.8 % (34.0-46.0); HGB 8.5 gm/dL (11.4-16.0); Lymphocytes # (A) 0.4 k/uL (1.0-4.8); Lymphocytes % (A) 5 %; MCH 31.9 pg (25.0-35.0); MCHC 33.1 g/dL (31.0-37.0); MCV 96.3 fL (80.0-100.0); Macrocytosis Slight; Mean Platelet Volume 9.9; Monocytes # (A) 0.2 k/uL (0-1.0); Monocytes % (A) 3 %; Neutrophils # (A) 6.6 k/uL (1.3-7.7); Neutrophils % (A) 92 %; RBC 2.67 m/uL (3.80-5.40); RDW 18.9 % (11.5-15.5); WBC 7.2 k/uL (3.8-10.6)
[2018-10-28 08:55] LABS: Platelet Count 92 k/uL (150-450)
[2018-10-28 08:59] LABS: Calcium 9.8 mg/dL (8.4-10.2); Potassium 3.6 mmol/L (3.5-5.1)
[2018-10-28] MEDS ORDERED: ACETAMINOPHEN TAB 325 MG TAB PO PRN (09:38)
[2018-10-28] MEDS ORDERED: LACTULOSE 20 GM/30 ML CUP PO ONE (09:49)
[2018-10-28] MEDS ORDERED: SODIUM BICARBONATE TAB 650 MG TAB PO STA (09:51)
[2018-10-28] MEDS ORDERED: LEVOTHYROXINE 25 MCG TAB PO STA (09:52)
[2018-10-28] MEDS ORDERED: APIXABAN 2.5 MG TABLET PO STA (09:53)
[2018-10-28] MEDS ORDERED: PANTOPRAZOLE 40 MG TABLET PO STA (09:54)
[2018-10-28] MEDS: IPRATROPIUM-ALBUTEROL 3 ML NEB INHALATION SCH ×4 (10:00→19:02)
[2018-10-28] MEDS ORDERED: METOPROLOL TARTRATE 50 MG TAB PO STA (10:35)
[2018-10-28] MEDS: MAGNESIUM OXIDE 400 MG TAB PO SCH ×2 (10:48→20:52)
[2018-10-28] MEDS: BUDESONIDE 0.5 MG/2 ML NEBU INHALATION SCH ×2 (11:37→19:02)
[2018-10-28 11:53] LABS: Glucose,Whole Blood 130 mg/dL (75-99)
--- NOTE | 2018-10-28 12:35 | CONS ---
CONSULTATION Lizzie Cristobal is an 87-year-old female who presented to the ED at [facility] with increasing shortness of breath. She had been seen by her logistics management specialist yesterday and was more short of breath. She called our office. We asked her to come to the ER. When she came to the ER, she was quite short of breath. She did not improve with conservative care and was admitted for further evaluation. She has been having a cough. No clear fever or chills. Has been having some wheezing, swelling of her lower extremity. She recently had been admitted to the hospital for congestive heart failure. PAST MEDICAL HISTORY: Her past medical history is positive for severe asthma, COPD, hypertension, coronary artery disease, status post [place], history of atrial fibrillation, history of chronic renal failure, history of obstructive sleep apnea for which she is on CPAP, history of previous colonoscopy, his history of left and right knee replacement in the past. FAMILY HISTORY: Family history is positive for coronary artery disease in her mother. SOCIAL HISTORY: Patient is a never smoker. Does not drink alcohol excessively. MEDICATIONS: Her medications prior to admission were Requip, sodium bicarbonate, B complex, acetaminophen, pantoprazole, Paxil, Singulair, Lopressor, Synthroid, lactulose, DuoNeb, Lasix, Norvasc, Pulmicort, Eliquis, Zyloprim, Xanax. ALLERGIES: The patient is allergic to CODEINE, MORPHINE, PENICILLIN, SULFA, and TRAZODONE. PHYSICAL EXAMINATION: On physical examination, respiratory rate is 24, pulse rate is 78, temperature 98, blood pressure 148/73, O2 saturation on 2 L by nasal cannula is 97%. HEENT reveals pupils are equal. There is redundant tissue in the posterior pharynx. Chest reveals decreased breath sounds with prolonged expiration, scattered crackles with expiratory wheeze. Cardiovascular system reveals an S1, S2. Abdomen is soft. There is 1+ pedal edema. White count of 7.2, hemoglobin of 8.5, platelet count of 92,000. Sodium 140, potassium 3.6, chloride 92, bicarb 30, BUN 100, creatinine of 3.45. Troponin 0.067. NT proBNP 5100. Albumin 3.7. Chest x-ray shows atelectasis in the right base with elevation of the right hemidiaphragm. IMPRESSION AT THIS TIME: 1. Severe asthma with acute exacerbation. 2. Doubt chronic obstructive pulmonary disease. 3. Congestive heart failure. 4. Acute on chronic renal failure. 5. Medical debility. 6. History of atrial fibrillation. 7. Anemia, etiology unclear. At this point in time from a pulmonary standpoint, would keep her on IV and aerosolized steroids, optimize her fluid balance. Watch her hemoglobin. Depending on how she does, we should make further changes to her care. She was counseled regarding her condition and this approach. SHYAM / DANIEL: [id number] /
[2018-10-28] MEDS ORDERED: IPRATROPIUM-ALBUTEROL 3 ML NEB INHALATION PRN (12:36)
[2018-10-28 16:57] LABS: Glucose,Whole Blood 262 mg/dL (75-99)
[2018-10-28] MEDS: INSULIN ASPART (NovoLOG) 100 UNIT/ML VIAL SQ SCH ×2 (17:00→20:53)
--- NOTE | 2018-10-28 17:40 | HP ---
HISTORY AND PHYSICAL DATE OF ADMISSION: 10/27/2018 DATE OF SERVICE: 10/28/2018 PRESENTING COMPLAINT: Short of breath. This is a pleasant 87-year-old patient who follows with Visiting Physician Dr. Harp as well as photo tech Dr. Honey Duffy. Chronic stable medical conditions include chronic kidney disease, stage IV, hypertension, coronary artery disease with stent, anxiety, of chronic disease, atrial fibrillation, obstructive sleep apnea, uses CPAP at home, oxygen 2 L, osteoarthritis, hypothyroid. The patient was recently in the hospital, discharged on 10/23/2018, was then seen by Pulmonary, Cardiology and Nephrology. The patient was then admitted with CHF exacerbation, EF being 50% to 60%, and was treated with treated with IV Lasix drip. She was doing well at the time of discharge. The patient presented with worsening shortness of breath that started yesterday. No increase in leg swelling. Later the patient started having a dry cough; no congestion. Admitted for the same. There was no fever or chills. Appetite is okay. Feeling tired and rundown. The patient was seen by Dr. Honey Duffy and admitted with acute asthma exacerbation. Patient's chest x-ray did not show any fluid overload. She did get some Lasix in the ER. The patient does have a dry cough. REVIEW OF SYSTEMS: CONSTITUTIONAL: Tired. HEENT: Decreased hearing. RESPIRATORY: As above. CARDIOVASCULAR: As above. No new edema. GASTROINTESTINAL: None. GENITOURINARY: None. MUSCULOSKELETAL: Pain in the joints. DERMATOLOGICAL: None. HEMATOLOGICAL: None. LYMPHATICS: None. PSYCHIATRY: None. NEUROLOGICAL: None. PAST MEDICAL HISTORY: 1. Atrial fibrillation. 2. Asthma. 3. Hypertension. 4. Coronary artery disease with stent. 5. Chronic kidney disease, stage IV. 6. Anxiety. 7. Anemia of chronic disease. 8. Obstructive sleep apnea. Uses CPAP. 9. Chronic hypoxic respiratory failure, on oxygen 2 L at home. 10.Osteoarthritis. 11.Hypothyroidism. PAST SURGICAL HISTORY: 1. Adenoidectomy. 2. Cholecystectomy. 3. Cardiac cath with stent. 4. Hernia repair. 5. Left and right knee replacement. 6. Oophorectomy. SOCIAL HISTORY: Patient lives at [facility]. She is a . Uses a walker. Has a nebulizer and CPAP and oxygen. No smoking. No alcohol history. FAMILY HISTORY: Coronary artery disease. HOME MEDICATIONS: 1. Requip 0.5 mg p.o. daily. 2. Sodium bicarb 650 mg p.o. daily. 3. Renal Caps 1 mg p.o. daily. 4. Tylenol 325 one to two tablets q.4 p.r.n. 5. Protonix 40 mg p.o. daily. 6. Paxil 20 mg p.o. daily. 7. Singulair 10 mg p.o. daily. 8. Lopressor 50 mg p.o. b.i.d. 9. Synthroid 25 mcg p.o. daily. 10.Lactulose 20 grams p.o. daily. 11.DuoNeb 3 mL q.i.d. p.r.n. 12.DuoNeb b.i.d. 13.Lasix 60 mg b.i.d. 14.Norvasc 2.5 p.o. daily. 15.Pulmicort 0.5 b.i.d. 16.Eliquis 2.5 p.o. b.i.d. 17.Allopurinol 100 mg p.o. daily. 18.Xanax 0.25 p.o. daily. ALLERGIES: 1. CODEINE. 2. MORPHINE. 3. PENICILLIN. 4. SULFA. 5. TRAZODONE. PHYSICAL EXAMINATION: Temperature 99.5, respiration 18, blood pressure 102/47, pulse ox 93% on room air. BMI 30.6. GENERAL APPEARANCE: Average build. Sitting at edge of bed, a bit tired-appearing. EYES: Pupils equal. Conjunctivae normal. HEENT: External appearance of nose and ears normal. Oral cavity normal. NECK: JVD unable to assess. Mass not palpable. RESPIRATORY: Effort increased. LUNGS: Diminished breath sounds. Prolonged expiration. CARDIOVASCULAR: First and second sounds normal. Minimal edema. ABDOMEN: Soft, non-tender. Liver and spleen not palpable. LYMPHATIC: No lymph node palpable in neck or axillae. PSYCHIATRY: Alert and oriented x3. Mood and affect slightly anxious. NEUROLOGICAL: Pupils equal. Cranial nerves grossly intact. Power and sensation grossly intact. MUSCULOSKELETAL: Evidence of osteoarthritis, especially in the knees and hands. INVESTIGATIONS: White count 9.4, hemoglobin 8.4, platelets 79. Potassium 3.6. BUN 98, creatinine 3.26. Repeat 3.45. Patient's BUN and creatinine were 91 and 2.99 on 10/23/2018. Magnesium 1.5. Troponin 0.067. EKG tracing, personally reviewed by me, shows normal sinus rhythm. Chest x-ray film, personally reviewed by me, shows no infiltrate, no pulmonary edema, hyperinflated. ASSESSMENT: 1. Acute exacerbation of moderate persistent asthma. 2. Chronic congestive heart failure exacerbation from diastolic dysfunction, ejection fraction 50% to 60%, from underlying coronary artery disease with no acute exacerbation. 3. Coronary artery disease with stent. 4. Chronic kidney disease, stage IV, from nephrosclerosis. 5. Acute kidney injury, likely prerenal, from diuresis. 6. Essential hypertension. 7. Anxiety not otherwise specified. 8. Anemia of chronic kidney disease secondary to renal failure. 9. Paroxysmal atrial fibrillation, currently in sinus rhythm. 10.Obstructive sleep apnea. Uses CPAP. 11.Chronic hypoxic respiratory failure, on home oxygen 2 L. 12.Primary osteoarthritis. 13.Hypothyroidism. 14.Obesity; body mass index 31.1. 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 16.Moderate mitral regurgitation, non-rheumatic. PLAN: Care was discussed with the patient. The patient is on bronchodilators, IV steroids. Will switch the patient back to oral Lasix. There does not appear to be an acute exacerbation. Consultations were made to Pulmonary and Nephrology and Cardiology. Patient's overall prognosis is guarded. MMODL / IJN: [id number] /
[2018-10-28] MEDS: MONTELUKAST 10 MG TAB PO SCH (18:06)
[2018-10-28] MEDS: PARoxetine 20 MG TAB PO SCH (18:06)
[2018-10-28] MEDS: ALLOPURINOL 100 MG TAB PO SCH (18:06)
[2018-10-28] MEDS ORDERED: ALPRAZolam 0.25 MG TAB PO SCH (19:00)
[2018-10-28 20:27] LABS: Glucose,Whole Blood 276 mg/dL (75-99)
[2018-10-28] MEDS: METOPROLOL TARTRATE 50 MG TAB PO SCH (20:52)
[2018-10-28] MEDS: APIXABAN 2.5 MG TABLET PO SCH (20:52)
[2018-10-29] MEDS: methylPREDNISolone SOD SUCCI 125 MG/2 ML VIAL IV SCH ×3 (06:40→17:07)
[2018-10-29] MEDS: LACTULOSE 20 GM/30 ML CUP PO SCH (06:41)
[2018-10-29] MEDS: SODIUM BICARBONATE TAB 650 MG TAB PO SCH (06:41)
[2018-10-29] MEDS: FOLIC ACID-VIT B COMPLEX-VIT C 1 CAP PO SCH (06:42)
[2018-10-29] MEDS: METOPROLOL TARTRATE 50 MG TAB PO SCH ×2 (06:42→18:38)
[2018-10-29] MEDS: PANTOPRAZOLE 40 MG TABLET PO SCH (06:42)
[2018-10-29] MEDS: amLODIPine 2.5 MG TAB PO SCH (06:42)
[2018-10-29] MEDS: APIXABAN 2.5 MG TABLET PO SCH ×2 (06:42→18:38)
[2018-10-29 06:48] LABS: Glucose,Whole Blood 225 mg/dL (75-99)
[2018-10-29] MEDS: INSULIN ASPART (NovoLOG) 100 UNIT/ML VIAL SQ SCH ×4 (06:59→20:55)
[2018-10-29] MEDS: IPRATROPIUM-ALBUTEROL 3 ML NEB INHALATION SCH ×4 (07:01→20:09)
[2018-10-29] MEDS: BUDESONIDE 0.5 MG/2 ML NEBU INHALATION SCH ×2 (07:01→20:09)
[2018-10-29] MEDS: MAGNESIUM OXIDE 400 MG TAB PO SCH ×2 (08:10→20:55)
[2018-10-29] MEDS: LEVOTHYROXINE 25 MCG TAB PO SCH (08:10)
--- NOTE | 2018-10-29 08:54 | P.CRDCN ---
History of Present Illness Consult date: 10/29/18 Requesting physician: Keyur Ohara Reason for Consult (text): CHF Chief complaint: Shortness of breath, chills History of present illness: This is a pleasant 87-year-old female patient with history of CAD, prior PCI, paroxysmal atrial fibrillation for which she is on Eliquis, COPD hypertension, mitral regurgitation and aortic insufficiency. She follows with Dr. Sutton in the office. She was recently admitted with acute on chronic renal failure and some symptoms of acute on chronic diastolic congestive heart failure. Presented this admission with complaints of significant shortness of breath, wheezing, cough and chills. She does have a history of recent influenza A. Cardiology was asked to the patient consultation this admission for CHF. Upon admission, chest x-ray showed atelectasis and pleural reaction at the right lung base which is unchanged compared to recent exam. Labs on admission showed hemoglobin of 8.4, BUN/creatinine 98, creatinine 3.26, NT proBNP 5184 and 0.067. She has been afebrile. She is current currently maintaining sinus rhythm. She has been initiated on IV steroids. This recent echocardiogram from earlier this month showed normal LV systolic function with an ejection fraction between 55- 60%, mild aortic regurgitation, moderate mitral regurgitation, mild tricuspid regurgitation and moderate pulmonary hypertension with RVSP of 48 mmHg. Upon examination, patient is sitting up in the side of the bed. She is feeling quite a bit better. She continues to wheeze which she says is typical. She denies recent weight gain or worsening edema since previous discharge. She does sleep with the head of her bed up but has done this for quite some time. Past Medical History Past Medical History: Asthma, COPD, Hypertension, Myocardial Infarction ([place]), Renal Disease Additional Past Medical History / Comment(s): Pt recently admitted to [facility] on 10/10/18 with BRANDON/CKD. Other hx: Bronchitis, ELSI with CPap, home oxygen at 2L/NC ATC, CKD stage IV, anemia, thoracic aneurysm, recent influenza, arthritis in hands, gout in toes, hypothyroid, sinus problems, constipation, hemorrhoids. Last Myocardial Infarction Date:: 2010 History of Any Multi-Drug Resistant Organisms: None Reported Past Surgical History: Adenoidectomy, Cholecystectomy, Heart Catheterization With Stent, Hernia Repair, Tonsillectomy Additional Past Surgical History / Comment(s): Hx colonoscopy, left and rt knee replacement hx oopherectomy. Past Anesthesia/Blood Transfusion Reactions: No Reported Reaction Date of Last Stent Placement:: 2010 Past Psychological History: Anxiety Additional Psychological History / Comment(s): Pt now resides at [facility]. She uses a four wheeled walker. She has a nebulizer and CPAP and oxygen. Smoking Status: Never smoker Past Alcohol Use History: None Reported Past Drug Use History: None Reported - Past Family History Mother Family Medical History: Coronary Artery Disease (CAD) Medications and Allergies Home Medications Medication Instructions Recorded Confirmed Type Montelukast [Singulair] 10 mg PO DAILY@189911/06/13 10/27/18 History Allopurinol [Zyloprim] 100 mg PO DAILY@189911/29/16 10/27/18 History PARoxetine [Paxil] 20 mg PO DAILY@189911/29/16 10/27/18 History Acetaminophen Tab [Tylenol] 325 - 650 mg PO Q4H PRN 09/29/18 10/27/18 History B Complex W-C No.20/Folic Acid 1 mg PO DAILY@69909/29/18 10/27/18 History [Renal Caps Softgel] Ipratropium-Albuterol Nebulize 3 ml INHALATION RT-BID 09/29/18 10/27/18 History [Duoneb 0.5 mg-3 mg/3 ml Soln] Lactulose 20 gm PO DAILY@69909/29/18 10/27/18 History Sodium Bicarbonate Tab 650 mg PO DAILY@69909/29/18 10/27/18 History rOPINIRole HCL [Requip] 0.5 mg PO DAILY@189909/29/18 10/27/18 History Levothyroxine Sodium [Synthroid] 25 mcg PO DAILY@79910/07/18 10/27/18 History Pantoprazole Sodium [Protonix] 40 mg PO DAILY@59910/07/18 10/27/18 History amLODIPine [Norvasc] 2.5 mg PO DAILY@69910/07/18 10/27/18 History ALPRAZolam [Xanax] 0.25 mg PO DAILY@189910/19/18 10/27/18 History Budesonide [Pulmicort] 0.5 mg INHALATION RT-BID@1100,1900 10/19/18 10/27/18 History Ipratropium-Albuterol Nebulize 3 ml INHALATION RT-QID PRN 10/19/18 10/27/18 History [Duoneb 0.5 mg-3 mg/3 ml Soln] Apixaban [Eliquis] 2.5 mg PO BID@0700,1900 #60 tablet 10/23/18 10/27/18 Rx Furosemide [Lasix] 60 mg PO BID 10/27/18 10/27/18 History Metoprolol Tartrate [Lopressor] 50 mg PO BID@0700,1900 10/27/18 10/27/18 History Allergies Allergy/AdvReac Type Severity Reaction Status Date / Time codeine Allergy Severe Nausea & Verified 10/27/18 17:26 Vomiting morphine Allergy Severe Nausea & Verified 10/27/18 17:26 Vomiting Penicillins Allergy Rash/Hives Verified 10/27/18 17:26 Sulfa (Sulfonamide Allergy Unknown Verified 10/27/18 17:26 Antibiotics) trazodone AdvReac Unknown Verified 10/27/18 17:26 Physical Exam Vitals: Vital Signs Temp Pulse Pulse Resp BP Pulse Ox 10/29/18 07:10 80 10/29/18 07:04 76 10/29/18 05:13 78 10/29/18 05:04 74 10/29/18 04:00 97.2 F L 74 18 176/78 99 10/29/18 03:46 20 10/29/18 00:00 67 20 10/28/18 23:44 97.5 F L 67 20 145/70 98 10/28/18 20:00 98.3 F 88 20 155/74 98 10/28/18 19:15 88 10/28/18 19:02 86 10/28/18 15:36 97.8 F 78 20 143/67 97 10/28/18 15:31 80 10/28/18 15:15 80 10/28/18 12:00 97.6 F 78 20 136/68 97 10/28/18 11:44 84 10/28/18 11:25 84 10/28/18 09:30 98 F 78 24 148/73 97 Intake and Output 10/28/18 10/29/18 10/29/18 22:59 06:59 14:59 Intake Total 480 Output Total 250 Balance 480 -250 Intake: Oral 480 Output: Urine 250 Other: Voiding Method Toilet Toilet Diaper Diaper Incontinent Incontinent # Voids 4 1 Weight 84.5 kg PHYSICAL EXAMINATION: HEENT: Head is atraumatic, normocephalic. Pupils equal, round. Neck is supple. There is no elevated jugular venous pressure. HEART EXAMINATION: Heart sounds regular, S1 and S2 with a systolic murmur. CHEST EXAMINATION: Lungs are clear to auscultation and precussion. No chest wall tenderness is noted on palpation or with deep breathing. ABDOMEN: Soft, nontender. Bowel sounds are heard. No organomegaly noted. EXTREMITIES: 2+ peripheral pulses with evidence of trace peripheral edema and no calf tenderness noted. NEUROLOGIC patient is awake, alert and oriented x3. . Results 10/28/18 07:59 10/28/18 07:59 CBC 10/28/18 Range/Units 07:59 WBC 7.2 (3.8-10.6) k/uL RBC 2.67 L (3.80-5.40) m/uL Hgb 8.5 L (11.4-16.0) gm/dL Hct 25.8 L (34.0-46.0) % Plt Count 92 L (150-450) k/uL Comprehensive Metabolic Panel 10/28/18 Range/Units 07:59 Sodium 140 (137-145) mmol/L Potassium 3.6 (3.5-5.1) mmol/L Chloride 92 L (98-107) mmol/L Carbon Dioxide 30 (22-30) mmol/L BUN 100 H (7-17) mg/dL Creatinine 3.45 H (0.52-1.04) mg/dL Glucose 221 H (74-99) mg/dL Calcium 9.8 (8.4-10.2) mg/dL Current Medications Generic Name Dose Route Start Last Admin Trade Name Freq PRN Reason Stop Dose Admin Acetaminophen 650 mg 10/28/18 09:38 Tylenol Tab PO Q4H PRN Pain Albuterol/Ipratropium 3 ml 10/27/18 20:00 10/29/18 07:01 Duoneb 0.5 Mg-3 Mg/3 Ml Soln INHALATION 3 ml RT-QID SHERI Administration Albuterol/Ipratropium 3 ml 10/28/18 12:36 10/29/18 05:03 Duoneb 0.5 Mg-3 Mg/3 Ml Soln INHALATION 3 ml RT-Q4H PRN Administration Dyspnea Allopurinol 100 mg 10/28/18 19:00 10/28/18 18:06 Zyloprim PO 100 mg DAILY@1900 SHERI Administration Alprazolam 0.25 mg 10/28/18 12:35 Xanax PO TID PRN Anxiety Amlodipine Besylate 2.5 mg 10/29/18 07:00 10/29/18 06:42 Norvasc PO 2.5 mg DAILY@0700 SHERI Administration Apixaban 2.5 mg 10/28/18 19:00 10/29/18 06:42 Eliquis PO 2.5 mg BID@0700,1900 SHERI Administration Budesonide 0.5 mg 10/28/18 11:00 10/29/18 07:01 Pulmicort INHALATION 0.5 mg RT-BID@1100,1900 SHERI Administration Furosemide 60 mg 10/29/18 09:00 10/29/18 08:10 Lasix PO 60 mg BID@0900,1600 SHERI Administration Insulin Aspart 0 unit 10/28/18 17:30 10/29/18 06:59 Novolog SQ 3 unit ACHS SHERI Administration Protocol Lactulose 20 gm 10/29/18 07:00 10/29/18 06:41 Cephulac PO 20 gm DAILY@0700 SHERI Administration Levothyroxine Sodium 25 mcg 10/29/18 08:00 10/29/18 08:10 Synthroid PO 25 mcg DAILY@0800 SHERI Administration Magnesium Oxide 400 mg 10/28/18 09:45 10/29/18 08:10 Mag-Ox PO 400 mg BID SHERI Administration Methylprednisolone Sodium Succinate 60 mg 10/28/18 00:00 10/29/18 06:40 Solu-Medrol IV 60 mg Q6HR SHERI Administration Metoprolol Tartrate 50 mg 10/28/18 19:00 10/29/18 06:42 Lopressor PO 50 mg BID@0700,1900 SHERI Administration Montelukast Sodium 10 mg 10/28/18 19:00 10/28/18 18:06 Singulair PO 10 mg DAILY@1900 [facility] Administration Multivit/Ca Carb/B Cmplx/FA/Prenat 1 each 10/29/18 07:00 10/29/18 06:42 Nephrocaps PO 1 each DAILY@0700 SHERI Administration Pantoprazole Sodium 40 mg 10/29/18 06:00 10/29/18 06:42 Protonix PO 40 mg DAILY@0600 SHERI Administration Paroxetine HCl 20 mg 10/28/18 19:00 10/28/18 18:06 Paxil PO 20 mg DAILY@1900 SHERI Administration Ropinirole HCl 0.5 mg 10/28/18 19:00 10/28/18 18:06 Requip PO 0.5 mg DAILY@1900 SHERI Administration Sodium Bicarbonate 650 mg 10/29/18 07:00 10/29/18 06:41 Sodium Bicarbonate Tab PO 650 mg DAILY@0700 SHERI Administration Intake and Output 10/28/18 10/29/18 10/29/18 22:59 06:59 14:59 Intake Total 480 Output Total 250 Balance 480 -250 Intake: Oral 480 Output: Urine 250 Other: Voiding Method Toilet Toilet Diaper Diaper Incontinent Incontinent # Voids 4 1 Weight 84.5 kg 10/28/18 07:59 10/28/18 07:59 EKG Interpretations (text) Sinus rhythm with PACs Assessment and Plan Assessment: #1 acute exacerbation COPD #2 chronic diastolic congestive heart failure #3 CAD with prior PCI #4 acute on chronic kidney failure #5 hypertension #6 paroxysmal atrial fibrillation, currently maintaining sinus rhythm #7 obstructive sleep apnea, uses CPAP #8 moderate pulmonary hypertension #9 moderate mitral regurgitation #10 anemia Plan: From cardiology perspective, patient does not appear to be in acute congestive heart failure. Due to worsening renal failure revealed decrease Lasix. Co ntinue to follow renal function, to evaluate and electrolytes. Further recommendations to follow. ATTACHE note has been reviewed, I agree with a documented findings and plan of care. Patient was seen and examined.
[2018-10-29] MEDS ORDERED: FUROSEMIDE 20 MG TAB PO SCH (09:00)
[2018-10-29 12:02] LABS: Glucose,Whole Blood 275 mg/dL (75-99)
--- NOTE | 2018-10-29 12:06 | P.NPCON ---
History of Present Illness - Reason for Consult Consult date: 10/29/18 acute renal failure - Chief Complaint Shortness of breath - History of Present Illness 87-year-old white lady presenting to the hospital with the above complaints. She has CK D stage IV secondary to nephrosclerosis with a baseline creatinine of 2.5-3.0 MG per DL. She has multiple hospital admissions with similar problems. When she presented to the hospital creatinine was slightly above the baseline with 3.28 MG per DL got worse to 3.45 MG per DL yesterday. Nephrology was consulted. She takes Lasix 60 mg oral twice a day at home. X-ray did not show volume overload. No nausea vomiting diarrhea. Currently being treated as COPD exacerbation. Lasix has been decreased to 60 mg oral once a day. No NSAID use or recent contrast studies. Review of Systems Constitutional: Reports as per HPI Past Medical History Past Medical History: Asthma, COPD, Hypertension, Myocardial Infarction ([place]), Renal Disease Additional Past Medical History / Comment(s): Pt recently admitted to [facility] on 10/10/18 with BRANDON/CKD. Other hx: Bronchitis, ELSI with CPap, home oxygen at 2L/[place] ATC, CKD stage IV, anemia, thoracic aneurysm, recent influenza, arthritis in hands, gout in toes, hypothyroid, sinus problems, constipation, hemorrhoids. Last Myocardial Infarction Date:: 2010 History of Any Multi-Drug Resistant Organisms: None Reported Past Surgical History: Adenoidectomy, Cholecystectomy, Heart Catheterization With Stent, Hernia Repair, Tonsillectomy Additional Past Surgical History / Comment(s): Hx colonoscopy, left and rt knee replacement hx oopherectomy. Past Anesthesia/Blood Transfusion Reactions: No Reported Reaction Date of Last Stent Placement:: 2010 Past Psychological History: Anxiety Additional Psychological History / Comment(s): Pt now resides at [facility]. She uses a four wheeled walker. She has a nebulizer and CPAP and oxygen. Smoking Status: Never smoker Past Alcohol Use History: None Reported Past Drug Use History: None Reported - Past Family History Mother Family Medical History: Coronary Artery Disease (CAD) Medications and Allergies Home Medications Medication Instructions Recorded Confirmed Type Montelukast [Singulair] 10 mg PO DAILY@189911/06/13 10/27/18 History Allopurinol [Zyloprim] 100 mg PO DAILY@189911/29/16 10/27/18 History PARoxetine [Paxil] 20 mg PO DAILY@1900 11/29/16 10/27/18 History Acetaminophen Tab [Tylenol] 325 - 650 mg PO Q4H PRN 09/29/18 10/27/18 History B Complex W-C No.20/Folic Acid 1 mg PO DAILY@0700 09/29/18 10/27/18 History [Renal Caps Softgel] Ipratropium-Albuterol Nebulize 3 ml INHALATION RT-BID 09/29/18 10/27/18 History [Duoneb 0.5 mg-3 mg/3 ml Soln] Lactulose 20 gm PO DAILY@0700 09/29/18 10/27/18 History Sodium Bicarbonate Tab 650 mg PO DAILY@0709/29/18 10/27/18 History rOPINIRole HCL [Requip] 0.5 mg PO DAILY@19009/29/18 10/27/18 History Levothyroxine Sodium [Synthroid] 25 mcg PO DAILY@0800 10/07/18 10/27/18 History Pantoprazole Sodium [Protonix] 40 mg PO DAILY@0610/07/18 10/27/18 History amLODIPine [Norvasc] 2.5 mg PO DAILY@0700 10/07/18 10/27/18 History ALPRAZolam [Xanax] 0.25 mg PO DAILY@189910/19/18 10/27/18 History Budesonide [Pulmicort] 0.5 mg INHALATION RT-BID@1100,1900 10/19/18 10/27/18 History Ipratropium-Albuterol Nebulize 3 ml INHALATION RT-QID PRN 10/19/18 10/27/18 History [Duoneb 0.5 mg-3 mg/3 ml Soln] Apixaban [Eliquis] 2.5 mg PO BID@0700,1900 #60 tablet 10/23/18 10/27/18 Rx Furosemide [Lasix] 60 mg PO BID 10/27/18 10/27/18 History Metoprolol Tartrate [Lopressor] 50 mg PO BID@0700,1900 10/27/18 10/27/18 History Allergies Allergy/AdvReac Type Severity Reaction Status Date / Time codeine Allergy Severe Nausea & Verified 10/27/18 17:26 Vomiting morphine Allergy Severe Nausea & Verified 10/27/18 17:26 Vomiting Penicillins Allergy Rash/Hives Verified 10/27/18 17:26 Sulfa (Sulfonamide Allergy Unknown Verified 10/27/18 17:26 Antibiotics) trazodone AdvReac Unknown Verified 10/27/18 17:26 Physical Exam Vitals: Vital Signs Temp Pulse Pulse Resp BP Pulse Ox 10/29/18 11:48 97.9 F 74 20 146/73 100 10/29/18 10:57 76 10/29/18 10:45 72 10/29/18 08:00 97.6 F 74 20 158/74 97 10/29/18 07:10 80 10/29/18 07:04 76 10/29/18 05:13 78 10/29/18 05:04 74 10/29/18 04:00 97.2 F L 74 18 176/78 99 10/29/18 03:46 20 10/29/18 00:00 67 20 10/28/18 23:44 97.5 F L 67 20 145/70 98 10/28/18 20:00 98.3 F 88 20 155/74 98 10/28/18 19:15 88 10/28/18 19:02 86 10/28/18 15:36 97.8 F 78 20 143/67 97 10/28/18 15:31 80 10/28/18 15:15 80 Intake and Output 10/28/18 10/29/18 10/29/18 22:59 06:59 14:59 Intake Total 480 120 Output Total 250 Balance 480 -250 120 Intake: Oral 480 120 Output: Urine 250 Other: Voiding Method Toilet Toilet Toilet Diaper Diaper Diaper Incontinent Incontinent Incontinent # Voids 4 1 Weight 84.5 kg No acute distress lying comfortable in bed S1-S2 heard Diminished breath sounds No edema Results - Lab Results Most recent lab results Calcium 9.8 mg/dL (8.4-10.2) 10/28/18 07:59 Magnesium 1.5 mg/dL (1.6-2.3) L 10/27/18 16:15 10/28/18 07:59 10/28/18 07:59 Assessment and Plan Assessment: #1 acute kidney injury suspect prerenal process from overdiuresis. #2 shortness of breath with COPD exacerbation. #3 hypokalemic metabolic alkalosis secondary to over diuresis. Also could be from COPD. 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 Plan: #1 agree with decreasing Lasix to 60 mg once a day. No new labs today. #2 repeat labs for tomorrow. #3 ultrasound in the past no obstruction. #4 with the current hospital admission and difficulty in maintaining volume status discussed about the need of dialysis for volume related issues. Patient is agreeable but will plan if need arises.
--- NOTE | 2018-10-29 13:25 | PN ---
PROGRESS NOTE DATE OF SERVICE: 10/29/2018 She has been hemodynamically stable. She is less short of breath. PHYSICAL EXAMINATION: Her respiratory rate is 20, pulse rate of 74, temperature 97.9, blood pressure 146/73, O2 saturation on 3 L by nasal cannula is 100%. HEENT reveals pupils are equal, mild prominence of the jugular vein. Chest with decreased breath sounds with prolonged expiration with expiratory wheeze. Cardiovascular system reveals an S1, S2. Abdomen is soft. There is 1+ to 2+ pedal edema. No labs from today other than her blood sugars. IMPRESSION: 1. Asthma with acute exacerbation. 2. Congestive heart failure. 3. Acute on chronic renal failure. Continue to optimize the fluid status. Keep her on IV steroids, bronchodilators, aerosolized steroids. Increase her activity level. May switch to oral steroids tomorrow if she is otherwise stable. MMODL / IJN: [id number] /
[2018-10-29 16:49] LABS: Glucose,Whole Blood 222 mg/dL (75-99)
[2018-10-29] MEDS: ALLOPURINOL 100 MG TAB PO SCH (18:38)
[2018-10-29] MEDS: PARoxetine 20 MG TAB PO SCH (18:38)
[2018-10-29] MEDS: MONTELUKAST 10 MG TAB PO SCH (18:38)
[2018-10-29 20:36] LABS: Glucose,Whole Blood 201 mg/dL (75-99)
--- NOTE | 2018-10-29 20:58 | PN ---
PROGRESS NOTE DATE OF SERVICE: October 29, 2018. PRESENTING COMPLAINT: Short of breath. INTERVAL HISTORY: The patient has multiple medical problems, admitted with acute asthma exacerbation, breathing slightly better, less wheezing. Did tolerate some diet. The patient is also admitted with acute renal failure. Lasix has been cut back. Has been out of bed. REVIEW OF SYSTEMS: Done for constitutional, cardiovascular, GI, pulmonary; relevant findings as above. CURRENT MEDICATIONS: Reviewed that include DuoNeb, IV Solu-Medrol. Lasix 60 mg a day. PHYSICAL EXAMINATION: VITAL SIGNS: Temperature 97.9, pulse 74, respirations 20, blood pressure 146/73, pulse ox 100 percent on 3 L. GENERAL APPEARANCE: Sitting up, looking a bit better. EYES: Pupils are equal. Conjunctivae normal. NECK: JVD unable to assess. Mass not palpable. RESPIRATORY: Effort increased. LUNGS: Decreased breath sounds. Prolonged expiration. Less wheezing. CARDIOVASCULAR: First and second sounds normal. No edema. ABDOMEN: Soft, nontender. Liver and spleen not palpable. PSYCHIATRY: Alert and oriented x3. Mood and affect normal. INVESTIGATIONS: Accu-Cheks are noted. ASSESSMENT: 1. Acute exacerbation of moderate persistent asthma. 2. Chronic congestive heart failure from diastolic dysfunction. Ejection fraction 50- 60 percent from underlying coronary artery disease with no acute exacerbation. 3. Coronary artery disease with stent. 4. 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 5. Acute kidney injury likely prerenal from diuresis. 6. Essential hypertension. 7. Anxiety not otherwise specified. 8. Anemia of chronic kidney disease secondary to renal failure. 9. Paroxysmal atrial fibrillation currently in sinus rhythm. 10.Obstructive sleep apnea uses CPAP. 11.Chronic hypoxic respiratory failure on home oxygen 2 L. 12.Primary osteoarthritis. 13.Hypothyroidism. 14.Obesity; BMI 31.1. 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 16.Moderate mitral regurgitation, nonrheumatic. PLAN: Continue current medication and treatment plan. Care was discussed with the patient. I scaled back the steroids. Repeat labs. MMODL / IJN: [id number] /
[2018-10-30] MEDS: methylPREDNISolone SOD SUCCI 40 MG/ML 1 ML VIAL IV SCH ×3 (00:46→16:33)
[2018-10-30] MEDS: LACTULOSE 20 GM/30 ML CUP PO SCH (06:11)
[2018-10-30] MEDS: SODIUM BICARBONATE TAB 650 MG TAB PO SCH (06:11)
[2018-10-30] MEDS: APIXABAN 2.5 MG TABLET PO SCH ×2 (06:11→17:47)
[2018-10-30] MEDS: METOPROLOL TARTRATE 50 MG TAB PO SCH ×2 (06:11→17:47)
[2018-10-30] MEDS: PANTOPRAZOLE 40 MG TABLET PO SCH (06:11)
[2018-10-30] MEDS: amLODIPine 2.5 MG TAB PO SCH (06:12)
[2018-10-30] MEDS: FOLIC ACID-VIT B COMPLEX-VIT C 1 CAP PO SCH (06:12)
[2018-10-30 06:31] LABS: Glucose,Whole Blood 225 mg/dL (75-99)
[2018-10-30] MEDS: INSULIN ASPART (NovoLOG) 100 UNIT/ML VIAL SQ SCH ×4 (06:33→20:51)
[2018-10-30 07:05] LABS: Calcium 9.7 mg/dL (8.4-10.2); Potassium 3.6 mmol/L (3.5-5.1)
[2018-10-30] MEDS: IPRATROPIUM-ALBUTEROL 3 ML NEB INHALATION SCH ×4 (07:15→21:54)
[2018-10-30] MEDS: BUDESONIDE 0.5 MG/2 ML NEBU INHALATION SCH ×2 (07:15→21:54)
[2018-10-30] MEDS: LEVOTHYROXINE 25 MCG TAB PO SCH (08:07)
[2018-10-30] MEDS: MAGNESIUM OXIDE 400 MG TAB PO SCH ×2 (08:07→20:51)
[2018-10-30] MEDS ORDERED: FUROSEMIDE 20 MG TAB PO SCH (09:00)
--- NOTE | 2018-10-30 09:37 | P.PN ---
Subjective Progress Note Date: 10/30/18 Seen and examined for the follow-up of acute kidney injury. Lying comfortable in the bed. Complaints of constipation. No nausea vomiting. Objective - Vital Signs Vital signs: Vital Signs Temp 98.2 F 10/30/18 08:00 Pulse 80 10/30/18 08:29 Resp 22 10/30/18 08:00 BP 179/78 10/30/18 08:00 Pulse Ox 96 10/30/18 08:00 Intake & Output 10/29/18 10/30/18 10/30/18 18:59 06:59 18:59 Intake Total 600 240 Output Total 650 400 300 Balance -50 -400 -60 Weight 84.2 kg Intake: Oral 600 240 Output: Urine 650 400 300 Other: Voiding Method Toilet Toilet Toilet Diaper Diaper Diaper Incontinent Incontinent Incontinent # Voids 1 1 - Exam No acute distress S1-S2 heard Decreased breath sounds Trace edema - Labs CBC & Chem 7: 10/28/18 07:59 10/30/18 06:09 Labs: Abnormal Lab Results - Last 24 Hours (Table) 10/29/18 10/29/18 10/29/18 Range/Units 11:43 16:45 20:34 Chloride (98-107) mmol/L Carbon Dioxide (22-30) mmol/L BUN (7-17) mg/dL Creatinine (0.52-1.04) mg/dL Glucose (74-99) mg/dL POC Glucose (mg/dL) 275 H 222 H 201 H (75-99) mg/dL 10/30/18 10/30/18 Range/Units 06:09 06:21 Chloride 94 L (98-107) mmol/L Carbon Dioxide 34 H (22-30) mmol/L BUN 123 H* (7-17) mg/dL Creatinine 3.50 H (0.52-1.04) mg/dL Glucose 183 H (74-99) mg/dL POC Glucose (mg/dL) 225 H (75-99) mg/dL Assessment and Plan Assessment: #1 acute kidney injury suspect prerenal process from overdiuresis. #2 shortness of breath with COPD exacerbation. #3 hypokalemic metabolic alkalosis secondary to over diuresis. 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 Plan: #1 elevated BUNs possibilities include steroids and diuretics. Hold diuretics today and challenge with normal saline 0.9 at 75 ML's an hour. #2 repeat labs for tomorrow. #3 ultrasound in the past no obstruction. #4 with recurrent hospital admission and difficulty in maintaining volume status discussed about the need of dialysis for volume related issues. Will plan dialysis if renal function continued to worsen.
--- NOTE | 2018-10-30 11:39 | P.PN ---
Subjective Progress Note Date: 10/30/18 This is a pleasant 87-year-old female patient with history of CAD, prior PCI, paroxysmal atrial fibrillation for which she is on Eliquis, COPD hypertension, mitral regurgitation and aortic insufficiency. She follows with Dr. Sutton in the office. She was recently admitted with acute on chronic renal failure and some symptoms of acute on chronic diastolic congestive heart failure. Presented this admission with complaints of significant shortness of breath, wheezing, cough and chills. She does have a history of recent influenza A. Cardiology was asked to the patient consultation this admission for CHF. Upon admission, chest x-ray showed atelectasis and pleural reaction at the right lung base which is unchanged compared to recent exam. Labs on admission showed hemoglobin of 8.4, BUN/creatinine 98, creatinine 3.26, NT proBNP 5184 and 0.067. She has been afebrile. She is current currently maintaining sinus rhythm. She has been initiated on IV steroids. This recent echocardiogram from earlier this month showed normal LV systolic function with an ejection fraction between 55- 60%, mild aortic regurgitation, moderate mitral regurgitation, mild tricuspid regurgitation and moderate pulmonary hypertension with RVSP of 48 mmHg. Lasix was switched to 60 mg by mouth daily yesterday. Labs this morning show a B1 of 123 and creatinine of 3.5. She is being followed by nephrology was ordered to hold Lasix at this time and to give IV fluids. Upon examination, patient is resting comfortably in bed, head of bed flat. She feels her breathing is better. She does continue to have a wheeze however the patient says she normally has a wheeze. She has no lower extremity edema, no orthopnea or PND. Objective - Vital Signs Vital signs: Vital Signs Temp 98.2 F 10/30/18 08:00 Pulse 72 10/30/18 10:56 Resp 22 10/30/18 08:00 BP 179/78 10/30/18 08:00 Pulse Ox 96 10/30/18 08:00 Intake & Output 10/29/18 10/30/18 10/30/18 18:59 06:59 18:59 Intake Total 600 240 Output Total 650 400 300 Balance -50 -400 -60 Weight 84.2 kg Intake: Oral 600 240 Output: Urine 650 400 300 Other: Voiding Method Toilet Toilet Toilet Diaper Diaper Diaper Incontinent Incontinent Incontinent # Voids 1 1 - Exam PHYSICAL EXAMINATION: HEENT: Head is atraumatic, normocephalic. Pupils equal, round. Neck is supple. There is no elevated jugular venous pressure. HEART EXAMINATION: Heart sounds regular, S1 and S2 with a systolic murmur. CHEST EXAMINATION: Lungs reveal diminished air entry bilaterally with expiratory wheezing throughout. No chest wall tenderness is noted on palpation or with deep breathing. ABDOMEN: Soft, nontender. Bowel sounds are heard. No organomegaly noted. EXTREMITIES: 2+ peripheral pulses with evidence of trace peripheral edema and no calf tenderness noted. NEUROLOGIC patient is awake, alert and oriented x3. - Labs CBC & Chem 7: 10/28/18 07:59 10/30/18 06:09 Labs: Abnormal Lab Results - Last 24 Hours (Table) 10/29/18 10/29/18 10/29/18 Range/Units 11:43 16:45 20:34 Chloride (98-107) mmol/L Carbon Dioxide (22-30) mmol/L BUN (7-17) mg/dL Creatinine (0.52-1.04) mg/dL Glucose (74-99) mg/dL POC Glucose (mg/dL) 275 H 222 H 201 H (75-99) mg/dL 10/30/18 10/30/18 Range/Units 06:09 06:21 Chloride 94 L (98-107) mmol/L Carbon Dioxide 34 H (22-30) mmol/L BUN 123 H* (7-17) mg/dL Creatinine 3.50 H (0.52-1.04) mg/dL Glucose 183 H (74-99) mg/dL POC Glucose (mg/dL) 225 H (75-99) mg/dL Assessment and Plan Assessment: #1 acute exacerbation COPD #2 chronic diastolic congestive heart failure #3 CAD with prior PCI #4 acute on chronic kidney failure #5 hypertension #6 paroxysmal atrial fibrillation, currently maintaining sinus rhythm #7 obstructive sleep apnea, uses CPAP #8 moderate pulmonary hypertension #9 moderate mitral regurgitation #10 anemia Plan: From cardiology perspective, patient does not appear to be in acute congestive heart failure. Due to worsening renal failure we agree with holding Lasix and cautious IV fluid administration at this time. Continue to follow renal function, to evaluate and electrolytes. Further recommendations to follow. GUEST EXPERIENCE REPRESENTATIVE note has been reviewed, I agree with a documented findings and plan of care. Patient was seen and examined.
[2018-10-30 11:47] LABS: Glucose,Whole Blood 154 mg/dL (75-99)
[2018-10-30] MEDS: SODIUM CHLORIDE 0.9% 1,000 ML IV SCH (12:17)
--- NOTE | 2018-10-30 16:37 | PN ---
PROGRESS NOTE DATE OF SERVICE: October 30, 2018. She continues to have shortness of breath, but is doing somewhat better overall. On physical examination, her respiratory rate is 18, pulse rate of 74, temperature 98, blood pressure 155/88, O2 saturation on 3 L by nasal cannula is 98%. HEENT is unremarkable. CHEST: Reveals expiratory wheeze. CARDIOVASCULAR: S1, S2. ABDOMEN: Soft. EXTREMITIES: There is 1+ to 2+ pedal edema. LABORATORY DATA: Sodium is 137, potassium 3.6, chloride 94, bicarb 34, BUN 123, creatinine of 3.5. IMPRESSION: 1. Shortness of breath secondary to asthma exacerbation. 2. Congestive heart failure. 3. Acute on chronic renal failure. At this point in time, continue her on IV steroids, bronchodilators, aerosolized steroids. Continue apixaban regarding her atrial fibrillation. Increase activity level. Prognosis is fair. MMODL / IJN: [id number] /
[2018-10-30 17:01] LABS: Glucose,Whole Blood 251 mg/dL (75-99)
[2018-10-30] MEDS: ALLOPURINOL 100 MG TAB PO SCH (17:47)
[2018-10-30] MEDS: PARoxetine 20 MG TAB PO SCH (17:47)
[2018-10-30] MEDS: MONTELUKAST 10 MG TAB PO SCH (17:47)
[2018-10-30 20:16] LABS: Glucose,Whole Blood 238 mg/dL (75-99)
--- NOTE | 2018-10-31 00:07 | PN ---
PROGRESS NOTE DATE OF SERVICE: October 30, 2018. PRESENTING COMPLAINT: Short of breath. INTERVAL HISTORY: Patient presented with acute asthma exacerbation. Feeling slowly better. Did tolerate some diet. Walked to the bathroom. Also had acute renal failure. Feeling a bit better though tired. REVIEW OF SYSTEMS: Done for constitutional, cardiovascular, GI, pulmonary; relevant findings as above. CURRENT MEDICATIONS: Reviewed that include DuoNeb, IV Solu-Medrol, Eliquis, IV Lasix and IV saline. Lasix has been held. PHYSICAL EXAMINATION: VITAL SIGNS: Temperature 98.5, pulse 84, respiration 14, blood pressure 144/65, pulse ox 94 percent on 2 L. GENERAL APPEARANCE: Sitting up, a bit tired. EYES: Pupils are equal. Conjunctivae normal. NECK: JVD unable to assess. Mass not palpable. RESPIRATORY: Effort increased. LUNGS: Diminished breath sounds. Prolonged expiration. CARDIOVASCULAR: 1st and 2nd sounds normal. No edema. ABDOMEN: Soft, nontender. Liver and spleen not palpable. PSYCHIATRY: Alert and oriented x3. Mood and affect normal. INVESTIGATIONS: Potassium 3.6, BUN 123, creatinine 3.50, bicarb 34. ASSESSMENT: 1. Acute exacerbation of moderate persistent asthma. 2. Chronic congestive heart failure, diastolic dysfunction. Ejection fraction 50-60 percent from underlying coronary artery disease and no acute exacerbation. 3. Coronary artery disease with stent. 4. 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 5. Acute kidney injury likely prerenal from diuresis worsening. 6. Essential hypertension. 7. Anxiety not otherwise specified. 8. Anemia of chronic kidney disease. Acute renal failure. 9. Paroxysmal atrial fibrillation currently in sinus rhythm. 10.Obstructive sleep apnea uses CPAP. 11.Chronic hypoxic respiratory failure on home oxygen 2 L. 12.Primary osteoarthritis. 13.Hypothyroidism. 14.Obesity; BMI 31.1. 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 16.Moderate mitral regurgitation, nonrheumatic. PLAN: Lasix of course has been held. Patient has been put on IV fluids. The patient probably will be here another day or 2 depending on renal function and functional status. MMODL / IJN: [id number] /
[2018-10-31] MEDS: SODIUM CHLORIDE 0.9% 1,000 ML IV SCH ×2 (06:04→08:59)
[2018-10-31] MEDS: PANTOPRAZOLE 40 MG TABLET PO SCH (06:04)
[2018-10-31] MEDS: IPRATROPIUM-ALBUTEROL 3 ML NEB INHALATION SCH ×4 (07:07→19:24)
[2018-10-31] MEDS: BUDESONIDE 0.5 MG/2 ML NEBU INHALATION SCH ×2 (07:07→19:24)
[2018-10-31 07:16] LABS: Glucose,Whole Blood 155 mg/dL (75-99)
[2018-10-31] MEDS: INSULIN ASPART (NovoLOG) 100 UNIT/ML VIAL SQ SCH ×4 (07:41→21:58)
[2018-10-31 08:21] LABS: Calcium 9.7 mg/dL (8.4-10.2); Potassium 3.6 mmol/L (3.5-5.1)
[2018-10-31] MEDS: LEVOTHYROXINE 25 MCG TAB PO SCH (08:54)
[2018-10-31] MEDS: SODIUM BICARBONATE TAB 650 MG TAB PO SCH (08:54)
[2018-10-31] MEDS: APIXABAN 2.5 MG TABLET PO SCH ×2 (08:54→21:48)
[2018-10-31] MEDS: amLODIPine 2.5 MG TAB PO SCH (08:55)
[2018-10-31] MEDS: MAGNESIUM OXIDE 400 MG TAB PO SCH ×2 (08:55→21:48)
[2018-10-31] MEDS: LACTULOSE 20 GM/30 ML CUP PO SCH (08:55)
[2018-10-31] MEDS: METOPROLOL TARTRATE 50 MG TAB PO SCH ×2 (08:55→21:48)
[2018-10-31] MEDS: methylPREDNISolone SOD SUCCI 40 MG/ML 1 ML VIAL IV SCH ×2 (08:55→21:48)
[2018-10-31] MEDS ORDERED: POTASSIUM CHLORIDE ER 20 MEQ TAB.ER PO STA (10:34)
--- NOTE | 2018-10-31 10:34 | P.PN ---
Subjective Patient is seen in follow-up for acute kidney injury on chronic kidney disease. Patient has chronic kidney disease stage IV secondary to nephrosclerosis with baseline creatinine near 3. Renal function is little better today. BUN remains elevated which is partially due to steroids. No active bleeding. Denies chest pain or shortness of breath. Oral intake has been fair. She has been voiding. Vital signs are stable. General: The patient appeared well nourished and normally developed. HEENT: Head exam is unremarkable. Neck is without jugular venous distension. LUNGS: Breath sounds decreased. HEART: Rate and Rhythm are regular. First and second heart sounds normal. No murmurs, rubs or gallops. ABDOMEN: Abdominal exam reveals normal bowel sounds. Non-tender and non- distended. No evidence of peritonitis. EXTREMITITES: 1+ edema. Objective - Vital Signs Vital signs: Vital Signs Temp 98.3 F 10/31/18 07:00 Pulse 72 10/31/18 07:24 Resp 14 10/31/18 07:00 BP 151/71 10/31/18 07:00 Pulse Ox 90 L 10/31/18 07:00 Intake & Output 10/30/18 10/31/18 10/31/18 18:59 06:59 18:59 Intake Total 780 Output Total 500 Balance 280 Weight 85.5 kg Intake: Intake, IV Titration 300 Amount Sodium Chloride 0.9% 1, 300 000 ml @ 75 mls/hr IV . [id number] [facility] Rx#:[id number] Oral 480 Output: Urine 500 Other: Voiding Method Toilet Toilet Toilet Diaper Diaper Diaper Incontinent Incontinent Incontinent # Voids 1 # Bowel Movements 1 0 - Labs CBC & Chem 7: 10/28/18 07:59 10/31/18 07:10 Labs: Abnormal Lab Results - Last 24 Hours (Table) 10/30/18 10/30/18 10/30/18 Range/Units 11:41 16:58 20:14 Chloride (98-107) mmol/L Carbon Dioxide (22-30) mmol/L BUN (7-17) mg/dL Creatinine (0.52-1.04) mg/dL Glucose (74-99) mg/dL POC Glucose (mg/dL) 154 H 251 H 238 H (75-99) mg/dL 10/31/18 10/31/18 Range/Units 07:01 07:10 Chloride 95 L (98-107) mmol/L Carbon Dioxide 32 H (22-30) mmol/L BUN 127 H* (7-17) mg/dL Creatinine 3.21 H (0.52-1.04) mg/dL Glucose 132 H (74-99) mg/dL POC Glucose (mg/dL) 155 H (75-99) mg/dL Assessment and Plan Plan: Assessment: 1. Acute kidney injury mostly prerenal secondary to diuresis. Renal function a little better today. Creatinine 3.21. 2. Chronic kidney disease stage IV secondary to nephrosclerosis with baseline creatinine near 3. 3. Diastolic CHF. Currently compensated. 4. Dyspnea secondary to COPD exacerbation. 5. Disproportionally elevated BUN partially due to steroids. 6. Hypokalemic metabolic acidosis secondary to steroids. Plan: Hep-Lock IV fluids. Discontinue sodium bicarbonate. Replace potassium. 40 mEq today. Repeat electrolytes in the morning.
[2018-10-31 12:04] LABS: Glucose,Whole Blood 179 mg/dL (75-99)
[2018-10-31] MEDS: FOLIC ACID-VIT B COMPLEX-VIT C 1 CAP PO SCH (12:47)
--- NOTE | 2018-10-31 14:05 | PN ---
PROGRESS NOTE DATE OF SERVICE: 10/31/2018 PRESENTING COMPLAINT: Tired. INTERVAL HISTORY: Patient presented with acute asthma exacerbation. Still tired, tolerating some diet, shortness of breath present. Minimal cough. REVIEW OF SYSTEMS: Done for constitutional, cardiovascular, GI, pulmonary; relevant findings as above. CURRENT MEDICATIONS: Reviewed, include IV Solu-Medrol, DuoNeb. PHYSICAL EXAMINATION: Temperature 98.3, pulse 65, respiration 14, blood pressure 115/71, pulse ox 98% on 8 L BiPAP. GENERAL APPEARANCE: Lying in bed, a bit tired. EYES: Pupils equal, conjunctivae are normal. NECK: JVD unable to assess. Mass not palpable. RESPIRATORY: Effort increased. LUNGS: Decreased breath sounds, some prolonged expiration. CARDIOVASCULAR: First and second sounds normal, no edema. ABDOMEN: Soft, nontender. Liver and spleen not palpable. PSYCHIATRY: Awake, answering questions, oral cavity possible pharyngeal white spots. INVESTIGATIONS: Potassium 3.6, BUN 127, creatinine 3.21. ASSESSMENT: 1. Acute exacerbation of moderate persistent asthma. 2. Oropharyngeal thrush. 3. Chronic congestive heart failure from diastolic dysfunction. Ejection fraction 50% to 60% from underlying coronary artery disease with no acute exacerbation. 4. Coronary artery with stent. 5. Chronic kidney disease stage IV from nephrosclerosis. 6. Acute kidney injury from prerenal from diuresis, now stabilized. 7. Essential hypertension. 8. Anxiety, not otherwise specified. 9. Anemia of chronic kidney disease. 10.Acute renal failure. 11.Paroxysmal atrial fibrillation, currently in sinus rhythm. 12.Obstructive sleep apnea, uses CPAP. 13.Chronic hypoxic respiratory failure on home oxygen 2 L. 14.Primary osteoarthritis. 15.Hypothyroidism. 16.Obesity; body mass index 31.1. 17.Secondary pulmonary hypertension due to asthma and congestive heart failure. 18.Moderate mitral regurgitation, nonrheumatic. PLAN: Patient's creatinine has started to turn around. Keep a close eye on the same. Repeat electrolytes tomorrow. Encouraged to be out of bed. MMODL / IJN: [id number] /
[2018-10-31] MEDS: FLUCONAZOLE 100 MG TAB PO ONE ×2 (14:49→15:41)
--- NOTE | 2018-10-31 15:03 | P.PN ---
Subjective This is a pleasant 87-year-old female past medical history significant for coronary artery disease status post PCI, paroxysmal atrial fibrillation on long-term anticoagulation, COPD, hypertension, mitral regurgitation and aortic insufficiency. She follows with Dr. Sutton in the office. She is seen and examined sitting up resting comfortably in bed in no acute distress. She states overall her breathing feels better and seems to be more back to baseline. She denies symptoms of chest discomfort, dizziness or palpitations. She is coughing but not bringing up any significant amount of sputum. Blood pressure 153/68 heart rate 73 afebrile maintaining oxygen saturation on nasal cannula. Laboratory data reviewed, sodium 137, potassium 3.6, BUN 127, creatinine 3.21. GENERAL: Well-appearing, well-nourished and in no acute distress. NECK: Supple without JVD or thyromegaly. LUNGS: Scattered rhonchi, faint expiratory wheeze and no rales. Respiration equal and unlabored. HEART: Regular rate and rhythm with systolic ejection murmur at the base, no rubs or gallops. S1 and S2 heard. EXTREMITIES: Normal range of motion, trace nonpitting edema. No clubbing or cyanosis. Peripheral pulses intact. ASSESSMENT Acute exacerbation of COPD Chronic diastolic heart failure, currently euvolemic Acute on chronic kidney failure Hypertension Paroxysmal atrial fibrillation currently maintaining sinus mechanism on long- term anticoagulation Pulmonary hypertension, moderate History of coronary artery disease Mitral regurgitation PLAN Continue current medical regimen. REsume diuretics as appropriate per nephrology. Overall stable from a cardiac perspective. We will follow as needed. Follow up with Dr. Sutton upon discharge. Nurse Practitioner note has been reviewed, I agree with a documented findings and plan of care. Patient was seen and examined. Objective - Vital Signs Vital signs: Vital Signs Temp 98 F 10/31/18 14:38 Pulse 73 10/31/18 14:38 Resp 16 10/31/18 14:38 BP 153/68 10/31/18 14:38 Pulse Ox 98 10/31/18 14:38 Intake & Output 10/30/18 10/31/18 10/31/18 18:59 06:59 18:59 Intake Total 780 Output Total 500 1 Balance 280 -1 Weight 85.5 kg Intake: Intake, IV Titration 300 Amount Sodium Chloride 0.9% 1, 300 000 ml @ 75 mls/hr IV . [id number] [facility] Rx#:[id number] Oral 480 Output: Urine 500 Stool 1 Other: Voiding Method Toilet Toilet Toilet Diaper Diaper Diaper Incontinent Incontinent Incontinent # Voids 1 1 # Bowel Movements 1 0 - Labs CBC & Chem 7: 10/28/18 07:59 10/31/18 07:10 Labs: Abnormal Lab Results - Last 24 Hours (Table) 10/30/18 10/30/18 10/31/18 Range/Units 16:58 20:14 07:01 Chloride (98-107) mmol/L Carbon Dioxide (22-30) mmol/L BUN (7-17) mg/dL Creatinine (0.52-1.04) mg/dL Glucose (74-99) mg/dL POC Glucose (mg/dL) 251 H 238 H 155 H (75-99) mg/dL 10/31/18 10/31/18 Range/Units 07:10 11:48 Chloride 95 L (98-107) mmol/L Carbon Dioxide 32 H (22-30) mmol/L BUN 127 H* (7-17) mg/dL Creatinine 3.21 H (0.52-1.04) mg/dL Glucose 132 H (74-99) mg/dL POC Glucose (mg/dL) 179 H (75-99) mg/dL
[2018-10-31 16:33] LABS: Iron Saturation 26.48 (12.00-45.00)
[2018-10-31 16:48] LABS: Glucose,Whole Blood 229 mg/dL (75-99)
--- NOTE | 2018-10-31 17:32 | PN ---
PROGRESS NOTE DATE OF SERVICE: 10/31/2018 She was seen on October2018. She has been hemodynamically stable. She seems less short of breath. On physical examination, respiratory rate is 16, pulse rate of 73, temperature 98 degrees Fahrenheit, blood pressure 153/68, O2 saturation on 3 L by nasal cannula is 98%. HEENT is unremarkable study except for prominent jugular veins. CHEST: Reveals decreased breath sounds with prolonged exhalation and expiratory wheeze. CARDIOVASCULAR SYSTEM: S1, S2. ABDOMEN is soft. EXTREMITIES: There is 1+ pedal edema. LABORATORY DATA: BUN is 127, creatinine 3.21. IMPRESSION: At this time is: 1. Asthma with acute exacerbation. 2. Congestive heart failure. 3. Acute on chronic renal failure. Continue IV steroids, bronchodilators, aerosolized steroids. Increase her activity level. If able to, maintain nutrition. MMODL / IJN: [id number] /
[2018-10-31] MEDS: PARoxetine 20 MG TAB PO SCH (21:48)
[2018-10-31] MEDS: ALLOPURINOL 100 MG TAB PO SCH (21:48)
[2018-10-31] MEDS: MONTELUKAST 10 MG TAB PO SCH (21:48)
[2018-10-31 21:55] LABS: Glucose,Whole Blood 244 mg/dL (75-99)
[2018-11-01] MEDS: PANTOPRAZOLE 40 MG TABLET PO SCH (06:02)
[2018-11-01] MEDS: INSULIN ASPART (NovoLOG) 100 UNIT/ML VIAL SQ SCH ×4 (07:38→20:40)
[2018-11-01] MEDS: IPRATROPIUM-ALBUTEROL 3 ML NEB INHALATION SCH ×5 (08:38→21:01)
[2018-11-01] MEDS: BUDESONIDE 0.5 MG/2 ML NEBU INHALATION SCH ×3 (08:38→21:01)
[2018-11-01 09:06] LABS: Calcium 9.7 mg/dL (8.4-10.2); Magnesium 1.8 mg/dL (1.6-2.3); Potassium 4.6 mmol/L (3.5-5.1)
--- NOTE | 2018-11-01 10:21 | XR ---
EXAMINATION TYPE: XR chest 1V portable DATE OF EXAM: 11/01/2018 COMPARISON: 10/27/2018 HISTORY: Shortness of breath and wheezing TECHNIQUE: Single frontal view of the chest is obtained. FINDINGS: There is slight chronic right hemidiaphragm elevation. Prominence of the left aorticopulmo nary window is seen a nonemergent chest CT is recommended to ensure this relates to prominent pulmona ry vasculature rather than mediastinal adenopathy or mass. No focal consolidation, pleural effusion o r pneumothorax is seen. No acute osseous abnormality. Mild degenerative changes of the shoulders. IMPRESSION: 1. Chronic right hemidiaphragm elevation. No acute cardiopulmonary process. 2. Similar prominence of the left aorticopulmonary window may relate to enlarged main pulmonary arter y or less likely mediastinal adenopathy. Nonemergent chest CT could further evaluate this finding.
--- NOTE | 2018-11-01 10:53 | P.PN ---
Subjective Patient is seen in follow-up for acute kidney injury on chronic kidney disease. Patient has chronic kidney disease stage IV secondary to nephrosclerosis with baseline creatinine near 3. Renal function is improving. BUN remains elevated which is partially due to steroids. No active bleeding. Denies chest pain or shortness of breath. Oral intake has been fair. She has been voiding. Vital signs are stable. General: The patient appeared well nourished and normally developed. HEENT: Head exam is unremarkable. Neck is without jugular venous distension. LUNGS: Breath sounds decreased. HEART: Rate and Rhythm are regular. First and second heart sounds normal. No murmurs, rubs or gallops. ABDOMEN: Abdominal exam reveals normal bowel sounds. Non-tender and non- distended. No evidence of peritonitis. EXTREMITITES: Trace edema. Objective - Vital Signs Vital signs: Vital Signs Temp 97.5 F L 10/31/18 23:00 Pulse 84 11/01/18 09:52 Resp 15 11/01/18 07:00 BP 162/75 11/01/18 07:00 Pulse Ox 100 11/01/18 07:00 Intake & Output 10/31/18 11/01/18 11/01/18 18:59 06:59 18:59 Intake Total 750 Output Total 1 3 Balance -1 747 Weight 88.8 kg Intake: Oral 750 Output: Urine 3 Stool 1 0 Other: Voiding Method Toilet Toilet Diaper Diaper Incontinent Incontinent # Voids 1 2 - Labs CBC & Chem 7: 10/28/18 07:59 11/01/18 07:47 Labs: Abnormal Lab Results - Last 24 Hours (Table) 10/31/18 10/31/18 10/31/18 Range/Units 07:19 11:48 16:36 BUN (7-17) mg/dL Creatinine (0.52-1.04) mg/dL Glucose (74-99) mg/dL POC Glucose (mg/dL) 179 H 229 H (75-99) mg/dL TIBC 219 L (228-460) ug/dL Ferritin 1369.3 H (10.0-291.0) ng/mL 10/31/18 11/01/18 Range/Units 21:26 07:47 BUN 129 H* (7-17) mg/dL Creatinine 2.78 H (0.52-1.04) mg/dL Glucose 157 H (74-99) mg/dL POC Glucose (mg/dL) 244 H (75-99) mg/dL TIBC (228-460) ug/dL Ferritin (10.0-291.0) ng/mL Assessment and Plan Plan: Assessment: 1. Acute kidney injury mostly prerenal secondary to diuresis. Renal function improving. Creatinine 2.78. 2. Chronic kidney disease stage IV secondary to nephrosclerosis with baseline creatinine near 3. 3. Diastolic CHF. Currently compensated. 4. Dyspnea secondary to COPD exacerbation. 5. Disproportionally elevated BUN partially due to steroids. 6. Hypokalemic metabolic acidosis secondary to steroids. Better. Plan: Potential discharge today. She may resume Lasix 60 mg once daily starting this , November 2. She will need to follow-up outpatient in the next 1 week.
[2018-11-01] MEDS: METOPROLOL TARTRATE 50 MG TAB PO SCH ×2 (11:33→20:39)
[2018-11-01] MEDS: LACTULOSE 20 GM/30 ML CUP PO SCH (11:33)
[2018-11-01] MEDS: LEVOTHYROXINE 25 MCG TAB PO SCH (11:34)
[2018-11-01] MEDS: APIXABAN 2.5 MG TABLET PO SCH ×2 (11:34→20:39)
[2018-11-01] MEDS: FOLIC ACID-VIT B COMPLEX-VIT C 1 CAP PO SCH (11:34)
[2018-11-01] MEDS: methylPREDNISolone SOD SUCCI 40 MG/ML 1 ML VIAL IV SCH ×2 (11:34→20:39)
[2018-11-01] MEDS: amLODIPine 2.5 MG TAB PO SCH (11:34)
[2018-11-01] MEDS: FLUCONAZOLE 100 MG TAB PO SCH (11:34)
[2018-11-01] MEDS: MAGNESIUM OXIDE 400 MG TAB PO SCH ×2 (11:34→20:39)
[2018-11-01] MEDS: ALPRAZolam 0.25 MG TAB PO PRN (11:40)
[2018-11-01 12:25] LABS: Glucose,Whole Blood 155 mg/dL (75-99)
--- NOTE | 2018-11-01 15:01 | P.PN ---
Subjective Progress Note Date: 11/01/18 11/01/2018: Patient seen and examined sitting up at bedside. The patient is very tachypnea get short of breath. She is currently on 3 L nasal cannula. She is asking for a breathing treatment. She is also complaining of a bloody nose and is asking if her oxygen can be humidified. She states that she is much more short of breath today. Objective - Vital Signs Vital signs: Vital Signs Temp 97.5 F L 10/31/18 23:00 Pulse 81 11/01/18 13:58 Resp 15 11/01/18 13:58 BP 162/75 11/01/18 07:00 Pulse Ox 100 11/01/18 07:00 Intake & Output 10/31/18 11/01/18 11/01/18 18:59 06:59 18:59 Intake Total 750 480 Output Total 1 3 Balance -1 747 480 Weight 88.8 kg Intake: Oral 750 480 Output: Urine 3 Stool 1 0 Other: Voiding Method Toilet Toilet Toilet Diaper Diaper Diaper Incontinent Incontinent Incontinent # Voids 1 1 # Bowel Movements 1 - Exam Gen.: Patient is alert and oriented 3, no acute distress Cardiovascular: Regular rate and rhythm, S1/S2 Lungs: Diminished breath sounds bilaterally with scattered crackles Abdomen: Soft nontender nondistended positive bowel sounds Extremities 1-2+ edema - Labs CBC & Chem 7: 10/28/18 07:59 11/01/18 07:47 Labs: Abnormal Lab Results - Last 24 Hours (Table) 10/31/18 10/31/18 10/31/18 Range/Units 07:19 16:36 21:26 BUN (7-17) mg/dL Creatinine (0.52-1.04) mg/dL Glucose (74-99) mg/dL POC Glucose (mg/dL) 229 H 244 H (75-99) mg/dL TIBC 219 L (228-460) ug/dL Ferritin 1369.3 H (10.0-291.0) ng/mL 11/01/18 11/01/18 Range/Units 07:47 12:13 BUN 129 H* (7-17) mg/dL Creatinine 2.78 H (0.52-1.04) mg/dL Glucose 157 H (74-99) mg/dL POC Glucose (mg/dL) 155 H (75-99) mg/dL TIBC (228-460) ug/dL Ferritin (10.0-291.0) ng/mL Assessment and Plan Assessment: Acute exacerbation of CHF, diastolic Cardiomegaly Small bilateral pleural effusions Acute hypoxic respiratory failure Acute exacerbation of moderate COPD Recent Pseudomonas pneumonia and Influenza A Obstructive sleep apnea, compliant with CPAP Acute kidney injury on chronic kidney disease stage IV Anemia of chronic disease Depression History of coronary artery disease, stenting Thrombocytopenia Hypertension Mild PCM O2 to maintain saturation greater than or equal to 90% Steroid taper Pulmicort, Perforomist Singulair Incentive spirometry and pulmonary hygiene CPAP nightly and as needed GI and DVT prophylaxis Consult PT and OT CXR now Hum;idify O2
--- NOTE | 2018-11-01 18:14 | NM ---
EXAMINATION TYPE: NM pul vent and perfuse DATE OF EXAM: 11/01/2018 COMPARISON: Radiograph 11/01/2018 HISTORY: Hypoxia with wheezing TECHNIQUE: Utilizing inhalation of 68.4 mCi Tc 99m DTPA aerosol and intravenous injection of 5.2 mCi of Tc 99m MAA, ventilation and perfusion images are acquired post injection in multiple projections. FINDINGS: The radiotracer distribution is moderately heterogeneous throughout the right and left lung. There is a prominently matched right lower lobe defect. No mismatched defects. IMPRESSION: Low probability for the diagnosis of pulmonary embolism.
[2018-11-01 18:27] LABS: Glucose,Whole Blood 210 mg/dL (75-99)
[2018-11-01 20:35] LABS: Glucose,Whole Blood 259 mg/dL (75-99)
[2018-11-01] MEDS: PARoxetine 20 MG TAB PO SCH (20:39)
[2018-11-01] MEDS: MONTELUKAST 10 MG TAB PO SCH (20:39)
[2018-11-01] MEDS: ALLOPURINOL 100 MG TAB PO SCH (20:39)
--- NOTE | 2018-11-01 23:46 | PN ---
PROGRESS NOTE DATE OF SERVICE: November 01, 2018. PRESENTING COMPLAINT: Tired. INTERVAL HISTORY: This patient presented with acute asthma exacerbation. Does use BiPAP. This morning had another bout of exacerbation. Dr. Vasquez had ordered the chest x-ray that came back to be unremarkable. When I came in patient was using a BiPAP, she was feeling much better to improved. REVIEW OF SYSTEMS: Done for constitutional, cardiovascular, GI, pulmonary; relevant findings as above. CURRENT MEDICATIONS: Reviewed that include DuoNeb, IV Solu-Medrol, Diflucan. PHYSICAL EXAMINATION: VITAL SIGNS: Temperature 97.5, pulse 79, respiration 16, blood pressure 160/76, pulse ox 92 percent on 3 L. GENERAL APPEARANCE: Sitting up, the BiPAP in place. EYES: Pupils equal. Conjunctivae normal. NECK JVD unable to assess. Mass not palpable. RESPIRATORY: Effort increased. LUNGS: Decreased breath sounds, prolonged expiration. CARDIOVASCULAR: 1st and 2nd sounds normal. No edema. ABDOMEN: Soft, nontender. Liver and spleen not palpable. PSYCHIATRY: Answering questions appropriately. INVESTIGATIONS: Potassium 4.6, BUN 126, creatinine 2.78. Accu-Cheks are noted. ASSESSMENT: 1. Acute exacerbation of moderate persistent asthma with appears to have a episode of flare up this morning doing better by this afternoon. 2. V/Q scan was ordered later in the day that came back low probability. 3. Oropharyngeal thrush. 4. Chronic congestive heart failure from diastolic dysfunction. Ejection fraction 50- 60 percent underlying coronary artery disease with acute exacerbation. 5. Coronary artery disease with stent. 6. 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 7. Acute kidney injury from prerenal from dialysis. 8. Essential hypertension. 9. Anxiety not otherwise specified. 10.Anemia of chronic kidney disease. 11.Acute renal failure with increased BUN from steroids. 12.Paroxysmal atrial fibrillation currently in sinus rhythm. 13.Obstructive sleep apnea uses CPAP. 14.Chronic hypoxic respiratory failure on home oxygen 2 L. 15.Primary osteoarthritis. 16.Hypothyroidism. 17.Obesity; BMI 31.1. 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 19.Moderate mitral regurgitation, nonrheumatic. PLAN: Spoke to Dr. Sue earlier today. From renal standpoint, patient doing better. I spoke to Dr. Vsaquez from Pulmonary. Given the episode she had earlier today, though we had looked at the chest x-ray, no different V/Q scan was ordered that turned out to be low probability. The patient will be watched for another [address] Vasquez and depending how she does tomorrow, she will decide from there. Also manager social work is involved. The patient has some concerns about a roommate at the place where she lives. This will be handled at the local level by the parties where she lives. Otherwise, other medical treatment is to continue. Arlene had been temporally held. MMODL / IJN: [id number] /
[2018-11-02] MEDS: PANTOPRAZOLE 40 MG TABLET PO SCH (05:38)
[2018-11-02 07:12] LABS: Glucose,Whole Blood 175 mg/dL (75-99)
[2018-11-02] MEDS: amLODIPine 2.5 MG TAB PO SCH (07:52)
[2018-11-02] MEDS: LACTULOSE 20 GM/30 ML CUP PO SCH (07:52)
[2018-11-02] MEDS: MAGNESIUM OXIDE 400 MG TAB PO SCH ×2 (07:53→21:07)
[2018-11-02] MEDS: FOLIC ACID-VIT B COMPLEX-VIT C 1 CAP PO SCH (07:53)
[2018-11-02] MEDS: FLUCONAZOLE 100 MG TAB PO SCH (07:53)
[2018-11-02] MEDS: APIXABAN 2.5 MG TABLET PO SCH ×2 (07:53→21:07)
[2018-11-02] MEDS: LEVOTHYROXINE 25 MCG TAB PO SCH (07:53)
[2018-11-02] MEDS: METOPROLOL TARTRATE 50 MG TAB PO SCH (07:53)
[2018-11-02] MEDS: INSULIN ASPART (NovoLOG) 100 UNIT/ML VIAL SQ SCH ×4 (07:54→21:07)
[2018-11-02] MEDS: IPRATROPIUM-ALBUTEROL 3 ML NEB INHALATION SCH ×4 (08:21→20:38)
[2018-11-02 09:27] LABS: Calcium 10.3 mg/dL (8.4-10.2); Potassium 4.9 mmol/L (3.5-5.1)
[2018-11-02] MEDS: methylPREDNISolone SOD SUCCI 40 MG/ML 1 ML VIAL IV SCH ×2 (11:04→16:00)
--- NOTE | 2018-11-02 11:32 | P.PN ---
Subjective On-call hospitalist covering for Dr. milligan This is a pleasant 87 years old female with past medical history of COPD on home oxygen at 2 L via NC., hypertension, congestive heart failure and atrial fibrillation, coronary artery disease, stage IV CKD, thoracic aortic aneurysm, gout, hypothyroidism, constipation. He is a patient of Dr. Alanis in the outpatient setting. Patient presents because of dyspnea Secondary to acute COPD exacerbation, he has been evaluated by maintenance repairer who found her in chronic diastolic heart failure with no need for further intervention. Patient is using BiPAP at night. Her blood pressure is elevated and this morning 185/63. The urine is 1:30, creatinine 2.9. Sugar is controlled. WBC 7.2K, hemoglobin 8.5. Platelets 92. She has low probability for PE in V/Q scan Patient usually use the BiPAP at night only, over the last 2 days she is using 2 and a day. Patient still wheezings and she cannot come off the BiPAP this morning without being short of breath. Chest x-ray from from yesterday reviewed Discussed with the staff CONSTITUTIONAL: No fever, no malaise, no fatigue. HEENT: No recent visual problems or hearing problems. Denied any sore throat. CARDIOVASCULAR: No orthopnea, PND, no palpitations, no syncope. PULMONARY: No shortness of breath, no cough, no hemoptysis. GASTROINTESTINAL: No diarrhea, no nausea, no vomiting, no abdominal pain. Normoactive bowel sounds. NEUROLOGICAL: No headaches, no weakness, no numbness. HEMATOLOGICAL: Denies any bleeding or petechiae. GENITOURINARY: Denies any burning micturition, frequency, or urgency. MUSCULOSKELETAL/RHEUMATOLOGICAL: Denies any joint pain, swelling, or any muscle pain. ENDOCRINE: Denies any polyuria or polydipsia. Medication: Tylenol, albuterol, Xanax, Norvasc, Eliquis, Pulmicort, NovoLog, lactulose, Synthroid, magnesium oxide, subdural, Lopressor, Singulair, Protonix, Paxil, Requip. Objective - Vital Signs Vital signs: Vital Signs Temp 97.6 F 11/02/18 07:00 Pulse 74 11/02/18 08:32 Resp 14 11/02/18 07:00 BP 185/63 11/02/18 07:00 Pulse Ox 100 11/02/18 07:00 Intake & Output 11/01/18 11/02/18 11/02/18 18:59 06:59 18:59 Intake Total 480 475 236 Balance 480 475 236 Weight 88.5 kg Intake: Oral 480 475 236 Other: Voiding Method Toilet Toilet Diaper Bedside Commode Incontinent Diaper Incontinent # Voids 3 # Bowel Movements 1 - Exam GENERAL: The patient is alert and oriented x3, not in any acute distress. Well developed, well nourished. HEENT: Pupils are round and equally reacting to light. EOMI. No scleral icterus. No conjunctival pallor. Normocephalic, atraumatic. No pharyngeal erythema. No thyromegaly. CARDIOVASCULAR: S1 and S2 present. No murmurs, rubs, or gallops. -PULMONARY: Chest is clear to auscultation, scattered expiratory wheezing and prolonged expiration on both sides ABDOMEN: Soft, nontender, nondistended, normoactive bowel sounds. No palpable organomegaly. MUSCULOSKELETAL: No joint swelling or deformity. EXTREMITIES: No cyanosis, clubbing, or pedal edema. NEUROLOGICAL: Gross neurological examination did not reveal any focal deficits. SKIN: No rashes. - Labs CBC & Chem 7: 10/28/18 07:59 11/02/18 08:23 Labs: Abnormal Lab Results - Last 24 Hours (Table) 11/01/18 11/01/18 11/01/18 Range/Units 12:13 18:11 20:18 BUN (7-17) mg/dL Creatinine (0.52-1.04) mg/dL Glucose (74-99) mg/dL POC Glucose (mg/dL) 155 H 210 H 259 H (75-99) mg/dL Calcium (8.4-10.2) mg/dL 11/02/18 11/02/18 Range/Units 07:01 08:23 BUN 130 H* (7-17) mg/dL Creatinine 2.91 H (0.52-1.04) mg/dL Glucose 208 H (74-99) mg/dL POC Glucose (mg/dL) 175 H (75-99) mg/dL Calcium 10.3 H (8.4-10.2) mg/dL Assessment and Plan Assessment: Acute COPD exacerbation History of atrial fibrillation, rate controlled. On long-term anticoagulation. Acute kidney injury, and chronic kidney disease Elevated troponin, present on admission. Evaluated by maintenance repairer. Mostly secondary to her kidney disease Chronic diastolic heart failure, Essential hypertension History of coronary artery disease CKD stage IV, Baseline creatinine near 3. History of thoracic aortic aneurysm History of gout Hypothyroidism History of constipation Plan: This is a pleasant 87 female who presents with COPD and acute kidney injury. Patient's creatinine is improved close to baseline. Her breathing is improving on therapy with steroids but to increase her frequency of the medicine. , continue antibiotics, we'll start her on Levaquin for as per pulmonary team recommendation. Continue with breathing treatment and oxygen. BiPAP therapy. Pulmonary and nephrology consult.Labs and medication were reviewed.. Continue same treatment. Continue with symptomatic treatment. Resume home medication. Monitor lytes and vitals. DVT and GI prophylaxis. Further recommendations of the clinical course of the patient DVT prophylaxis Eliquis GI Prophylaxis Protonix PT/OT Home health care Prognosis is guarded
[2018-11-02] MEDS ORDERED: LEVOFLOXACIN 500MG-D5W PMX 500 MG in DEXTROSE/WATER 1 100ML.BAG IVPB SCH (12:00)
[2018-11-02 12:05] LABS: Glucose,Whole Blood 187 mg/dL (75-99)
--- NOTE | 2018-11-02 12:39 | PN ---
PROGRESS NOTE DATE OF SERVICE: 11/02/2018 The patient has been hemodynamically stable. She is less short of breath. On physical examination, her blood pressure is 185/63, respiratory rate of 14, pulse rate of 66, temperature 97.6, O2 saturation on 3 L by nasal cannula is 99%. HEENT is unremarkable. Chest reveals decreased breath sounds with faint expiratory wheeze. Cardiovascular system reveals an S1, S2. Abdomen is soft. There is trace pedal edema. Sodium is 137, potassium 4.9, chloride 98, bicarb 28, BUN 130, creatinine of 2.91, calcium of 10.3. IMPRESSION: 1. Asthma with acute exacerbation. 2. Congestive heart failure. 3. Acute renal failure. 4. Coronary artery disease. 5. Obstructive sleep apnea. Continue current medications. Increase activity level. Her prognosis is fair. MMODL / IJN: [id number] /
--- NOTE | 2018-11-02 12:45 | P.PN ---
Subjective Patient is seen in follow-up for acute kidney injury on chronic kidney disease. Patient has chronic kidney disease stage IV secondary to nephrosclerosis with baseline creatinine near 3. Renal function is at baseline. BUN remains elevated which is partially due to steroids. No active bleeding. Denies chest pain. Oral intake has been fair. She has been voiding. Patient has more wheezing today. Vital signs are stable. General: The patient appeared well nourished and normally developed. HEENT: Head exam is unremarkable. Neck is without jugular venous distension. LUNGS: Breath sounds decreased. Scattered wheezing. HEART: Rate and Rhythm are regular. First and second heart sounds normal. No murmurs, rubs or gallops. ABDOMEN: Abdominal exam reveals normal bowel sounds. Non-tender and non- distended. No evidence of peritonitis. EXTREMITITES: Trace edema. Objective - Vital Signs Vital signs: Vital Signs Temp 97.6 F 11/02/18 07:00 Pulse 80 11/02/18 12:20 Resp 14 11/02/18 07:00 BP 185/63 11/02/18 07:00 Pulse Ox 100 11/02/18 07:00 Intake & Output 11/01/18 11/02/18 11/02/18 18:59 06:59 18:59 Intake Total 480 475 236 Balance 480 475 236 Weight 88.5 kg Intake: Oral 480 475 236 Other: Voiding Method Toilet Toilet Diaper Bedside Commode Incontinent Diaper Incontinent # Voids 3 # Bowel Movements 1 - Labs CBC & Chem 7: 10/28/18 07:59 11/02/18 08:23 Labs: Abnormal Lab Results - Last 24 Hours (Table) 11/01/18 11/01/18 11/02/18 Range/Units 18:11 20:18 07:01 BUN (7-17) mg/dL Creatinine (0.52-1.04) mg/dL Glucose (74-99) mg/dL POC Glucose (mg/dL) 210 H 259 H 175 H (75-99) mg/dL Calcium (8.4-10.2) mg/dL 11/02/18 11/02/18 Range/Units 08:23 11:53 BUN 130 H* (7-17) mg/dL Creatinine 2.91 H (0.52-1.04) mg/dL Glucose 208 H (74-99) mg/dL POC Glucose (mg/dL) 187 H (75-99) mg/dL Calcium 10.3 H (8.4-10.2) mg/dL Assessment and Plan Plan: Assessment: 1. Acute kidney injury mostly prerenal secondary to diuresis. Renal function at baseline now. 2. Chronic kidney disease stage IV secondary to nephrosclerosis with baseline creatinine near 3. 3. Diastolic CHF. Currently compensated. 4. Dyspnea secondary to COPD exacerbation. 5. Disproportionally elevated BUN partially due to steroids. 6. Hypokalemic metabolic acidosis secondary to steroids. Better. Plan: Chest x-ray reveals no evidence of fluid overload. Can resume oral Lasix 60 mg once daily starting tomorrow. Repeat electrolytes in the morning. Calcium level slightly on the higher side. She is not on any calcium supple mentation. Monitor.
[2018-11-02] MEDS: BUDESONIDE 0.5 MG/2 ML NEBU INHALATION SCH (12:53)
[2018-11-02] MEDS: hydrALAZINE HCL 50 MG TAB PO SCH ×2 (13:51→21:07)
--- NOTE | 2018-11-02 15:14 | P.CONS ---
History of Present Illness - Chief Complaint Medical debility - History of Present Illness I had the opportunity to see patient for inpatient rehab consultation with regard to medical debility. She was admitted to [facility] November 26 with shortness of breath. Noted to have COPD exacerbation, acute on chronic kidney disease, paroxysmal active fibrillation. Seen by cardiology, nephrology and Dr. NED Duffy. Moderate perfusion scan low probability. Chest x-ray demonstrates chronic right hemidiaphragm elevation and mediastinal adenopathy. PT and OT just prescribed. Previous functional history as elicited from patient: Patient poor historian but she is right-handed. Review of Systems Review of systems: ENT: Denies sneezes or discharge. Eyes: Denies discharge or photophobia. Cardiac: Denies chest pain or palpitation. Pulmonary:shortness of breath. Wearing CPAP. Breast: Denies discharge or lumps. Gastrointestinal: Denies nausea, emesis, constipation, diarrhea. Genitourinary: Denies discharge or frequency. Musculoskeletal: Denies muscle or bone aches. Neurologic: Poor historian. Endocrine: Denies shakes or sweats. Oncology: Denies cancers. Dermatologic: Denies rash, itching, pruritus. ALLERGY/immunology: Denies sneezes, rashes. Past Medical History Past Medical History: Asthma, COPD, Hypertension, Myocardial Infarction (GA), Renal Disease Additional Past Medical History / Comment(s): Pt recently admitted to [facility] on 10/10/18 with BRANDON/CKD. Other hx: Bronchitis, ELSI with CPap, home oxygen at 2L/ NC ATC, CKD stage IV, anemia, thoracic aneurysm, recent influenza, arthritis in hands, gout in toes, hypothyroid, sinus problems, constipation, hemorrhoids. Last Myocardial Infarction Date:: 2010 History of Any Multi-Drug Resistant Organisms: None Reported Past Surgical History: Adenoidectomy, Cholecystectomy, Heart Catheterization With Stent, Hernia Repair, Tonsillectomy Additional Past Surgical History / Comment(s): Hx colonoscopy, left and rt knee replacement hx oopherectomy Past Anesthesia/Blood Transfusion Reactions: No Reported Reaction Date of Last Stent Placement:: 2010 Past Psychological History: Anxiety Smoking Status: Never smoker Past Alcohol Use History: None Reported Past Drug Use History: None Reported - Past Family History Mother Family Medical History: Coronary Artery Disease (CAD) Medications and Allergies Home Medications Medication Instructions Recorded Confirmed Type Montelukast [Singulair] 10 mg PO DAILY@1900 05/05/14 04/25/19 History Allopurinol [Zyloprim] 100 mg PO DAILY@189911/29/16 10/27/18 History PARoxetine [Paxil] 20 mg PO DAILY@189911/29/16 10/27/18 History Acetaminophen Tab [Tylenol] 325 - 650 mg PO Q4H PRN 09/29/18 10/27/18 History B Complex W-C No.20/Folic Acid 1 mg PO DAILY@69909/29/18 10/27/18 History [Renal Caps Softgel] Ipratropium-Albuterol Nebulize 3 ml INHALATION RT-BID 09/29/18 10/27/18 History [Duoneb 0.5 mg-3 mg/3 ml Soln] Lactulose 20 gm PO DAILY@69909/29/18 10/27/18 History Sodium Bicarbonate Tab 650 mg PO DAILY@69909/29/18 10/27/18 History rOPINIRole HCL [Requip] 0.5 mg PO DAILY@189909/29/18 10/27/18 History Levothyroxine Sodium [Synthroid] 25 mcg PO DAILY@79910/07/18 10/27/18 History Pantoprazole Sodium [Protonix] 40 mg PO DAILY@59910/07/18 10/27/18 History amLODIPine [Norvasc] 2.5 mg PO DAILY@69910/07/18 10/27/18 History ALPRAZolam [Xanax] 0.25 mg PO DAILY@189910/19/18 10/27/18 History Budesonide [Pulmicort] 0.5 mg INHALATION RT-BID@1100,189910/19/18 10/27/18 History Ipratropium-Albuterol Nebulize 3 ml INHALATION RT-QID PRN 10/19/18 10/27/18 History [Duoneb 0.5 mg-3 mg/3 ml Soln] Apixaban [Eliquis] 2.5 mg PO BID@07,1899 #60 tablet 10/23/18 10/27/18 Rx Furosemide [Lasix] 60 mg PO BID 10/27/18 10/27/18 History Metoprolol Tartrate [Lopressor] 50 mg PO BID@0700,1900 10/27/18 10/27/18 History Allergies Allergy/AdvReac Type Severity Reaction Status Date / Time codeine Allergy Severe Nausea & Verified 10/27/18 17:26 Vomiting morphine Allergy Severe Nausea & Verified 10/27/18 17:26 Vomiting Penicillins Allergy Rash/Hives Verified 10/27/18 17:26 Sulfa (Sulfonamide Allergy Unknown Verified 10/27/18 17:26 Antibiotics) trazodone AdvReac Unknown Verified 10/27/18 17:26 Physical Exam Vitals: Vital Signs Temp Pulse Pulse Resp BP Pulse Ox 11/02/18 14:28 98 F 74 16 162/80 97 11/02/18 12:20 80 11/02/18 12:10 78 11/02/18 08:32 74 11/02/18 08:21 72 11/02/18 07:00 97.6 F 66 14 185/63 100 11/02/18 02:03 98.1 F 73 20 159/81 100 11/01/18 21:22 80 11/01/18 21:16 97.8 F 71 20 136/69 100 11/01/18 21:01 76 11/01/18 16:32 84 11/01/18 16:21 84 Intake and Output 11/02/18 11/02/18 11/02/18 06:59 14:59 22:59 Intake Total 475 532 Balance 475 532 Intake: Oral 475 532 Other: # Voids 3 # Bowel Movements 1 Weight 88.5 kg Skin: Good color, texture, turgor. General: Overweight build and comfortable appearance. Head: Normocephalic, atraumatic. Eyes: Symmetric. Pupils equal round. Ears: Symmetric. Hearing within normal limits. Mouth: Clear. Neck: Supple. Carotid without bruit. Cardiac: Regular rate and rhythm. Lungs: Clear anteriorly and posteriorly. Abdomen: Soft active nontender. Extremities: Normal tone. Neurological: Mental status: Cooperative but poor historian. Cranial nerves: Symmetric facial tone and trapezius. Motor: Can elevate all 4 limbs but poor in legs. Sensation: Intact throughout. DTRs: Symmetric and equal throughout. Mobility: Requires assistance for bed mobility. Results CBC & Chem 7: 10/28/18 07:59 11/02/18 08:23 Labs: Abnormal Lab Results - Last 24 Hours (Table) 11/01/18 11/01/18 11/02/18 Range/Units 18:11 20:18 07:01 BUN (7-17) mg/dL Creatinine (0.52-1.04) mg/dL Glucose (74-99) mg/dL POC Glucose (mg/dL) 210 H 259 H 175 H (75-99) mg/dL Calcium (8.4-10.2) mg/dL 11/02/18 11/02/18 Range/Units 08:23 11:53 BUN 130 H* (7-17) mg/dL Creatinine 2.91 H (0.52-1.04) mg/dL Glucose 208 H (74-99) mg/dL POC Glucose (mg/dL) 187 H (75-99) mg/dL Calcium 10.3 H (8.4-10.2) mg/dL Assessment and Plan (1) Acute exacerbation of chronic obstructive airways disease Current Visit: Yes Status: Acute Code(s): J44.1 - CHRONIC OBSTRUCTIVE PULMONARY DISEASE W (ACUTE) EXACERBATION SNOMED Code(s): 846669611 (2) Cellulitis of right lower leg Current Visit: No Status: Acute Code(s): L03.115 - CELLULITIS OF RIGHT LOWER LIMB SNOMED Code(s): 342871236 Plan: Impression: 1. Medical debility. 2. COPD exacerbation. 3. CHF exacerbation. 4. Acute on chronic kidney disease. 5. Paroxysmal and fibrillation. 6. Hypertension. 7. Asthma. 8. Coronary artery disease with history of GA. Parkinson plan: At this time PT and OT are ordered. I have added speech therapy for communication and cognition. Unsure of patient's supports for return to home as patient is poor historian.
[2018-11-02 16:56] LABS: Glucose,Whole Blood 187 mg/dL (75-99)
[2018-11-02] MEDS: BUDESONIDE 1 MG/2 ML NEBU INHALATION SCH (20:38)
[2018-11-02] MEDS: FORMOTEROL FUMARATE 20 MCG/2 ML NEBU INHALATION SCH (20:38)
[2018-11-02 20:58] LABS: Glucose,Whole Blood 245 mg/dL (75-99)
[2018-11-02] MEDS: METOPROLOL TARTRATE 25 MG TAB PO SCH (21:06)
[2018-11-02] MEDS: MONTELUKAST 10 MG TAB PO SCH (21:07)
[2018-11-02] MEDS: PARoxetine 20 MG TAB PO SCH (21:07)
[2018-11-02] MEDS: ALLOPURINOL 100 MG TAB PO SCH (21:07)
[2018-11-03] MEDS: methylPREDNISolone SOD SUCCI 40 MG/ML 1 ML VIAL IV SCH ×4 (00:18→17:14)
[2018-11-03] MEDS: PANTOPRAZOLE 40 MG TABLET PO SCH (06:09)
[2018-11-03 07:09] LABS: Glucose,Whole Blood 187 mg/dL (75-99)
[2018-11-03] MEDS: METOPROLOL TARTRATE 25 MG TAB PO SCH ×2 (07:55→21:05)
[2018-11-03] MEDS: MAGNESIUM OXIDE 400 MG TAB PO SCH ×2 (07:55→21:05)
[2018-11-03] MEDS: amLODIPine 2.5 MG TAB PO SCH (07:55)
[2018-11-03] MEDS: LACTULOSE 20 GM/30 ML CUP PO SCH (07:56)
[2018-11-03] MEDS: hydrALAZINE HCL 50 MG TAB PO SCH ×2 (07:56→21:05)
[2018-11-03] MEDS: INSULIN ASPART (NovoLOG) 100 UNIT/ML VIAL SQ SCH ×4 (07:56→21:05)
[2018-11-03] MEDS: LEVOTHYROXINE 25 MCG TAB PO SCH (07:56)
[2018-11-03] MEDS: FOLIC ACID-VIT B COMPLEX-VIT C 1 CAP PO SCH (07:56)
[2018-11-03] MEDS: APIXABAN 2.5 MG TABLET PO SCH ×2 (07:56→21:05)
[2018-11-03] MEDS: FORMOTEROL FUMARATE 20 MCG/2 ML NEBU INHALATION SCH ×2 (08:09→22:37)
[2018-11-03] MEDS: BUDESONIDE 1 MG/2 ML NEBU INHALATION SCH ×2 (08:09→22:37)
[2018-11-03] MEDS: IPRATROPIUM-ALBUTEROL 3 ML NEB INHALATION SCH ×4 (08:09→22:37)
[2018-11-03 09:57] LABS: Magnesium 1.8 mg/dL (1.6-2.3); Potassium 5.1 mmol/L (3.5-5.1)
[2018-11-03 10:04] VITALS: BMI 30.9
--- NOTE | 2018-11-03 10:35 | XR ---
EXAMINATION TYPE: XR chest 1V DATE OF EXAM: 11/03/2018 COMPARISON: 11/01/2018 HISTORY: Hypoxia, shortness of breath, wheezing TECHNIQUE: Single frontal view of the chest is obtained. FINDINGS: There is slight chronic right hemidiaphragm elevation. Copious soft tissues partially obsc ure the lung bases. New strand-like density is seen at the right paratracheal airspace. Remainder the lungs are clear. Cardiomediastinal silhouette is stable and upper limits of normal. No acute osseous pathology. IMPRESSION: New right paratracheal airspace disease that may represent atelectasis or developing pne umonia. Attention on follow-up exams.
--- NOTE | 2018-11-03 11:19 | PN ---
PROGRESS NOTE She is less short of breath. She is feeling somewhat better overall. PHYSICAL EXAMINATION: Respiratory rate is 16, pulse rate is 63, temperature 97.7, O2 sat on room air is 88%, blood pressure 174/79. HEENT is unremarkable. Chest reveals prolonged exhalation, only wheeze on forced exhalation. Cardiovascular system reveals an S1, S2. Abdomen is soft. There is no pedal edema. IMPRESSION: 1. Congestive heart failure for which she is doing better. X-ray shows some improvement. 2. Elevation of right hemidiaphragm that is chronic. 3. Asthma with exacerbation. 4. Acute on chronic renal failure. 5. Acute respiratory failure due to hypoxemia. At this point in time, increase her activity level. Optimize the fluid status. Nephro and Cardiology are following. Increase her activity level. MMODL / IJN: [id number] /
[2018-11-03 11:54] LABS: Glucose,Whole Blood 167 mg/dL (75-99)
--- NOTE | 2018-11-03 13:35 | P.PN ---
Subjective Patient is seen in follow-up for acute kidney injury on chronic kidney disease. Patient has chronic kidney disease stage IV secondary to nephrosclerosis with baseline creatinine near 3. Renal function is at baseline. BUN remains elevated which is partially due to steroids. No active bleeding. Denies chest pain. Oral intake has been fair. She has been voiding. Family is present at bedside. They state she has been hallucinating. Vital signs are stable. General: The patient appeared well nourished and normally developed. HEENT: Head exam is unremarkable. Neck is without jugular venous distension. LUNGS: Breath sounds decreased. Scattered wheezing. HEART: Rate and Rhythm are regular. First and second heart sounds normal. No murmurs, rubs or gallops. ABDOMEN: Abdominal exam reveals normal bowel sounds. Non-tender and non-distend ed. No evidence of peritonitis. EXTREMITITES: Trace edema. Objective - Vital Signs Vital signs: Vital Signs Temp 97.7 F 11/03/18 07:00 Pulse 82 11/03/18 11:40 Resp 16 11/03/18 07:00 BP 174/79 11/03/18 07:00 Pulse Ox 88 L 11/03/18 07:00 Intake & Output 11/02/18 11/03/18 11/03/18 18:59 06:59 18:59 Intake Total 928 992 Balance 928 992 Weight 86.8 kg 86.8 kg Intake: Oral 928 992 Other: Voiding Method Toilet Bedside Commode Diaper Incontinent # Voids 1 3 - Labs CBC & Chem 7: 10/28/18 07:59 11/03/18 09:13 Labs: Abnormal Lab Results - Last 24 Hours (Table) 11/02/18 11/02/18 11/03/18 Range/Units 16:45 20:46 06:56 Sodium (137-145) mmol/L Chloride (98-107) mmol/L BUN (7-17) mg/dL Creatinine (0.52-1.04) mg/dL Glucose (74-99) mg/dL POC Glucose (mg/dL) 187 H 245 H 187 H (75-99) mg/dL 11/03/18 11/03/18 Range/Units 09:13 11:42 Sodium 133 L (137-145) mmol/L Chloride 96 L (98-107) mmol/L BUN 129 H* (7-17) mg/dL Creatinine 2.89 H (0.52-1.04) mg/dL Glucose 146 H (74-99) mg/dL POC Glucose (mg/dL) 167 H (75-99) mg/dL Assessment and Plan Plan: Assessment: 1. Acute kidney injury mostly prerenal secondary to diuresis. Renal function at baseline now. 2. Chronic kidney disease stage IV secondary to nephrosclerosis with baseline creatinine near 3. 3. Diastolic CHF. Currently compensated. 4. Dyspnea secondary to COPD exacerbation. 5. Disproportionally elevated BUN partially due to steroids. 6. Hypokalemic metabolic alkalosis secondary to steroids. Better. 7. Confusion. Patient has been hallucinating. Suspect this is steroid-in duced. 8. Anemia of chronic kidney disease maintained on Aranesp. Plan: Resume Lasix 60 mg orally once daily. Avoid nephrotoxins. Continue to monitor renal function and urine output. Family considering palliative care.
[2018-11-03] MEDS: FUROSEMIDE 20 MG TAB PO SCH (13:51)
--- NOTE | 2018-11-03 14:02 | P.PN ---
Subjective On-call hospitalist covering for Dr. Ohara This is a pleasant 87 years old female with past medical history of COPD on home oxygen at 2 L via NC., hypertension, congestive heart failure and atrial fibrillation, coronary artery disease, stage IV CKD, thoracic aortic aneurysm, gout, hypothyroidism, constipation. He is a patient of Dr. Alanis in the outpatient setting. Patient presents because of dyspnea Secondary to acute COPD exacerbation, he has been evaluated by director of hospitality who found her in chronic diastolic heart failure with no need for further intervention. Patient is using BiPAP at night. Her blood pressure is elevated and this morning 185/63. The urine is 1:30, creatinine 2.9. Sugar is controlled. WBC 7.2K, hemoglobin 8.5. Platelets 92. She has low probability for PE in V/Q scan Patient usually use the BiPAP at night only, over the last 2 days she is using 2 and a day. Patient still wheezings and she cannot come off the BiPAP this morning without being short of breath. Chest x-ray from from yesterday reviewed Discussed with the staff 11/03/2018 Patient today presents looks better, however she still on BiPAP machine. Dr. Pringle at bedside and she was asking for palliative evaluation and consult was called. Also patient might need Aranesp today. Patient remains on steroids. Repeat chest x-ray showing new right paratracheal atelectasis or pneumonia. Patient antibiotics was increased already yesterday. Follow-up labs. Creatinine is stable at 2.8. Objective - Vital Signs Vital signs: Vital Signs Temp 97.7 F 11/03/18 07:00 Pulse 82 11/03/18 11:40 Resp 16 11/03/18 07:00 BP 174/79 11/03/18 07:00 Pulse Ox 88 L 11/03/18 07:00 Intake & Output 11/02/18 11/03/18 11/03/18 18:59 06:59 18:59 Intake Total 928 992 Balance 928 992 Weight 86.8 kg 86.8 kg Intake: Oral 928 992 Other: Voiding Method Toilet Bedside Commode Diaper Incontinent # Voids 1 3 2 - Exam GENERAL: The patient is alert and oriented x3, not in any acute distress. Well developed, well nourished. HEENT: Pupils are round and equally reacting to light. EOMI. No scleral icterus. No conjunctival pallor. Normocephalic, atraumatic. No pharyngeal erythema. No thyromegaly. CARDIOVASCULAR: S1 and S2 present. No murmurs, rubs, or gallops. -PULMONARY: Chest is clear to auscultation, scattered expiratory wheezing and prolonged expiration on both sides ABDOMEN: Soft, nontender, nondistended, normoactive bowel sounds. No palpable organomegaly. MUSCULOSKELETAL: No joint swelling or deformity. EXTREMITIES: No cyanosis, clubbing, or pedal edema. NEUROLOGICAL: Gross neurological examination did not reveal any focal deficits. SKIN: No rashes. - Labs CBC & Chem 7: 10/28/18 07:59 11/03/18 09:13 Labs: Abnormal Lab Results - Last 24 Hours (Table) 11/02/18 11/02/18 11/03/18 Range/Units 16:45 20:46 06:56 Sodium (137-145) mmol/L Chloride (98-107) mmol/L BUN (7-17) mg/dL Creatinine (0.52-1.04) mg/dL Glucose (74-99) mg/dL POC Glucose (mg/dL) 187 H 245 H 187 H (75-99) mg/dL 11/03/18 11/03/18 Range/Units 09:13 11:42 Sodium 133 L (137-145) mmol/L Chloride 96 L (98-107) mmol/L BUN 129 H* (7-17) mg/dL Creatinine 2.89 H (0.52-1.04) mg/dL Glucose 146 H (74-99) mg/dL POC Glucose (mg/dL) 167 H (75-99) mg/dL Assessment and Plan Assessment: Acute COPD exacerbation History of atrial fibrillation, rate controlled. On long-term anticoagulation. Acute kidney injury, and chronic kidney disease Elevated troponin, present on admission. Evaluated by director of hospitality. Mostly secondary to her kidney disease Chronic diastolic heart failure, Essential hypertension History of coronary artery disease CKD stage IV, Baseline creatinine near 3. History of thoracic aortic aneurysm History of gout Hypothyroidism History of constipation Plan: This is a pleasant 87 female who presents with COPD and acute kidney injury. Patient's creatinine is improved close to baseline. Her breathing is improving on therapy with steroids but to increase her frequency of the medicine. , continue antibiotics, we'll start her on Levaquin for as per pulmonary team recommendation. Continue with breathing treatment and oxygen. BiPAP therapy. Pulmonary and nephrology consult.Labs and medication were reviewed.. Continue same treatment. Continue with symptomatic treatment. Resume home medication. Monitor lytes and vitals. DVT and GI prophylaxis. Further recommendations of the clinical course of the patient DVT prophylaxis Eliquis GI Prophylaxis Protonix PT/OT Home health care Prognosis is guarded
[2018-11-03] MEDS ORDERED: DARBEPOETIN ALFA 100MCG/0.5ML SYRINGE SQ SCH (16:00)
[2018-11-03] MEDS ORDERED: DARBEPOETIN ALFA 40 MCG/0.4 ML SYRINGE SQ SCH (16:00)
[2018-11-03 17:08] LABS: Glucose,Whole Blood 143 mg/dL (75-99)
[2018-11-03 20:43] LABS: Glucose,Whole Blood 236 mg/dL (75-99)
[2018-11-03] MEDS: PARoxetine 20 MG TAB PO SCH (21:05)
[2018-11-03] MEDS: ALLOPURINOL 100 MG TAB PO SCH (21:05)
[2018-11-03] MEDS: MONTELUKAST 10 MG TAB PO SCH (21:05)
[2018-11-04] MEDS: methylPREDNISolone SOD SUCCI 40 MG/ML 1 ML VIAL IV SCH ×4 (01:18→23:25)
[2018-11-04] MEDS: PANTOPRAZOLE 40 MG TABLET PO SCH (05:12)
--- NOTE | 2018-11-04 07:15 | XR ---
EXAMINATION TYPE: XR chest 1V DATE OF EXAM: 11/04/2018 HISTORY: Shortness of breath. COMPARISON: November 03, 2017 TECHNIQUE: Single view of the chest is submitted. FINDINGS: Demonstrated are scattered senescent parenchymal change. There is no evidence for focal infiltrate. There is chronic elevation right hemidiaphragm. The heart is stable. Hilar and mediastinal structures are within normal limits. Degenerative changes are seen of the dorsal spine. IMPRESSION: 1. Chronic changes without evidence for acute pulmonary disease.
[2018-11-04 07:46] LABS: Glucose,Whole Blood 173 mg/dL (75-99)
[2018-11-04] MEDS: IPRATROPIUM-ALBUTEROL 3 ML NEB INHALATION SCH ×4 (08:16→19:45)
[2018-11-04] MEDS: BUDESONIDE 1 MG/2 ML NEBU INHALATION SCH ×2 (08:17→19:44)
[2018-11-04] MEDS: FORMOTEROL FUMARATE 20 MCG/2 ML NEBU INHALATION SCH ×2 (08:17→19:59)
[2018-11-04 08:26] LABS: Calcium 10.1 mg/dL (8.4-10.2); Potassium 4.9 mmol/L (3.5-5.1)
[2018-11-04] MEDS: METOPROLOL TARTRATE 25 MG TAB PO SCH ×2 (08:40→20:48)
[2018-11-04] MEDS: MAGNESIUM OXIDE 400 MG TAB PO SCH ×2 (08:40→20:48)
[2018-11-04] MEDS: hydrALAZINE HCL 50 MG TAB PO SCH ×2 (08:40→20:48)
[2018-11-04] MEDS: FOLIC ACID-VIT B COMPLEX-VIT C 1 CAP PO SCH (08:40)
[2018-11-04] MEDS: LEVOTHYROXINE 25 MCG TAB PO SCH (08:40)
[2018-11-04] MEDS: APIXABAN 2.5 MG TABLET PO SCH ×2 (08:40→20:48)
[2018-11-04] MEDS: INSULIN ASPART (NovoLOG) 100 UNIT/ML VIAL SQ SCH ×4 (08:41→21:08)
[2018-11-04] MEDS: amLODIPine 2.5 MG TAB PO SCH (08:41)
[2018-11-04] MEDS: FUROSEMIDE 20 MG TAB PO SCH (08:41)
[2018-11-04] MEDS: LACTULOSE 20 GM/30 ML CUP PO SCH (08:41)
[2018-11-04] MEDS ORDERED: LEVOFLOXACIN 250MG-D5W PMX 250 MG in DEXTROSE/WATER 1 50ML.BAG IVPB SCH (12:00)
--- NOTE | 2018-11-04 12:05 | P.PN ---
Subjective On-call hospitalist covering for Dr. Ohara This is a pleasant 87 years old female with past medical history of COPD on home oxygen at 2 L via NC., hypertension, congestive heart failure and atrial fibrillation, coronary artery disease, stage IV CKD, thoracic aortic aneurysm, gout, hypothyroidism, constipation. He is a patient of Dr. Alanis in the outpatient setting. Patient presents because of dyspnea Secondary to acute COPD exacerbation, he has been evaluated by advertising dispatch clerk who found her in chronic diastolic heart failure with no need for further intervention. Patient is using BiPAP at night. Her blood pressure is elevated and this morning 185/63. The urine is 1:30, creatinine 2.9. Sugar is controlled. WBC 7.2K, hemoglobin 8.5. Platelets 92. She has low probability for PE in V/Q scan Patient usually use the BiPAP at night only, over the last 2 days she is using 2 and a day. Patient still wheezings and she cannot come off the BiPAP this morning without being short of breath. Chest x-ray from from yesterday reviewed Discussed with the staff 11/03/2018 Patient today presents looks better, however she still on BiPAP machine. Dr. Pringle at bedside and she was asking for palliative evaluation and consult was called. Also patient might need Aranesp today. Patient remains on steroids. Repeat chest x-ray showing new right paratracheal atelectasis or pneumonia. Patient antibiotics was increased already yesterday. Follow-up labs. Creatinine is stable at 2.8. 11/04/2018 Patient remains dyspneic for her asthma/COPD, she was on 3-4 L oxygen via NC, saturating was well but she was tachypneic and wheezing. Patient was asked to her back on. Her blood pressures are stable and patient is afebrile. Creatinine 2.85, sodium 132, repeat chest x-ray from today showing chronic changes without acute process as per radiologist . Palliative care consult has been called upon patient and family request. Prognosis poor. . She is currently on Eliquis, looked moving and Solu-Medrol. As well as oral Lasix Objective - Vital Signs Vital signs: Vital Signs Temp 98 F 11/04/18 07:00 Pulse 77 11/04/18 08:38 Resp 16 11/04/18 07:00 BP 143/85 11/04/18 07:00 Pulse Ox 97 11/04/18 07:00 Intake & Output 11/03/18 11/04/18 11/04/18 18:59 06:59 18:59 Intake Total 1228 Output Total 175 Balance 1228 -175 Weight 86.8 kg 88.8 kg Intake: Oral 1228 Output: Urine 175 Other: Voiding Method Toilet Bedside Commode # Voids 2 2 # Bowel Movements 1 - Exam GENERAL: The patient is alert and oriented x3, not in any acute distress. Well developed, well nourished. HEENT: Pupils are round and equally reacting to light. EOMI. No scleral icterus. No conjunctival pallor. Normocephalic, atraumatic. No pharyngeal erythema. No thyromegaly. CARDIOVASCULAR: S1 and S2 present. No murmurs, rubs, or gallops. -PULMONARY: Chest is clear to auscultation, scattered expiratory wheezing and prolonged expiration on both sides ABDOMEN: Soft, nontender, nondistended, normoactive bowel sounds. No palpable organomegaly. MUSCULOSKELETAL: No joint swelling or deformity. EXTREMITIES: No cyanosis, clubbing, or pedal edema. NEUROLOGICAL: Gross neurological examination did not reveal any focal deficits. SKIN: No rashes. - Labs CBC & Chem 7: 10/28/18 07:59 11/04/18 07:27 Labs: Abnormal Lab Results - Last 24 Hours (Table) 11/03/18 11/03/18 11/04/18 Range/Units 16:57 20:30 07:27 Sodium 132 L (137-145) mmol/L BUN 133 H* (7-17) mg/dL Creatinine 2.85 H (0.52-1.04) mg/dL Glucose 150 H (74-99) mg/dL POC Glucose (mg/dL) 143 H 236 H (75-99) mg/dL 11/04/18 Range/Units 07:31 Sodium (137-145) mmol/L BUN (7-17) mg/dL Creatinine (0.52-1.04) mg/dL Glucose (74-99) mg/dL POC Glucose (mg/dL) 173 H (75-99) mg/dL Assessment and Plan Assessment: Acute COPD exacerbation History of atrial fibrillation, rate controlled. On long-term anticoagulation. Acute kidney injury, and chronic kidney disease Elevated troponin, present on admission. Evaluated by advertising dispatch clerk. Mostly secondary to her kidney disease Chronic diastolic heart failure, Essential hypertension History of coronary artery disease CKD stage IV, Baseline creatinine near 3. History of thoracic aortic aneurysm History of gout Hypothyroidism History of constipation Plan: This is a pleasant 87 female who presents with COPD and acute kidney injury. Patient's creatinine is improved close to baseline. Her breathing is improving on therapy with steroids but to increase her frequency of the medicine. , continue antibiotics, we'll start her on Levaquin for as per pulmonary team recommendation. Continue with breathing treatment and oxygen. BiPAP therapy. Pulmonary and nephrology consult.Labs and medication were reviewed.. Continue s neyda treatment. Continue with symptomatic treatment. Resume home medication. Monitor lytes and vitals. DVT and GI prophylaxis. Further recommendations of the clinical course of the patient DVT prophylaxis Eliquis GI Prophylaxis Protonix PT/OT Home health care Prognosis is guarded
[2018-11-04 12:08] LABS: Glucose,Whole Blood 164 mg/dL (75-99)
--- NOTE | 2018-11-04 14:50 | P.PN ---
Subjective Progress Note Date: 11/04/18 11/04/2017: Patient seen and examined. Patient is sitting up at the bedside on the commode. She is on 4 L nasal cannula. She states her breathing feels better today. She is less short of breath with activity. She has been hemodynamically stable. Objective - Vital Signs Vital signs: Vital Signs Temp 98 F 11/04/18 07:00 Pulse 77 11/04/18 08:38 Resp 16 11/04/18 07:00 BP 143/85 11/04/18 07:00 Pulse Ox 97 11/04/18 07:00 Intake & Output 11/03/18 11/04/18 11/04/18 18:59 06:59 18:59 Intake Total 1228 Output Total 175 Balance 1228 -175 Weight 86.8 kg 88.8 kg Intake: Oral 1228 Output: Urine 175 Other: Voiding Method Toilet Bedside Commode # Voids 2 2 # Bowel Movements 1 - Exam Gen.: Patient is alert and oriented 3, no acute distress Cardiovascular: Regular rate and rhythm, S1/S2 Lungs: Diminished breath sounds bilaterally with scattered crackles Abdomen: Soft nontender nondistended positive bowel sounds Extremities 1-2+ edema - Labs CBC & Chem 7: 10/28/18 07:59 11/04/18 07:27 Labs: Abnormal Lab Results - Last 24 Hours (Table) 11/03/18 11/03/18 11/04/18 Range/Units 16:57 20:30 07:27 Sodium 132 L (137-145) mmol/L BUN 133 H* (7-17) mg/dL Creatinine 2.85 H (0.52-1.04) mg/dL Glucose 150 H (74-99) mg/dL POC Glucose (mg/dL) 143 H 236 H (75-99) mg/dL 11/04/18 11/04/18 Range/Units 07:31 11:54 Sodium (137-145) mmol/L BUN (7-17) mg/dL Creatinine (0.52-1.04) mg/dL Glucose (74-99) mg/dL POC Glucose (mg/dL) 173 H 164 H (75-99) mg/dL Assessment and Plan Assessment: Acute exacerbation of CHF, diastolic Cardiomegaly Small bilateral pleural effusions Acute hypoxic respiratory failure Acute exacerbation of moderate COPD Recent Pseudomonas pneumonia and Influenza A Obstructive sleep apnea, compliant with CPAP Acute kidney injury on chronic kidney disease stage IV Anemia of chronic disease Depression History of coronary artery disease, stenting Thrombocytopenia Hypertension Mild PCM O2 to maintain saturation greater than or equal to 90% Steroid taper Pulmicort, Perforomist Singulair Incentive spirometry and pulmonary hygiene CPAP nightly and as needed GI and DVT prophylaxis PT and OT Humidify O2 Patient does appear slightly improved today, agree with palliative care consult
[2018-11-04 17:01] LABS: Glucose,Whole Blood 214 mg/dL (75-99)
[2018-11-04 20:25] LABS: Glucose,Whole Blood 169 mg/dL (75-99)
[2018-11-04] MEDS: ALPRAZolam 0.25 MG TAB PO PRN (20:47)
[2018-11-04] MEDS: PARoxetine 20 MG TAB PO SCH (20:48)
[2018-11-04] MEDS: MONTELUKAST 10 MG TAB PO SCH (20:48)
[2018-11-04] MEDS: ALLOPURINOL 100 MG TAB PO SCH (20:48)
--- NOTE | 2018-11-04 21:24 | PN ---
PROGRESS NOTE Patient is seen for followup for chronic kidney disease. This morning she is comfortable. She is on her BiPAP machine. Patient denies any significant complaints. She has been restarted on diuretics. PHYSICAL EXAMINATION: VITAL SIGNS: This morning, blood pressure was 143/85, heart rate of 80 per minute. She is afebrile. CARDIOVASCULAR: Examination of the heart S1, S2. LUNGS: Examination of lungs bilateral breath sounds are heard. Decreased breath sounds bases. ABDOMEN is soft, obese, nontender. EXTREMITIES: Examination lower extremities shows edema 2+ bilaterally. 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 LABS: Sodium 132, potassium 4.9, BUN of 133, and serum creatinine 2.85. ASSESSMENT: 1. Chronic kidney disease and NKF stage 4-5 with fairly stable renal function. BUN is significantly elevated secondary to steroids. The Solu-Medrol is now discontinued. 2. Volume overload maintained on oral Lasix which I will continue. 3. Multiple admissions for either volume overload or over-diuresis. There is discussion regarding palliative care, which is appropriate as patient needs close monitoring of her volume status. 4. Diastolic congestive heart failure. 5. Chronic obstructive pulmonary disease exacerbation, now improved. PLAN: Continue current dose of diuretics. Repeat labs in a.m. MMODL / IJN: [id number] /
[2018-11-05] MEDS: METOPROLOL TARTRATE 25 MG TAB PO SCH (06:22)
[2018-11-05] MEDS: LACTULOSE 20 GM/30 ML CUP PO SCH (06:22)
[2018-11-05] MEDS: APIXABAN 2.5 MG TABLET PO SCH (06:22)
[2018-11-05] MEDS: PANTOPRAZOLE 40 MG TABLET PO SCH (06:22)
[2018-11-05] MEDS: amLODIPine 2.5 MG TAB PO SCH (06:22)
[2018-11-05] MEDS: FOLIC ACID-VIT B COMPLEX-VIT C 1 CAP PO SCH (06:22)
[2018-11-05 07:06] LABS: Glucose,Whole Blood 191 mg/dL (75-99)
[2018-11-05 07:55] LABS: Calcium 9.8 mg/dL (8.4-10.2); Potassium 5.1 mmol/L (3.5-5.1)
[2018-11-05] MEDS: FORMOTEROL FUMARATE 20 MCG/2 ML NEBU INHALATION SCH (07:55)
[2018-11-05] MEDS: IPRATROPIUM-ALBUTEROL 3 ML NEB INHALATION SCH ×2 (07:55→11:49)
[2018-11-05] MEDS: BUDESONIDE 1 MG/2 ML NEBU INHALATION SCH (07:55)
[2018-11-05] MEDS: hydrALAZINE HCL 50 MG TAB PO SCH (08:12)
[2018-11-05] MEDS: FUROSEMIDE 20 MG TAB PO SCH (08:12)
[2018-11-05] MEDS: LEVOTHYROXINE 25 MCG TAB PO SCH (08:12)
[2018-11-05] MEDS: methylPREDNISolone SOD SUCCI 40 MG/ML 1 ML VIAL IV SCH (08:12)
[2018-11-05] MEDS: MAGNESIUM OXIDE 400 MG TAB PO SCH (08:12)
[2018-11-05] MEDS: INSULIN ASPART (NovoLOG) 100 UNIT/ML VIAL SQ SCH ×2 (08:13→12:07)
[2018-11-05 08:17] VITALS: TEMP 97.9
--- NOTE | 2018-11-05 11:47 | P.PN ---
Subjective Progress Note Date: 11/05/18 11/05/2018: Patient seen and examined. Patient is sitting up on the bedside commode. She is on 4 L nasal cannula. The patient states her breathing is getting better. Per nursing the patient was a little short of breath and she got out of bed but she recovered quickly. Objective - Vital Signs Vital signs: Vital Signs Temp 97.9 F 11/05/18 07:35 Pulse 98 11/05/18 08:18 Resp 15 11/05/18 07:35 BP 126/81 11/05/18 07:35 Pulse Ox 100 11/05/18 07:57 Intake & Output 11/04/18 11/05/18 11/05/18 18:59 06:59 18:59 Intake Total 240 Output Total 2 Balance -2 240 Weight 94.5 kg Intake: Oral 240 Output: Stool 2 Other: # Voids 2 1 1 # Bowel Movements 1 - Exam Gen.: Patient is alert and oriented 3, no acute distress Cardiovascular: Regular rate and rhythm, S1/S2 Lungs: Diminished breath sounds bilaterally with scattered crackles Abdomen: Soft nontender nondistended positive bowel sounds Extremities 1-2+ edema - Labs CBC & Chem 7: 10/28/18 07:59 11/05/18 07:25 Labs: Abnormal Lab Results - Last 24 Hours (Table) 11/04/18 11/04/18 11/04/18 Range/Units 11:54 16:50 20:13 Sodium (137-145) mmol/L Chloride (98-107) mmol/L BUN (7-17) mg/dL Creatinine (0.52-1.04) mg/dL Glucose (74-99) mg/dL POC Glucose (mg/dL) 164 H 214 H 169 H (75-99) mg/dL 11/05/18 11/05/18 Range/Units 07:04 07:25 Sodium 130 L (137-145) mmol/L Chloride 96 L (98-107) mmol/L BUN 139 H* (7-17) mg/dL Creatinine 2.97 H (0.52-1.04) mg/dL Glucose 159 H (74-99) mg/dL POC Glucose (mg/dL) 191 H (75-99) mg/dL Assessment and Plan Assessment: Acute exacerbation of CHF, diastolic Cardiomegaly Small bilateral pleural effusions Acute hypoxic respiratory failure Acute exacerbation of moderate COPD Recent Pseudomonas pneumonia and Influenza A Obstructive sleep apnea, compliant with CPAP Acute kidney injury on chronic kidney disease stage IV Anemia of chronic disease Depression History of coronary artery disease, stenting Thrombocytopenia Hypertension Mild PCM O2 to maintain saturation greater than or equal to 90% Steroid taper Pulmicort, Perforomist Singulair Incentive spirometry and pulmonary hygiene CPAP nightly and as needed GI and DVT prophylaxis PT and OT Humidify O2 Patient does appear slightly improved today Discharge planning, ok to DC from pulmonary standpoint
[2018-11-05 12:06] LABS: Glucose,Whole Blood 198 mg/dL (75-99)
--- NOTE | 2018-11-05 12:12 | P.PN ---
Subjective Progress Note Date: 11/05/18 Seen and examined for the follow-up of acute kidney injury. Lying comfortable in the bed. No nausea vomiting diarrhea. Appetite is good. No sleep problems. Objective - Vital Signs Vital signs: Vital Signs Temp 97.9 F 11/05/18 07:35 Pulse 98 11/05/18 11:59 Resp 15 11/05/18 07:35 BP 126/81 11/05/18 07:35 Pulse Ox 100 11/05/18 07:57 Intake & Output 11/04/18 11/05/18 11/05/18 18:59 06:59 18:59 Intake Total 240 Output Total 2 Balance -2 240 Weight 94.5 kg Intake: Oral 240 Output: Stool 2 Other: # Voids 2 1 1 # Bowel Movements 1 - Exam No acute distress S1-S2 heard Decreased breath sounds Trace edema No tremors or flap. - Labs CBC & Chem 7: 10/28/18 07:59 11/05/18 07:25 Labs: Abnormal Lab Results - Last 24 Hours (Table) 11/04/18 11/04/18 11/05/18 Range/Units 16:50 20:13 07:04 Sodium (137-145) mmol/L Chloride (98-107) mmol/L BUN (7-17) mg/dL Creatinine (0.52-1.04) mg/dL Glucose (74-99) mg/dL POC Glucose (mg/dL) 214 H 169 H 191 H (75-99) mg/dL 11/05/18 11/05/18 Range/Units 07:25 11:54 Sodium 130 L (137-145) mmol/L Chloride 96 L (98-107) mmol/L BUN 139 H* (7-17) mg/dL Creatinine 2.97 H (0.52-1.04) mg/dL Glucose 159 H (74-99) mg/dL POC Glucose (mg/dL) 198 H (75-99) mg/dL Assessment and Plan Assessment: #1 acute kidney injury secondary to cardiorenal syndrome. Elevated nightly secondary to steroids. #2 shortness of breath with COPD exacerbation. 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 Plan: #1 elevated BUNs possibilities include steroids and diuretics. Creatinine stable. Continue with Lasix and wean off steroids. #2 no uremic signs and symptoms. No indication for renal replacement therapy. #3 stable from nephrology point of view for discharge to be followed up in the office in 1-2 weeks.
[2018-11-05 13:31] VITALS: BP 130/74; PULSE 106; RESP 18
[2018-11-06] MEDS ORDERED: predniSONE 20 MG TAB PO SCH (09:00)
[2018-11-06] MEDS ORDERED: LEVOFLOXACIN 250 MG TAB PO SCH (12:00)
--- NOTE | 2018-11-06 23:05 | DS ---
DISCHARGE SUMMARY DATE OF ADMISSION: 10/28/2018. DATE OF DISCHARGE: 11/05/2018. FINAL DIAGNOSES: 1. Acute exacerbation of moderate persistent asthma. 2. Oropharyngeal thrush. 3. Chronic congestive heart failure from diastolic dysfunction EF 50-60 percent from underlying coronary artery disease with acute exacerbation. 4. Coronary artery disease with stent. 5. 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 6. Acute kidney injury from prerenal from diuresis. 7. Essential hypertension. 8. Anxiety not otherwise specified. 9. Anemia of chronic kidney disease. 10.Acute renal failure with increased BUN from steroids. 11.Paroxysmal atrial fibrillation currently in sinus rhythm. 12.Obstructive sleep apnea uses CPAP. 13.Chronic hypoxic respiratory failure on home oxygen 2 L. 14.Primary osteoarthritis. 15.Hypothyroidism. 16.Obesity; BMI 31.1. 17.Secondary pulmonary hypertension due to asthma and congestive heart failure. 18.Moderate mitral regurgitation, nonrheumatic. 19.Pulmonary cachexia. HOSPITAL COURSE: This patient presented with asthma and CHF exacerbation. Had a rather protracted hospital course. By the time of discharge, able to get to the bathroom. Doing somewhat better. Tolerating a diet. She knows that her pulmonary status is rather advanced. The patient's creatinine had gone up to 3.50, did come down to 2.97 by the time of discharge. Also followed by Nephrology. Care was discussed at length with the patient. Discussion and discharge planning more than 35 minutes. PHYSICAL EXAMINATION: Temperature 97.9, pulse 76, respiration 18, blood pressure 130/74, pulse ox 95 percent on 2 L. LUNGS: Decreased breath sounds. LABS: BUN 139, creatinine 2.97. CONSULTATIONS: Dr. Benitez and colleagues from Pulmonary. Dr. Vasquez and colleagues from Pulmonary. Dr. Moreno and associates from Cardiology. DISCHARGE MEDICATIONS: 1. Singulair 10 mg p.o. daily. 2. Allopurinol 100 mg p.o. daily. 3. Paxil 20 mg p.o. daily. 4. Renal Caps 1 mg p.o. daily. 5. Lactulose 20 grams p.o. daily. 6. Sodium bicarb 650 mg p.o. daily. 7. Requip 0.5 mg p.o. daily in the evening. 8. Synthroid 25 mcg daily. 9. Protonix 40 mg p.o. daily. 10.Norvasc 2.5 mg p.o. daily. 11.Xanax 0.25 p.o. daily in the evening. 12.Pulmicort 0.5 mg nebulizer b.i.d. 13.Eliquis 2.5 p.o. b.i.d. 14.Lopressor 50 mg b.i.d. 15.Perforomist 20 mcg b.i.d. 16.Lasix 60 mg p.o. daily. 17.DuoNeb 3 mL q.i.d. 18.Hydralazine 50 mg b.i.d. 19.Prednisone taper. FOLLOWUP: Follow up with Dr. Benitez in 1 week. Visiting Physician in [address] Melani Duffy in 1 week. Home oxygen as directed per Pulmonary. Copy to visiting physician, Dr. Harp. SHYAM / DANIEL: [id number] /
[2018-11-08 11:47] LABS: Glucose,Whole Blood 185 mg/dL (75-99)
[2018-11-08 11:47] LABS: Glucose,Whole Blood 187 mg/dL (75-99)
== END 2018-11-05 16:30 | disposition home health service (06) | DRG 202 ==
LOC: EC 15:20 → 3SCARD 18:44 → OBSVTOIN 10-28 13:56 → 4SSUR 10-30 17:13
PROVIDERS: ADMIT Hospitalist; ATTEND Hospitalist
PROC: 5A09557 Assistance with Respiratory Ventilation, Greater than 96 Consecutive Hours, Continuous Positive Airway Pressure (ICD-10-PCS; principal; 2018-10-28)
DX: J45.41 Moderate persistent asthma with (acute) exacerbation (principal); I50.33 Acute on chronic diastolic (congestive) heart failure; J96.21 Acute and chronic respiratory failure with hypoxia; I13.0 Hypertensive heart and chronic kidney disease with heart failure and stage 1 through stage 4 chronic kidney disease, or unspecified chronic kidney disease; N18.4 Chronic kidney disease, stage 4 (severe); J44.1 Chronic obstructive pulmonary disease with (acute) exacerbation; N17.9 Acute kidney failure, unspecified; E87.4 Mixed disorder of acid-base balance; L03.115 Cellulitis of right lower limb; B37.0 Candidal stomatitis; E44.1 Mild protein-calorie malnutrition; R64 Cachexia; J98.11 Atelectasis; I71.2 Thoracic aortic aneurysm, without rupture; G20 Parkinson's disease; D69.6 Thrombocytopenia, unspecified; E87.5 Hyperkalemia; I27.29 Other secondary pulmonary hypertension; I48.0 Paroxysmal atrial fibrillation; I08.3 Combined rheumatic disorders of mitral, aortic and tricuspid valves; D63.1 Anemia in chronic kidney disease; Z51.5 Encounter for palliative care; Z66 Do not resuscitate; R59.0 Localized enlarged lymph nodes; G47.33 Obstructive sleep apnea (adult) (pediatric); E87.6 Hypokalemia; R04.0 Epistaxis; I25.10 Atherosclerotic heart disease of native coronary artery without angina pectoris; F41.9 Anxiety disorder, unspecified; F32.9 Major depressive disorder, single episode, unspecified; M10.9 Gout, unspecified; M19.91 Primary osteoarthritis, unspecified site; I25.2 Old myocardial infarction; K59.00 Constipation, unspecified; K64.9 Unspecified hemorrhoids; R32 Unspecified urinary incontinence; E03.9 Hypothyroidism, unspecified; R77.8 Other specified abnormalities of plasma proteins; T38.0X5A Adverse effect of glucocorticoids and synthetic analogues, initial encounter; T50.2X5A Adverse effect of carbonic-anhydrase inhibitors, benzothiadiazides and other diuretics, initial encounter; E66.9 Obesity, unspecified; Z68.31 Body mass index [BMI] 31.0-31.9, adult; Z79.01 Long term (current) use of anticoagulants; Z79.890 Hormone replacement therapy; Z79.51 Long term (current) use of inhaled steroids; Z79.899 Other long term (current) drug therapy; Z99.89 Dependence on other enabling machines and devices; Z99.81 Dependence on supplemental oxygen; Z90.49 Acquired absence of other specified parts of digestive tract; Z95.5 Presence of coronary angioplasty implant and graft; Z87.01 Personal history of pneumonia (recurrent); Z96.653 Presence of artificial knee joint, bilateral; Z90.721 Acquired absence of ovaries, unilateral; Z88.5 Allergy status to narcotic agent; Z88.0 Allergy status to penicillin; Z88.2 Allergy status to sulfonamides; Z88.8 Allergy status to other drugs, medicaments and biological substances; Z82.49 Family history of ischemic heart disease and other diseases of the circulatory system
CPT/HCPCS: 36415; 71045; 71046; 78582; 80048; 80053; 82728; 83540; 83550; 83735; 83880; 84484; 85025; 85379; 85610; 85730; 93005; 94640; 94644; 94760; 96374; 96375; 99285